=== PATIENT | female | born 1940 | race Caucasian/White ===

== ENCOUNTER 2020-03-25 08:39 | Outpatient (REF) | payer MEDICARE, SELFPAY ==
--- NOTE | 2020-03-25 09:18 | XR_ITS ---
EXAMINATION: XR HIP, RIGHT CLINICAL INFORMATION: Right hip osteoarthritis. COMPARISON: Radiograph dated 12/04/2010. TECHNIQUE: AP and frog-leg lateral views of the right hip. FINDINGS: Bony alignment and mineralization are normal. There is mild narrowing of the superomedial right acetabular joint space. The right acetabular roof shows mild subchondral sclerosis and peripheral osteophyte formation. The right femoral head remains smooth. Healing fractures are redemonstrated of the right superior and inferior pubic rami medially, with callus formation and persistent fracture lines. No dislocation is seen. There are calcified pelvic phleboliths. There are femoral atherosclerotic calcifications. No foreign body is seen IMPRESSION: 1. There is mild osteoarthritic change of the right hip. 2. There are healing fractures of the superior and inferior right pubic rami, with callus formation persistent fracture lines.
[2020-03-25 09:43] LABS: MANUAL DIFF FLAG NO
[2020-03-25 09:47] LABS: Eosinophils Absolute Auto 0.1 X10*3/uL (0.0-0.4); Eosinophils Percent Auto 1.2 % (0-4); Hematocrit 39.4 % (37-47); Hemoglobin 13.4 g/dl (12.0-16.0); Imm Gran Abs Auto 0.01 X10*3/uL (0.00-0.03); Imm Gran Pct Auto 0.1 % (0.0-0.4); Lymphocytes Percent Auto 27.7 % (20-40); Mean Corpuscular Hemoglobin 31.5 pg (27.0-33.0); Mean Corpuscular Volume 92.5 fL (80-98); Mean Platelet Volume 10.9 fL (9.4-12.3); Monocytes Absolute Auto 0.9 X10*3/uL (0.1-1.2); Monocytes Percent Auto 11.7 % (2-11); Neutrophils Absolute Auto 4.3 X10*3/uL (2.0-8.3); Neutrophils Percent Auto 59.3 % (45-73); Platelet Count 254 X10*3/uL (160-400); Red Blood Count 4.26 X10*6/uL (4.20-5.50); Red Cell Distribution Width 12.9 % (11.0-16.0); White Blood Count 7.3 X10*3/uL (4.8-10.8)
[2020-03-25 10:16] LABS: Alanine Aminotransferase 19 U/L (0-31); Albumin Level 4.2 g/dL (3.5-5.0); Alkaline Phosphatase 113 U/L (39-117); Anion Gap 11 (12-20); Aspartate Amino Transferase 22 U/L (5-31); Bilirubin Total 0.2 mg/dL (0.0-1.0); Blood Urea Nitrogen 10 mg/dL (9-16); Calcium 9.2 mg/dL (8.4-10.2); Carbon Dioxide 28 mmol/L (22-29); Chloride 100 mmol/L (96-108); Cholesterol 227 mg/dL; Estimated Glomerular Filt Rate > 60; Glucose Random 111 mg/dL (60-115); HDL Cholesterol 66 mg/dL; LDL Cholesterol Calculated 137 mg/dl; Potassium 4.1 mmol/l (3.3-5.1); Sodium 135 mmol/L (135-145); Total Protein 6.9 g/dL (6.5-8.0); Triglycerides 122 mg/dL
[2020-03-25 10:25] LABS: Vitamin D 25-OH Total 35.9 ng/mL (>30)
== END 2020-03-25 08:40 | disposition home or self-care (01) ==
LOC: HO.LAB 08:39
PROVIDERS: PCP Internal Medicine; Visit Provider Internal Medicine
DX: F32.5 Major depressive disorder, single episode, in full remission (principal); I10 Essential (primary) hypertension; M16.11 Unilateral primary osteoarthritis, right hip
CPT/HCPCS: 36415; 73502; 80053; 80061; 82306; 84443; 85025

== ENCOUNTER 2020-04-29 07:35 | Emergency (ER) | payer MEDICARE, SELFPAY ==
--- NOTE | 2020-04-29 07:47 | ED.URI ---
HPI - URI/Sore Throat General Chief Complaint: Nausea/Vomiting/Diarrhea Stated Complaint: DRY COUGH WEAKNESS Time Seen by Provider: 04/29/20 07:47 Source: patient Mode of arrival: ambulatory Limitations: no limitations History of Present Illness MD elicited complaint: cough and other (nausea, just doesn't feel well ) Onset (ago): day(s) (3 days ago) Consistency: constant Severity: mild Able to tolerate fluids by mouth: Yes Exacerbating factors: nothing Relieving factors: nothing Associated symptoms: myalgias, cough (dry) and nausea Related Data Previous Rx's Medication Instructions Recorded cefuroxime axetil 250 mg PO BID 7 Days #14 tab 04/29/20 ondansetron 4 mg PO Q8H PRN #20 tab 04/29/20 Allergies Allergy/AdvReac Type Severity Reaction Status Date / Time No Known Allergies Allergy Mild NOT Unverified 03/03/20 15:27 APPLICABLE Review of Systems Review of Systems: Constitutional : No Weight loss, No Fever, No Chills ENT/Mouth : No sore throat, No Rhinorrhea Eyes: No Swelling, No Redness Cardiovascular : No Chest Pain, No SOB, No Edema Respiratory : pos Cough, No Sputum, No Wheezing Gastrointestinal : Positive Nausea, no Vomiting, no Diarrhea, no abdominal Pain, No Hematochezia, No Melena Genitourinary : No Dysuria, No Urinary Frequency, No Hematuria, No Urgency Musculoskeletal : No joint pain, No Myalgias, No Joint Swelling Skin : No Skin Lesions, No rash Neuro : No Weakness, No Numbness, No Dizziness, No Headache Psych : No Anxiety/Panic, No Depression Heme/Lymph: No Bruising, No Lymphadenopathy Endocrine : No Polyuria, No Polydipsia All other systems reviewed and are negative. FOR[facility]LY [facility] Past Medical History Attestation statement: The following information was validated with the patient. Medical History (Updated 04/29/20 @ 09:58 by Sadia London DO) Hypertension Surgical History (Updated 04/29/20 @ 08:03 by Sadia London DO) Hx of breast reduction, elective Social History Social History (Updated 04/29/20 @ 08:03 by Sadia London DO) Smoking Status: Never smoker Use of substances other than those prescribed or required for medical reasons: No Advance Directives: No Advance Directives Information Provided: Yes Physical Exam Vital Signs: Vital Signs: Last Vital Signs Temp 98.2 F 04/29/20 07:54 Pulse 67 04/29/20 08:00 Resp 16 04/29/20 08:00 BP 142/75 H 04/29/20 08:00 Pulse Ox 97 04/29/20 08:18 Body Mass Index 25.0 Course Course Course Narrative: patient has UTI will prescribe antibiotics no fevers, no WBC count, can tolerate PO MDM - URI/Sore Throat MDM Narrative Medical decision making narrative: 79 yo female with hx of HTN here with nausea and cough/body aches just doesn't feel well, no CP, no abdominal pain or ttp at this time will obtain labs, EKG, CXR, COVID swab, IV zofran, dispo per results and improvement Medical Records Attestation: I reviewed the patient's medical records. Lab Data Result diagrams: 04/29/20 08:13 04/29/20 08:13 Labs: Lab Results 04/29/20 04/29/20 04/29/20 Range/Units 08:13 08:13 08:13 WBC 9.1 (4.8-10.8) X10*3/uL RBC 4.18 L (4.20-5.50) X10*6/uL Hgb 13.0 (12.0-16.0) g/dl Hct 39.4 (37-47) % MCV 94.3 (80-98) fL MCH 31.1 (27.0-33.0) pg MCHC 33.0 (31.0-35.0) g/dl RDW 13.1 (11.0-16.0) % Plt Count 271 (160-400) X10*3/uL MPV 9.4 (9.4-12.3) fL Immature Gran % (Auto) 0.2 (0.0-0.4) % Neut % (Auto) 65.9 (45-73) % Lymph % (Auto) 23.2 (20-40) % [place] % (Auto) 9.4 (2-11) % Eos % (Auto) 1.2 (0-4) % Baso % (Auto) 0.1 (0-2) % Lymph # (Auto) 2.1 (1.2-4.9) X10*3/uL [place] # (Auto) 0.9 (0.1-1.2) X10*3/uL Eos # (Auto) 0.1 (0.0-0.4) X10*3/uL Baso # (Auto) 0.0 (0.0-0.2) X10*3/uL Abs Immat Gran (auto) 0.02 (0.00-0.03) X10*3/uL Absolute Neuts (auto) 6.0 (2.0-8.3) X10*3/uL Absolute Nucleated RBC 0.000 (0.0-0.012) X10*3/uL Nucleated RBC % (auto) 0.0 (0.0-0.2) /100WBC Hold Blue Top SEE NOTE Sodium 137 (135-145) mmol/L Potassium 4.3 (3.3-5.1) mmol/l Chloride 102 (96-108) mmol/L Carbon Dioxide 26 (22-29) mmol/L Anion Gap 13 (12-20) BUN 11 (9-16) mg/dL Creatinine 0.70 (0.5-1.4) mg/dL Estim Creat Clear Calc 64.6 Estimated GFR > 60 Random Glucose 100 (60-115) mg/dL Calcium 8.9 (8.4-10.2) mg/dL Magnesium 2.0 (1.6-2.6) mg/dL Total Bilirubin 0.6 (0.0-1.0) mg/dL Direct Bilirubin 0.2 (0.0-0.5) mg/dL AST 19 (5-31) U/L ALT 14 (0-31) U/L Alkaline Phosphatase 98 (39-117) U/L Troponin I High Sens (<3.5-17.0) ng/L Total Protein 6.8 (6.5-8.0) g/dL Albumin 4.0 (3.5-5.0) g/dL Lipase 24 (8-78) U/L Urine Color Urine Appearance Urine pH (5.0-8.0) Ur Specific Pep (1.005-1.025) Urine Protein (NEG-TRACE) MG/DL Urine Glucose (UA) (NEG) MG/DL Urine Ketones (NEG) MG/DL Urine Blood (NEG) Urine Nitrite (NEG) Ur Leukocyte Esterase (NEG) Coronavirus (PCR) (Negative) Influenza Type A (PCR) (Negative) Influenza Type B (PCR) (Negative) RSV RNA Qual (PCR) (Negative) 04/29/20 04/29/20 04/29/20 Range/Units 08:13 08:13 09:36 WBC (4.8-10.8) X10*3/uL RBC (4.20-5.50) X10*6/uL Hgb (12.0-16.0) g/dl Hct (37-47) % MCV (80-98) fL MCH (27.0-33.0) pg MCHC (31.0-35.0) g/dl RDW (11.0-16.0) % Plt Count (160-400) X10*3/uL MPV (9.4-12.3) fL Immature Gran % (Auto) (0.0-0.4) % Neut % (Auto) (45-73) % Lymph % (Auto) (20-40) % Juncos % (Auto) (2-11) % Eos % (Auto) (0-4) % Baso % (Auto) (0-2) % Lymph # (Auto) (1.2-4.9) X10*3/uL [place] # (Auto) (0.1-1.2) X10*3/uL Eos # (Auto) (0.0-0.4) X10*3/uL Baso # (Auto) (0.0-0.2) X10*3/uL Abs Immat Gran (auto) (0.00-0.03) X10*3/uL Absolute Neuts (auto) (2.0-8.3) X10*3/uL Absolute Nucleated RBC (0.0-0.012) X10*3/uL Nucleated RBC % (auto) (0.0-0.2) /100WBC Hold Blue Top Sodium (135-145) mmol/L Potassium (3.3-5.1) mmol/l Chloride (96-108) mmol/L Carbon Dioxide (22-29) mmol/L Anion Gap (12-20) BUN (9-16) mg/dL Creatinine (0.5-1.4) mg/dL Estim Creat Clear Calc Estimated GFR Random Glucose (60-115) mg/dL Calcium (8.4-10.2) mg/dL Magnesium (1.6-2.6) mg/dL Total Bilirubin (0.0-1.0) mg/dL Direct Bilirubin (0.0-0.5) mg/dL AST (5-31) U/L ALT (0-31) U/L Alkaline Phosphatase (39-117) U/L Troponin I High Sens 3.8 (<3.5-17.0) ng/L Total Protein (6.5-8.0) g/dL Albumin (3.5-5.0) g/dL Lipase (8-78) U/L Urine Color STRAW Urine Appearance HAZY Urine pH 6.0 (5.0-8.0) Ur Specific Pep 1.010 (1.005-1.025) Urine Protein NEG (NEG-TRACE) MG/DL Urine Glucose (UA) NEG (NEG) MG/DL Urine Ketones NEG (NEG) MG/DL Urine Blood NEG (NEG) Urine Nitrite POS H (NEG) Ur Leukocyte Esterase TRACE H (NEG) Coronavirus (PCR) NEGATIVE (Negative) Influenza Type A (PCR) NEGATIVE (Negative) Influenza Type B (PCR) NEGATIVE (Negative) RSV RNA Qual (PCR) NEGATIVE (Negative) ECG Data Attestation: I personally reviewed and interpreted this ECG as follows: ECG interpretation date: 04/29/20 ECG interpretation time: 08:39 Interpretation: Rate: 63 Rhythm: NSR Only: normal Normal P waves. Normal ANY. Normal QRS complex. ST T wave : normal qTC: normal prior studies: no acute ischemia The study has been interpreted contemporaneously by me. . Discharge Plan Discharge Clinical Impression: Nausea, Acute UTI Patient Disposition: Home, Self-Care Instructions: Acute Nausea and Vomiting (ED), Urinary Tract Infection in Older Adults (ED) Additional Instructions: return to ED for any worsening symptoms or concerns Prescriptions: New ondansetron 4 mg tablet,disintegrating 4 mg PO Q8H PRN (Reason: nausea and vomiting) Qty: 20 RF: 0 cefuroxime axetil 250 mg tablet 250 mg PO BID 7 Days Qty: 14 RF: 0 Referrals: Veena Meyer MD [Primary Care Provider] - 2 days (if not better)
--- NOTE | 2020-04-29 07:53 | XR_ITS ---
EXAMINATION: XR CHEST CLINICAL INFORMATION: Dyspnea COMPARISON: None TECHNIQUE: Frontal view of the chest was obtained. FINDINGS: The cardiac and mediastinal contours are normal. The lungs are clear. There is no pleural effusion or pneumothorax. There are degenerative changes of the spine. There is increased sclerosis of the right proximal humerus probably representing a bone island. XR/XR chest 1V IMPRESSION: No evidence for acute disease in the chest.
--- NOTE | 2020-04-29 07:53 | ECG_ITS ---
Test Reason : SOB Blood Pressure : / mmHG Vent. Rate : 063 BPM Atrial Rate : 063 BPM P-R Int : 190 ms QRS Dur : 080 ms QT Int : 426 ms P-R-T Axes : 014 000 034 degrees QTc Int : 435 ms Normal sinus rhythm with sinus arrhythmia Normal ECG When compared with ECG of 31-DEC-2012 10:59, No significant change was found Referred By: Sadia London Electronically Signed By:AUGUSTA OCONNOR MD
[2020-04-29 07:54] VITALS: BP 142/75; PULSE 67; RESP 16; TEMP 36.8; O2SAT 96; BMI 25.0
[2020-04-29 08:00] VITALS: BP 142/75; PULSE 67; RESP 16
[2020-04-29 08:18] VITALS: O2SAT 97
[2020-04-29 08:27] LABS: Basophils Percent Auto 0.1 % (0-2); Eosinophils Absolute Auto 0.1 X10*3/uL (0.0-0.4); Eosinophils Percent Auto 1.2 % (0-4); Hematocrit 39.4 % (37-47); Imm Gran Abs Auto 0.02 X10*3/uL (0.00-0.03); Imm Gran Pct Auto 0.2 % (0.0-0.4); Lymphocytes Absolute Auto 2.1 X10*3/uL (1.2-4.9); Lymphocytes Percent Auto 23.2 % (20-40); MANUAL DIFF FLAG NO; Mean Corpuscular Hemoglobin 31.1 pg (27.0-33.0); Mean Corpuscular Volume 94.3 fL (80-98); Mean Platelet Volume 9.4 fL (9.4-12.3); Monocytes Absolute Auto 0.9 X10*3/uL (0.1-1.2); Monocytes Percent Auto 9.4 % (2-11); Neutrophils Percent Auto 65.9 % (45-73); Platelet Count 271 X10*3/uL (160-400); Red Blood Count 4.18 X10*6/uL (4.20-5.50); Red Cell Distribution Width 13.1 % (11.0-16.0); White Blood Count 9.1 X10*3/uL (4.8-10.8)
[2020-04-29] MEDS: 0.9 % Sodium Chloride 500 ML IV (08:38)
[2020-04-29] MEDS: ondansetron HCL 4 MG/2 ML VIAL IVPUSH (08:39)
[2020-04-29 08:56] LABS: Alanine Aminotransferase 14 U/L (0-31); Alkaline Phosphatase 98 U/L (39-117); Anion Gap 13 (12-20); Aspartate Amino Transferase 19 U/L (5-31); Bilirubin Direct 0.2 mg/dL (0.0-0.5); Bilirubin Total 0.6 mg/dL (0.0-1.0); Blood Urea Nitrogen 11 mg/dL (9-16); Calcium 8.9 mg/dL (8.4-10.2); Carbon Dioxide 26 mmol/L (22-29); Chloride 102 mmol/L (96-108); Creatinine Clr Calc Pharmacy 64.6; Estimated Glomerular Filt Rate > 60; Glucose Random 100 mg/dL (60-115); Lipase 24 U/L (8-78); Potassium 4.3 mmol/l (3.3-5.1); Sodium 137 mmol/L (135-145); Total Protein 6.8 g/dL (6.5-8.0)
[2020-04-29 09:01] LABS: Troponin-I High Sensitivity 3.8 ng/L (<3.5-17.0)
[2020-04-29 09:29] LABS: Influenza A PCR NEGATIVE (Negative); Influenza B PCR NEGATIVE (Negative); Resp Syncy Virus RNA Qual PCR NEGATIVE (Negative); SARS COV2 PCR INHOUSE NEGATIVE (Negative)
[2020-04-29 09:47] LABS: Glucose Urine UA NEG (NEG); Leukocyte Esterase Urine TRACE (NEG); Nitrite Urine POS (NEG); Urine Blood NEG (NEG); Urine Ketones NEG (NEG); Urine Protein NEG (NEG-TRACE)
[2020-04-29 09:49] LABS: Appearance Urine HAZY; Color Urine STRAW
[2020-04-29 09:57] LABS: Bacteria Urine 4+ /LPF; RBC Urine 0 /HPF (0)
[2020-04-29 10:31] VITALS: BP 137/71; PULSE 66; RESP 14; TEMP 36.7
== END 2020-04-29 10:56 | disposition home or self-care (01) ==
PROVIDERS: Emergency Provider Emergency Medicine; PCP Internal Medicine
DX: N39.0 Urinary tract infection, site not specified (principal); R05 Cough; Z79.899 Other long term (current) drug therapy; Z20.828 Contact with and (suspected) exposure to other viral communicable diseases
CPT/HCPCS: 0241U; 36415; 71045; 80048; 80076; 81001; 83690; 83735; 84484; 85025; 87086; 87088; 87186; 93005; 96361; 96374; 99284; 99285; J2405

== ENCOUNTER 2020-09-20 08:36 | Outpatient (REF) | payer MEDICARE, SELFPAY ==
--- NOTE | ~2020-09-20 | MM_ITS ---
EXAMINATION: BONE DENSITOMETRY CLINICAL INDICATION: Menopausal. COMPARISON: Baseline BD dated 01/17/2012. TECHNIQUE: Using a [employer] DXA System (software version: 13.1) manufactured by [id number], dual-energy x-ray absorptiometry was performed of the lumbar spine and left hip. The images are of good technical quality. Summary results are attached. FINDINGS: AP SPINE L1-L2 (excluding L3 and L4): The data of L1-L4 has been changed to exclude the L3 and L4 vertebral bodies, because degenerative changes at these levels may cause overestimation of lumbar spine density. Current: BMD 0.790 g/cm2, Z-score -1.4, T-score -3.1, osteoporosis, 13.1% decrease from baseline (<5% change is not significant). Baseline: BMD 0.909 g/cm2. LEFT FEMUR, NECK: Current: BMD 0.975 g/cm2, Z-score 1.7, T-score -0.5, normal. Baseline: BMD 0.992 g/cm2. LEFT FEMUR, TOTAL: Current: BMD 1.031 g/cm2, Z-score 2.2, T-score 0.2, normal, 0.2% decrease from baseline (<5% change is not significant). Baseline: BMD 1.033 g/cm2. IDENTIFIED RISK FACTORS: Menopause, history of fracture (adult), height loss, family history (parental hip fracture). HISTORY OF FRACTURE: Pubic ramus. MEDICATIONS: Vitamin D, multivitamin. MM/XR DEXA axial skeleton IMPRESSION: 1. DIAGNOSIS: Osteoporosis based on the lowest T-score value of -3.1 in the lumbar spine applying World Health Organization criteria. 2. 10-YEAR FRACTURE RISK PREDICTION, FRAX: Major osteoporotic fracture (clinical spine, forearm, hip or shoulder) 22.2%. Hip fracture 9.0%. 3. Treatment Recommendations: NOF guidelines recommend consideration for treatment in postmenopausal women and men age 50 and older presenting with the following: -A hip or vertebral (clinical or morphometric) fracture. -T-score less than or equal to -2.5 at the femoral neck or spine after appropriate evaluation to exclude secondary causes. -Low bone mass at the hip or spine and a 10-year fracture probability by FRAX of greater than or equal to 3% for hip fracture or greater than or equal to 20% for major osteoporotic fracture based on the [place] adapted WHO algorithm. 4. Other Recommendations: All treatment decisions require clinical judgment and consideration of individual patient factors, including patient preferences, comorbidities, previous drug use, risk factors not captured in the FRAX model (e.g. frailty, falls, vitamin D deficiency, increased bone turnover, interval significant decline in bone density) and possible under or overestimation of fracture risk by FRAX. Additional medical evaluation for secondary cause of low bone mineral density may be appropriate. FUTURE SCAN RECOMMENDATION: People with diagnosed cases of osteoporosis or at high risk for fracture should have regular bone mineral density tests. For patients eligible for Medicare, routine testing is allowed once every 2 years. The testing frequency can be increased to one year for patients who have rapidly progressing disease, those who are receiving or discontinuing medical therapy to restore bone mass, or have additional risk factors.
--- NOTE | ~2020-09-20 | MM_ITS ---
EXAMINATION: MM SCREENING DIGITAL BREAST TOMOSYNTHESIS, BILATERAL CLINICAL INFORMATION: Screening. Asymptomatic. The lifetime risk of breast cancer based on the Tyrer-Cuzick Model is 2%. COMPARISON: Mammography: 04/06/2015, 03/17/2014 TECHNIQUE: Digital breast tomosynthesis is performed in both the craniocaudal and mediolateral oblique views along with computer-aided detection (CAD). Synthesized 2D images are generated from the tomosynthesis. Additional left MLO view is provided. FINDINGS: The breasts are heterogeneously dense, which may obscure small masses (ACR BI-RADS breast composition Category c). Parenchymal pattern is similar to prior studies. There are scattered stable fibroglandular asymmetries and fibronodular pattern. There is no interval mass or architectural abnormality or abnormal calcifications. Again, biopsy clip marker is noted anterior 11:30 right breast. No significant changes. MM/MM tomosynthesis screening BI IMPRESSION: No mammographic evidence of malignancy. ASSESSMENT: BI-RADS 2: Benign RECOMMENDATION: Routine annual mammography screening. This patient's information was entered into a reminder system with a target due date for their next mammogram.
== END 2020-09-20 08:37 | disposition home or self-care (01) ==
LOC: HO.MAMMO 08:36
PROVIDERS: PCP Internal Medicine; Visit Provider Internal Medicine
DX: Z12.31 Encounter for screening mammogram for malignant neoplasm of breast (principal); Z78.0 Asymptomatic menopausal state; R29.890 Loss of height; R06.02 Shortness of breath; I50.30 Unspecified diastolic (congestive) heart failure
CPT/HCPCS: 77063; 77067; 77080

== ENCOUNTER → 2020-10-31 10:24 | Outpatient (REF) | payer MEDICARE, SELFPAY ==
--- NOTE | 2020-10-31 10:30 | CA_ITS ---
Transthoracic Echocardiogram Patient (Last, First, Middle): Christina Chavez, Gender: Female Date of : 1940 Age: 80 Procedure Date: 10/31/2020 Procedure Type: Transthoracic Echocardiogram Location: OP Height: 172.72 cm Weight: 72.58 kg BSA: 1.86 m2 Heart Rate: bpm BP: 150 / 80 mmHg Bus System Operator: GRECIA Ibarra MD: Duane Purvis MD Technical Support Specialist: Neftaly Noland MD Symptoms: SOB, ABN NORMAL STUDY 2012, R/O CHF Study Quality: Fair Conclusions: - 1. Normal LV systolic function with pseudonormal filling pattern 2. Moderately dilated left atrium 3. Mild aortic regurgitation 4. Normal RV systolic pressure 5. No pericardial effusion Findings Left Ventricle Normal left ventricular size, thickness, and systolic function. The visually estimated ejection fraction is between 55-60%. Spectral Doppler is indicative of a pseudonormal filling pattern. E/E prime ratio is between 8 and 15 consistent with indeterminate filling pressures. Right Ventricle Normal right ventricular cavity size and systolic function. Atria The left atrium is moderately dilated. There is a mobile atrial septum noted. Interatrial shunt cannot be excluded. The right atrium is mildly dilated. Aortic Valve The aortic valve structure and function is likely normal. There is no aortic valve stenosis. There is mild aortic valve regurgitation. Mitral Valve There is mild anterior and moderate posterior mitral leaflet thickening. There is trace mitral valve regurgitation. There is no mitral valve stenosis. Pulmonic Valve The pulmonic valve was not well visualized. Tricuspid Valve Likely normal tricuspid valve structure and function. There is mild tricuspid valve regurgitation. The right ventricular systolic pressure is normal. The right ventricular systolic pressure is 33 mmHg. Normal right atrial pressure. There is no evidence of pulmonary hypertension. Great Vessels All visible segments of the aorta are normal in size. The pulmonary artery was not well visualized. Venous The inferior vena cava is normal in size and collapses greater than 50% with inspiration. Pericardium/Pleural There is no evidence of pericardial effusion. Prior Study Comparison No previous study in the last 5 years for comparison Measurements 2D Linear Measurements IVSd: 1.11 0.6-0.9/0.6-1.0 cm LVIDd: 5.08 3.9-5.3/4.2-5.9 cm LVIDd Index: 2.73 2.4-3.2/2.2-3.1 cm/m2 LVIDs: 3.35 2.0-3.6 cm LVPWd: 1.04 0.7-1.1 cm Ao Root: 3.70 2.1-3.5 cm LA Diam: 4.20 2.7-3.8/3.0-4.0 cm LAIDs Index: 2.26 1.5-2.3 cm/m2 LV Mass: 256.71 67-162/88-224 g LV Mass Index: 138.02 43-95/49-115 g/m2 LVOT Diam: 2.20 3.0+(-)1.3 cm 2D Systolic Function EF 4C: 55.90 >55% EF 2C: 60.50 >55% EF BiP: 57.70 >55% Mitral Valve MV Pk E: 0.73 MV PK A: 0.59 MV Decel Time: 316.00 E/A: 1.20 E'Lateral: 7.18 E'Medial: 6.96 E/E' Med: 10.50 E/E' Lat: 10.10 PHT: 93.00 MVA PHT: 2.37 Decel [place]: 2.30 Aortic Valve AoV Pk Rivera: 1.26 AoV Mn Rivera: 0.85 AoV VTI: 0.31 AoV Pk Grad: 6.00 Aov Mn Grad: 3.00 JOHNNY Cont.VTI: 2.89 LVOT LVOT Pk Rivera: 1.05 LVOT Mn Rivera: 0.67 LVOT VTI: 0.23 LVOT Pk Grad: 4.00 LVOT Mn Grad: 2.00 LVOT Diam: 2.20 LVOT Area: 3.80 Diastolic Function MV Pk E: 0.73 MV Pk A: 0.59 E/A: 1.20 E'Medial: 6.96 E/E' Med: 10.50 E' Laterial: 7.18 E/E' Lat: 10.10 Tricuspid Valve TR Pk Rivera: 2.48 TR Pk Grad: 25.00 RA Press: 8.00 RVSP: 33.00 Great Vessels Aorta Ao Root-2D: 3.70 2.0-3.7 cm Ao Asc: 3.70 2.1-3.4 cm Ao Arch: 2.80 Updated in Other Vendor System with Status of Final Neftaly Noland MD electronically signed on 10/31/2020 12:29:11 PM with status of Final
== END ==
LOC: HO.CARD 10:24
PROVIDERS: PCP Internal Medicine; Visit Provider Internal Medicine
DX: R06.02 Shortness of breath (principal)
CPT/HCPCS: 93306

== ENCOUNTER 2020-12-05 08:10 | Outpatient (REF) | payer MEDICARE, SELFPAY ==
--- NOTE | ~2020-12-05 | XR_ITS ---
EXAMINATION: XR FEMUR, RIGHT CLINICAL INFORMATION: Pain mid femur. Question fracture. COMPARISON: Previous x-rays September and March 2020 TECHNIQUE: AP and lateral views of the right femur were obtained. FINDINGS: No acute fracture or dislocation is seen. There is evidence of old healed right pubic rami fractures. There is mild arthritis at the right hip joint. Joint space narrowing and osteophyte formation. There are small osteophytes at the medial femoral tibial joint of the knee. There is soft tissue arterial calcification. XR/XR femur RT 2V IMPRESSION: No acute fracture is seen. Old fractures of the right pubic symphysis. Mild arthritis at the right hip and knee joints.
== END 2020-12-05 08:11 | disposition home or self-care (01) ==
LOC: HO.XRAY 08:10
PROVIDERS: PCP Internal Medicine; Visit Provider Internal Medicine
DX: M79.661 Pain in right lower leg (principal); M25.551 Pain in right hip
CPT/HCPCS: 73552

== ENCOUNTER 2021-11-27 12:20 | Outpatient (REF) | payer MEDICARE, SELFPAY ==
[2021-11-27 13:00] LABS: COVID-19 Test Positive (Negative); IDNOW Serial# 08D9AD1C
== END 2021-11-27 12:21 | disposition home or self-care (01) ==
LOC: HO.LAB 12:20
PROVIDERS: Visit Provider Internal Medicine
DX: Z20.822 Contact with and (suspected) exposure to COVID-19 (principal)
CPT/HCPCS: 87635; C9803

== ENCOUNTER 2022-03-07 15:07 | Observation (INO) | payer MEDICARE, SELFPAY ==
--- NOTE | ~2022-03-07 | XR_ITS ---
EXAMINATION: XR CHEST CLINICAL INFORMATION: Chest pain COMPARISON: 04/29/2020 TECHNIQUE: Frontal view of the chest was obtained. FINDINGS: No significant abnormality is noted involving the heart, lungs, mediastinum, bony thorax or soft tissues. 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 XR/XR chest 1V IMPRESSION: No acute intrathoracic disease.
--- NOTE | ~2022-03-07 | CT_ITS ---
EXAMINATION: CT ABDOMEN AND PELVIS WITH CONTRAST CLINICAL INFORMATION: Weight loss. Lack stool. COMPARISON: CT abdomen pelvis 12/31/2012 TECHNIQUE: Multidetector volumetric images were obtained from the superior aspect of the liver through the pubic symphysis following administration 85 mL of Omnipaque 350 intravenous contrast. Sagittal and coronal reformatted images were obtained on the technologist's workstation. Oral contrast: No This CT examination was performed using dose optimization techniques as appropriate, variously including the following: *Automated exposure control *Adjustment of mA and/or kV according to patient size (this includes techniques or standardized protocols for targeted exams where dose is matched to indication/reason for exam; i.e. extremities or head) *Use of iterative reconstruction technique DLP: 469 mGy-cm FINDINGS: LUNG BASES: Stable 6 mm nodule in the right middle lobe image 02/07 series 7. Unchanged since 2012. No further follow-up imaging recommended.. There are calcification of coronary arteries. LIVER, GALLBLADDER, AND BILIARY TREE: The liver is normal in size, shape, and attenuation. No focal hepatic lesion or biliary ductal dilatation is present. The gallbladder is unremarkable with no evidence of radiopaque gallstones, gallbladder wall thickening, or obvious pericholecystic inflammatory changes. PANCREAS: Unremarkable. SPLEEN: Small splenule at the splenic hilum. No splenic mass. ADRENAL GLANDS: Calcification right adrenal gland. Left adrenal gland is normal KIDNEYS AND URETERS: The kidneys are normal in size, shape, and attenuation. No hydronephrosis, hydroureter, or calculi seen. No perinephric stranding. BLADDER: Unremarkable. GASTROINTESTINAL TRACT: There are numerous diverticula throughout the colon. There is no diverticulitis. There is no bowel wall thickening /edema. There is no bowel obstruction. There is a moderate volume of stool in the colon. The appendix is normal . The small bowel loops are unremarkable. The stomach is normal. There is no hiatal hernia. ABDOMINAL WALL: No significant hernia is appreciated. LYMPH NODES: Normal. VASCULAR: Vascular calcifications in the abdomen and pelvis. There is no aneurysm. PELVIC VISCERA: Unremarkable. OSSEOUS STRUCTURES: Multilevel degenerative spondylosis spine. Grade 1 anterolisthesis of L5 on S1 due to facet joint disease. No spondylolysis. Moderate degenerative joint disease of the right hip. Residual deformity from old healed fracture of the right superior and inferior pubic ramus CT/CT abdomen pelvis w IV con IMPRESSION: No acute abnormality CT scan abdomen pelvis. Marked diverticulosis of colon but no evidence of diverticulitis. Fleischner guidelines were followed.
--- NOTE | 2022-03-07 15:21 | ECG_ITS ---
Test Reason : chest pain Blood Pressure : / mmHG Vent. Rate : 067 BPM Atrial Rate : 067 BPM P-R Int : 180 ms QRS Dur : 076 ms QT Int : 406 ms P-R-T Axes : 053 -07 012 degrees QTc Int : 429 ms Normal sinus rhythm Minimal voltage criteria for LVH, may be normal variant ( R in aVL ) Borderline ECG When compared with ECG of 29-APR-2020 08:17, No significant change was found Referred By: Generic ED Physician Electronically Signed By:LUDY MAST
[2022-03-07 15:24] VITALS: BP 155/66; PULSE 66; RESP 18; TEMP 37.4; O2SAT 97; BMI 22.0
[2022-03-07 15:39] LABS: MANUAL DIFF FLAG NO
[2022-03-07 15:50] LABS: Basophils Percent Auto 0.1 % (0-2); Eosinophils Absolute Auto 0.1 X10*3/uL (0.0-0.4); Eosinophils Percent Auto 1.3 % (0-4); Hematocrit 36.9 % (37.0-47.0); Hemoglobin 12.4 g/dl (12.0-16.0); Imm Gran Abs Auto 0.02 X10*3/uL (0.00-0.03); Imm Gran Pct Auto 0.3 % (0.0-0.4); Lymphocytes Absolute Auto 2.3 X10*3/uL (1.2-4.9); Lymphocytes Percent Auto 30.7 % (20-40); Mean Corpuscular HGB Conc 33.6 g/dl (31.0-35.0); Mean Corpuscular Hemoglobin 30.6 pg (27.0-33.0); Mean Corpuscular Volume 91.1 fL (80.0-98.0); Mean Platelet Volume 9.5 fL (9.4-12.3); Monocytes Percent Auto 13.5 % (2-11); Neutrophils Absolute Auto 4.1 x10*3/uL (2.0-8.3); Neutrophils Percent Auto 54.1 % (45-73); Platelet Count 266 X10*3/uL (160-400); Red Blood Count 4.05 X10*6/uL (4.20-5.50); Red Cell Distribution Width 12.6 % (11.0-16.0); White Blood Count 7.6 X10*3/uL (4.8-10.8)
[2022-03-07 15:56] LABS: Anion Gap 13 (12-20); Blood Urea Nitrogen 15 mg/dL (9-16); Calcium 9.4 mg/dL (8.4-10.2); Carbon Dioxide 28 mmol/L (22-29); Chloride 101 mmol/L (96-108); Creatinine Clr Calc Pharmacy 57.5; Estimated Glomerular Filt Rate > 60; Glucose Random 108 mg/dL (60-115); Potassium 4.2 mmol/L (3.3-5.1); Sodium 138 mmol/L (135-145)
[2022-03-07 16:02] LABS: COVID-19 Test Negative (Negative); IDNOW Serial# 16C4AD1C
[2022-03-07 16:04] LABS: Troponin-I High Sensitivity < 3.5 ng/L (<3.5-17.0)
[2022-03-07 17:59] VITALS: BP 180/76; PULSE 68; RESP 15; TEMP 36.8; O2SAT 98
--- NOTE | 2022-03-07 18:06 | PC.NURSE ---
Dr. Krishnamurthy aware of patients blood pressure
--- NOTE | 2022-03-07 18:40 | ED.CHESTPAIN ---
HPI - Chest Pain General Chief Complaint: Chest Pain Stated Complaint: chest pain Time Seen by Provider: 03/07/22 18:00 Source: patient Mode of arrival: ambulatory Limitations: no limitations History of Present Illness HPI narrative: Patient comes to the emergency room complaining of bowel movements with dark stools, and epigastric pain/chest pain. Patient states that for the last couple of days she has had intermittent chest pain/epigastric pain/discomfort. Patient states that for the last 24 hours, she has been nearly asymptomatic, no chest pain/epigastric pain, no bowel movements. Patient states that she has had 1 episode of diarrhea. At this time, patient has no abdominal pain, no chest pain, no shortness of breath. Patient called her primary care physician earlier today and she was instructed to come to the emergency room to rule out cardiac chest pain. Patient also states that she has lost approximately 20 lb in 3-4 months. Patient states she is not as hungry as she used to be. Patient states that she has never had a colonoscopy in her life, patient has had upper endoscopies and has been diagnosed with peptic ulcers Related Data Previous Rx's Medication Instructions Recorded cefuroxime axetil 250 mg tablet 250 mg PO BID 7 days #14 tabs 04/29/20 ondansetron 4 mg disintegrating 4 mg PO Q8H PRN nausea and 04/29/20 tablet vomiting #20 tabs Allergies Allergy/AdvReac Type Severity Reaction Status Date / Time No Known Allergies Allergy Mild NOT Verified 03/07/22 15:24 APPLICABLE Review of Systems Review of Systems: Constitutional : No Weight loss, No Fever, No Chills, No Night Sweats, No Fatigue, No Malaise ENT/Mouth : No Hearing loss, No Ear Pain, No Nasal Congestion, No Sinus Pain, No Hoarseness, No sore throat, No Rhinorrhea, No Swallowing Difficulty Eyes: No Eye Pain, No Swelling, No Redness, No Foreign Body, No Discharge, No Vision Changes Cardiovascular : No Chest Pain, No SOB, No Dyspnea on Exertion, No Orthopnea, No Edema, No Palpitations Respiratory : No Cough, No Sputum, No Wheezing, No Smoke Exposure, No Dyspnea Gastrointestinal : No Nausea, No Vomiting, complaining of 1 episode of diarrhea, complained of epigastric/chest pain, complaining of recent black bowel movements Genitourinary : no irregular bleeding, No Dysuria, No Urinary Frequency, No Hematuria, No Urinary Incontinence, No Urgency, No Flank Pain, No Urinary Flow Changes, No Hesitancy Musculoskeletal : No joint pain, No Myalgias, No Joint Swelling Skin : No Skin Lesions, No rash Neuro : No Weakness, No Numbness, No Paresthesias, No Loss of Consciousness, No Dizziness, No Headache Psych : No Anxiety/Panic, No Depression, No SI/HI/AH/VH, No Social Issues, Heme/Lymph: No Bruising, No Bleeding,No Lymphadenopathy Endocrine : No Polyuria, No Polydipsia, No Temperature Intolerance [facility] Past Medical History Medical History Hypertension Surgical History Hx of breast reduction, elective Social History Social History (Updated 04/29/20 @ 08:03 by Lashell London DO) Advance Directives: No Advance Directives Information Provided: No Physical Exam Vital Signs: Vital Signs: Last Vital Signs Temp 98.3 F 03/07/22 17:59 Pulse 64 03/07/22 20:07 Resp 18 03/07/22 20:07 BP 163/68 H 03/07/22 20:07 Pulse Ox 96 03/07/22 20:07 O2 Del Method 03/07/22 20:07 BMI result Body Mass Index 22.0 Const: Other: Appearance: Alert. Oriented X3. No acute distress. Eyes: Pupils equal, round and reactive to light. ENT: Pharynx normal. Neck: Normal inspection. Neck supple. No lymph nodes noted. No crepitus CVS: Normal heart rate and rhythm. Pulses normal. Normal S1 and S2 Respiratory: No respiratory distress. Breath sounds normal. No Wheezing. No rales Abdomen: Soft and nontender. No rigidity. No distention. Digital rectal exam shows brownish stool, slightly blood-tinged Skin: Skin warm and dry. Normal skin color. Normal skin turgor. Extremities: No lower extremity edema. No Lacerations. No Rash Neuro: Oriented X 3. No motor deficit. No sensory deficit. Moving all extremities. No slurred speech. CN 2 through 12 grossly intact Psych: calm, cooperative, normal affect Course Course Course Narrative: Patient's hemoglobin and hematocrit are stable. Vitals are stable. However, patient does report a 20 lb weight loss, has an occult GI bleed. I discussed the patient with Dr. Watkins, pt is being admtted MDM - Chest Pain Lab Data Result diagrams: 03/07/22 15:36 03/07/22 15:36 Labs: Lab Results 03/07/22 03/07/22 03/07/22 Range/Units 15:36 15:36 15:36 WBC 7.6 (4.8-10.8) X10*3/uL RBC 4.05 L (4.20-5.50) X10*6/uL Hgb 12.4 (12.0-16.0) g/dl Hct 36.9 L (37.0-47.0) % MCV 91.1 (80.0-98.0) fL MCH 30.6 (27.0-33.0) pg MCHC 33.6 (31.0-35.0) g/dl RDW 12.6 (11.0-16.0) % Plt Count 266 (160-400) X10*3/uL MPV 9.5 (9.4-12.3) fL Immature Gran % (Auto) 0.3 (0.0-0.4) % Neut % (Auto) 54.1 (45-73) % Lymph % (Auto) 30.7 (20-40) % [place] % (Auto) 13.5 H (2-11) % Eos % (Auto) 1.3 (0-4) % Baso % (Auto) 0.1 (0-2) % Lymph # (Auto) 2.3 (1.2-4.9) X10*3/uL [place] # (Auto) 1.0 (0.1-1.2) X10*3/uL Eos # (Auto) 0.1 (0.0-0.4) X10*3/uL Baso # (Auto) 0.0 (0.0-0.2) X10*3/uL Abs Immat Gran (auto) 0.02 (0.00-0.03) X10*3/uL Absolute Neuts (auto) 4.1 (2.0-8.3) x10*3/uL Absolute Nucleated RBC 0.000 (0.0-0.012) X10*3/uL Nucleated RBC % (auto) 0.0 (0.0-0.2) /100WBC Sodium 138 (135-145) mmol/L Potassium 4.2 (3.3-5.1) mmol/L Chloride 101 (96-108) mmol/L Carbon Dioxide 28 (22-29) mmol/L Anion Gap 13 (12-20) BUN 15 (9-16) mg/dL Creatinine 0.76 (0.5-1.4) mg/dL Estim Creat Clear Calc 57.5 Estimated GFR > 60 Random Glucose 108 (60-115) mg/dL Calcium 9.4 (8.4-10.2) mg/dL Troponin I High Sens < 3.5 (<3.5-17.0) ng/L Stool Occult Blood (NEGATIVE) COVID-19 ([place]) (Negative) COVID-19 Clin Com 03/07/22 03/07/22 03/07/22 Range/Units 15:36 18:17 18:52 WBC (4.8-10.8) X10*3/uL RBC (4.20-5.50) X10*6/uL Hgb (12.0-16.0) g/dl Hct (37.0-47.0) % MCV (80.0-98.0) fL MCH (27.0-33.0) pg MCHC (31.0-35.0) g/dl RDW (11.0-16.0) % Plt Count (160-400) X10*3/uL MPV (9.4-12.3) fL Immature Gran % (Auto) (0.0-0.4) % Neut % (Auto) (45-73) % Lymph % (Auto) (20-40) % [place] % (Auto) (2-11) % Eos % (Auto) (0-4) % Baso % (Auto) (0-2) % Lymph # (Auto) (1.2-4.9) X10*3/uL [place] # (Auto) (0.1-1.2) X10*3/uL Eos # (Auto) (0.0-0.4) X10*3/uL Baso # (Auto) (0.0-0.2) X10*3/uL Abs Immat Gran (auto) (0.00-0.03) X10*3/uL Absolute Neuts (auto) (2.0-8.3) x10*3/uL Absolute Nucleated RBC (0.0-0.012) X10*3/uL Nucleated RBC % (auto) (0.0-0.2) /100WBC Sodium (135-145) mmol/L Potassium (3.3-5.1) mmol/L Chloride (96-108) mmol/L Carbon Dioxide (22-29) mmol/L Anion Gap (12-20) BUN (9-16) mg/dL Creatinine (0.5-1.4) mg/dL Estim Creat Clear Calc Estimated GFR Random Glucose (60-115) mg/dL Calcium (8.4-10.2) mg/dL Troponin I High Sens < 3.5 (<3.5-17.0) ng/L Stool Occult Blood POSITIVE (NEGATIVE) COVID-19 ([place]) Negative (Negative) COVID-19 Clin Com See Note Critical Care Time Critical Care Time Critical Care Time: Yes Total Critical Care Time: 30 Attestation: I have personally provided critical care time. Time includes review of lab data, radiology results, discussion with consultants, and monitoring for potential decompensation. Intervention performed as documented. Discharge Plan Discharge Clinical Impression: GI bleed Patient Disposition: Admitted As Inpatient Prescriptions: No Action ondansetron 4 mg tablet,disintegrating 4 mg PO Q8H PRN (Reason: nausea and vomiting) Qty: 20 0RF cefuroxime axetil 250 mg tablet 250 mg PO BID 7 Days Qty: 14 0RF
[2022-03-07 18:46] LABS: Troponin-I High Sensitivity < 3.5 ng/L (<3.5-17.0)
[2022-03-07 18:58] LABS: OBS Int Ctl Valid YES; OBS1 POSITIVE (NEGATIVE)
[2022-03-07] MEDS: iohexoL 350 MG/ML 100 ML INFUS..BTL IV (19:39)
[2022-03-07 20:07] VITALS: BP 163/68; PULSE 64; RESP 18; O2SAT 96
--- NOTE | 2022-03-07 20:58 | PM.IMHP ---
History of Present Illness Date of Service: 03/07/22 Chief Complaint: Epigastric pain and black stools This is a 81-year-old female with a pertinent history of essential hypertension, mood disorder and history of bleeding upper GI ulcer in 2017 who presents to the emergency department with complaints of epigastric pain and black stool. Patient states the symptoms started 3 days prior to presentation. She has been having intermittent epigastric pain, relieved with intake of milk, nonradiating. This has been associated with liquid back stools 2-3 times per day. No bright red blood in stool. No pain while defecation. She states it feels similar the episode she had in 2017 when a bleeding upper GI ulcer was detected via upper endoscopy. No episodes since. Patient has been taking ibuprofen 400 mg almost daily for the last 1 year. Does not remember if she has had a colonoscopy before. Also has had 15 lb weight loss in the last 1 year. Patient denies fever, chills, nausea, vomiting, chest discomfort, shortness of breath, changes in urinary habits. States she is compliant with medications for mood disorder essential hypertension In the ER, stool guaiac test was positive for occult blood. Review of Systems Review of Systems: All 13 review of systems are negative except as noted in [facility] Medical History (Updated 03/07/22 @ 21:20 by Zahra De La Rosa MD) Hypertension Mood disorder Surgical History (Updated 03/07/22 @ 21:19 by Zahra De La Rosa MD) H/O hernia repair Hx of breast reduction, elective Social History Advance Directives: No Advance Directives Information Provided: No Meds Allergies Allergy/AdvReac Type Severity Reaction Status Date / Time No Known Allergies Allergy Mild NOT Verified 03/07/22 15:24 APPLICABLE Active Medications: Current Medications Acetaminophen (Acetaminophen 325 Mg Tablet) 650 mg PO Q6H PRN PRN Reason: Pain, Mild (Pain Scale 1-3) Sodium Chloride (Ns) 250 mls @ 150 mls/hr IV .Q1H40M ONE Stop: 03/07/22 22:23 Sodium Chloride (Ns) 1,000 mls @ 100 mls/hr IVCONT .Q10H DIONNE Melatonin (Melatonin 3 Mg Tablet) 6 mg PO BEDTIME PRN PRN Reason: Insomnia Ondansetron HCl (Ondansetron Hcl 4 Mg/2 Ml Vial) 4 mg IVPUSH Q8H PRN PRN Reason: Nausea and Vomiting Pantoprazole Sodium (Pantoprazole Sodium 40 Mg/10 Ml Vial) 40 mg IVPUSH BID [facility] Pharmacy Consult (Consult Rx Perform Med Rec) 1 each MISCELLANE ONCE STA Stop: 03/07/22 20:44 Sodium Chloride (0.9 % Sodium Chloride Flush 3 Ml Syringe) 3 ml IVFLUSH QSHIFT [facility] Physical Exam Vital Signs and Narrative: Vital Signs: Last Vital Signs Temp 98.3 F 03/07/22 17:59 Pulse 64 03/07/22 20:07 Resp 18 03/07/22 20:07 BP 163/68 H 03/07/22 20:07 Pulse Ox 96 03/07/22 20:07 O2 Del Method 03/07/22 20:07 BMI result Body Mass Index 22.0 Elderly female lying in bed in no acute distress Neck supple, no JVD Regular rate and rhythm, S1-S2 heard Regular breath sounds bilaterally, no wheezing or crackles appreciated Abdomen soft, epigastric tenderness to mild palpation, no guarding, no rigidity Patient is awake, alert and oriented to self, place, time and person ; no focal motor deficit Psych: Normal mood No pedal edema Results Labs CBC and Chem 7: 03/07/22 15:36 03/07/22 15:36 Labs: Laboratory Results - last 24 hr 03/07/22 03/07/22 03/07/22 15:36 15:36 15:36 MCV 91.1 MCH 30.6 MCHC 33.6 RDW 12.6 Plt Count 266 MPV 9.5 Immature Gran % (Auto) 0.3 Neut % (Auto) 54.1 Lymph % (Auto) 30.7 [place] % (Auto) 13.5 H Eos % (Auto) 1.3 Baso % (Auto) 0.1 Lymph # (Auto) 2.3 [place] # (Auto) 1.0 Eos # (Auto) 0.1 Baso # (Auto) 0.0 Abs Immat Gran (auto) 0.02 Absolute Neuts (auto) 4.1 Absolute Nucleated RBC 0.000 Nucleated RBC % (auto) 0.0 Anion Gap 13 Estim Creat Clear Calc 57.5 Estimated GFR > 60 Random Glucose 108 Calcium 9.4 Stool Occult Blood COVID-19 ([place]) Negative COVID-19 Clin Com See Note 03/07/22 18:52 MCV MCH MCHC RDW Plt Count MPV Immature Gran % (Auto) Neut % (Auto) Lymph % (Auto) [place] % (Auto) Eos % (Auto) Baso % (Auto) Lymph # (Auto) [place] # (Auto) Eos # (Auto) Baso # (Auto) Abs Immat Gran (auto) Absolute Neuts (auto) Absolute Nucleated RBC Nucleated RBC % (auto) Anion Gap Estim Creat Clear Calc Estimated GFR Random Glucose Calcium Stool Occult Blood POSITIVE COVID-19 ([place]) COVID-19 Clin Com Imaging Radiologist's Impressions: Impressions Chest X-Ray 03/07/22 18:12 IMPRESSION: No acute intrathoracic disease. Abdomen/Pelvis CT 03/07/22 19:38 IMPRESSION: No acute abnormality CT scan abdomen pelvis. Marked diverticulosis of colon but no evidence of diverticulitis. Fleischner guidelines were followed. Assessment and Plan (1) GI bleed: Status: Acute (2) Hypertension: Status: Acute (3) Mood disorder: Status: Acute Plan This is a 81-year-old female with a pertinent history of essential hypertension, mood disorder and history of bleeding upper GI ulcer in 2017 who presents to the emergency department with complaints of epigastric pain and black stool. #. Acute gastrointestinal bleed, suspect upper due to ulcer -stool occult blood positive in the ER. patient is on NSAIDs and has a history of bleeding ulcer in 2017. Will admit for monitoring of hemodynamics and initiate IV fluid resuscitation. Initiating IV Protonix 40 mg b.i.d.. Consulted GI in a.m. for possible scope. Monitor H&H #. Essential hypertension -hold Coreg in a patient with suspected upper GI bleed #. Mood disorder -on Wellbutrin Code status: Do not resuscitate, discussed with patient at bedside Diet: Full liquid, NPO after midnight DVT prophylaxis: Mechanical Quality Stroke Does the patient have a stroke diagnosis?: No VTE Prior VTE?: No VTE Risk Level:: Medical - low VTE Device Contraindication: N/A - Device Ordered VTE Drug Contraindication: Treatment Not Indicated
[2022-03-07] MEDS: Pantoprazole Sodium 40 MG/10 ML VIAL IVPUSH (21:35)
[2022-03-07] MEDS: 0.9 % Sodium Chloride 250 ML 150 ML IV (21:35)
--- NOTE | 2022-03-07 21:38 | PHA.MEDREC ---
Pharmacy Consult ? Medication Reconciliation Pharmacy has completed the medication reconciliation.
--- NOTE | 2022-03-07 21:40 | PC.NURSE ---
resting comfortably on stretcher, aware of plan of care for admission. SR on monitor, no acute distress
[2022-03-07 21:42] VITALS: BP 146/61; PULSE 69; RESP 18; O2SAT 98
[2022-03-07] MEDS: Acetaminophen 325 MG TABLET 650 MG PO (21:47)
[2022-03-07] MEDS: 0.9 % Sodium Chloride 1,000 ML 100 ML IVCONT (23:06)
[2022-03-07 23:48] VITALS: BP 123/61; PULSE 69; RESP 19; O2SAT 93
[2022-03-08] VITALS (9 sets, daily range): BP systolic 125–167; BP diastolic 57–86; PULSE 64–74; RESP 16–19; TEMP 36.1–37; O2SAT 94–99
--- NOTE | 2022-03-08 05:12 | PC.NURSE ---
pt called for assistance to and from the bathroom. 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 Pt's gait was noted to be even and steady without physical assistance required.
[2022-03-08 07:06] LABS: MANUAL DIFF FLAG NO
[2022-03-08 07:08] LABS: Basophils Percent Auto 0.2 % (0-2); Eosinophils Absolute Auto 0.1 X10*3/uL (0.0-0.4); Eosinophils Percent Auto 1.2 % (0-4); Hematocrit 34.3 % (37.0-47.0); Hemoglobin 11.6 g/dl (12.0-16.0); Imm Gran Abs Auto 0.02 X10*3/uL (0.00-0.03); Imm Gran Pct Auto 0.3 % (0.0-0.4); Lymphocytes Percent Auto 30.9 % (20-40); Mean Corpuscular HGB Conc 33.8 g/dl (31.0-35.0); Mean Corpuscular Hemoglobin 30.9 pg (27.0-33.0); Mean Corpuscular Volume 91.2 fL (80.0-98.0); Mean Platelet Volume 11.2 fL (9.4-12.3); Monocytes Absolute Auto 0.9 X10*3/uL (0.1-1.2); Monocytes Percent Auto 13.2 % (2-11); Neutrophils Absolute Auto 3.5 x10*3/uL (2.0-8.3); Neutrophils Percent Auto 54.2 % (45-73); Platelet Count 204 X10*3/uL (160-400); Red Blood Count 3.76 X10*6/uL (4.20-5.50); Red Cell Distribution Width 12.6 % (11.0-16.0); White Blood Count 6.5 X10*3/uL (4.8-10.8)
[2022-03-08 07:38] LABS: Anion Gap 14 (12-20); Blood Urea Nitrogen 11 mg/dL (9-16); Calcium 8.9 mg/dL (8.4-10.2); Carbon Dioxide 25 mmol/L (22-29); Chloride 105 mmol/L (96-108); Creatinine Clr Calc Pharmacy 64.3; Estimated Glomerular Filt Rate > 60; Glucose Random 98 mg/dL (60-115); Potassium 3.8 mmol/L (3.3-5.1); Sodium 140 mmol/L (135-145)
[2022-03-08] MEDS: 0.9 % Sodium Chloride 1,000 ML 100 ML IVCONT (07:52)
[2022-03-08] MEDS: carvediloL 25 MG TABLET PO ×2 (08:25→20:49)
[2022-03-08] MEDS: Pantoprazole Sodium 40 MG/10 ML VIAL IVPUSH ×2 (08:25→20:49)
[2022-03-08] MEDS: buPROPion HCl XL 300 MG TAB.ER.24H PO (08:25)
--- NOTE | 2022-03-08 08:30 | MHC.SHP ---
Pre-Procedural Eval Section A Date of Service: 03/08/22 The patient is an INPATIENT: Yes The History & Physical has been completed within 30 days and I have reviewed it.: Yes Section B Chief Complaint: GI bleed Allergies: Allergies Allergy/AdvReac Type Severity Reaction Status Date / Time No Known Allergies Allergy Mild NOT Verified 03/07/22 15:24 APPLICABLE Plan I have reviewed the history and physical and performed a pertinent physical examination on my patient. No changes have occurred unless specified.
--- NOTE | 2022-03-08 08:30 | PM.EVENT ---
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 She comes in with 2 days of melena, although reports no BM since 03/05. Stool was Heme +. She takes a nightly OTC Ibuprofen. She does not take any PPI's nor H2-blockers. She denies any pain and presently appears very stable. Diff dx: PUD, Gastritis Rec: IV PPI, EGD today-full consent obtained, including risks of bleeding and perforation. Follow Hgb. Thanks
--- NOTE | 2022-03-08 09:23 | CONS_ITS ---
DATE OF SERVICE: 03/08/2022 REASON FOR CONSULTATION: Melena. HISTORY OF PRESENT ILLNESS: The patient is an 81-year-old female who was in her usual state of health up until March 04 when she noticed the onset of black stool. Her typical bowel pattern is a formed stool every 3rd day or so, normal in color. She does describe chronic constipation. In 2012, she was admitted with a GI bleed and underwent upper endoscopy and colonoscopy with Dr. Abbott. The colonoscopy revealed only melanosis coli. The upper endoscopy revealed erosive gastritis, which was felt to be related to her chronic aspirin use. Since that time, she denies any recurrent bleeding, nor endoscopies. She does describe currently taking nightly [id number] ibuprofen, but no aspirin during the day. She does not take any chronic PPI, nor H2 elijah. She has not been having any particular GI symptoms. She has been eating comfortably and denies any chronic heartburn or dysphagia. Since the onset of black stool, this did occur on March 04 and again on March 05, but she reports that she has not had any bowel movement since March 05. She denies any hematochezia. She denies any nausea, nor vomiting. She denies any abdominal pain, jaundice, nor weight loss. She has otherwise been feeling well. She does not smoke, nor use any significant amounts of alcohol. MEDICATIONS: At home included bupropion and carvedilol as well as the [id number] ibuprofen. PAST MEDICAL HISTORY: GI bleed as above. Hypertension. She denies history of RI, stroke, diabetes, lung disease, or kidney disease. PAST SURGICAL HISTORY: Her only surgery is that of a benign breast tumor and tubal ligation. SOCIAL HISTORY: She is , as above. FAMILY HISTORY: Noncontributory. REVIEW OF SYSTEMS: CONSTITUTIONAL: She has been feeling well with good energy, good appetite. SKIN: No rash. No pruritus. CARDIAC: No chest pain. PULMONARY: No cough. No hemoptysis. GI: As above. URINARY: No dysuria. No hematuria. PHYSICAL EXAMINATION: GENERAL: The patient is a pleasant, alert, well-appearing female. SKIN: Warm and dry. Nonjaundiced, anicteric sclerae. NECK: Supple without lymphadenopathy. CARDIAC: Normal S1, S2. ABDOMEN: Soft, nondistended, nontender without mass. EXTREMITIES: Without edema. LABORATORIES: Normal electrolytes, BUN on admission was 15 and today is 11. Creatinine 0.7. Initial hemoglobin was 12.4 and repeat this morning is 11.6 with a normal MCV. Platelets 204,000. Hemoglobin in April 2020 was 13.0. Stool was heme positive. She did have a CT scan of the abdomen and pelvis, which she describes as revealing diverticulosis, but no acute abnormalities, nor any sign of infection. IMPRESSION: Given the patient's clinical history, I suspect she is having a limited gastrointestinal bleed in relation to her chronic NSAID use. This may represent ulcer disease or recurrent gastritis. At this point, she appears very stable, but I would recommend upper endoscopy prior to discharge for definitive evaluation. Full consent obtained for that, including risks of bleeding and perforation. I did advise that this will be done with monitored anesthesia care and would be done either by myself or Dr. Cheung. In the meantime, I will continue her to be n.p.o., continued the IV PPI, and follow her hemoglobin. This has all been discussed in detail with the patient and she is comfortable with this plan. Thank you for the consultation. MD STEPH Yañez/CLARK / [phone]
--- NOTE | 2022-03-08 11:02 | HO.ANESPROP2 ---
PMF Active Problems Active Problems: All Active Problems (Updated 03/07/22 @ 21:20 by Zahra De La Rosa MD) Hypertension (Acute) H/O hernia repair (Acute) Mood disorder (Acute) GI bleed (Acute) Past Medical History Medical History Hypertension Mood disorder Surgical History Surgical History H/O hernia repair Hx of breast reduction, elective History of Problems with Anesthesia: No Social History Social History Household Members: Spouse Housing: House Patient Tobacco Use Status: Never used Tobacco service: No Current occupational status: retired [employer] Allergies Allergy/AdvReac Type Severity Reaction Status Date / Time No Known Allergies Allergy Mild NOT Verified 03/07/22 15:24 APPLICABLE Active Medications: Current Medications Acetaminophen (Acetaminophen 325 Mg Tablet) 650 mg PO Q6H PRN PRN Reason: Pain, Mild (Pain Scale 1-3) Last Admin: 03/07/22 21:47 Dose: 650 mg Bupropion HCl (Bupropion Hcl Xl 300 Mg Tab.Er.24h) 300 mg PO DAILY [facility] Last Admin: 03/08/22 08:25 Dose: 300 mg Carvedilol (Carvedilol 25 Mg Tablet) 25 mg PO BID [facility]; Protocol Last Admin: 03/08/22 08:25 Dose: 25 mg Sodium Chloride (Ns) 1,000 mls @ 100 mls/hr IVCONT .Q10H [facility] Last Admin: 03/08/22 07:52 Dose: 100 mls/hr Melatonin (Melatonin 3 Mg Tablet) 6 mg PO BEDTIME PRN PRN Reason: Insomnia Ondansetron HCl (Ondansetron Hcl 4 Mg/2 Ml Vial) 4 mg IVPUSH Q8H PRN PRN Reason: Nausea and Vomiting Pantoprazole Sodium (Pantoprazole Sodium 40 Mg/10 Ml Vial) 40 mg IVPUSH BID [facility] Last Admin: 03/08/22 08:25 Dose: 40 mg Sodium Chloride (0.9 % Sodium Chloride Flush 3 Ml Syringe) 3 ml IVFLUSH QSHIFT [facility] Last Admin: 03/08/22 08:13 Dose: Not Given Home Medications Medication Instructions Recorded Confirmed Last Taken Type bupropion HCl 300 mg 24 hr tablet, 1 tab PO DAILY 03/07/22 03/07/22 03/07/22 History extended release carvedilol 25 mg tablet 1 tab PO BID 03/07/22 03/07/22 03/07/22 History Exam Exam Date and Time: March 08, 2022 1102 Height,Weight and Vital Signs: Height 5 ft 8 in Weight 65.771 kg Last Vital Signs Temp 98.2 F 03/08/22 08:05 Pulse 74 03/08/22 08:05 Resp 18 03/08/22 08:05 BP 167/86 H 03/08/22 08:05 Pulse Ox 96 03/08/22 08:05 O2 Del Method 03/08/22 08:05 Pertinent Lab Results Pertinent Lab Results: Laboratory Tests 03/07/22 03/07/22 03/07/22 15:36 15:36 15:36 WBC 7.6 RBC 4.05 L Hgb 12.4 Hct 36.9 L MCV 91.1 MCH 30.6 MCHC 33.6 RDW 12.6 Plt Count 266 MPV 9.5 Immature Gran % (Auto) 0.3 Neut % (Auto) 54.1 Lymph % (Auto) 30.7 [place] % (Auto) 13.5 H Eos % (Auto) 1.3 Baso % (Auto) 0.1 Lymph # (Auto) 2.3 [place] # (Auto) 1.0 Eos # (Auto) 0.1 Baso # (Auto) 0.0 Abs Immat Gran (auto) 0.02 Absolute Neuts (auto) 4.1 Absolute Nucleated RBC 0.000 Nucleated RBC % (auto) 0.0 Sodium 138 Potassium 4.2 Chloride 101 Carbon Dioxide 28 Anion Gap 13 BUN 15 Creatinine 0.76 Estim Creat Clear Calc 57.5 Estimated GFR > 60 Random Glucose 108 Calcium 9.4 Troponin I High Sens < 3.5 Stool Occult Blood COVID-19 (WINTER) COVID-19 Clin Com 03/07/22 03/07/22 03/07/22 15:36 18:17 18:52 WBC RBC Hgb Hct MCV MCH MCHC RDW Plt Count MPV Immature Gran % (Auto) Neut % (Auto) Lymph % (Auto) [place] % (Auto) Eos % (Auto) Baso % (Auto) Lymph # (Auto) [place] # (Auto) Eos # (Auto) Baso # (Auto) Abs Immat Gran (auto) Absolute Neuts (auto) Absolute Nucleated RBC Nucleated RBC % (auto) Sodium Potassium Chloride Carbon Dioxide Anion Gap BUN Creatinine Estim Creat Clear Calc Estimated GFR Random Glucose Calcium Troponin I High Sens < 3.5 Stool Occult Blood POSITIVE COVID-19 (WINTER) Negative COVID-19 Clin Com See Note 03/08/22 03/08/22 06:08 06:08 WBC 6.5 RBC 3.76 L Hgb 11.6 L Hct 34.3 L MCV 91.2 MCH 30.9 MCHC 33.8 RDW 12.6 Plt Count 204 MPV 11.2 Immature Gran % (Auto) 0.3 Neut % (Auto) 54.2 Lymph % (Auto) 30.9 [place] % (Auto) 13.2 H Eos % (Auto) 1.2 Baso % (Auto) 0.2 Lymph # (Auto) 2.0 [place] # (Auto) 0.9 Eos # (Auto) 0.1 Baso # (Auto) 0.0 Abs Immat Gran (auto) 0.02 Absolute Neuts (auto) 3.5 Absolute Nucleated RBC 0.000 Nucleated RBC % (auto) 0.0 Sodium 140 Potassium 3.8 Chloride 105 Carbon Dioxide 25 Anion Gap 14 BUN 11 Creatinine 0.68 Estim Creat Clear Calc 64.3 Estimated GFR > 60 Random Glucose 98 Calcium 8.9 Troponin I High Sens Stool Occult Blood COVID-19 (WINTER) COVID-19 Clin Com Airway Mallampati Class: III TM Dist: >3cm Neck ROM: Full Loose/Missing/Broken Teeth: No Heart: RRR Lungs: CTA Assessment and Plan Assessment Anesthesia Assessment: Anesthesia Plan Discussed and Chart Reviewed Final Anesthetic Review History of Problems with Anesthesia: No NPO: Yes ASA Class: II Final Preanesthetic Review: Meds/Allgs Chart Reviewed, Consent Obtained/Reviewed and Anes Risks/Benef Reviewed Patient Risk: Low Procedure Risk: Intermediate Anesthetic Plan Anesthetic Plan: MAC: Disposition: Standard PACU
--- NOTE | 2022-03-08 11:29 | MHC.CM.PN ---
Addendum entered by Janki Curtis 03/08/22 11:45: DR. CARMONA'S OFFICE DOES NOT HAVE A COPY OF PT HCP. PT DECLINES TO DO A NEW ONE AT THIS TIME. Original Note: EMR REVIEWED HAUSER DELIVERED TO PT 03/08/22. PT LIVES WITH SPOUSE IN SINGLE FAMILY HOME. PT HAS NO DME OR SERVICES IN HOME. PCP DR. ZAFAR CARMONA. PT BELIEVES PCP OFFICE HAS A COPY OF HER HCP. CM WILL CALL TO SEE IF OFFICE HAS A COPY AND IF ONE CAN BE FAXED. PT HAS BEEN COVID VAX X3 WITH [employer] PT WILL TRANSPORT HOME WITH .
--- NOTE | 2022-03-08 12:01 | PM.EVENT ---
Event Note Date of Service: 03/08/22 Event Note: EGD note dictated 2 gastric ulcers on post wall in body and antrum. no active bleeding biopsies taken Rec advance diet f/u bx results no nsaids
--- NOTE | 2022-03-08 12:03 | PM.OP ---
Brief Operative Note Date of Service: 03/08/22 Pre-op diagnosis: gi bleed Post-op diagnosis: same Surgeon: Erik Cheung Anesthesia: MAC Was an Bsa/Aml Compliance Officer used for this Procedure?: No Estimated blood loss (mL): 2 Pathology: other Condition: stable Disposition: PACU
--- NOTE | 2022-03-08 14:05 | OP_ITS ---
SURGEON: Erik Cheung MD INDICATIONS: Upper GI bleeding. PREOPERATIVE DIAGNOSIS: POSTOPERATIVE DIAGNOSIS: PROCEDURE PERFORMED: Upper endoscopy with biopsy. ESTIMATED BLOOD LOSS: COMPLICATIONS: ANESTHESIA: Monitored anesthesia care. ASSISTANTS: SPECIMENS: DESCRIPTION OF PROCEDURE: History and physical performed. The procedure was performed on 03/08. The patient was identified in the preop area. The risks and benefits of the procedure were explained to the patient, and an informed consent was obtained. The patient was placed in the left lateral decubitus position. The Olympus video gastroscope was introduced into the esophagus, stomach, and duodenum. Examination was performed. The scope was removed. She tolerated the procedure well and was returned to recovery area in stable condition. FINDINGS: The procedure was performed on 03/08/2022. Esophagus: The esophagus was normal. Stomach: The stomach showed 2 gastric ulcers, the largest was in the antrum on the posterior wall, measuring 10 x 25 mm. This had a fairly clean base. No therapy was performed. Biopsies were obtained from the margin of this ulcer. A 2nd ulcer measuring approximately 10 mm was located also on the posterior wall, further back in the body at the junction of the body and antrum. This also had a clean base. There were several erosions. There was no active bleeding. Duodenum: The bulb and second portion were normal. IMPRESSION: Gastric ulcers. RECOMMENDATION: 1. Follow up the biopsy results. 2. Consider repeat endoscopy in 8 to 12 weeks for reassessment. 3. No NSAIDs. MD ADIEL Lares/CLARK / [phone]
--- NOTE | 2022-03-08 15:04 | P.PNIM_ITS ---
Subjective Subjective Date of Service: 03/08/22 Interval History: complaining of abdominal discomfort, no nausea, no vomiting, no acute issues since admission, no episodes of bright red blood per rectum, patient presented with 2 day of melena, denied hematemesis,. 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 Neck no JVD. CVS regular rate rhythm, Respiratory lungs clear to auscultation, no respiratory distress, no wheeze, no rhonchi. Gastrointestinal abdomen soft, mild mid abdominal tenderness to palpation, bowel sounds audible, no guarding , no rigidity. Extremities no edema. Neuro nonfocal Skin no rash psych appropriate affect Objective Data Active Medications Acetaminophen (Acetaminophen 325 Mg Tablet) 650 mg PO Q6H PRN PRN Reason: Pain, Mild (Pain Scale 1-3) Last Admin: 03/07/22 21:47 Dose: 650 mg Documented By: BERTA Bupropion HCl (Bupropion Hcl Xl 300 Mg Tab.Er.24h) 300 mg PO DAILY [facility] Last Admin: 03/08/22 08:25 Dose: 300 mg Documented By: JENNIFER Carvedilol (Carvedilol 25 Mg Tablet) 25 mg PO BID [facility]; Protocol Last Admin: 03/08/22 08:25 Dose: 25 mg Documented By: JENNIFER Sodium Chloride (Ns) 1,000 mls @ 100 mls/hr IVCONT .Q10H [facility] Last Admin: 03/08/22 07:52 Dose: 100 mls/hr Documented By: DARYL Melatonin (Melatonin 3 Mg Tablet) 6 mg PO BEDTIME PRN PRN Reason: Insomnia Ondansetron HCl (Ondansetron Hcl 4 Mg/2 Ml Vial) 4 mg IVPUSH Q8H PRN PRN Reason: Nausea and Vomiting Pantoprazole Sodium (Pantoprazole Sodium 40 Mg/10 Ml Vial) 40 mg IVPUSH BID [facility] Last Admin: 03/08/22 08:25 Dose: 40 mg Documented By: JENNIFER Sodium Chloride (0.9 % Sodium Chloride Flush 3 Ml Syringe) 3 ml IVFLUSH QSHIFT [facility] Last Admin: 03/08/22 08:13 Dose: Not Given Documented By: JENNIFER Non-Admin Reason: IV Running Labs CBC & Chem 7: 03/08/22 06:08 03/08/22 06:08 Labs: Laboratory Results - last 24 hr 03/07/22 03/07/22 03/07/22 15:36 15:36 15:36 MCV 91.1 MCH 30.6 MCHC 33.6 RDW 12.6 Plt Count 266 MPV 9.5 Immature Gran % (Auto) 0.3 Neut % (Auto) 54.1 Lymph % (Auto) 30.7 [place] % (Auto) 13.5 H Eos % (Auto) 1.3 Baso % (Auto) 0.1 Lymph # (Auto) 2.3 [place] # (Auto) 1.0 Eos # (Auto) 0.1 Baso # (Auto) 0.0 Abs Immat Gran (auto) 0.02 Absolute Neuts (auto) 4.1 Absolute Nucleated RBC 0.000 Nucleated RBC % (auto) 0.0 Anion Gap 13 Estim Creat Clear Calc 57.5 Estimated GFR > 60 Random Glucose 108 Calcium 9.4 Stool Occult Blood COVID-19 (WINTER) Negative COVID-19 Clin Com See Note 03/07/22 03/08/22 03/08/22 18:52 06:08 06:08 MCV 91.2 MCH 30.9 MCHC 33.8 RDW 12.6 Plt Count 204 MPV 11.2 Immature Gran % (Auto) 0.3 Neut % (Auto) 54.2 Lymph % (Auto) 30.9 [place] % (Auto) 13.2 H Eos % (Auto) 1.2 Baso % (Auto) 0.2 Lymph # (Auto) 2.0 [place] # (Auto) 0.9 Eos # (Auto) 0.1 Baso # (Auto) 0.0 Abs Immat Gran (auto) 0.02 Absolute Neuts (auto) 3.5 Absolute Nucleated RBC 0.000 Nucleated RBC % (auto) 0.0 Anion Gap 14 Estim Creat Clear Calc 64.3 Estimated GFR > 60 Random Glucose 98 Calcium 8.9 Stool Occult Blood POSITIVE COVID-19 (WINTER) COVID-19 Clin Com Assessment and Plan (1) Hypertension: Status: Acute (2) GI bleed: Status: Acute Plan 81-year-old female with a pertinent history of essential hypertension, mood disorder and history of bleeding upper GI ulcer in 2017 who presents to the emergency department with complaints of epigastric pain and black stool. #.? Acute upper gastrointestinal bleed stool occult blood positive in the ER.? patient is on NSAIDs and has a history of bleeding ulcer in 2017.? underwent upper endoscopy this morning noted to have 2 gastric ulcers on post wall in body and antrum,no active bleeding,biopsies taken GI Rec to advanced diet, no NSAIDs, follow up biopsies continue IV PPI today transition to by mouth PPI at a.m. will monitor CBC DC IV fluids #.? Essential hypertension - resume Coreg 25mg bid follow BP #.? Mood disorder -on Wellbutrin Code status:? Do not resuscitate, discussed with patient at bedside DVT prophylaxis:? Mechanical patient will need continued inpatient hospitalization due to GI bleed with melena currently NPO will advance diet and follow clinical course Quality Stroke Does the patient have a stroke diagnosis?: No VTE Prior VTE?: No VTE Risk Level:: Medical - low VTE Device Contraindication: N/A - Device Ordered VTE Drug Contraindication: Treatment Not Indicated
[2022-03-08] MEDS: 0.9 % Sodium Chloride Flush 3 ML SYRINGE IVFLUSH ×2 (15:38→20:49)
--- NOTE | 2022-03-08 18:24 | PC.NURSE ---
Pt came back from endoscopy, states cross necklace and earrings were taken and put in denture cup with name before procedure. Pt was only given back her earrings and cannot find necklace, RN called PACU to have them check if it was there but was not found in PACU or Pre-op. Psychologist Developmental aware of situation.
[2022-03-08] MEDS: Melatonin 3 MG TABLET 6 MG PO (20:53)
[2022-03-09 03:00] VITALS: BP 134/62; PULSE 68; RESP 16; TEMP 36.1; O2SAT 96
--- NOTE | 2022-03-09 07:27 | PC.NURSE ---
I talked with pt around 0715 and she states she found the necklace in her purse early this morning.
[2022-03-09 07:29] VITALS: BP 152/72; PULSE 65; RESP 18; TEMP 36.4; O2SAT 95
[2022-03-09] MEDS: carvediloL 25 MG TABLET PO (08:30)
[2022-03-09] MEDS: 0.9 % Sodium Chloride Flush 3 ML SYRINGE IVFLUSH (08:31)
[2022-03-09] MEDS: buPROPion HCl XL 300 MG TAB.ER.24H PO (08:31)
[2022-03-09] MEDS: Pantoprazole Sodium 40 MG/10 ML VIAL IVPUSH (08:31)
[2022-03-09 11:00] VITALS: BP 115/58; PULSE 66; RESP 18; TEMP 36.7; O2SAT 94
--- NOTE | 2022-03-09 11:42 | PM.DS ---
DS: Providers Provider Date of Service: 03/09/22 Date of admission: 03/07/22 20:49 Primary care physician: Duane Purvis MD Consults: 03/07/22 20:47 Consult to Gastroenterology Routine Consulting Provider: Mao Johnson Reason for consultation: GI bleed Has provider been notified: No DS: Diagnosis Discharge Diagnosis (1) Hypertension: Status: Acute (2) GI bleed: Status: Acute DS: Summary Hospital Course Hospital Course: history of presenting illness Date of Service: 03/07/22 Chief Complaint: Epigastric pain and black stools This is a 81-year-old female with a pertinent history of essential hypertension, mood disorder and history of bleeding upper GI ulcer in 2017 who presents to the emergency department with complaints of epigastric pain and black stool.? Patient states the symptoms started 3 days prior to presentation.? She has been having intermittent epigastric pain, relieved with intake of milk, nonradiating.? This has been associated with liquid back stools 2-3 times per day.? No bright red blood in stool.? No pain while defecation.? She states it feels similar the episode she had in 2017 when a bleeding upper GI ulcer was detected via upper endoscopy.? No episodes since.? Patient has been taking ibuprofen 400 mg almost daily for the last 1 year.? Does not remember if she has had a colonoscopy before.? Also has had 15 lb weight loss in the last 1 year.? Patient denies fever, chills, nausea, vomiting, chest discomfort, shortness of breath, changes in urinary habits. States she is compliant with medications for mood disorder essential hypertension In the ER, stool guaiac test was positive for occult blood. hospital course 81-year-old female with a pertinent history of essential hypertension, mood disorder and history of bleeding upper GI ulcer in the past presents to the emergency department with complaints of epigastric pain and black stool. #.? Acute? upper gastrointestinal bleed, stool occult blood positive in the ER, patient had no further episodes of GI bleed in-house subsequently underwent upper endoscopy 03/08 noted to have 2 gastric ulcers on post wall in body and antrum,no active bleeding noted,biopsies taken, patient is currently tolerating regular diet she has been recommended to take Prilosec, and to avoid NSAIDs her hematocrit remained stable patient is being discharged home with recommendation to follow-up with PCP and Gastroenterology. ? ? ? #.? Essential hypertension continue Coreg 25mg bid #.? Mood disorder on Wellbutrin Time Spent with Patient Time attestation: Total time spent providing and/or coordinating discharge services: Discharge coordination time: Greater than 30 minutes Quality: Safe Use of Opioids Does Pt have an Active Cancer Diagnosis on the Problem List?: No Quality: Stroke Does the patient have a stroke diagnosis?: No Physical Exam Vital Signs: Vital Signs: Last Vital Signs Temp 98.1 F 03/09/22 11:00 Pulse 66 03/09/22 11:00 Resp 18 03/09/22 11:00 BP 115/58 L 03/09/22 11:00 Pulse Ox 94 03/09/22 11:00 O2 Del Method 03/09/22 11:00 BMI result Body Mass Index 22.0 Const: Other: General? awake alert x3, in no acute distress.? Neck no JVD. CVS? regular rate rhythm, Respiratory lungs clear to auscultation, no respiratory distress, no wheeze, no rhonchi. Gastrointestinal abdomen soft, nontender, bowel sounds audible, no guarding , no rigidity. Extremities no? edema. Neuro nonfocal Skin no rash psych appropriate affect DS: Data Data Completed and Pending Pending studies at discharge: Pending at discharge 03/08/22 11:57 Surgical [PTH] Routine Discharge Plan Discharge Patient Disposition: Home, Self-Care Discharge Diagnosis: acute upper GI bleed Referrals: Duane Purvis MD [Primary Care Provider] - 1 Week Discharge Medications: New omeprazole 20 mg capsule,delayed release(DR/EC) 20 mg PO BID Qty: 60 0RF Continued carvedilol 25 mg tablet 1 tab PO BID bupropion HCl 300 mg tablet extended release 24 hr 1 tab PO DAILY Discharge Orders: Discharge Order (Routine); Ordered 03/09/22 Ordered By: Baljit Mullen Diet: Advance to usual diet Activity on Discharge: As tolerated Stand Alone Forms: Patient Portal Discharge page Care Plan Goals: diagnosed to have to gastric ulcers on posterior wall in body and antrum of the stomach no active bleed noted avoid aspirin and Advil and similar medications, take Prilosec Health Concerns: continue home medication Plan of Treatment: outpatient follow-up with primary care physician and Gastroenterology call to make an appointment Assessment: As above
--- NOTE | 2022-03-09 11:55 | MHC.CM.PN ---
PT DISCHARGING TODAY WITH NO SERVICES FAMILY TO TRANSPORT
--- NOTE | 2022-03-09 14:48 | HO.POSTANES ---
Post Anesthesia Evaluation Post Anesthesia Evaluation Vital Signs: Vital Signs Temp Pulse Resp BP Pulse Ox O2 Del Method 03/09/22 11:00 98.1 F 66 18 115/58 L 94 Room Air 03/09/22 07:29 97.6 F 65 18 152/72 H 95 Room Air 03/09/22 03:00 97.0 F 68 16 134/62 96 Room Air Anesthesia: Monitored Mental Status: Awake Pain Control: Satisfactory Nausea/Vomiting: None Hydration: Adequate Anesthesia-Related Issues: No Anes. Related Issues
== END 2022-03-09 14:03 | disposition home or self-care (01) ==
LOC: HO.ED 21:03 → HO.EDOVER 21:22 → HO.S3 03-08 07:21
PROVIDERS: Internal Medicine Gastroenterology; Admitting Provider Student in an Organized Health Care Education/Training Program; Emergency Provider Emergency Medicine; PCP Internal Medicine; Visit Provider Hospitalist
PROC: (CPT 43239; principal; 2022-03-08 11:50)
DX: K25.9 Gastric ulcer, unspecified as acute or chronic, without hemorrhage or perforation (principal); R10.13 Epigastric pain; I10 Essential (primary) hypertension; K59.09 Other constipation; F39 Unspecified mood [affective] disorder; Z20.822 Contact with and (suspected) exposure to COVID-19; Z79.899 Other long term (current) drug therapy; Z79.1 Long term (current) use of non-steroidal anti-inflammatories (NSAID)
CPT/HCPCS: 43239; 36415; 71045; 74177; 80048; 82272; 84484; 85025; 87635; 88305; 88342; 93005; 96360; 96361; 96374; 96375; 96376; 99218; 99285; Q9967

== ENCOUNTER 2022-05-25 07:24 | Day surgery (SDC) | payer MEDICARE, SELFPAY ==
--- NOTE | 2022-05-23 14:29 | HO.ANESPROP2 ---
Documented by User: Kay Cat NP 05/23/22 14:32 HPI - Anesthesia Eval Consult details Narrative: 81yo F for Upper Endoscopy s/p EGD 02/2022 with TIVA during C admit [facility] Active Problems Active Problems: All Active Problems (Updated 03/17/22 @ 00:02 by Background Светлана) H/O hernia repair (Acute) GI bleed (Acute) Past Medical History Medical History Hypertension Mood disorder Surgical History Surgical History (Updated 05/25/22 @ 07:49 by Negra Mckeon RN) H/O hernia repair Hx of breast reduction, elective Hx of esophagogastroduodenoscopy History of Problems with Anesthesia: No Social History Social History Household Members: Spouse Housing: House Do you presently have visiting nurse or other home services: No Patient Tobacco Use Status: Never used Tobacco Use of substances other than those prescribed or required for medical reasons: No Are you DNR?: No Advance Directives: No Advance Directives Information Provided: Yes service: No Current occupational status: retired [employer] Allergies Allergy/AdvReac Type Severity Reaction Status Date / Time No Known Allergies Allergy Mild NOT Verified 03/07/22 15:24 APPLICABLE Home Medications Medication Instructions Recorded Confirmed Last Taken Type bupropion HCl 300 mg 24 hr tablet, 1 tab PO DAILY 03/07/22 03/07/22 03/07/22 History extended release carvedilol 25 mg tablet 1 tab PO BID 03/07/22 03/07/22 03/07/22 History Exam Exam Date and Time: May 23, 2022 1429 Pertinent Lab Results Pertinent Lab Results: Laboratory Tests 03/08/22 03/08/22 06:08 06:08 WBC 6.5 Hgb 11.6 L Hct 34.3 L Plt Count 204 Sodium 140 Potassium 3.8 Chloride 105 Carbon Dioxide 25 BUN 11 Creatinine 0.68 Narrative Narrative: EKG 02/2022 Vent. Rate : 067 BPM ? ? Atrial Rate : 067 BPM ?? P-R Int : 180 ms? QRS Dur : 076 ms ? ? QT Int : 406 ms ? ? ? P-R-T Axes : 053 -07 012 degrees ?? QTc Int : 429 ms ? Normal sinus rhythm Minimal voltage criteria for LVH, may be normal variant ( R in aVL ) Borderline ECG When compared with ECG of 29-APR-2020 08:17, No significant change was found Assessment and Plan Assessment Anesthesia Assessment: Chart Reviewed Final Anesthetic Review History of Problems with Anesthesia: No Documented by User: Lb Lux MD 05/25/22 10:53 [facility] Past Medical History Medical History Hypertension Mood disorder Functional capacity: independent ambulation Family History Family history of problems with anesthesia: No Surgical History Surgical History (Updated 05/25/22 @ 07:49 by Negra Mckeon RN) H/O hernia repair Hx of breast reduction, elective Hx of esophagogastroduodenoscopy Social History Social History Household Members: Spouse Housing: House Do you presently have visiting nurse or other home services: No Patient Tobacco Use Status: Never used Tobacco Use of substances other than those prescribed or required for medical reasons: No Are you DNR?: No Advance Directives: No Advance Directives Information Provided: Yes service: No Current occupational status: retired Meds Allergies Allergy/AdvReac Type Severity Reaction Status Date / Time No Known Allergies Allergy Mild NOT Verified 03/07/22 15:24 APPLICABLE Home Medications Medication Instructions Recorded Confirmed Last Taken Type bupropion HCl 300 mg 24 hr tablet, 1 tab PO DAILY 03/07/22 03/07/22 03/07/22 History extended release carvedilol 25 mg tablet 1 tab PO BID 03/07/22 03/07/22 03/07/22 History Exam Airway Mallampati Class: III TM Dist: >3cm Neck ROM: Full Partial: Lower Loose/Missing/Broken Teeth: Yes Heart: S1,S2 Lungs: b/l breath sounds Assessment and Plan Assessment Anesthesia Assessment: Anesthesia Plan Discussed Final Anesthetic Review Family History of Problems with Anesthesia: No NPO: Yes ASA Class: II Final Preanesthetic Review: Meds/Allgs Chart Reviewed, Consent Obtained/Reviewed and Anes Risks/Benef Reviewed Patient Risk: Intermediate Procedure Risk: Intermediate Anesthetic Plan Anesthetic Plan: MAC: Disposition: Standard PACU
[2022-05-25 07:50] VITALS: BMI 21.9
[2022-05-25 08:01] VITALS: BP 160/68; PULSE 67; RESP 16; TEMP 36.4; O2SAT 97
[2022-05-25] MEDS: Lactated Ringers 1,000 ML 100 ML IVCONT (08:09)
--- NOTE | 2022-05-25 08:44 | MHC.SHP ---
Pre-Procedural Eval Section A Date of Service: 05/25/22 Section B Chief Complaint: Gastric ulcer Details of Present Illness: see consult, f/u egd for healing Relevant Family History (Specify if Yes): No Relevant Social History: None Present Medications: see Short Stay Collaborative assessment Medical History: No relevant PMH History of Previous Operations: Relevant previous surgery/procedure and date(s) Allergies: Allergies Allergy/AdvReac Type Severity Reaction Status Date / Time No Known Allergies Allergy Mild NOT Verified 03/07/22 15:24 APPLICABLE Review of Systems Sugical H&P ROS: Negative: Constitution, Cardiovascular, Respiratory, Neurological, Psychiatric, Hem-Onc, Allergic/Immunologic, Gastrointestinal, Genitourinary, Musculoskeletal, Integumentary, Endocrine and Eyes/Ears/Nose/Throat Exam Surgical H&P Exam: Normal: HEENT, Normal: Heart, Normal: Lungs, Normal: Extremities, Normal: Abdomen, Normal: Skin and Normal: Neurological Plan Diagnosis/Plan: Unchanged I have reviewed the history and physical and performed a pertinent physical examination on my patient. No changes have occurred unless specified.
[2022-05-25 09:12] VITALS: BP 131/69; PULSE 86; RESP 16; TEMP 36.6; O2SAT 98
--- NOTE | 2022-05-25 09:12 | PM.OP ---
Brief Operative Note Date of Service: 05/25/22 Pre-op diagnosis: gastric ulcers Post-op diagnosis: same Procedure: egd Surgeon: Erik Cheung Anesthesia: MAC Was an Wire Weaving Loom Setter used for this Procedure?: No Estimated blood loss (mL): 2 Pathology: other Condition: stable Disposition: PACU
[2022-05-25 09:27] VITALS: BP 136/79; PULSE 76; RESP 16; TEMP 36.9; O2SAT 95
--- NOTE | 2022-05-25 09:44 | OP_ITS ---
SURGEON: Erik Cheung MD INDICATIONS: Prior history of gastric ulcers with upper GI bleeding. PREOPERATIVE DIAGNOSIS: POSTOPERATIVE DIAGNOSIS: PROCEDURE PERFORMED: Upper endoscopy with biopsy. ESTIMATED BLOOD LOSS: COMPLICATIONS: ANESTHESIA: Monitored anesthesia care. ASSISTANTS: SPECIMENS: DESCRIPTION OF PROCEDURE: History and physical performed. The risks and benefits of the procedure were explained to the patient, and informed consent was obtained. The patient was placed in the left lateral decubitus position. The Olympus video gastroscope was introduced into the esophagus, stomach, and duodenum. Examination was performed. The scope was removed. She tolerated the procedure well and was taken to recovery area in stable condition. The procedure is performed on 05/25/2022. FINDINGS: Esophagus: The esophagus was normal. There was no esophagitis. Stomach: The stomach showed no active ulceration. There was some scarring and evidence of healing in the antrum at the previous sites of her ulcers and erosions. Biopsies were obtained from the antrum. There was still some residual mild gastritis which was focal mostly in the antrum. 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 Duodenum: The bulb and second portion were normal. IMPRESSION: Healed gastric ulcers. RECOMMENDATION: 1. Follow up the biopsy results. 2. Continue proton pump inhibitor. MD ADIEL Lares/STEVENL / [id number] MTDD
== END 2022-05-25 10:20 | disposition home or self-care (01) ==
PROVIDERS: PCP Internal Medicine; Visit Provider Internal Medicine Gastroenterology
PROC: 0DJ08ZZ Inspection of Upper Intestinal Tract, Via Natural or Artificial Opening Endoscopic (ICD-10-PCS; CPT 43235; principal; 2022-05-25 08:40)
DX: K25.9 Gastric ulcer, unspecified as acute or chronic, without hemorrhage or perforation (principal); K44.9 Diaphragmatic hernia without obstruction or gangrene; I10 Essential (primary) hypertension; Z79.899 Other long term (current) drug therapy
CPT/HCPCS: 43239; 88305; 88342

== ENCOUNTER 2022-06-07 18:50 | Emergency (ER) | payer MEDICARE, SELFPAY ==
--- NOTE | ~2022-06-07 | CT_ITS ---
EXAMINATION: CT ABDOMEN AND PELVIS AND LEFT HIP WITHOUT CONTRAST. CLINICAL INFORMATION: Fall. Assess for fracture COMPARISON: None Technique: Multidetector CT scan of the abdomen and pelvis left hip with multiplanar reconstructions. This CT examination was performed using dose optimization techniques as appropriate, variously including the following: *Automated exposure control *Adjustment of mA and/or kV according to patient size (this includes techniques or standardized protocols for targeted exams where dose is matched to indication/reason for exam; i.e. extremities or head) *Use of iterative reconstruction technique DLP: 197 and 475 mGy-cm FINDINGS: LUNG BASES: No focal parenchymal or pleural disease. Minor pericardial thickening versus fluid. LIVER, GALLBLADDER, BILIARY TREE: No focal liver lesion on this nonenhanced study. No biliary ductal dilatation. Tiny granulomata noted. Gallstones within the gallbladder lumen without acute inflammatory changes.. PANCREAS: No mass or inflammatory changes. SPLEEN: No focal lesion or enlargement. ADRENAL GLANDS AND KIDNEYS: Coarse calcifications right adrenal gland. Left adrenal gland normal. No renal abnormality grossly. Extrarenal pelvis on the right noted. No perinephric abnormality.. PELVIS: There is no pelvic mass. Pelvic organs within normal limits. URETERS AND BLADDER: Within normal limits. BOWEL LOOPS: Relatively pronounced diverticulosis throughout the colon. No acute inflammatory changes. No small bowel pathology.. LYMPHOVASCULAR STRUCTURES: No pathologic enlargement. BONES: No lytic or sclerotic lesions. No fracture. Stable grade 1 anterolisthesis L5-S1. Left imaging demonstrates no evidence of any deformity. No hematoma grossly within the soft tissues. Joint spaces preserved. No focal bony lesion. Monckeberg calcifications consistent with diabetes. CT/CT hip LT wo IV con IMPRESSION: No evidence for any fracture. Incidental findings as above.
[2022-06-07 19:08] VITALS: BP 116/62; PULSE 65; RESP 16; TEMP 36.7; O2SAT 97
[2022-06-07 19:12] VITALS: BP 148/71; BP 169/71; PULSE 66; PULSE 76; RESP 16; TEMP 36.8; O2SAT 100; O2SAT 97; BMI 21.9
--- NOTE | 2022-06-07 20:21 | ED.FALL ---
HPI - Fall General Chief Complaint: Fall Stated Complaint: FALL, +HEAD STRIKE Time Seen by Provider: 06/07/22 20:03 Source: patient and EMS Mode of arrival: EMS Limitations: no limitations History of Present Illness HPI Narrative: Patient comes emergency room complaining of left-sided hip pain. Patient states that earlier today, she was walking in her house in the kitchen, patient was using her slippers and states that the floor in the kitchen was very slippery. Patient was walking towards the kitchen to give a treat to the dog, the dog accidentally pushed her, patient fell backwards, hit the back of her head in the sink, did not lose consciousness, no laceration. Patient landed on the floor, patient's and son tried getting her up. However, patient complain of left-sided hip pain and therefore the ambulance was called. Patient states that she can move the left hip somewhat but it still hurts. His being on blood thinners. Patient denies any headache or neck pain Related Data Home Medications Medication Instructions Recorded Confirmed bupropion HCl 300 mg 24 hr tablet, 1 tab PO DAILY 03/07/22 03/07/22 extended release carvedilol 25 mg tablet 1 tab PO BID 03/07/22 03/07/22 Previous Rx's Medication Instructions Recorded tramadol 50 mg tablet 50 mg PO BID PRN pain #6 tabs 06/08/22 Allergies Allergy/AdvReac Type Severity Reaction Status Date / Time No Known Allergies Allergy Mild NOT Verified 03/07/22 15:24 APPLICABLE Review of Systems Review of Systems: Constitutional : No Weight loss, No Fever, No Chills, No Night Sweats, No Fatigue, No Malaise ENT/Mouth : No Hearing loss, No Ear Pain, No Nasal Congestion, No Sinus Pain, No Hoarseness, No sore throat, No Rhinorrhea, No Swallowing Difficulty Eyes: No Eye Pain, No Swelling, No Redness, No Foreign Body, No Discharge, No Vision Changes Cardiovascular : No Chest Pain, No SOB, No Dyspnea on Exertion, No Orthopnea, No Edema, No Palpitations Respiratory : No Cough, No Sputum, No Wheezing, No Smoke Exposure, No Dyspnea Gastrointestinal : No Nausea, No Vomiting, No Diarrhea, No Constipation, No abdominal Pain, No Hematochezia, No Melena Genitourinary : no irregular bleeding, No Dysuria, No Urinary Frequency, No Hematuria, No Urinary Incontinence, No Urgency, No Flank Pain, No Urinary Flow Changes, No Hesitancy Musculoskeletal complaining of left-sided hip pain Skin : No Skin Lesions, No rash Neuro : No Weakness, No Numbness, No Paresthesias, No Loss of Consciousness, No Dizziness, No Headache Psych : No Anxiety/Panic, No Depression, No SI/HI/AH/VH, No Social Issues, Heme/Lymph: No Bruising, No Bleeding,No Lymphadenopathy Endocrine : No Polyuria, No Polydipsia, No Temperature Intolerance [facility] Past Medical History Medical History Hypertension Mood disorder Surgical History H/O hernia repair Hx of breast reduction, elective Hx of esophagogastroduodenoscopy Social History Social History Household Members: Spouse Housing: House Do you presently have visiting nurse or other home services: No Patient Tobacco Use Status: Never used Tobacco Advance Directives: No Advance Directives Information Provided: No service: No Current occupational status: retired Physical Exam Vital Signs: Vital Signs: Last Vital Signs Temp 97.7 F 06/07/22 23:19 Pulse 60 06/07/22 23:19 Resp 18 06/07/22 23:19 BP 124/60 06/07/22 23:19 Pulse Ox 93 06/07/22 23:19 O2 Del Method 06/07/22 23:19 BMI result Body Mass Index 21.9 Const: Other: Appearance: Alert. Oriented X3. No acute distress. Eyes: Pupils equal, round and reactive to light. ENT: Pharynx normal. Neck: Normal inspection. Neck supple. No lymph nodes noted. No crepitus, no palpable step-offs, normal range of motion with flexion and extension CVS: Normal heart rate and rhythm. Pulses normal. Normal S1 and S2 Respiratory: No respiratory distress. Breath sounds normal. No Wheezing. No rales Abdomen: Soft and nontender. No rigidity. No distention. Skin: Skin warm and dry. Normal skin color. Normal skin turgor. Extremities: Left leg is internally rotated. Patient is able to mildly flex and extend the hip but hurts doing so. Neuro: Oriented X 3. No motor deficit. No sensory deficit. Moving all extremities. No slurred speech. CN 2 through 12 grossly intact Psych: calm, cooperative, normal affect Course Course Course Narrative: Patient's head , cervical spine, hip CT pending Patient given 1 dose of p.o. acetaminophen. Patient feeling much better after 1 dose of acetaminophen, patient's CT scans are negative for any acute fractures including the hip. Patient was offered physical therapy and case management. Patient respectfully declined, Patient states that she would like to be discharged home, if anything changes she will come back. Medications Administered Discontinued Medications Generic Name Dose Route Start Last Admin Trade Name Freq PRN Reason Stop Dose Admin Acetaminophen 975 mg 06/07/22 20:24 06/07/22 20:52 Acetaminophen 325 Mg Tablet PO 06/07/22 20:25 975 mg ONCE ONE Administration Medical Decision Making Radiology Impression Discussion of test interpretation with radiology: I have reviewed the radiologist's reading. Radiologist Impression: FINDINGS: LUNG BASES: No focal parenchymal or pleural disease. Minor pericardial thickening versus fluid. LIVER, GALLBLADDER, BILIARY TREE: No focal liver lesion on this nonenhanced study. No biliary ductal dilatation. Tiny granulomata noted. Gallstones within the gallbladder lumen without acute inflammatory changes.. PANCREAS: No mass or inflammatory changes. SPLEEN: No focal lesion or enlargement. ADRENAL GLANDS AND KIDNEYS: Coarse calcifications right adrenal gland. Left adrenal gland normal. No renal abnormality grossly. Extrarenal pelvis on the right noted. No perinephric abnormality.. PELVIS: There is no pelvic mass. Pelvic organs within normal limits. URETERS AND BLADDER: Within normal limits. BOWEL LOOPS: Relatively pronounced diverticulosis throughout the colon. No acute inflammatory changes. No small bowel pathology.. LYMPHOVASCULAR STRUCTURES: No pathologic enlargement. BONES: No lytic or sclerotic lesions. No fracture. Stable grade 1 anterolisthesis L5-S1. Left imaging demonstrates no evidence of any deformity. No hematoma grossly within the soft tissues. Joint spaces preserved. No focal bony lesion. Monckeberg calcifications consistent with diabetes. CT/CT hip LT wo IV con IMPRESSION: No evidence for any fracture. Incidental findings as above. FINDINGS: WEB MANAGER: Well-expanded lungs. LUNGS: The lungs are hyperinflated without lung contusion, consolidation or mass. There is a 3 mm nodule left lower lobe laterally axial image 319/9 and 7 mm nodule in right middle lobe axial image 45/8.. Focal atelectatic changes are seen in both lung bases and lingula.? MEDIASTINUM: The thyroid lobes are symmetric and normal. The central trachea and the bronchi widely patent. Heart size and the great vessels are normal caliber. No pericardial effusion seen. Central trachea and the bronchi widely patent. No abnormal size mediastinal or hilar lymph nodes seen.? CORONARY ARTERY CALCIFICATION: Moderate coronary artery calcifications are present. PLEURA: There is no pleural effusion. No pleural mass or thickening.? AXILLA: No abnormal axillary lymph nodes seen. The chest wall is unremarkable. UPPER ABDOMEN: Visualized liver, spleen, pancreas and bilateral adrenal glands are unremarkable. OSSEOUS STRUCTURES: No visible rib fracture.? CT/CT chest wo IV con IMPRESSION: There is no visible thoracic cage fracture especially no rib fracture visualized. ? Focal atelectatic changes in both lung bases and right middle lobe. ? Small pulmonary nodules as described above. ? As per Fleischner guidelines follow-up CT chest can be performed in 6-12 months followed by 18-24 months. FINDINGS: Head: There is no evidence of acute intracranial hemorrhage or territorial infarction. No abnormal mass effect or midline shift is seen. Moreno to white matter differentiation is well preserved. No extra-axial fluid collections are identified. No hydrocephalus. Proportional prominence of the ventricles and sulcal spaces is consistent with mild volume loss. Patchy periventricular and deep white matter hypoattenuation is consistent with mild small vessel ischemic changes. No acute osseous or soft tissue abnormality. The mastoid air cells and visualized portions of the paranasal sinuses are well aerated. Cervical spine: There is anatomic alignment of the vertebral bodies and posterior elements. The atlantoaxial and atlantooccipital articulations are intact. Vertebral body heights are maintained. There is multilevel intervertebral disc space narrowing with endplate osteophyte formation and facet arthropathy. No evidence of acute fracture. No prevertebral soft tissue swelling. Visualized portions of the lung apices are unremarkable. The thyroid gland is unremarkable. CT/CT head/brain wo IV con IMPRESSION: 1.? No acute intracranial finding. 2.? No fracture or malalignment of the cervical spine. Mild degenerative changes. ? Discharge Plan Discharge Clinical Impression: Fall, Multiple contusions Patient Disposition: Home, Self-Care Instructions: Hip Contusion (ED) Additional Instructions: Please follow-up with your primary care physician tomorrow. If you have any worsening or new symptoms, please return to the emergency room or call 911 Prescriptions: New tramadol 50 mg tablet 50 mg PO BID PRN (Reason: pain) Qty: 6 0RF No Action carvedilol 25 mg tablet 1 tab PO BID bupropion HCl 300 mg tablet extended release 24 hr 1 tab PO DAILY
[2022-06-07 20:35] VITALS: BP 158/85; PULSE 74; RESP 16; TEMP 36.6; O2SAT 93
--- NOTE | 2022-06-07 20:38 | MHC.EDTECH ---
Pt changed over into hospital gown. Pt 1x assisted to bedside commode. Pt given wipes and did self pericare. Pt 1x assisted back into bed. Pt given call [place] and warm blanket
[2022-06-07] MEDS: Acetaminophen 325 MG TABLET 975 MG PO (20:52)
[2022-06-07 23:19] VITALS: BP 124/60; PULSE 60; RESP 18; TEMP 36.5; O2SAT 93
--- NOTE | 2022-06-08 01:32 | PC.NURSE ---
VISUAL LEAD CALLED PT'S TO COORDINATE RIDE. UNABLE TO PICK PT UP UNTIL MORNING. AT THIS TIME PT REMAINS IN ROOM. OK'D BY CHARGE NURSE. PT RESTING COMFORTABLY
[2022-06-08 03:10] VITALS: BP 143/67; PULSE 61; RESP 16; TEMP 36.6; O2SAT 95
--- NOTE | 2022-06-08 05:18 | PC.NURSE ---
pt reported discomfort where iv had been placed. this rn removed iv at this time. pt cleared for discharge. waiting for ride from family
[2022-06-08 05:36] VITALS: BP 155/84; PULSE 76; RESP 16; TEMP 37; O2SAT 93
--- NOTE | 2022-06-08 05:48 | PC.NURSE ---
pt getting ready for ride to pick her up. reports pain at this time. discussed this with dr aparicio. order placed for tylenol
[2022-06-08] MEDS: Acetaminophen 325 MG TABLET 650 MG PO (06:00)
== END 2022-06-08 06:49 | disposition home or self-care (01) ==
PROVIDERS: Emergency Provider Emergency Medicine; PCP Internal Medicine
DX: S70.02XA Contusion of left hip, initial encounter (principal); W01.0XXA Fall on same level from slipping, tripping and stumbling without subsequent striking against object, initial encounter; I10 Essential (primary) hypertension; Y93.89 Activity, other specified; Y92.010 Kitchen of single-family (private) house as the place of occurrence of the external cause; Y99.9 Unspecified external cause status
CPT/HCPCS: 70450; 71250; 72125; 73700; 74176; 99284

== ENCOUNTER 2023-02-22 14:26 | Outpatient (REF) | payer MEDICARE, SELFPAY ==
--- NOTE | ~2023-02-22 | XR_ITS ---
EXAMINATION: XR RIBS, RIGHT CLINICAL INFORMATION: Right-sided pain. COMPARISON: None available. TECHNIQUE: Frontal view of chest 3 views of the right ribs were obtained. FINDINGS: Lungs are clear. No consolidation, pneumothorax, or pleural effusion. The cardiomediastinal silhouette and pulmonary vasculature are normal. No acute abnormality the osseous structures. Ribs are intact. No fractures are identified. Degenerative spondylosis spine. Ossification in the right humeral head remain unchanged since chest x-ray April 29, 2020, consistent with a benign lesion. 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 XR/XR ribs RT min 3V w CXR1V IMPRESSION: 1. No acute abnormality of chest. 2. No acute abnormality of the ribs.
== END 2023-02-22 14:27 | disposition home or self-care (01) ==
LOC: HO.HMGCX 14:26
PROVIDERS: PCP Internal Medicine; Visit Provider Internal Medicine
DX: M25.511 Pain in right shoulder (principal)
CPT/HCPCS: 71101

== ENCOUNTER 2023-05-24 12:15 | Emergency (ER) | payer MEDICARE, SELFPAY ==
--- NOTE | ~2023-05-24 | XR_ITS ---
STUDY: AP pelvis, right hip, right knee INDICATION: Pain after fall COMPARISON: 12/05/2020 TECHNIQUE: AP pelvis, two-view right hip, 5 view right knee FINDINGS: AP pelvis and right hip: Old right inferior pubic ramus fracture. Symphysis pubis sclerosis. Degenerative changes lower lumbar spine mild SI sclerosis, right greater than left. Bilateral hip joint narrowings, right greater than left no acute fracture or dislocation. Vascular calcifications. Right knee: Tricompartment spurring. No fracture, dislocation or joint effusion. Vascular calcifications. XR/XR knee RT 3V IMPRESSION: No acute bony pathology pelvis, right hip and right knee. Degenerative changes right hip and right knee.
--- NOTE | ~2023-05-24 | XR_ITS ---
STUDY: AP pelvis, right hip, right knee INDICATION: Pain after fall COMPARISON: 12/05/2020 TECHNIQUE: AP pelvis, two-view right hip, 5 view right knee FINDINGS: AP pelvis and right hip: Old right inferior pubic ramus fracture. Symphysis pubis sclerosis. Degenerative changes lower lumbar spine mild SI sclerosis, right greater than left. Bilateral hip joint narrowings, right greater than left no acute fracture or dislocation. Vascular calcifications. Right knee: Tricompartment spurring. No fracture, dislocation or joint effusion. Vascular calcifications. XR/XR hip RT w PEL1V IMPRESSION: No acute bony pathology pelvis, right hip and right knee. Degenerative changes right hip and right knee.
--- NOTE | ~2023-05-24 | CT_ITS ---
Examination: CT brain and CT cervical spine without contrast. Clinical indications: Fall, pain. COMPARISON: CT brain 06/07/2022. TECHNIQUE: 5 mm thin axial and 2 mm thin sagittal and coronal images of brain were obtained. Subsequently axial 3 mm thin and reformatted 2 minutes thin sagittal coronal images of cervical spine were obtained. DLP 849. This CT examination was performed using dose optimization technique as appropriate, variously including the following: Automated exposure control Adjustment of MA and/or KV according to patient size(this includes techniques or standardized protocols for targeted exams where dose is matched to indication/reason for exam; extremities or head. Use of iterative reconstruction techniques. FINDINGS: BRAIN: There is no acute intra-axial, extra-axial bleed, masses or midline shift. There is no acute infarction in evolution. There is no edema. The lateral ventricles are symmetrical in size and configuration with mild enlargement. Bone windows reveal no calvarial abnormality. There is no scalp soft tissue abnormality. There is mucoperiosteal thickening bilateral ethmoid and frontal sinuses. CERVICAL SPINE: There is mild straightening of cervical lordosis. There is grade 1 anterolisthesis C3 over C4 and C4 over C5. There is loss of C4-C5, C5-C6, C6-C7 and C7-T1 disc heights. The craniovertebral junction and the C1-C2 alignment is normal. There is no visible acute fracture, dislocation or subluxation seen. The prevertebral and paravertebral soft tissues are normal. There is moderate C3-C4 and C4-C5 facet joint arthropathy. There is no aggressive lytic or sclerotic process seen. The paravertebral and prevertebral soft tissues are normal. The pharyngeal and tracheal airway is widely patent. The lung apices are clear. CT/CT cervical spine wo IV con IMPRESSION: No acute intracranial process seen. There is grade 1 anterolisthesis C3 over C4 and C4 over C5 with degenerative disc changes as described above. No visible acute fracture or dislocation seen. There is right facet joint arthropathy C3-C4 and C4-C5 disc levels.
--- NOTE | ~2023-05-24 | XR_ITS ---
EXAMINATION: XR CHEST CLINICAL INFORMATION: Weakness, COVID 19. COMPARISON: None available. TECHNIQUE: 2 views of the chest were obtained. FINDINGS: The lungs are well-inflated and clear of acute pneumonic process. There is no pleural effusion or pneumothorax. The heart size is normal. Pulmonary vascularity is normal. There is no gross bony abnormality. XR/XR chest 2V IMPRESSION: Unremarkable chest exam.
--- NOTE | 2023-05-24 12:24 | ED_ITS ---
HPI - General Adult General Chief complaint: Fall Stated complaint: FALL YESTERDAY Time Seen by Provider: 05/24/23 12:24 Source: patient, family (patient's son) and EMS Mode of arrival: EMS Limitations: no limitations History of Present Illness HPI narrative: Patient is a 82 year old assigned female at with a history of a recent COVID-19 infection presenting to the emergency department today with weakness and a fall. Patient states that today she was too weak to get off of her toilet without help from her son. Patient states that she has COVID-19 and her is here with COVID-19. Patient states that she fell a few days ago after tripping over her cat but nothing is hurting her at this time. Patient denies any dizziness, lightheadedness, abdominal pain, nausea, vomiting, fever, chills, blurry vision, double vision, loss of vision, chest pain, difficulty breathing, shortness of breath, back pain, night sweats, pain with urination, increased urinary frequency, increased urinary urgency, blood in his urine or stool, syncope or a near syncopal episode, bowel incontinence, bladder incontinence, bowel retention, bladder retention, or any other complaints at this time. Relieving factors: none Exacerbating factors: none Associated symptoms: denies other symptoms Treatments prior to arrival: none Related Data Home Medications Medication Instructions Recorded Confirmed bupropion HCl 300 mg 24 hr tablet, 1 tab PO DAILY 03/07/22 05/24/23 extended release carvedilol 25 mg tablet 1 tab PO BID 03/07/22 05/24/23 citalopram 20 mg tablet 20 mg PO BEDTIME 05/24/23 05/24/23 Previous Rx's Medication Instructions Recorded cefuroxime axetil 250 mg tablet 250 mg PO BID 7 days #14 tabs 05/24/23 Allergies Allergy/AdvReac Type Severity Reaction Status Date / Time No Known Allergies Allergy Mild NOT Verified 03/07/22 15:24 APPLICABLE Review of Systems 2 Constitutional: Constitutional: Reports no additional constitutional complaints, Denies chills, Denies fever(s), Denies night sweats and Reports weakness Eyes: Eyes: Reports no additional eye complaints, Denies blurry vision, Denies change in vision, Denies diplopia, Denies eye discharge, Denies loss of vision and Denies eye pain ENT: Denies dizziness Cardiovascular: Cardiovascular: Reports no additional cardiovascular complaints, Denies chest pain, Denies lightheadedness, Denies Loss of Consciousness and Denies dyspnea Respiratory: Respiratory: Reports no additional respiratory complaints and Denies dyspnea Gastrointestinal: Gastrointestinal: Reports no additional gastrointestinal complaints, Denies abdominal pain, Denies melena, Denies hematochezia, Denies change in bowel habits and Denies change in stool character Genitourinary: Genitourinary: Denies hematuria, Denies urinary frequency, Denies dysuria, Denies urinary incontinence, Denies urinary hesitancy and Denies urinary urgency Musculoskeletal: Musculoskeletal: Reports no additional musculoskeletal complaints, Denies numbness and Denies tingling Neurologic: Denies dizziness, Denies loss of vision, Denies numbness, Denies tingling and Reports weakness Psychiatric: Psychiatric: Reports no additional psychiatric complaints Endocrine: Endocrine: Reports no additional endocrine complaints Hematologic/Lymphatic: Hematologic/Lymphatic: Reports no additional hematologic/lymphatic complaints Allergic/Immunologic: Allergic/Immunologic: Reports no additional allergic/immunologic complaints PMF Past Medical History Attestation statement: The following information was validated with the patient. (patient's information validated with the patient's son) Source: old records reviewed, obtained from family (patient's son provided additional history and confirmed the history provided by the patient.) and nursing notes reviewed Medical History Hypertension Mood disorder Surgical History Hx of esophagogastroduodenoscopy H/O hernia repair Hx of breast reduction, elective Social History Social History Household Members: Spouse Housing: House Do you presently have visiting nurse or other home services: No Patient Tobacco Use Status: Never used Tobacco Smoked in Last 30 Days: No Use of substances other than those prescribed or required for medical reasons: No Advance Directives: Yes Advance Directives Information Provided: Yes Advance Directives on File: No service: No Current occupational status: retired Physical Exam ED Vital Signs: Vital Signs - 24 hr 05/24/23 21:03 05/25/23 05:43 05/25/23 11:16 Temperature 98.0 F 98.2 F Pulse Rate 87 84 84 Respiratory Rate 16 16 Blood Pressure 154/73 H 126/59 L 126/59 L Pulse Oximetry 98 96 96 Oxygen Delivery Method Room Air Room Air 05/25/23 14:00 Temperature 98.6 F Pulse Rate 76 Respiratory Rate 18 Blood Pressure 125/63 Pulse Oximetry 95 Oxygen Delivery Method Room Air BMI result Body Mass Index 21.6 Const General: cooperative, no acute distress, alert and awake Nutritional Appearance: well nourished Orientation/consciousness: patient oriented x3 Limitations: no limitations HENMT Head: Yes normal to inspection and Yes atraumatic Ears: hearing grossly normal bilaterally and external ears normal General nose exam: Normal external nose present, no nasal discharge noted and no epistaxis Face and sinus: Yes normal facial exam, No abrasion and No laceration Mouth: Normal oral and palatal mucosa present, no drooling and no muffled voice Eyes General: appearance normal, both eyes and all related structures Periorbital: periorbital findings normal Eyelids: Yes eyelids normal Conjunctivae: conjunctivae normal Pupils: Equal, round and reactive pupils present EOM: EOMs intact bilaterally Neck Neck: Yes normal visual inspection, Yes full ROM and Yes no lymphadenopathy Chest Chest palpation & inspection: normal inspection of the chest Resp Effort & Inspection: normal respiratory effort and able to speak in complete sentences GI Inspection: Yes normal to inspection Neuro General: patient oriented x3 and moves all extremities Cranial nerves: Yes Equal, round and reactive pupils present Cognition (Neuro): normal cognition Motor exam (neuro): 5/5 motor strength present throughout Sensory Exam: Normal double simultaneous stimulation for sensation Coordination: [id number] test normal Extrem General: Yes normal to inspection, Yes full ROM and Yes capillary refill normal Psych Appearance: grossly normal Mental Status: mental status grossly normal Affect: normal affect Attitude: cooperative Thought process: Normal thought process present Thought content: Normal thought content present Insight: Good insight present (Psych) Course Reevaluation(s) Reevaluation #1: 05/24/20231999 - worsen for me patient having some generalized body pain, Tylenol ordered. Physician observation continued, will continue to monitor. Vital signs stable. Reevaluation #2: Physician observation continues. Patient is pending evaluation by Case Management and Physical therapy. Per nursing, no issues overnight reported. Patient in no apparent distress. Respirations even, regular, and non-labored. No focal neuro deficits. Vital signs stable. Will continue to monitor. Time: 10:33 Reevaluation #3: Patient was evaluated by physical therapy case management involved, recommendation for discharge home, patient is on is going to pick her up. Physician observation ended. Sent prescription for cefuroxime to pharmacy for UTI. Reviewed worrisome signs and symptoms or evaluation emergency department. Outpatient follow-up with primary care provider. Stable for discharge. Time: 16:07 Medications Administered Generic Name Dose Route Start Last Admin Trade Name Freq PRN Reason Stop Dose Admin Bupropion HCl 300 mg 05/25/23 10:30 05/25/23 11:21 Bupropion Hcl Xl 300 Mg Tab.Er.24h PO 300 mg DAILY DIONNE Administration Carvedilol 25 mg 05/25/23 10:30 05/25/23 11:21 Carvedilol 25 Mg Tablet PO 25 mg BID DIONNE Administration Protocol Cefuroxime Axetil 250 mg 05/24/23 21:00 05/25/23 08:36 Cefuroxime Axetil 250 Mg Tablet PO 05/31/23 08:00 250 mg BID DIONNE Administration Discontinued Medications Generic Name Dose Route Start Last Admin Trade Name Freq PRN Reason Stop Dose Admin Acetaminophen 650 mg 05/24/23 21:54 05/24/23 22:01 Acetaminophen 325 Mg Tablet PO 05/24/23 21:55 650 mg ONCE ONE Administration Medical Decision Making Medical Decision Making [facility] Narrative: Patient is an 82 year old assigned female at with a history of recent COVID-19 infection presenting to the emergency department today with weakness and a fall. Patient's physical exam was unremarkable. Patient's blood work showed a slightly elevated BNP however this is likely secondary to the patient being a mildly obese woman. Patient's chest x-ray showed no acute process. Patient's UA did show a UTI for which I started the patient on PO ABX. Patient's EKG was unremarkable. Patient's right knee and hip x-rays showed no acute process. Patient's head and c-spine CTs showed no acute process. I explained my physical exam findings as well as all test results to the patient and the patient's son. I answered all questions asked by the patient and the patient's son. Attempted to get the patient up and walk her and she was very unsteady on her feet. Patient's son does not feel the patient is safe to be discharged home. Patient will be PT/CM. Differential Diagnosis Differential Diagnoses: The differential diagnosis associated with the presentation includes Weakness COVID-19 Fall Admission/Observation Consideration of admission/observation: Escalation of care including admission/observation considered Patient would have been admitted to the hospital had her work up had any findings where hospital admission was appropriate and her clinical presentation warranted hospital admission. Lab Data [facility] Lab Attestation statement: I reviewed the patient's lab results. My interpretation of these results are in the [facility] Rationale portion of this note. 05/24/23 13:20 05/24/23 13:20 Labs: Lab Results 05/24/23 05/24/23 Range/Units 13:20 17:09 WBC 9.4 (4.8-10.8) X10*3/uL RBC 4.09 L (4.20-5.50) X10*6/uL Hgb 12.8 (12.0-16.0) g/dl Hct 37.7 (37.0-47.0) % MCV 92.2 (80.0-98.0) fL MCH 31.3 (27.0-33.0) pg MCHC 34.0 (31.0-35.0) g/dl RDW 12.6 (11.0-16.0) % Plt Count 284 D (160-400) X10*3/uL MPV 8.7 L (9.4-12.3) fL Immature Gran % (Auto) 0.4 (0.0-0.4) % Neut % (Auto) 70.8 (45-73) % Lymph % (Auto) 16.6 L (20-40) % Richardson % (Auto) 11.9 H (2-11) % Eos % (Auto) 0.2 (0-4) % Baso % (Auto) 0.1 (0-2) % Lymph # (Auto) 1.6 (1.2-4.9) X10*3/uL Richardson # (Auto) 1.1 (0.1-1.2) X10*3/uL Eos # (Auto) 0.0 (0.0-0.4) X10*3/uL Baso # (Auto) 0.0 (0.0-0.2) X10*3/uL Abs Immat Gran (auto) 0.04 H (0.00-0.03) X10*3/uL Absolute Neuts (auto) 6.7 (2.0-8.3) x10*3/uL Absolute Nucleated RBC 0.000 (0.0-0.012) X10*3/uL Nucleated RBC % (auto) 0.0 (0.0-0.2) /100WBC Sodium 138 (135-145) mmol/L Potassium 3.8 (3.3-5.1) mmol/L Chloride 100 (96-108) mmol/L Carbon Dioxide 30 H (22-29) mmol/L Anion Gap 12 (12-20) BUN 15 (9-16) mg/dL Creatinine 0.65 (0.5-1.4) mg/dL Estim Creat Clear Calc 63.8 Estimated GFR > 60 Random Glucose 105 (60-115) mg/dL Calcium 9.3 (8.4-10.2) mg/dL Total Bilirubin 0.5 (0.0-1.0) mg/dL AST 25 (5-31) U/L ALT 16 (0-31) U/L Alkaline Phosphatase 78 (39-117) U/L Troponin I High Sens 6.9 15.2 D (<3.5-17.0) ng/L B-Natriuretic Peptide 266 H (<100) pg/mL Total Protein 7.3 (6.5-8.0) g/dL Albumin 4.0 (3.5-5.0) g/dL Urine Color Yellow Urine Appearance Clear Urine pH 6.5 (5.0-9.0) Ur Specific [place] 1.015 (1.005-1.025) Urine Protein Negative (Neg-Trace) mg/dL Urine Glucose (UA) Negative (Negative) mg/dL Urine Ketones 15 (Negative) mg/dL Urine Blood Negative (Negative) Urine Nitrite Positive H (Negative) Ur Leukocyte Esterase Moderate (2+) H (Negative) Urine RBC 0-2 (0-2) /HPF Urine WBC 21-50 H (0-5) /HPF Ur Squamous Epith Cells 3-5 (0-2) /HPF Urine Bacteria 4+ (None Seen) Hyaline Casts 0-2 (0-2) /LPF Influenza Type A (PCR) NEGATIVE (Negative) Influenza Type B (PCR) NEGATIVE (Negative) RSV RNA Qual (PCR) NEGATIVE (Negative) SARS-CoV-2 RNA (RT-PCR) POSITIVE A (Negative) Independent Interpretation I performed an independent interpretation of an: Plain X-Ray and CT Scan Interpretation: My interpretation is in agreement with the radiologist's impression of these imaging studies. - Examination: CT brain and CT cervical spine without contrast. Clinical indications: Fall, pain. COMPARISON: CT brain 06/07/2022. TECHNIQUE: 5 mm thin axial and 2 mm thin sagittal and coronal images of brain were obtained. Subsequently axial 3 mm thin and reformatted 2 minutes thin sagittal coronal images of cervical spine were obtained. DLP [id number]. This CT examination was performed using dose optimization technique as appropriate, variously including the following: Automated exposure control Adjustment of MA and/or KV according to patient size(this includes techniques or standardized protocols for targeted exams where dose is matched to indication/reason for exam; extremities or head. Use of iterative reconstruction techniques. FINDINGS: BRAIN: There is no acute intra-axial, extra-axial bleed, masses or midline shift. There is no acute infarction in evolution. There is no edema. The lateral ventricles are symmetrical in size and configuration with mild enlargement. Bone windows reveal no calvarial abnormality. There is no scalp soft tissue abnormality. There is mucoperiosteal thickening bilateral ethmoid and frontal sinuses. CERVICAL SPINE: There is mild straightening of cervical lordosis. There is grade 1 anterolisthesis C3 over C4 and C4 over C5. There is loss of C4-C5, C5-C6, C6-C7 and C7-T1 disc heights. The craniovertebral junction and the C1-C2 alignment is normal. There is no visible acute fracture, dislocation or subluxation seen. The prevertebral and paravertebral soft tissues are normal. There is moderate C3-C4 and C4-C5 facet joint arthropathy. There is no aggressive lytic or sclerotic process seen. The paravertebral and prevertebral soft tissues are normal. The pharyngeal and tracheal airway is widely patent. The lung apices are clear. CT/CT head/brain wo IV con IMPRESSION: No acute intracranial process seen. There is grade 1 anterolisthesis C3 over C4 and C4 over C5 with degenerative disc changes as described above. No visible acute fracture or dislocation seen. There is right facet joint arthropathy C3-C4 and C4-C5 disc levels. Dictated By: Sam Westfall MD Signed By: Electronically signed by Sam Westfall MD 05/24/23 1521 - STUDY: AP pelvis, right hip, right knee INDICATION: Pain after fall COMPARISON: 12/05/2020 TECHNIQUE: AP pelvis, two-view right hip, 5 view right knee FINDINGS: AP pelvis and right hip: Old right inferior pubic ramus fracture. Symphysis pubis sclerosis. Degenerative changes lower lumbar spine mild SI sclerosis, right greater than left. Bilateral hip joint narrowings, right greater than left no acute fracture or dislocation. Vascular calcifications. Right knee: Tricompartment spurring. No fracture, dislocation or joint effusion. Vascular calcifications. XR/XR knee RT 3V IMPRESSION: No acute bony pathology pelvis, right hip and right knee. Degenerative changes right hip and right knee. Dictated By: Karyna Mcginnis MD Signed By: Electronically signed by Karyna Mcginnis MD 05/24/23 1516 - EXAMINATION: XR CHEST CLINICAL INFORMATION: Weakness, COVID 19. COMPARISON: None available. TECHNIQUE: 2 views of the chest were obtained. FINDINGS: The lungs are well-inflated and clear of acute pneumonic process. There is no pleural effusion or pneumothorax. The heart size is normal. Pulmonary vascularity is normal. There is no gross bony abnormality. XR/XR chest 2V IMPRESSION: Unremarkable chest exam. Dictated By: Sam Westfall MD Signed By: Electronically signed by Sam Westfall MD 05/24/23 1831 - Vent. Rate: 072 BPM Atrial Rate: 072 BPM P-R Int: 196 ms QRS Dur: 086 ms QT Int: 448 ms P-R-T Axes: 039 -12 015 degrees QTc Int: 490 ms Normal sinus rhythm Minimal voltage criteria for LVH, may be normal variant ( R in aVL ) Prolonged QT Abnormal ECG When compared with ECG of 07-MAR-2022 15:27, QT has lengthened Electronically Signed By:DAGOBERTO GUTIERREZ Dictated By: Dagoberto Gutierrez MD Signed By: Electronically signed by Dagoberto Gutierrez MD 05/24/23 1610 Radiology Impression Discussion of test interpretation with radiology: I have reviewed the radiologist's reading. Independent Historian Clinical information obtained from an independent historian. History obtained from or confirmed by: EMS (EMS provided additional history and confirmed the history provided by the patient.) and Other (Patient's son provided additional history and confirmed the history provided by the patient.) Prescription Management I considered prescription management with: Antibiotic (patient prescribed an antibiotic for her UTI.) Discharge Plan Discharge Clinical Impression: Weakness, COVID-19, Urinary tract infection Patient Disposition: Still a Patient Prescriptions: New cefuroxime axetil 250 mg tablet 250 mg PO BID 7 Days Qty: 14 0RF No Action carvedilol 25 mg tablet 1 tab PO BID bupropion HCl 300 mg tablet extended release 24 hr 1 tab PO DAILY citalopram 20 mg tablet 20 mg PO BEDTIME
[2023-05-24 12:28] VITALS: BP 156/78; BP 158/77; PULSE 74; PULSE 77; RESP 16; TEMP 36.7; O2SAT 94; O2SAT 96; BMI 21.6
[2023-05-24 12:31] VITALS: RESP 16
--- NOTE | 2023-05-24 12:33 | PC.NURSE ---
Pt is alert, appears oriented. 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 Able to move leg, no shortening or external rotation noted. +COVID since last Saturday, denies any SOB. Occasional cough heard.
--- NOTE | 2023-05-24 12:48 | ECG_ITS ---
Test Reason : WEAKNESS Blood Pressure : / mmHG Vent. Rate : 072 BPM Atrial Rate : 072 BPM P-R Int : 196 ms QRS Dur : 086 ms QT Int : 448 ms P-R-T Axes : 039 -12 015 degrees QTc Int : 490 ms Normal sinus rhythm Minimal voltage criteria for LVH, may be normal variant ( R in aVL ) Prolonged QT Abnormal ECG When compared with ECG of 07-MAR-2022 15:27, QT has lengthened Referred By: Catherine Jackson Electronically Signed By:ANNIE GUTIERREZ
[2023-05-24 13:27] LABS: MANUAL DIFF FLAG NO
[2023-05-24 13:31] LABS: Basophils Percent Auto 0.1 % (0-2); Eosinophils Percent Auto 0.2 % (0-4); Hematocrit 37.7 % (37.0-47.0); Hemoglobin 12.8 g/dl (12.0-16.0); Imm Gran Abs Auto 0.04 X10*3/uL (0.00-0.03); Imm Gran Pct Auto 0.4 % (0.0-0.4); Lymphocytes Absolute Auto 1.6 X10*3/uL (1.2-4.9); Lymphocytes Percent Auto 16.6 % (20-40); Mean Corpuscular Hemoglobin 31.3 pg (27.0-33.0); Mean Corpuscular Volume 92.2 fL (80.0-98.0); Mean Platelet Volume 8.7 fL (9.4-12.3); Monocytes Absolute Auto 1.1 X10*3/uL (0.1-1.2); Monocytes Percent Auto 11.9 % (2-11); Neutrophils Absolute Auto 6.7 x10*3/uL (2.0-8.3); Neutrophils Percent Auto 70.8 % (45-73); Platelet Count 284 X10*3/uL (160-400); Red Blood Count 4.09 X10*6/uL (4.20-5.50); Red Cell Distribution Width 12.6 % (11.0-16.0); White Blood Count 9.4 X10*3/uL (4.8-10.8)
[2023-05-24 13:46] LABS: Alanine Aminotransferase 16 U/L (0-31); Alkaline Phosphatase 78 U/L (39-117); Anion Gap 12 (12-20); Aspartate Amino Transferase 25 U/L (5-31); Bilirubin Total 0.5 mg/dL (0.0-1.0); Blood Urea Nitrogen 15 mg/dL (9-16); Calcium 9.3 mg/dL (8.4-10.2); Carbon Dioxide 30 mmol/L (22-29); Chloride 100 mmol/L (96-108); Creatinine Clr Calc Pharmacy 63.8; Estimated Glomerular Filt Rate > 60; Glucose Random 105 mg/dL (60-115); Potassium 3.8 mmol/L (3.3-5.1); Sodium 138 mmol/L (135-145); Total Protein 7.3 g/dL (6.5-8.0)
[2023-05-24 13:54] LABS: B Type Natriuretic Peptide 266 pg/mL (<100); Troponin-I High Sensitivity 6.9 ng/L (<3.5-17.0)
[2023-05-24 14:05] LABS: Influenza A PCR NEGATIVE (Negative); Influenza B PCR NEGATIVE (Negative); Resp Syncy Virus RNA Qual PCR NEGATIVE (Negative); SARS COV2 PCR INHOUSE POSITIVE (Negative)
--- NOTE | 2023-05-24 14:35 | MHC.EDTECH ---
T/w assisted Pt with bedpan x 2.
--- NOTE | 2023-05-24 15:36 | PC.NURSE ---
Son Will Dayton to be transport home, contact [phone]
[2023-05-24 16:07] VITALS: BP 178/76; PULSE 78; RESP 16; TEMP 36.7; O2SAT 95
--- NOTE | 2023-05-24 16:08 | PC.NURSE ---
Ambulatory trial, pt unsteady even with walker. Sates d/t not eating, will give food and re attempt. Catherine mohan
--- NOTE | 2023-05-24 16:43 | PC.NURSE ---
Ambulated pt again with walker after eating and improvement noted however remains unsteady at times.
[2023-05-24 17:18] LABS: Appearance Urine Clear; Color Urine Yellow; Glucose Urine UA Negative (Negative); Leukocyte Esterase Urine Moderate (2+) (Negative); Nitrite Urine Positive (Negative); PH 6.5 (5.0-9.0); Specific Gravity - Urine 1.015 (1.005-1.025); UMIC TRIGGER UACC YES; Urine Blood Negative (Negative); Urine Ketones 15 mg/dL (Negative); Urine Protein Negative (Neg-Trace)
[2023-05-24 17:23] LABS: Bacteria Urine 4+ (None Seen); Hyaline Casts Urine 0-2 /LPF (0-2); RBC Urine 0-2 /HPF (0-2); UACC Culture Trigger YES; WBC Urine 21-50 /HPF (0-5)
[2023-05-24 17:38] LABS: Troponin-I High Sensitivity 15.2 ng/L (<3.5-17.0)
--- NOTE | 2023-05-24 20:08 | PHA.MEDREC ---
Pharmacy Consult ? Medication Reconciliation Pharmacy has completed the medication reconciliation. Patient reported medications. Cindi Fitzgerald, TrixieD
[2023-05-24 21:03] VITALS: BP 154/73; PULSE 87; RESP 16; TEMP 36.7; O2SAT 98
--- NOTE | 2023-05-24 21:04 | MHC.EDTECH ---
Patient just came over to overflow from the main emergency room ,pt was moved into hospital bed ,vitals taken and Pt belongings list done ,Pt was change into hospital attire ,call [place] within reach ,bed alarm on and telle sitter in room.
[2023-05-24] MEDS: cefuroxime axetiL 250 MG TABLET PO (21:41)
[2023-05-24] MEDS: Acetaminophen 325 MG TABLET 650 MG PO (22:01)
--- NOTE | 2023-05-24 22:24 | PC.NURSE ---
Patient alert and oriented,medicated with Tylenol for generalized pains,bed alarm on and telesiter on for safety.
--- NOTE | 2023-05-24 22:40 | MHC.EDTECH ---
Patient was assisted unto bedside commode ,void large amount of urine ,back in bed .
[2023-05-25 05:43] VITALS: BP 126/59; PULSE 84; RESP 16; TEMP 36.8; O2SAT 96
--- NOTE | 2023-05-25 05:45 | PC.NURSE ---
pt slept during the night,pt oob w/o any assistance, bedalarm on
[2023-05-25] MEDS: cefuroxime axetiL 250 MG TABLET PO (08:36)
[2023-05-25 11:16] VITALS: BP 126/59; PULSE 84; O2SAT 96
[2023-05-25] MEDS: buPROPion HCl XL 300 MG TAB.ER.24H PO (11:21)
[2023-05-25] MEDS: carvediloL 25 MG TABLET PO (11:21)
[2023-05-25 14:00] VITALS: BP 125/63; PULSE 76; RESP 18; TEMP 37; O2SAT 95
--- NOTE | 2023-05-25 15:31 | MHC.CM.ED ---
Received case management consult overnight. Patient came to the ER due to a fall. Work up essentially negative except she's positive for Covid since 05/17. Phyiscal therapy eval completed. No physical therapy needed. Spoke with patient's son, Sherman, via telephone at [phone]. Patient's is currently admitted for Covid. Sherman feels patient will need VNA for snf at d/c. Patient has [facility]. Will be difficult to find VNA. Referral broadcasted in [facility]. Sherman will be her at 4pm to transport patient home. Patient and [employer] aware. Continue to monitor for d/c needs.
[2023-05-25] MEDS: Acetaminophen 325 MG TABLET 975 MG PO (16:13)
--- NOTE | 2023-05-26 09:35 | MHC.CM.ED ---
Patient was d/c'd on 05/25. [facility] is able to accept patient.
== END 2023-05-25 16:55 | disposition still patient (30) ==
PROVIDERS: Physician Assistant Medical; Emergency Provider Emergency Medicine; PCP Internal Medicine
DX: U07.1 COVID-19 (principal); N39.0 Urinary tract infection, site not specified; M25.561 Pain in right knee; M25.551 Pain in right hip; R94.31 Abnormal electrocardiogram [ECG] [EKG]; R53.1 Weakness; R51.9 Headache, unspecified; R06.02 Shortness of breath; R26.2 Difficulty in walking, not elsewhere classified; Z79.899 Other long term (current) drug therapy
CPT/HCPCS: 0241U; 36415; 70450; 71046; 72125; 73502; 73562; 80053; 81001; 83880; 84484; 85025; 87086; 87088; 87186; 93005; 97161; 99285

== ENCOUNTER → 2023-05-24 12:48 | Outpatient (BNV) | payer MEDICARE, SELFPAY | PROVIDERS: Emergency Provider Emergency Medicine; PCP Internal Medicine; Visit Provider Internal Medicine | DX: I45.81 Long QT syndrome (principal) | CPT/HCPCS: 93010 ==

== ENCOUNTER 2023-08-02 13:04 | Outpatient (AMB) | payer MEDICARE, SELFPAY ==
--- NOTE | 2023-08-02 13:05 | AM.OFFWIN_ITS ---
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 She states she was cleaning her garage and slipped on the cement floor landing on the left side of her body. She denies any left shoulder/elbow/wrist pain. She denies any left hip pain. She denies any numbness/weakness/paresthesias of her extremities. She denies any head trauma or loss of consciousness. [facility] Medical History Hypertension Mood disorder Surgical History Hx of esophagogastroduodenoscopy H/O hernia repair Hx of breast reduction, elective Social History Household Members: Spouse Housing: House Do you presently have visiting nurse or other home services: No Patient Tobacco Use Status: Never used Tobacco service: No Current occupational status: retired Review of Systems Const All systems reviewed & are unremarkable except as noted in HPI and below Reports no additional complaints Eyes Reports no additional complaints ENT Reports no additional complaints Card Reports no additional complaints Resp Reports no additional complaints GI Reports no additional complaints Reports no additional complaints Musc Reports no additional complaints Skin/Breast Reports system reviewed and no additional complaints, except as documented Neuro Reports no additional complaints Psych Reports no additional complaints Endo Reports no additional complaints Chi/Lymph Reports no additional complaints Aller/Immun Reports no additional complaints Physical Exam Vital Signs: Last Vital Signs Temp 98.2 F 08/02/23 13:08 Pulse 74 08/02/23 13:08 BP 132/80 08/02/23 13:08 Pulse Ox 93 02/16/24 13:08 Oxygen Delivery Method Room Air 08/02/23 13:08 BMI result Body Mass Index 22.6 Const Other: Vital signs reviewed. Constitutional: Non-toxic appearing. No acute distress. Well-developed and well-nourished. HEENT: Normocephalic and atraumatic. Skin: Warm and dry. No rashes or lesions noted. Neck: Full and painless range of motion. No cervical lymphadenopathy. Cardio: Regular rate and rhythm. No murmurs, gallops, or rubs. No lower extremity edema. No JVD. Pulmonary: No respiratory distress. No accessory muscle usage. Clear to auscultation bilaterally without wheezing, crackles, or rhonchi. Gastrointestinal: Soft, nontender, and nondistended in all 4 quadrants. Musculoskeletal: Normal range of motion in joints throughout the body. No deformity or other signs of injury. There is tenderness to palpation of her l eft upper back and left lateral/anterior ribs. Neuro: Alert and oriented x4. Cranial nerves 2-12 grossly intact. No focal deficits appreciated. Psych: Normal mood and affect. Assessment & Plan Assessment & Plan (1) Rib pain on left side: Code(s): R07.81 - Pleurodynia Plan: This is an 82-year-old female who presented to the office complaining of left upper back and left lateral/anterior rib pain following a fall that occurred 1 week ago. On physical examination, she is tenderness to palpation of the left posterior, lateral, and anterior ribs. Differential diagnosis includes rib fr acture versus contusion. X-ray of the left ribs was obtained, which is negative for acute displaced rib fracture upon my evaluation. Recommended symptomatic management including acetaminophen/ibuprofen for pain management as long as patient has no medical contraindications, heat/ice to the area, daily lidocaine patches to the area, deep breathing exercises, bracing/splinting her ribs when she coughs/sneezes etc. to avoid atelectasis/pneumonia. Orders: Orders XR ribs LT min 3V w CXR1V Today Coding Level of Care Code New Pt Level 3 (54177) Diagnoses Rib pain on left side R07.81
[2023-08-02 13:08] VITALS: BP 132/80; PULSE 74; TEMP 36.8; O2SAT 93; BMI 22.6
== END 2023-08-02 14:22 | disposition home or self-care (01) ==
PROVIDERS: PCP Internal Medicine; Visit Provider Physician Assistant Medical
DX: R07.81 Pleurodynia (principal)
CPT/HCPCS: 99203

== ENCOUNTER 2023-08-02 13:13 | Outpatient (REF) | payer MEDICARE, SELFPAY ==
--- NOTE | ~2023-08-02 | XR_ITS ---
EXAMINATION: XR RIBS, LEFT CLINICAL INFORMATION: Left-sided rib pain COMPARISON: Chest x-ray of May 24, [address] of the chest of June 07, 2022 TECHNIQUE: PA chest and 3 views of the left ribs. FINDINGS: There is no evidence of acute parenchymal disease, pneumothorax, or pleural effusion. Heart normal size. No evidence of pulmonary edema. Retrocardiac density may be related to small hiatal hernia. There is some prominence of the right paratracheal region likely related to vascular structures. No acute displaced rib fractures identified. No significant mass effect upon the trachea from this is seen. There is a stippled region of increased density seen about the right humeral head which may be related to medullary infarct. Views of the left ribs do not demonstrate any abnormal destructive bony lesions. There is some artifact giving the appearance of a nondisplaced fracture of the left eighth rib anterolaterally. XR/XR ribs LT min 3V w CXR1V IMPRESSION: No significant acute parenchymal disease within the chest. No acute displaced left rib fracture or destructive bony lesion appreciated.
== END 2023-08-02 13:14 | disposition home or self-care (01) ==
LOC: HO.HMGCX 13:13
PROVIDERS: PCP Internal Medicine; Visit Provider Physician Assistant Medical
DX: R07.81 Pleurodynia (principal)
CPT/HCPCS: 71101

== ENCOUNTER 2023-08-02 15:30 | Outpatient (REF) | payer MEDICARE, SELFPAY ==
--- NOTE | ~2023-08-02 | CT_ITS ---
EXAMINATION: CT head/brain wo IV con CLINICAL INFORMATION: Reason for Exam mild incognitive impairment COMPARISON: CT head 05/24/2023 TECHNIQUE: Contiguous axial imaging was performed from the skull base to vertex without intravenous contrast. Sagittal and coronal reformatted images were obtained. This CT examination was performed using dose optimization techniques as appropriate, variously including the following: * Automated exposure control * Adjustment of mA and/or kV according to patient size (this includes techniques or standardized protocols for targeted exams where dose is matched to indication/reason for exam; i.e. extremities or head) Use of iterative reconstruction technique DLP: 709.31 mGy-cm mGy-cm FINDINGS: There is no evidence of acute intracranial hemorrhage. No mass-effect or ventricular shift is noted. No acute, territorial loss of bosch-white differentiation. Mild generalized cerebral volume loss with associated ventricular and sulcal prominence.Periventricular and subcortical white matter hypodensity is nonspecific but likely represents chronic microvascular ischemic change. Intracranial atherosclerotic calcification is noted. The breast calvarial fracture. Degenerative changes of the right greater left temporomandibular joints. Bilateral intraocular lens replacements.The visualized paranasal sinuses are well-aerated. The mastoid air cells are clear. CT/CT head/brain wo IV con IMPRESSION: No acute intracranial hemorrhage or territorial loss of bosch-white differentiation. Mild generalized cerebral volume loss and chronic microvascular ischemic change.
== END 2023-08-02 15:31 | disposition home or self-care (01) ==
LOC: HO.CT 15:30
PROVIDERS: PCP Internal Medicine; Visit Provider Psychiatry & Neurology Neurology
DX: G31.84 Mild cognitive impairment of uncertain or unknown etiology (principal)
CPT/HCPCS: 70450

== ENCOUNTER 2024-02-05 14:51 | Outpatient (REF) | payer MEDICARE, SELFPAY ==
--- NOTE | ~2024-02-05 | XR_ITS ---
EXAMINATION: XR CHEST CLINICAL INFORMATION: Cough, congested. COMPARISON: 08/02/2023 TECHNIQUE: 2 views of the chest were obtained. FINDINGS: Lungs are clear. Minimal elevation left hemidiaphragm. No consolidation, pneumothorax, or pleural effusion. Cardiac and mediastinal contours are normal. Pulmonary vasculature is unremarkable. Moderate multilevel disc disease in the thoracic spine hyperkyphosis. Osteopenia. No fractures. 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 XR/XR chest 2V IMPRESSION: No acute pulmonary findings. Electronically signed by: Tobi Rich MD 03/01/2024 12:57 AM EDT
== END 2024-02-05 14:52 | disposition home or self-care (01) ==
LOC: HO.HMGCX 14:51
PROVIDERS: PCP Internal Medicine; Visit Provider Internal Medicine
DX: R05.9 Cough, unspecified (principal); R09.89 Other specified symptoms and signs involving the circulatory and respiratory systems
CPT/HCPCS: 71046

== ENCOUNTER 2024-03-24 12:49 | Inpatient (IN) | payer MEDICARE, SELFPAY ==
--- NOTE | ~2024-03-24 | CT_ITS ---
EXAMINATION: CT HEAD WITHOUT CONTRAST CLINICAL INFORMATION: Trauma. COMPARISON: Prior CT head dated 06/07/2022 TECHNIQUE: Contiguous axial imaging was performed from the skull base to vertex without intravenous administration of contrast. This CT examination was performed using dose optimization techniques as appropriate, variously including the following: *Automated exposure control *Adjustment of mA and/or kV according to patient size (this includes techniques or standardized protocols for targeted exams where dose is matched to indication/reason for exam; i.e. extremities or head) *Use of iterative reconstruction technique DLP: 665 mGy-cm FINDINGS: No intra or extra-axial fluid collection or hemorrhage, mass or mass effect. There is prominence to the sulci and ventricles with moderate deep white matter gliosis. Calvarium is intact. CT/CT head/brain wo IV con IMPRESSION: No acute intracranial pathology. Electronically signed by: Chester Caceres MD 03/24/2024 03:27 PM EDT
--- NOTE | ~2024-03-24 | XR_ITS ---
EXAMINATION: XR ANKLE, RIGHT CLINICAL INFORMATION: Fall COMPARISON: None available. TECHNIQUE: AP, lateral, and mortise views of the right ankle. FINDINGS: Mild soft tissue swelling about the lateral aspect of the ankle. Question subtle avulsion fracture off the distal tip of the fibula versus artifactual related to projection Remaining bone and joints unremarkable. Arterial calcification noted. XR/XR ankle RT min 3V IMPRESSION: 1. Soft tissue swelling about the lateral aspect of the ankle. 2. Question subtle avulsion fracture off the distal tip of the fibula versus artifactual related to projection. Electronically signed by: Duane Orlando MD 03/24/2024 03:35 PM EDT
--- NOTE | ~2024-03-24 | CT_ITS ---
EXAMINATION: CT CERVICAL SPINE WITHOUT CONTRAST CLINICAL INFORMATION: Neck trauma COMPARISON: None available. TECHNIQUE: Thin section axial images with sagittal and coronal reformats. This CT examination was performed using dose optimization techniques as appropriate, variously including the following: *Automated exposure control *Adjustment of mA and/or kV according to patient size (this includes techniques or standardized protocols for targeted exams where dose is matched to indication/reason for exam; i.e. extremities or head) *Use of iterative reconstruction technique DLP: 264 mGy-cm FINDINGS: There is advanced degenerative change noted at C5-6. The posterior margin of C6-7 with very minimal fluid subluxation C7 upon T1. No encroachment on the spinal canal. No fracture or destructive process. Prevertebral soft tissues normal. Lung apices are grossly clear other than minor scarring. CT/CT cervical spine wo IV con IMPRESSION: Degenerative changes observed. No fracture or encroachment on the spinal canal. Fleischner guidelines were followed. Electronically signed by: Chester Caceres MD 03/24/2024 04:16 PM EDT
--- NOTE | ~2024-03-24 | XR_ITS ---
EXAMINATION: XR CHEST CLINICAL INFORMATION: Fall COMPARISON: Prior chest February 05, 2024 multiple additional radiographs dating back to April 2020. TECHNIQUE: Frontal view of the chest was obtained. FINDINGS: Lungs clear. Minimal calcification of the dorsal aorta. Cardiac mediastinal silhouette are otherwise normal. Bone and soft tissues: Focal area of mixed sclerotic/calcific density in the metaphysis of the proximal right humerus unchanged compared to greater than stating back to 2019. This focus extends over measuring approximately 2.5 cm. XR/XR chest 1V IMPRESSION: 1. No acute disease. 2. Sclerotic/calcific density and lucency in the proximal right humerus unchanged compared to prior. This most likely reflects a cartilage lesion i.e enchondroma or bone infarct. Electronically signed by: Duane Orlando MD 03/24/2024 03:33 PM EDT RP
--- NOTE | ~2024-03-24 | XR_ITS ---
EXAMINATION: XR FOOT, RIGHT CLINICAL INFORMATION: Fall. Pain. COMPARISON: Radiograph right foot 04/23/2017. TECHNIQUE: AP, lateral, and oblique views of the right foot. FINDINGS: Chronic hammertoe deformity of the second toe. No acute fracture or dislocation. 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 Scattered vascular calcifications. No significant soft tissue abnormality. XR/XR foot RT min 3V IMPRESSION: 1. No acute fracture or dislocation. 2. Chronic hammertoe deformity of the second toe. 3. 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 Electronically signed by: Sheila Hernandez MD 03/24/2024 06:16 PM EDT
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
[2024-03-24 13:09] VITALS: BP 162/73; PULSE 90; O2SAT 99
--- NOTE | 2024-03-24 13:26 | ECG_ITS ---
Test Reason : FALL Blood Pressure : / mmHG Vent. Rate : 071 BPM Atrial Rate : 071 BPM P-R Int : 166 ms QRS Dur : 088 ms QT Int : 436 ms P-R-T Axes : -26 004 -05 degrees QTc Int : 473 ms Normal sinus rhythm T wave abnormality, consider anterior ischemia Abnormal ECG When compared with ECG of 24-MAY-2023 13:08, T wave inversion now evident in Anterior leads Referred By: Lashell London Electronically Signed By:NIKKO RAE MD
[2024-03-24 13:29] VITALS: BP 153/92; PULSE 71; RESP 16; O2SAT 97
[2024-03-24 13:38] VITALS: BMI 25.2
[2024-03-24 14:48] LABS: Basophils Percent Auto 0.2 % (0-2); Eosinophils Percent Auto 0.3 % (0-4); Hematocrit 39.5 % (37.0-47.0); Hemoglobin 13.2 g/dl (12.0-16.0); Imm Gran Abs Auto 0.04 X10*3/uL (0.00-0.03); Imm Gran Pct Auto 0.4 % (0.0-0.4); Lymphocytes Percent Auto 17.9 % (20-40); MANUAL DIFF FLAG SCAN; Mean Corpuscular HGB Conc 33.4 g/dl (31.0-35.0); Mean Corpuscular Hemoglobin 32.5 pg (27.0-33.0); Mean Corpuscular Volume 97.3 fL (80.0-98.0); Monocytes Absolute Auto 1.4 X10*3/uL (0.1-1.2); Monocytes Percent Auto 12.2 % (2-11); Neutrophils Absolute Auto 7.6 x10*3/uL (2.0-8.3); PLT CLUMP 1; Red Blood Count 4.06 X10*6/uL (4.20-5.50); Red Cell Distribution Width 13.3 % (11.0-16.0); SCAN SMEAR FLAG 1
[2024-03-24 15:12] LABS: Alanine Aminotransferase 19 U/L (0-31); Albumin Level 4.1 g/dL (3.5-5.0); Alkaline Phosphatase 74 U/L (39-117); Anion Gap 15 (12-20); Aspartate Amino Transferase 36 U/L (5-31); Bilirubin Direct 0.4 mg/dL (0.0-0.5); Bilirubin Total 1.3 mg/dL (0.0-1.0); Blood Urea Nitrogen 25 mg/dL (9-16); Calcium 9.7 mg/dL (8.4-10.2); Carbon Dioxide 22 mmol/L (22-29); Chloride 108 mmol/L (96-108); Creatinine Clr Calc Pharmacy 61.7; Estimated Glomerular Filt Rate > 60; Ethanol < 10 mg/dL; Glucose Random 103 mg/dL (60-115); Lipase 14 U/L (8-78); Magnesium 2.2 mg/dL (1.6-2.6); Potassium 3.8 mmol/L (3.3-5.1); Sodium 141 mmol/L (135-145); Total Protein 7.4 g/dL (6.5-8.0)
[2024-03-24 15:19] LABS: White Blood Count 11.1 X10*3/uL (4.8-10.8)
[2024-03-24 15:22] LABS: Influenza A PCR NEGATIVE (Negative); Influenza B PCR NEGATIVE (Negative); Resp Syncy Virus RNA Qual PCR NEGATIVE (Negative); SARS COV2 PCR INHOUSE NEGATIVE (Negative); TSH reflex Free T4 1.15 uIU/mL (0.32-4.0)
--- NOTE | 2024-03-24 15:47 | MHC.EDTECH ---
Visitor took patient's [facility] home
[2024-03-24 15:55] LABS: SLIDE REVIEW VERIFIED
[2024-03-24 17:09] LABS: Appearance Urine Cloudy; Color Urine Dark Yellow; Glucose Urine UA Negative (Negative); Nitrite Urine Positive (Negative); PH 5.5 (5.0-9.0); Specific Gravity - Urine >= 1.030 (1.005-1.025); Urine Blood Trace (Negative); Urine Ketones 80 mg/dL (Negative); Urine Protein Trace mg/dL (Neg-Trace)
[2024-03-24] MEDS: Acetaminophen 325 MG TABLET 650 MG PO (17:09)
[2024-03-24 17:10] LABS: Leukocyte Esterase Urine Large (3+) (Negative); UMIC TRIGGER UACC YES
--- NOTE | 2024-03-24 17:10 | PC.NURSE ---
patient took pills one at a time, whole with water
[2024-03-24 17:22] LABS: Bacteria Urine 4+ (None Seen); Hyaline Casts Urine 0-2 /LPF (0-2); RBC Urine 0-2 /HPF (0-2); UACC Culture Trigger YES; WBC Urine 21-50 /HPF (0-5)
[2024-03-24 17:27] LABS: Troponin-I High Sensitivity 8.7 ng/L (<3.5-17.0)
--- NOTE | 2024-03-24 18:44 | PC.NURSE ---
patient ambulated one assist to the bathroom very unsteady
[2024-03-24 20:00] VITALS: BP 145/67; PULSE 80; RESP 16; TEMP 36.9; O2SAT 94
--- NOTE | 2024-03-24 20:05 | PC.NURSE ---
pt is restless getting oob to get to who is also a patient. reports she must attend to pt as he will try to get out of bed and he cant. pt is unsteady on feet. pt placed in hospital bed. bed alarm on and vmt camera on. Zulema RAHMAN made aware.
--- NOTE | 2024-03-24 20:10 | MHC.EDTECH ---
This tech took over care of patient at 1900.upon entry to room patient was trying to get oob,patient placed in hospital bed for safety,bed alarm on,vitals completed,call [place] in reach
[2024-03-24] MEDS: OLANZapine 10 MG TABLET PO (20:16)
--- NOTE | 2024-03-24 21:02 | MHC.CARE ---
CARE Team attempted to reach the pt's sister who is her HCP and there was no answer and no way to leave a VM. Gina Dozier [phone]
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
--- NOTE | 2024-03-24 21:50 | MHC.CARE ---
Juanito Whitaker Jr. [phone]
[2024-03-24 23:27] LABS: Amphetamine Screen Urine Not Detected (Not Detect); Barbiturates, Urine Not Detected (Not Detect); Benzodiazepines Screen Urine Not Detected (Not Detect); Buprenorphine Scr Not Detected (Not Detect); Cannabinoid Screen Urine Not Detected (Not Detect); Cocaine Screen Urine Not Detected (Not Detect); Fentanyl, urine Not Detected (Not Detect); Methadone Screen, Urine Not Detected (Not Detect); Opiate Screen Urine Not Detected (Not Detect); Oxycodone Screen Urine Not Detected (Not Detect); Phencyclidine Screen Urine Not Detected (Not Detect)
[2024-03-24 23:33] VITALS: BP 133/67; PULSE 87
[2024-03-24] MEDS: carvediloL 25 MG TABLET PO (23:33)
[2024-03-24] MEDS: cefuroxime axetiL 250 MG TABLET PO (23:33)
--- NOTE | 2024-03-25 | ECG_ITS ---
Test Reason : QTC CHECK Blood Pressure : / mmHG Vent. Rate : 080 BPM Atrial Rate : 080 BPM P-R Int : 194 ms QRS Dur : 080 ms QT Int : 384 ms P-R-T Axes : 012 -10 025 degrees QTc Int : 442 ms Normal sinus rhythm Minimal voltage criteria for LVH, may be normal variant ( R in aVL ) Nonspecific ST abnormality When compared with ECG of 24-MAR-2024 13:31, T wave inversion less evident in Anterior leads Referred By: Ada Ramos Electronically Signed By:NIKKO RAE MD
--- NOTE | 2024-03-25 07:48 | PC.NURSE ---
This RN resumed care of patient at 0730 when moved over to the ED Overflow unit, Pt oriented to unit/staff, pt is oriented to self, breakfast set up for patient at this time. Pt offers no complaints at this time, bed alarm on.
[2024-03-25 08:00] VITALS: BP 155/75; PULSE 90; RESP 16; TEMP 36.8; O2SAT 92
[2024-03-25 08:22] VITALS: BP 155/75; PULSE 90; RESP 16; TEMP 36.8; O2SAT 92
[2024-03-25 08:23] VITALS: BP 155/75; PULSE 90
[2024-03-25] MEDS: buPROPion HCl XL 300 MG TAB.ER.24H PO (08:23)
[2024-03-25] MEDS: cefuroxime axetiL 250 MG TABLET PO ×2 (08:23→20:40)
[2024-03-25] MEDS: carvediloL 25 MG TABLET PO ×2 (08:23→16:19)
--- NOTE | 2024-03-25 08:33 | PHA.MEDREC ---
Pharmacy Consult ? Medication Reconciliation Pharmacy has completed the medication reconciliation. Utilized recent claim history to confirm medications. Her is a patient beside her, and called step-son to try and confirm meds also.
--- NOTE | 2024-03-25 09:11 | MHC.CM.ED ---
Patient remains in ER overflow. Physical therapy eval completed. Short term rehab is recommended. Psych consult is still pending. Will wait to refer for STR until psych consult is complete. Continue to monitor for d/c needs.
--- NOTE | 2024-03-25 11:40 | MHC.CARE ---
Per psych consult done 03/25/24 by Ana María Ramos NP pt requires inpatient level of care.
--- NOTE | 2024-03-25 13:01 | PM.EVENT ---
Event Note Date of Service: 03/25/24 Event Note: Right ankle possible avulsion distal fibula. X-rays reviewed Recommend tall boot and WBAT May f/u out patient Time Spent With Patient Time: Total time managing care of this patient today ____ minutes.
[2024-03-25 13:28] VITALS: BMI 22.5
[2024-03-25 14:06] VITALS: BP 128/74; PULSE 70; O2SAT 94
--- NOTE | 2024-03-25 14:41 | HO.PSYADMNOT ---
HPI Date of Service: 03/25/24 Chief Complaint: paranoia Sources of Information: patient interviewed, chart reviewed and crisis/core team assessment reviewed HPI Subjective Notes: Lewis Warning and Conditional Voluntary Healthcare Proxy: Yes Narrative: The patient is an 83-year-old female, , mother of 1 adult son who is not very involved in her care, living with her , retired caregiver, referred from the emergency room for exacerbation of anxiety, failure to thrive and disorganized behavior. The patient was assessed by the crisis team and referred into this facility for psychiatric stabilization. Apparently, her stepson referred her and the patient to the emergency room since they were unable to take care of themselves. Her stepson was willing to take her back but not her. On admission, the patient reported that she has been feeling fairly well until a few weeks ago that her who is more impaired was feeling worse. He she reported that she used to be very active and recently she had several falls. While she was in the emergency room also, was diagnosed a UTI. She feels that she is overwhelmed, with anxiety and depression. She was self aware of worsening of short-term memory in the last days. I explained her that due to the UTI she could have some delirium symptoms. She was in agreement to start antibiotics and continue with medical care. The patient was able to contract for safety and she is willing to follow treatment. She denies prior psychiatric history. 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 Past Psychiatric History: She denies prior psychiatric history, never admitted into the hospital nor follow-up as an outpatient. Medical Evaluation Reviewed: Yes [facility] Medical History Hypertension Mood disorder Surgical History Hx of esophagogastroduodenoscopy H/O hernia repair Hx of breast reduction, elective Diagnostics Vital Signs (24Hr): Vital Signs - 24 hr 03/24/24 20:00 03/24/24 23:33 03/25/24 08:00 Temperature 98.5 F 98.3 F Pulse Rate 80 87 90 Respiratory Rate 16 16 Blood Pressure 145/67 H 133/67 155/75 H Pulse Oximetry 94 92 Oxygen Delivery Method Room Air Room Air 03/25/24 08:22 03/25/24 08:23 03/25/24 14:06 Temperature 98.3 F Pulse Rate 90 90 70 Respiratory Rate 16 Blood Pressure 155/75 H 155/75 H 128/74 Pulse Oximetry 92 94 Oxygen Delivery Method Room Air Room Air BMI result Body Mass Index 22.5 Labs 03/26/24 07:45 03/26/24 07:45 Labs: Laboratory Results - last 48 hr 03/24/24 03/24/24 14:38 17:01 WBC 11.1 H RBC 4.06 L Hgb 13.2 Hct 39.5 MCV 97.3 MCH 32.5 MCHC 33.4 RDW 13.3 Plt Count TNP MPV Not Reportable Immature Gran % (Auto) 0.4 Neut % (Auto) 69.0 Lymph % (Auto) 17.9 L [place] % (Auto) 12.2 H Eos % (Auto) 0.3 Baso % (Auto) 0.2 Lymph # (Auto) 2.0 [place] # (Auto) 1.4 H Eos # (Auto) 0.0 Baso # (Auto) 0.0 Abs Immat Gran (auto) 0.04 H Absolute Neuts (auto) 7.6 Absolute Nucleated RBC 0.000 Nucleated RBC % (auto) 0.0 Smear Tech's Comments VERIFIED Sodium 141 Potassium 3.8 Chloride 108 Carbon Dioxide 22 Anion Gap 15 BUN 25 H Creatinine 0.66 Estim Creat Clear Calc 61.7 Estimated GFR > 60 Random Glucose 103 Calcium 9.7 Magnesium 2.2 Total Bilirubin 1.3 H Direct Bilirubin 0.4 AST 36 H ALT 19 Alkaline Phosphatase 74 Total Creatine Kinase 555 H Troponin I High Sens 7.0 D 8.7 Total Protein 7.4 Albumin 4.1 Lipase 14 TSH 1.15 Urine Color Dark Yellow Urine Appearance Cloudy Urine pH 5.5 Ur Specific [place] >= 1.030 H Urine Protein Trace Urine Glucose (UA) Negative Urine Ketones 80 Urine Blood Trace H Urine Nitrite Positive H Ur Leukocyte Esterase Large (3+) H Urine RBC 0-2 Urine WBC 21-50 H Ur Squamous Epith Cells 11-20 Urine Bacteria 4+ Hyaline Casts 0-2 Urine Opiates Screen Not Detected Ur Buprenorphine Scrn Not Detected Ur Oxycodone Screen Not Detected Urine Methadone Screen Not Detected Urine Fentanyl Screen Not Detected Ur Barbiturates Screen Not Detected Ur Phencyclidine Scrn Not Detected Ur Amphetamines Screen Not Detected U Benzodiazepines Scrn Not Detected Urine Cocaine Screen Not Detected U Marijuana (THC) Screen Not Detected Ethyl Alcohol < 10 Influenza Type A (PCR) NEGATIVE Influenza Type B (PCR) NEGATIVE RSV RNA Qual (PCR) NEGATIVE SARS-CoV-2 RNA (RT-PCR) NEGATIVE Imaging Radiology Impressions: ITS Impressions Ankle X-Ray 03/24/24 13:24 IMPRESSION: 1. Soft tissue swelling about the lateral aspect of the ankle. 2. Question subtle avulsion fracture off the distal tip of the fibula versus artifactual related to projection. Electronically signed by: Duane Orlando MD 03/24/2024 03:35 PM EDT RP Chest X-Ray 03/24/24 13:26 IMPRESSION: 1. No acute disease. 2. Sclerotic/calcific density and lucency in the proximal right humerus unchanged compared to prior. This most likely reflects a cartilage lesion i.e enchondroma or bone infarct. Electronically signed by: Duane Orlando MD 03/24/2024 03:33 PM EDT RP Head CT 03/24/24 13:26 IMPRESSION: No acute intracranial pathology. Electronically signed by: Chester Caceres MD 03/24/2024 03:27 PM EDT RP Cervical Spine CT 03/24/24 14:10 IMPRESSION: Degenerative changes observed. No fracture or encroachment on the spinal canal. Fleischner guidelines were followed. Electronically signed by: Chester Caceres MD 03/24/2024 04:16 PM EDT RP Foot X-Ray 03/24/24 15:50 IMPRESSION: 1. No acute fracture or dislocation. 2. Chronic hammertoe deformity of the second toe. 3. 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 Electronically signed by: Sheila Hernandez MD 03/24/2024 06:16 PM EDT RP Meds/Allergies Meds Home Medications ?Medication ?Instructions ?Recorded ?Confirmed ?Type bupropion HCl 300 mg 24 hr tablet, 1 tab PO DAILY 03/07/22 03/25/24 History extended release carvedilol 25 mg tablet 1 tab PO BID 03/07/22 03/25/24 History citalopram 20 mg tablet 20 mg PO BEDTIME 05/24/23 03/25/24 History Allergies Allergies Allergy/AdvReac Type Severity Reaction Status Date / Time No Known Allergies Allergy Mild NOT Verified 03/24/24 13:40 APPLICABLE Mental Status Exam Mental Status Exam Patient Appearance: Appropriate (On hospital gowns) Patient Orientation: Person and Situation Level of Consciousness: Awake Patient Behavior: Guarded and Passive Mood Description: Withdrawn Affect Description: Constricted Patient Cognition Impaired: Yes Ability to Follow Directions: Good Speech Pattern: Clear Hallucinations: None Delusions: Ideas of Reference Thought Process: Distracted and Slowed Thinking Thought Content: positive for [place] and positive for Poverty of Content Judgement: Fair Assessment & Plan Assessment & Plan (1) Delirium: Status: Acute Code(s): R41.0 - Disorientation, unspecified (2) Psychosis: Status: Acute Code(s): F29 - Unspecified psychosis not due to a substance or known physiological condition (3) Dementia: Status: Acute Code(s): F03.90 - Unspecified dementia, unspecified severity, without behavioral disturbance, psychotic disturbance, mood disturbance, and anxiety Plan The patient is an elderly female with a past history of high blood pressure, previous falls and a past history of a GI bleed with no prior psychiatric history who was brought into the facility with her by her stepson due to inability to take care of themselves. The patient admitted that she had been feeling more confused but it was in the context of a UTI recently diagnosed. Plan 1. Gather collateral information. 2. Continue with antibiotics for UTI. 3. Regular blood work and follow-up with medical team. 4. Reassessment results. 5. Continue 15 minute checks Patient educated on: diagnosis Reason for continued inpatient stay Substantial Risk for: harm to self, inability to function, rapid decompensation and med/psych decompensation Statement Statement: I have reviewed the history and physical and performed a pertinent examination on my patient. No changes have occurred unless specified. If the History and Physical was not performed prior to admission, the Hospitalist's service will be consulted for completing the admission physical. Time Spent With Patient Time: Total time managing care of this patient today __45__ minutes.
--- NOTE | 2024-03-25 14:43 | PC.ADMIT ---
Patient admitted to from [facility] ED Overflow via WC at 1250 pm. Patient presented to ED after unwitnessed fall at home and exhibiting paranoid behavior stating there were 2 nurses looking after her and 4 men in the home. Patient resides in her own home with who was also admitted to ED. Upon arrival to patient was presented and signed CV. Noted have UTI on admission and is being treated with antibiotics. Vital signs stable, skin check shows some bilateral redness/slight bruising of bilateral lower extremities. Patient is noted to be wearing R ankle brace due to fall at home. Foot xray was unremarkable. Medical record indicates patient uses walker at home although patient states to TW that she is independent. Using WC on the unit at this time. Alert and oriented to self and time of year. Vague to place with little insight into situation. Admission process completed with cooperation from patient and medical record. Oriented to unit. Assisted to bed where she is resting comfortably.
--- NOTE | 2024-03-25 15:40 | PC.NURSE ---
Patient reports upon admission to ED she was wearing a gold tone chain with gold tone cross. There was not a belongings inventory with patient in ED overflow. ED was contacted and report no knowledge of patient having chain with cross.
[2024-03-25 16:19] VITALS: BP 132/78
[2024-03-25 20:00] VITALS: BP 158/71; PULSE 87; RESP 16; TEMP 36.6; O2SAT 97
[2024-03-25] MEDS: traZODone HCL 50 MG TABLET PO ×2 (20:40→21:39)
[2024-03-25] MEDS: OLANZapine 5 MG TABLET PO (20:40)
[2024-03-25] MEDS: Acetaminophen 325 MG TABLET 650 MG PO (21:36)
[2024-03-26 07:00] VITALS: BMI 22.6
[2024-03-26 08:16] LABS: MANUAL DIFF FLAG NO
[2024-03-26 08:17] LABS: Basophils Percent Auto 0.2 % (0-2); Eosinophils Absolute Auto 0.1 X10*3/uL (0.0-0.4); Eosinophils Percent Auto 1.9 % (0-4); Hematocrit 38.4 % (37.0-47.0); Imm Gran Abs Auto 0.01 X10*3/uL (0.00-0.03); Imm Gran Pct Auto 0.2 % (0.0-0.4); Lymphocytes Absolute Auto 2.3 X10*3/uL (1.2-4.9); Lymphocytes Percent Auto 40.4 % (20-40); Mean Corpuscular HGB Conc 33.9 g/dl (31.0-35.0); Mean Corpuscular Hemoglobin 32.3 pg (27.0-33.0); Mean Corpuscular Volume 95.3 fL (80.0-98.0); Mean Platelet Volume 9.2 fL (9.4-12.3); Monocytes Absolute Auto 0.9 X10*3/uL (0.1-1.2); Neutrophils Absolute Auto 2.5 x10*3/uL (2.0-8.3); Neutrophils Percent Auto 42.3 % (45-73); Platelet Count 234 X10*3/uL (160-400); Red Blood Count 4.03 X10*6/uL (4.20-5.50); Red Cell Distribution Width 13.3 % (11.0-16.0); White Blood Count 5.8 X10*3/uL (4.8-10.8)
[2024-03-26 08:19] VITALS: BP 159/74; PULSE 74; RESP 20; TEMP 36.3; O2SAT 97
[2024-03-26] MEDS: buPROPion HCl XL 300 MG TAB.ER.24H PO (08:22)
[2024-03-26] MEDS: carvediloL 25 MG TABLET PO ×2 (08:22→17:25)
[2024-03-26] MEDS: cefuroxime axetiL 250 MG TABLET PO ×2 (08:23→20:12)
[2024-03-26 08:46] LABS: Alanine Aminotransferase 19 U/L (0-31); Albumin Level 3.7 g/dL (3.5-5.0); Alkaline Phosphatase 59 U/L (39-117); Anion Gap 10 (12-20); Aspartate Amino Transferase 26 U/L (5-31); Bilirubin Total 0.6 mg/dL (0.0-1.0); Blood Urea Nitrogen 14 mg/dL (9-16); Calcium 9.3 mg/dL (8.4-10.2); Carbon Dioxide 29 mmol/L (22-29); Chloride 107 mmol/L (96-108); Cholesterol 178 mg/dL (<200); Creatinine Clr Calc Pharmacy 54.6; Estimated Glomerular Filt Rate > 60; Glucose Fasting 101 mg/dL (60-99); HDL Cholesterol 67 mg/dL (>40); LDL Cholesterol Calculated 98 mg/dL (<100); Magnesium 2.3 mg/dL (1.6-2.6); Potassium 3.3 mmol/L (3.3-5.1); Sodium 143 mmol/L (135-145); Total Protein 6.6 g/dL (6.5-8.0); Triglycerides 69 mg/dL (<150)
[2024-03-26] MEDS: Acetaminophen 325 MG TABLET 650 MG PO (08:54)
[2024-03-26 08:58] LABS: Thyroid Stimulating Hormone 0.91 uIU/mL (0.32-4.0)
[2024-03-26 09:05] LABS: Estimated Average Glucose 108 mg/dL; Hemoglobin A1C 117.8304 umol/L; Hemoglobin A1c % 5.4 % (<6.0); Total Hemoglobin (HGBA1C) 3318.4582 umol/L
[2024-03-26 09:27] LABS: Folate 13.6 ng/mL (> or = 4.0); Vitamin B12 > 2000 pg/mL (200-900)
--- NOTE | 2024-03-26 10:23 | P.CNPS_ITS ---
History of Present Illness Date of Service: 03/25/2024 Chief Complaint: paranoia Discussed with referring provider: Yes Sources of Information: patient interviewed, chart reviewed and crisis/core team assessment reviewed HPI Narrative: Ms. Chavez is a 83 year-old woman who was brought via EMS after she called 911. Pt reported she had felt on Saturday and days later realized she had severe pain on left ankle. Pt presented as disorganized, reporting she was running after 2 women who were trying to enter her house. Her had been already in the ED. She presented as confused in terms of year or month and not so clear as to where she was. Collateral information was gathered from her step son who reports pt's has diagnosis of dementia and needs more care, but he also worries that Christina is showing signs of cognitive decline, increase confusion and becoming increasingly more paranoid thinking that people are breaking into their home and even paranoid towards him. In the ED, pt was found to have UTI and was started on antibiotics. Pt seen in the ED. She presents as calm. She tells this keno writer that she thinks she is in [place]. She reports people were breaking into her house and she had to run after them and then she felt. She is able to tell me the month, but at times is not sure if she came here after fall or if she had been here even before that. She is able to tell me that her is diagnosed with dementia and she cares for him. She does report problems with her short term memory, which she explains she has brought up concerns to her PCP but was told is normal aging. She denies SI/HI. She does report feeling depressed and anxious at times although denies any plan or intent to harm herself. She reports difficulty sleeping mostly because she is very scared of people breaking into her home. Last night here in the ED, pt presented as increasingly more confused and agited requiring oral olanzapine 10mg. She often forgets that she has an boot, and can't ambulate freely. [facility] Medical History Hypertension Mood disorder Surgical History Hx of esophagogastroduodenoscopy H/O hernia repair Hx of breast reduction, elective Diagnostics Vital Signs (24Hr): Vital Signs - 24 hr 03/25/24 14:06 03/25/24 16:19 03/25/24 20:00 Temperature 97.8 F Pulse Rate 70 87 Respiratory Rate 16 Blood Pressure 128/74 132/78 158/71 H Pulse Oximetry 94 97 Oxygen Delivery Method Room Air Room Air 03/26/24 08:19 Temperature 97.3 F Pulse Rate 74 Respiratory Rate 20 Blood Pressure 159/74 H Pulse Oximetry 97 Oxygen Delivery Method Room Air BMI result Body Mass Index 22.5 Labs 03/26/24 07:45 03/26/24 07:45 Labs: Laboratory Results - last 48 hr 03/24/24 03/24/24 03/26/24 14:38 17:01 07:45 WBC 11.1 H 5.8 RBC 4.06 L 4.03 L Hgb 13.2 13.0 Hct 39.5 38.4 MCV 97.3 95.3 MCH 32.5 32.3 MCHC 33.4 33.9 RDW 13.3 13.3 Plt Count TNP 234 MPV Not Reportable 9.2 L Immature Gran % (Auto) 0.4 0.2 Neut % (Auto) 69.0 42.3 L Lymph % (Auto) 17.9 L 40.4 H [place] % (Auto) 12.2 H 15.0 H Eos % (Auto) 0.3 1.9 Baso % (Auto) 0.2 0.2 Lymph # (Auto) 2.0 2.3 [place] # (Auto) 1.4 H 0.9 Eos # (Auto) 0.0 0.1 Baso # (Auto) 0.0 0.0 Abs Immat Gran (auto) 0.04 H 0.01 Absolute Neuts (auto) 7.6 2.5 Absolute Nucleated RBC 0.000 0.000 Nucleated RBC % (auto) 0.0 0.0 Smear Tech's Comments VERIFIED Sodium 141 143 Potassium 3.8 3.3 Chloride 108 107 Carbon Dioxide 22 29 Anion Gap 15 10 L BUN 25 H 14 Creatinine 0.66 0.69 Estim Creat Clear Calc 61.7 54.6 Estimated GFR > 60 > 60 Random Glucose 103 Fasting Glucose 101 H Estimat Average Glucose 108 Hemoglobin A1c % 5.4 Calcium 9.7 9.3 Magnesium 2.2 2.3 Total Bilirubin 1.3 H 0.6 Direct Bilirubin 0.4 AST 36 H 26 ALT 19 19 Alkaline Phosphatase 74 59 Total Creatine Kinase 555 H Troponin I High Sens 7.0 D 8.7 Total Protein 7.4 6.6 Albumin 4.1 3.7 Triglycerides 69 Cholesterol 178 LDL Cholesterol, Calc 98 HDL Cholesterol 67 Lipase 14 Vitamin B12 > 2000 H Folate 13.6 TSH 1.15 0.91 Urine Color Dark Yellow Urine Appearance Cloudy Urine pH 5.5 Ur Specific [place] >= 1.030 H Urine Protein Trace Urine Glucose (UA) Negative Urine Ketones 80 Urine Blood Trace H Urine Nitrite Positive H Ur Leukocyte Esterase Large (3+) H Urine RBC 0-2 Urine WBC 21-50 H Ur Squamous Epith Cells 11-20 Urine Bacteria 4+ Hyaline Casts 0-2 Urine Opiates Screen Not Detected Ur Buprenorphine Scrn Not Detected Ur Oxycodone Screen Not Detected Urine Methadone Screen Not Detected Urine Fentanyl Screen Not Detected Ur Barbiturates Screen Not Detected Ur Phencyclidine Scrn Not Detected Ur Amphetamines Screen Not Detected U Benzodiazepines Scrn Not Detected Urine Cocaine Screen Not Detected U Marijuana (THC) Screen Not Detected Ethyl Alcohol < 10 Influenza Type A (PCR) NEGATIVE Influenza Type B (PCR) NEGATIVE RSV RNA Qual (PCR) NEGATIVE SARS-CoV-2 RNA (RT-PCR) NEGATIVE Imaging Radiology Impressions: ITS Impressions Ankle X-Ray 03/24/24 13:24 IMPRESSION: 1. Soft tissue swelling about the lateral aspect of the ankle. 2. Question subtle avulsion fracture off the distal tip of the fibula versus artifactual related to projection. Electronically signed by: Duane Orlando MD 03/24/2024 03:35 PM EDT Chest X-Ray 03/24/24 13:26 IMPRESSION: 1. No acute disease. 2. Sclerotic/calcific density and lucency in the proximal right humerus unchanged compared to prior. This most likely reflects a cartilage lesion i.e enchondroma or bone infarct. Electronically signed by: Duane Orlando MD 03/24/2024 03:33 PM EDT RP Head CT 03/24/24 13:26 IMPRESSION: No acute intracranial pathology. Electronically signed by: Chester Caceres MD 03/24/2024 03:27 PM EDT Cervical Spine CT 03/24/24 14:10 IMPRESSION: Degenerative changes observed. No fracture or encroachment on the spinal canal. Fleischner guidelines were followed. Electronically signed by: Chester Caceres MD 03/24/2024 04:16 PM EDT RP Foot X-Ray 03/24/24 15:50 IMPRESSION: 1. No acute fracture or dislocation. 2. Chronic hammertoe deformity of the second toe. 3. 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 Electronically signed by: Sheila Hernandez MD 03/24/2024 06:16 PM EDT RP Mental Status Exam Mental Status Exam Narrative: Appearance: wearing hospital gown, fair hygiene, in NAD Behavior: cooperative Psychomotor: no agitation or retardation noted Speech: mostly clear, regular rate/rhythm/volume, spontaneous TP: at times is disorganized, but more coherent TC: needing help for depression, and concern about her memory Mood: depressed Affect: constricted, but brightens up at times SI: passive but denies any plan or intent HI: none VH/AH: none Delusions: inermittent paranoid ideas Insight/judgment: impaired x2. Memory/cog: alert, not oriented to place (thinks we are in [place]), she was able to tell me the month and year but gets confused as to what brought her here Medications Medications Current Medications Acetaminophen (Acetaminophen 325 Mg Tablet) 650 mg PO Q6H PRN PRN Reason: Pain, Moderate(Pain Scale 4-6) Last Admin: 03/26/24 08:54 Dose: 650 mg Al Hydroxide/Mg Hydroxide (Magnesium Hydrox/Alum Hydrox 30 Ml Oral.Susp) 30 ml PO Q6H PRN PRN Reason: Heartburn/Nausea Bupropion HCl (Bupropion Hcl Xl 300 Mg Tab.Er.24h) 300 mg PO DAILY DIONNE Last Admin: 03/26/24 08:22 Dose: 300 mg Carvedilol (Carvedilol 25 Mg Tablet) 25 mg PO BIDWM [facility]; Protocol Last Admin: 03/26/24 08:22 Dose: 25 mg Cefuroxime Axetil (Cefuroxime Axetil 250 Mg Tablet) 250 mg PO BID [facility] Stop: 03/29/24 21:00 Last Admin: 03/26/24 08:23 Dose: 250 mg Magnesium Hydroxide (Milk Of Magnesia 30 Ml Oral.Susp) 30 ml PO DAILY PRN PRN Reason: Constipation Olanzapine (Olanzapine 5 Mg Tablet) 5 mg PO Q4H PRN PRN Reason: Agitation Last Admin: 03/25/24 20:40 Dose: 5 mg Trazodone HCl (Trazodone Hcl 50 Mg Tablet) 50 mg PO BEDTIME MRX1 PRN PRN Reason: Insomnia Last Admin: 03/25/24 21:39 Dose: 50 mg Allergies Allergies Allergy/AdvReac Type Severity Reaction Status Date / Time No Known Allergies Allergy Mild NOT Verified 03/24/24 13:40 APPLICABLE Assessment & Plan Assessment & Plan (1) Major neurocognitive disorder: Status: Acute Code(s): F03.90 - Unspecified dementia, unspecified severity, without behavioral disturbance, psychotic disturbance, mood disturbance, and anxiety Plan Mrs. Chavez is a 83 year-old woman who was brought via EMS after she called reporting recent fall and days after realizing her ankle was hurting. She was not oriented to place or situation. She reported women breaking into her home and her having to run after them. Collateral from step son who reports pt has been presenting as increasingly more confused, paranoid. Pt also reports depressed mood, passive SI, but denies any plan or intent. Also, concern in terms of underlying neurocognitive disorder. Pt was found to have UTI in the ED, started on antibiotics. She does not present as delirious and suspect paranoia related to underlying major neurocognitive disorder. Head CT does show atrophy, moderate gliosis. PLAN- recommend psychiatric inpt level of care for stabilization, safety and containment. Total time managing care of this patient today ____ minutes.
--- NOTE | 2024-03-26 12:00 | P.PNPSI_ITS ---
Subjective Subjective Date of Service: 03/26/24 Reason For Visit: paranoia Subjective Notes: Conditional Voluntary Interim History: The nursing staff reported the last night the patient was a little agitated and she required Zyprexa. She was slightly sedated. On interview the patient denies new symptoms she states that she is feeling very depressed since she has never been so impaired. She is willing to continue treatment at this moment with antibiotics. Mental Status Exam Mental Status Exam Patient Appearance: Appropriate Patient Orientation: Person and Situation Level of Consciousness: Awake and Appropriate Patient Behavior: Guarded and Passive Mood Description: Withdrawn Affect Description: Constricted Patient Cognition Impaired: Yes Ability to Follow Directions: Good Speech Pattern: Clear Hallucinations: None Delusions: Not Present Thought Process: Distracted Thought Content: positive for Circumstantial Judgement: Fair Diagnostics Vital Signs (24Hr): Vital Signs - 24 hr 03/25/24 14:06 03/25/24 16:19 03/25/24 20:00 Temperature 97.8 F Pulse Rate 70 87 Respiratory Rate 16 Blood Pressure 128/74 132/78 158/71 H Pulse Oximetry 94 97 Oxygen Delivery Method Room Air Room Air 03/26/24 08:19 Temperature 97.3 F Pulse Rate 74 Respiratory Rate 20 Blood Pressure 159/74 H Pulse Oximetry 97 Oxygen Delivery Method Room Air BMI result Body Mass Index 22.5 Labs 03/26/24 07:45 03/26/24 07:45 Labs: Laboratory Results - last 48 hr 03/24/24 03/24/24 03/26/24 14:38 17:01 07:45 WBC 11.1 H 5.8 RBC 4.06 L 4.03 L Hgb 13.2 13.0 Hct 39.5 38.4 MCV 97.3 95.3 MCH 32.5 32.3 MCHC 33.4 33.9 RDW 13.3 13.3 Plt Count TNP 234 MPV Not Reportable 9.2 L Immature Gran % (Auto) 0.4 0.2 Neut % (Auto) 69.0 42.3 L Lymph % (Auto) 17.9 L 40.4 H [place] % (Auto) 12.2 H 15.0 H Eos % (Auto) 0.3 1.9 Baso % (Auto) 0.2 0.2 Lymph # (Auto) 2.0 2.3 [place] # (Auto) 1.4 H 0.9 Eos # (Auto) 0.0 0.1 Baso # (Auto) 0.0 0.0 Abs Immat Gran (auto) 0.04 H 0.01 Absolute Neuts (auto) 7.6 2.5 Absolute Nucleated RBC 0.000 0.000 Nucleated RBC % (auto) 0.0 0.0 Smear Tech's Comments VERIFIED Sodium 141 143 Potassium 3.8 3.3 Chloride 108 107 Carbon Dioxide 22 29 Anion Gap 15 10 L BUN 25 H 14 Creatinine 0.66 0.69 Estim Creat Clear Calc 61.7 54.6 Estimated GFR > 60 > 60 Random Glucose 103 Fasting Glucose 101 H Estimat Average Glucose 108 Hemoglobin A1c % 5.4 Calcium 9.7 9.3 Magnesium 2.2 2.3 Total Bilirubin 1.3 H 0.6 Direct Bilirubin 0.4 AST 36 H 26 ALT 19 19 Alkaline Phosphatase 74 59 Total Creatine Kinase 555 H Troponin I High Sens 7.0 D 8.7 Total Protein 7.4 6.6 Albumin 4.1 3.7 Triglycerides 69 Cholesterol 178 LDL Cholesterol, Calc 98 HDL Cholesterol 67 Lipase 14 Vitamin B12 > 2000 H Folate 13.6 TSH 1.15 0.91 Urine Color Dark Yellow Urine Appearance Cloudy Urine pH 5.5 Ur Specific [place] >= 1.030 H Urine Protein Trace Urine Glucose (UA) Negative Urine Ketones 80 Urine Blood Trace H Urine Nitrite Positive H Ur Leukocyte Esterase Large (3+) H Urine RBC 0-2 Urine WBC 21-50 H Ur Squamous Epith Cells 11-20 Urine Bacteria 4+ Hyaline Casts 0-2 Urine Opiates Screen Not Detected Ur Buprenorphine Scrn Not Detected Ur Oxycodone Screen Not Detected Urine Methadone Screen Not Detected Urine Fentanyl Screen Not Detected Ur Barbiturates Screen Not Detected Ur Phencyclidine Scrn Not Detected Ur Amphetamines Screen Not Detected U Benzodiazepines Scrn Not Detected Urine Cocaine Screen Not Detected U Marijuana (THC) Screen Not Detected Ethyl Alcohol < 10 Influenza Type A (PCR) NEGATIVE Influenza Type B (PCR) NEGATIVE RSV RNA Qual (PCR) NEGATIVE SARS-CoV-2 RNA (RT-PCR) NEGATIVE Imaging Radiology Impressions: ITS Impressions Ankle X-Ray 03/24/24 13:24 IMPRESSION: 1. Soft tissue swelling about the lateral aspect of the ankle. 2. Question subtle avulsion fracture off the distal tip of the fibula versus artifactual related to projection. Electronically signed by: Duane Orlando MD 03/24/2024 03:35 PM EDT RP Chest X-Ray 03/24/24 13:26 IMPRESSION: 1. No acute disease. 2. Sclerotic/calcific density and lucency in the proximal right humerus unchanged compared to prior. This most likely reflects a cartilage lesion i.e enchondroma or bone infarct. Electronically signed by: Duane Orlando MD 03/24/2024 03:33 PM EDT RP Head CT 03/24/24 13:26 IMPRESSION: No acute intracranial pathology. Electronically signed by: Chester Caceres MD 03/24/2024 03:27 PM EDT RP Cervical Spine CT 03/24/24 14:10 IMPRESSION: Degenerative changes observed. No fracture or encroachment on the spinal canal. Fleischner guidelines were followed. Electronically signed by: Chester Caceres MD 03/24/2024 04:16 PM EDT RP Foot X-Ray 03/24/24 15:50 IMPRESSION: 1. No acute fracture or dislocation. 2. Chronic hammertoe deformity of the second toe. 3. 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 Electronically signed by: Sheila Hernandez MD 03/24/2024 06:16 PM EDT RP Medications Medications Current Medications Acetaminophen (Acetaminophen 325 Mg Tablet) 650 mg PO Q6H PRN PRN Reason: Pain, Moderate(Pain Scale 4-6) Last Admin: 03/26/24 08:54 Dose: 650 mg Al Hydroxide/Mg Hydroxide (Magnesium Hydrox/Alum Hydrox 30 Ml Oral.Susp) 30 ml PO Q6H PRN PRN Reason: Heartburn/Nausea Bupropion HCl (Bupropion Hcl Xl 300 Mg Tab.Er.24h) 300 mg PO DAILY REPLACED BY [facility] Last Admin: 03/26/24 08:22 Dose: 300 mg Carvedilol (Carvedilol 25 Mg Tablet) 25 mg PO BIDWM REPLACED BY [facility]; Protocol Last Admin: 03/26/24 08:22 Dose: 25 mg Cefuroxime Axetil (Cefuroxime Axetil 250 Mg Tablet) 250 mg PO BID REPLACED BY [facility] Stop: 03/29/24 21:00 Last Admin: 03/26/24 08:23 Dose: 250 mg Magnesium Hydroxide (Milk Of Magnesia 30 Ml Oral.Susp) 30 ml PO DAILY PRN PRN Reason: Constipation Olanzapine (Olanzapine 5 Mg Tablet) 5 mg PO Q4H PRN PRN Reason: Agitation Last Admin: 03/25/24 20:40 Dose: 5 mg Trazodone HCl (Trazodone Hcl 50 Mg Tablet) 50 mg PO BEDTIME MRX1 PRN PRN Reason: Insomnia Last Admin: 03/25/24 21:39 Dose: 50 mg Allergies Allergies Allergy/AdvReac Type Severity Reaction Status Date / Time No Known Allergies Allergy Mild NOT Verified 03/24/24 13:40 APPLICABLE Assessment & Plan Assessment & Plan (1) Delirium: Status: Acute Code(s): R41.0 - Disorientation, unspecified (2) Psychosis: Status: Acute Code(s): F29 - Unspecified psychosis not due to a substance or known physiological condition (3) Dementia: Status: Acute Code(s): F03.90 - Unspecified dementia, unspecified severity, without behavioral disturbance, psychotic disturbance, mood disturbance, and anxiety Plan The patient is an elderly female with a past history of high blood pressure, previous falls and a past history of a GI bleed with no prior psychiatric history who was brought into the facility with her by her stepson due to inability to take care of themselves. The patient admitted that she had been feeling more confused but it was in the context of a UTI recently diagnosed. Plan 1. Gather collateral information. 2. Continue with antibiotics for UTI. 3. Regular blood work and follow-up with medical team. 4. Reassessment results. 5. Continue 15 minute checks Reason for continued inpatient stay Substantial Risk for: inability to function, rapid decompensation and med/psych decompensation Time Spent With Patient Time: Total time managing care of this patient today __20__ minutes.
[2024-03-26 17:24] VITALS: BP 152/82; PULSE 93
[2024-03-26 20:00] VITALS: BP 135/74; PULSE 92; RESP 16; TEMP 36.6; O2SAT 93
[2024-03-27 08:00] VITALS: BP 125/67; PULSE 101; RESP 15; TEMP 37.1; O2SAT 95
[2024-03-27] MEDS: cefuroxime axetiL 250 MG TABLET PO ×2 (08:41→21:16)
[2024-03-27] MEDS: carvediloL 25 MG TABLET PO ×2 (08:42→17:36)
[2024-03-27] MEDS: buPROPion HCl XL 300 MG TAB.ER.24H PO (08:43)
--- NOTE | 2024-03-27 08:50 | PC.NURSE ---
Pt asked for antabuse as she is reporting she takes that at home for alcohol use disorder. Ada Ramos NP made aware via [employer].
[2024-03-27] MEDS: Milk of Magnesia 30 ML ORAL.SUSP PO (09:58)
--- NOTE | 2024-03-27 12:06 | HO.PSYCHPN ---
Subjective Subjective Date of Service: 03/27/24 Reason For Visit: paranoia Subjective Notes: Conditional Voluntary Interim History: The nursing staff reported the patient had been pleasant, confused, able to verbalize her needs. On interview the patient reports that she is feeling okay but confused, easily redirectable. SHE WAS UPSET THAT APPARENTLY HER PANTS WERE STOLEN. WE REDIRECT HER TO NURSING REGARDING THAT. Mental Status Exam Mental Status Exam Patient Appearance: Well Grooomed and Appropriate Patient Orientation: Person and Situation Level of Consciousness: Awake and Appropriate Patient Behavior: Guarded and Passive Mood Description: Withdrawn Affect Description: Constricted Patient Cognition Impaired: Yes Ability to Follow Directions: Good Speech Pattern: Clear Hallucinations: None Delusions: Not Present Thought Process: Distracted and Slowed Thinking Thought Content: positive for [place] and positive for Poverty of Content Judgement: Poor Diagnostics Vital Signs (24Hr): Vital Signs - 24 hr 03/26/24 17:24 03/26/24 20:00 03/27/24 08:00 Temperature 97.8 F 98.8 F Pulse Rate 93 92 101 H Respiratory Rate 16 15 Blood Pressure 152/82 H 135/74 125/67 Pulse Oximetry 93 95 Oxygen Delivery Method Room Air Room Air BMI result Body Mass Index 22.6 Labs 03/26/24 07:45 03/26/24 07:45 Labs: Laboratory Results - last 48 hr 03/26/24 07:45 WBC 5.8 RBC 4.03 L Hgb 13.0 Hct 38.4 MCV 95.3 MCH 32.3 MCHC 33.9 RDW 13.3 Plt Count 234 MPV 9.2 L Immature Gran % (Auto) 0.2 Neut % (Auto) 42.3 L Lymph % (Auto) 40.4 H [place] % (Auto) 15.0 H Eos % (Auto) 1.9 Baso % (Auto) 0.2 Lymph # (Auto) 2.3 [place] # (Auto) 0.9 Eos # (Auto) 0.1 Baso # (Auto) 0.0 Abs Immat Gran (auto) 0.01 Absolute Neuts (auto) 2.5 Absolute Nucleated RBC 0.000 Nucleated RBC % (auto) 0.0 Sodium 143 Potassium 3.3 Chloride 107 Carbon Dioxide 29 Anion Gap 10 L BUN 14 Creatinine 0.69 Estim Creat Clear Calc 54.6 Estimated GFR > 60 Fasting Glucose 101 H Estimat Average Glucose 108 Hemoglobin A1c % 5.4 Calcium 9.3 Magnesium 2.3 Total Bilirubin 0.6 AST 26 ALT 19 Alkaline Phosphatase 59 Total Protein 6.6 Albumin 3.7 Triglycerides 69 Cholesterol 178 LDL Cholesterol, Calc 98 HDL Cholesterol 67 Vitamin B12 > 2000 H Folate 13.6 TSH 0.91 Imaging Radiology Impressions: ITS Impressions Ankle X-Ray 03/24/24 13:24 IMPRESSION: 1. Soft tissue swelling about the lateral aspect of the ankle. 2. Question subtle avulsion fracture off the distal tip of the fibula versus artifactual related to projection. Electronically signed by: Duane Orlando MD 03/24/2024 03:35 PM EDT RP Chest X-Ray 03/24/24 13:26 IMPRESSION: 1. No acute disease. 2. Sclerotic/calcific density and lucency in the proximal right humerus unchanged compared to prior. This most likely reflects a cartilage lesion i.e enchondroma or bone infarct. Electronically signed by: Duane Orlando MD 03/24/2024 03:33 PM EDT RP Head CT 03/24/24 13:26 IMPRESSION: No acute intracranial pathology. Electronically signed by: Chester Caceres MD 03/24/2024 03:27 PM EDT RP Cervical Spine CT 03/24/24 14:10 IMPRESSION: Degenerative changes observed. No fracture or encroachment on the spinal canal. Fleischner guidelines were followed. Electronically signed by: Chester Caceres MD 03/24/2024 04:16 PM EDT RP Foot X-Ray 03/24/24 15:50 IMPRESSION: 1. No acute fracture or dislocation. 2. Chronic hammertoe deformity of the second toe. 3. 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 Electronically signed by: Sheila Hernandez MD 03/24/2024 06:16 PM EDT RP Medications Medications Current Medications Acetaminophen (Acetaminophen 325 Mg Tablet) 650 mg PO Q6H PRN PRN Reason: Pain, Moderate(Pain Scale 4-6) Last Admin: 03/26/24 08:54 Dose: 650 mg Al Hydroxide/Mg Hydroxide (Magnesium Hydrox/Alum Hydrox 30 Ml Oral.Susp) 30 ml PO Q6H PRN PRN Reason: Heartburn/Nausea Bupropion HCl (Bupropion Hcl Xl 300 Mg Tab.Er.24h) 300 mg PO DAILY [facility] Last Admin: 03/27/24 08:43 Dose: 300 mg Carvedilol (Carvedilol 25 Mg Tablet) 25 mg PO BIDWM [facility]; Protocol Last Admin: 03/27/24 08:42 Dose: 25 mg Cefuroxime Axetil (Cefuroxime Axetil 250 Mg Tablet) 250 mg PO BID [facility] Stop: 03/29/24 21:00 Last Admin: 03/27/24 08:41 Dose: 250 mg Magnesium Hydroxide (Milk Of Magnesia 30 Ml Oral.Susp) 30 ml PO DAILY PRN PRN Reason: Constipation Last Admin: 03/27/24 09:58 Dose: 30 ml Olanzapine (Olanzapine 5 Mg Tablet) 5 mg PO Q4H PRN PRN Reason: Agitation Last Admin: 03/25/24 20:40 Dose: 5 mg Trazodone HCl (Trazodone Hcl 50 Mg Tablet) 50 mg PO BEDTIME MRX1 PRN PRN Reason: Insomnia Last Admin: 03/25/24 21:39 Dose: 50 mg Allergies Allergies Allergy/AdvReac Type Severity Reaction Status Date / Time No Known Allergies Allergy Mild NOT Verified 03/24/24 13:40 APPLICABLE Assessment & Plan Assessment & Plan (1) Delirium: Status: Acute Code(s): R41.0 - Disorientation, unspecified (2) Psychosis: Status: Acute Code(s): F29 - Unspecified psychosis not due to a substance or known physiological condition (3) Dementia: Status: Acute Code(s): F03.90 - Unspecified dementia, unspecified severity, without behavioral disturbance, psychotic disturbance, mood disturbance, and anxiety Plan The patient is an elderly female with a past history of high blood pressure, previous falls and a past history of a GI bleed with no prior psychiatric history who was brought into the facility with her by her stepson due to inability to take care of themselves. The patient admitted that she had been feeling more confused but it was in the context of a UTI recently diagnosed. Plan 1. Gather collateral information. 2. Continue with antibiotics for UTI. 3. Regular blood work and follow-up with medical team. 4. Reassessment results. 5. Continue 15 minute checks Reason for continued inpatient stay Substantial Risk for: inability to function, rapid decompensation and med/psych decompensation Time Spent With Patient Time: Total time managing care of this patient today __20__ minutes.
--- NOTE | 2024-03-27 12:36 | PC.NURSE ---
Pt reporting constipation the last 3-4 days. MOM given this morning with no effect per pt. Pt just had her lunch and said I hope my digestive system starts working now . Ada Ramos NP made aware. Will continue to monitor pt.
[2024-03-27 17:36] VITALS: BP 131/74; PULSE 89
[2024-03-27 20:00] VITALS: BP 143/68; PULSE 92; RESP 16; TEMP 36.4; O2SAT 94
[2024-03-27] MEDS: traZODone HCL 50 MG TABLET PO ×2 (21:16→23:38)
[2024-03-28] MEDS: Acetaminophen 325 MG TABLET 650 MG PO ×2 (00:18→22:28)
[2024-03-28 09:08] VITALS: BP 122/63; PULSE 87; RESP 20; TEMP 36.6; O2SAT 94
[2024-03-28] MEDS: carvediloL 25 MG TABLET PO ×2 (09:10→16:40)
[2024-03-28] MEDS: buPROPion HCl XL 300 MG TAB.ER.24H PO (09:10)
[2024-03-28] MEDS: cefuroxime axetiL 250 MG TABLET PO ×2 (09:10→19:53)
[2024-03-28 16:39] VITALS: BP 136/65; PULSE 82
[2024-03-28] MEDS: traZODone HCL 50 MG TABLET PO ×2 (19:52→22:27)
[2024-03-28 20:00] VITALS: BP 113/56; PULSE 79; RESP 16; TEMP 36.1; O2SAT 92
--- NOTE | 2024-03-28 20:48 | P.PNPSI_ITS ---
Subjective Subjective Date of Service: 03/28/24 Reason For Visit: paranoia Interim History: no complaints. very chatty and pleasant. per staff, UTI, delusional, dementia. Mental Status Exam Mental Status Exam Patient Appearance: Well Grooomed and Appropriate Patient Orientation: Person and Situation Level of Consciousness: Awake and Appropriate Patient Behavior: Guarded and Passive Mood Description: Withdrawn Affect Description: Constricted Patient Cognition Impaired: Yes Ability to Follow Directions: Good Speech Pattern: Clear Hallucinations: None Delusions: Not Present Thought Process: Distracted and Slowed Thinking Thought Content: positive for [place] and positive for Poverty of Content Judgement: Poor Diagnostics Vital Signs (24Hr): Vital Signs - 24 hr 03/28/24 09:08 03/28/24 16:39 Temperature 97.8 F Pulse Rate 87 82 Respiratory Rate 20 Blood Pressure 122/63 136/65 Pulse Oximetry 94 Oxygen Delivery Method Room Air BMI result Body Mass Index 22.6 Labs 03/26/24 07:45 03/26/24 07:45 Imaging Radiology Impressions: ITS Impressions Ankle X-Ray 03/24/24 13:24 IMPRESSION: 1. Soft tissue swelling about the lateral aspect of the ankle. 2. Question subtle avulsion fracture off the distal tip of the fibula versus artifactual related to projection. Electronically signed by: Duane Orlando MD 03/24/2024 03:35 PM EDT RP Chest X-Ray 03/24/24 13:26 IMPRESSION: 1. No acute disease. 2. Sclerotic/calcific density and lucency in the proximal right humerus unchanged compared to prior. This most likely reflects a cartilage lesion i.e enchondroma or bone infarct. Electronically signed by: Duane Orlando MD 03/24/2024 03:33 PM EDT RP Head CT 03/24/24 13:26 IMPRESSION: No acute intracranial pathology. Electronically signed by: Chester Caceres MD 03/24/2024 03:27 PM EDT RP Cervical Spine CT 03/24/24 14:10 IMPRESSION: Degenerative changes observed. No fracture or encroachment on the spinal canal. Fleischner guidelines were followed. Electronically signed by: Chester Caceres MD 03/24/2024 04:16 PM EDT RP Foot X-Ray 03/24/24 15:50 IMPRESSION: 1. No acute fracture or dislocation. 2. Chronic hammertoe deformity of the second toe. 3. 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 Electronically signed by: Sheila Hernandez MD 03/24/2024 06:16 PM EDT RP Medications Medications Current Medications Acetaminophen (Acetaminophen 325 Mg Tablet) 650 mg PO Q6H PRN PRN Reason: Pain, Moderate(Pain Scale 4-6) Last Admin: 03/28/24 00:18 Dose: 650 mg Al Hydroxide/Mg Hydroxide (Magnesium Hydrox/Alum Hydrox 30 Ml Oral.Susp) 30 ml PO Q6H PRN PRN Reason: Heartburn/Nausea Bupropion HCl (Bupropion Hcl Xl 300 Mg Tab.Er.24h) 300 mg PO DAILY [facility] Last Admin: 03/28/24 09:10 Dose: 300 mg Carvedilol (Carvedilol 25 Mg Tablet) 25 mg PO BIDWM [facility]; Protocol Last Admin: 03/28/24 16:40 Dose: 25 mg Cefuroxime Axetil (Cefuroxime Axetil 250 Mg Tablet) 250 mg PO BID [facility] Stop: 03/29/24 21:00 Last Admin: 03/28/24 19:53 Dose: 250 mg Magnesium Hydroxide (Milk Of Magnesia 30 Ml Oral.Susp) 30 ml PO DAILY PRN PRN Reason: Constipation Last Admin: 03/27/24 09:58 Dose: 30 ml Olanzapine (Olanzapine 5 Mg Tablet) 5 mg PO Q4H PRN PRN Reason: Agitation Last Admin: 03/25/24 20:40 Dose: 5 mg Trazodone HCl (Trazodone Hcl 50 Mg Tablet) 50 mg PO BEDTIME MRX1 PRN PRN Reason: Insomnia Last Admin: 03/28/24 19:52 Dose: 50 mg Allergies Allergies Allergy/AdvReac Type Severity Reaction Status Date / Time No Known Allergies Allergy Mild NOT Verified 03/24/24 13:40 APPLICABLE Assessment & Plan Assessment & Plan (1) Delirium: Status: Acute Code(s): R41.0 - Disorientation, unspecified (2) Psychosis: Status: Acute Code(s): F29 - Unspecified psychosis not due to a substance or known physiological condition (3) Dementia: Status: Acute Code(s): F03.90 - Unspecified dementia, unspecified severity, without behavioral disturbance, psychotic disturbance, mood disturbance, and anxiety Plan The patient is an elderly female with a past history of high blood pressure, previous falls and a past history of a GI bleed with no prior psychiatric history who was brought into the facility with her by her stepson due to inability to take care of themselves. The patient admitted that she had been feeling more confused but it was in the context of a UTI recently diagnosed. Plan 1. Gather collateral information. 2. Continue with antibiotics for UTI. 3. Regular blood work and follow-up with medical team. 4. Reassessment results. 5. Continue 15 minute checks Reason for continued inpatient stay Substantial Risk for: inability to function Time Spent With Patient Time: Total time managing care of this patient today ____ minutes.
[2024-03-29 09:00] VITALS: BP 130/60; PULSE 81; RESP 20; TEMP 36.4; O2SAT 96
[2024-03-29] MEDS: buPROPion HCl XL 300 MG TAB.ER.24H PO (09:05)
[2024-03-29] MEDS: cefuroxime axetiL 250 MG TABLET PO ×2 (09:05→21:13)
[2024-03-29] MEDS: carvediloL 25 MG TABLET PO ×2 (09:05→19:15)
--- NOTE | 2024-03-29 15:26 | HO.PSYCHPN ---
Subjective Subjective Date of Service: 03/29/24 Reason For Visit: paranoia Interim History: pleasant, cooperative. same conversation as yesterday. per staff, upset last NOC re noise on the unit. slept. no issues. Mental Status Exam Mental Status Exam Patient Appearance: Well Grooomed and Appropriate Patient Orientation: Person and Situation Level of Consciousness: Awake and Appropriate Patient Behavior: Guarded and Passive Mood Description: Withdrawn Affect Description: Constricted Patient Cognition Impaired: Yes Ability to Follow Directions: Good Speech Pattern: Clear Hallucinations: None Delusions: Not Present Thought Process: Distracted and Slowed Thinking Thought Content: positive for [place] and positive for Poverty of Content Judgement: Poor Diagnostics Vital Signs (24Hr): Vital Signs - 24 hr 03/28/24 16:39 03/28/24 20:00 03/29/24 09:00 Temperature 97 F 97.6 F Pulse Rate 82 79 81 Respiratory Rate 16 20 Blood Pressure 136/65 113/56 L 130/60 Pulse Oximetry 92 96 Oxygen Delivery Method Room Air Room Air BMI result Body Mass Index 22.6 Labs 03/26/24 07:45 03/26/24 07:45 Imaging Radiology Impressions: ITS Impressions Ankle X-Ray 03/24/24 13:24 IMPRESSION: 1. Soft tissue swelling about the lateral aspect of the ankle. 2. Question subtle avulsion fracture off the distal tip of the fibula versus artifactual related to projection. Electronically signed by: Duane Orlando MD 03/24/2024 03:35 PM EDT RP Chest X-Ray 03/24/24 13:26 IMPRESSION: 1. No acute disease. 2. Sclerotic/calcific density and lucency in the proximal right humerus unchanged compared to prior. This most likely reflects a cartilage lesion i.e enchondroma or bone infarct. Electronically signed by: Duane Orlando MD 03/24/2024 03:33 PM EDT RP Head CT 03/24/24 13:26 IMPRESSION: No acute intracranial pathology. Electronically signed by: Chester Caceres MD 03/24/2024 03:27 PM EDT RP Cervical Spine CT 03/24/24 14:10 IMPRESSION: Degenerative changes observed. No fracture or encroachment on the spinal canal. Fleischner guidelines were followed. Electronically signed by: Chester Caceres MD 03/24/2024 04:16 PM EDT RP Foot X-Ray 03/24/24 15:50 IMPRESSION: 1. No acute fracture or dislocation. 2. Chronic hammertoe deformity of the second toe. 3. 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 Electronically signed by: Sheila Hernandez MD 03/24/2024 06:16 PM EDT RP Medications Medications Current Medications Acetaminophen (Acetaminophen 325 Mg Tablet) 650 mg PO Q6H PRN PRN Reason: Pain, Moderate(Pain Scale 4-6) Last Admin: 03/28/24 22:28 Dose: 650 mg Al Hydroxide/Mg Hydroxide (Magnesium Hydrox/Alum Hydrox 30 Ml Oral.Susp) 30 ml PO Q6H PRN PRN Reason: Heartburn/Nausea Bupropion HCl (Bupropion Hcl Xl 300 Mg Tab.Er.24h) 300 mg PO DAILY [facility] Last Admin: 03/29/24 09:05 Dose: 300 mg Carvedilol (Carvedilol 25 Mg Tablet) 25 mg PO BIDWM [facility]; Protocol Last Admin: 03/29/24 09:05 Dose: 25 mg Cefuroxime Axetil (Cefuroxime Axetil 250 Mg Tablet) 250 mg PO BID [facility] Stop: 03/29/24 21:00 Last Admin: 03/29/24 09:05 Dose: 250 mg Magnesium Hydroxide (Milk Of Magnesia 30 Ml Oral.Susp) 30 ml PO DAILY PRN PRN Reason: Constipation Last Admin: 03/27/24 09:58 Dose: 30 ml Olanzapine (Olanzapine 5 Mg Tablet) 5 mg PO Q4H PRN PRN Reason: Agitation Last Admin: 03/25/24 20:40 Dose: 5 mg Trazodone HCl (Trazodone Hcl 50 Mg Tablet) 50 mg PO BEDTIME MRX1 PRN PRN Reason: Insomnia Last Admin: 03/28/24 22:27 Dose: 50 mg Allergies Allergies Allergy/AdvReac Type Severity Reaction Status Date / Time No Known Allergies Allergy Mild NOT Verified 03/24/24 13:40 APPLICABLE Assessment & Plan Assessment & Plan (1) Delirium: Status: Acute Code(s): R41.0 - Disorientation, unspecified (2) Psychosis: Status: Acute Code(s): F29 - Unspecified psychosis not due to a substance or known physiological condition (3) Dementia: Status: Acute Code(s): F03.90 - Unspecified dementia, unspecified severity, without behavioral disturbance, psychotic disturbance, mood disturbance, and anxiety Plan The patient is an elderly female with a past history of high blood pressure, previous falls and a past history of a GI bleed with no prior psychiatric history who was brought into the facility with her by her stepson due to inability to take care of themselves. The patient admitted that she had been feeling more confused but it was in the context of a UTI recently diagnosed. Plan 1. Gather collateral information. 2. Continue with antibiotics for UTI. 3. Regular blood work and follow-up with medical team. 4. Reassessment results. 5. Continue 15 minute checks Reason for continued inpatient stay Substantial Risk for: inability to function Time Spent With Patient Time: Total time managing care of this patient today ____ minutes.
[2024-03-29 19:13] VITALS: BP 156/82; PULSE 82; RESP 20; TEMP 36.4; O2SAT 96
[2024-03-29 20:00] VITALS: BP 151/65; PULSE 79; RESP 16; TEMP 36.6; O2SAT 94
[2024-03-29] MEDS: Acetaminophen 325 MG TABLET 650 MG PO (21:12)
[2024-03-29] MEDS: traZODone HCL 50 MG TABLET PO (21:13)
[2024-03-30 08:00] VITALS: BP 124/62; PULSE 85; RESP 16; TEMP 36.3; O2SAT 95
[2024-03-30] MEDS: buPROPion HCl XL 300 MG TAB.ER.24H PO (09:34)
[2024-03-30] MEDS: carvediloL 25 MG TABLET PO ×2 (09:35→16:58)
[2024-03-30] MEDS: Acetaminophen 325 MG TABLET 650 MG PO (14:04)
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
[2024-03-30 16:58] VITALS: BP 131/60; PULSE 78
[2024-03-30 20:00] VITALS: BP 136/66; PULSE 67; RESP 20; TEMP 36.6; O2SAT 97
[2024-03-30] MEDS: traZODone HCL 50 MG TABLET PO ×2 (21:31→22:19)
[2024-03-31 08:00] VITALS: BP 154/80; PULSE 81; RESP 18; TEMP 36.2; O2SAT 95
[2024-03-31 08:46] VITALS: BP 154/80; PULSE 81
[2024-03-31] MEDS: carvediloL 25 MG TABLET PO ×2 (08:46→18:02)
[2024-03-31] MEDS: buPROPion HCl XL 300 MG TAB.ER.24H PO (08:47)
[2024-03-31] MEDS: Acetaminophen 325 MG TABLET 650 MG PO ×2 (10:29→21:51)
--- NOTE | 2024-03-31 11:04 | PC.NURSE ---
Addendum entered by Manuela Hartman RN 03/31/24 11:25: Dr Mayers was notified. Original Note: Pt observed telling RN, when redirected to utilize her walker when ambulating, I would rather fall and have them take me to a proper hospital to get care . Pt refusing to wear brace on her ankle, and refusing to ambulate with walker.
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
[2024-03-31 18:02] VITALS: BP 129/70; PULSE 64
[2024-03-31 20:00] VITALS: BP 129/62; PULSE 65; RESP 16; TEMP 36.3; O2SAT 95
[2024-04-01 08:05] VITALS: BP 154/72; PULSE 79; RESP 18; TEMP 36.8; O2SAT 96
[2024-04-01] MEDS: buPROPion HCl XL 300 MG TAB.ER.24H PO (08:30)
[2024-04-01] MEDS: carvediloL 25 MG TABLET PO ×2 (08:30→17:03)
--- NOTE | 2024-04-01 09:08 | PM.EVENT ---
Event Note Date of Service: 04/01/24 Event Note: Continue boot and WBAT No additional acute orthopedic intervention needed at this time for an avulsion fx - Treat as ankle sprain F/u out patient in 4 weeks Time Spent With Patient Time: Total time managing care of this patient today ____ minutes.
--- NOTE | 2024-04-01 15:12 | HO.PSYCHPN ---
Subjective Subjective Date of Service: 04/01/24 Reason For Visit: paranoia Subjective Notes: Conditional Voluntary Interim History: The nursing staff reported the patient had been refusing to wear braces. Her stepson contact the home health care social worker and apparently he is willing to take care of his father but not a patient. We consulted ortho since the patient is refusing to wear her braces and denies pain. Today we have a doc to doc with insurance company. On interview the patient looks pleasantly confused. She was very agitated later so we are starting a low dose of Zyprexa as a mood stabilizer Mental Status Exam Mental Status Exam Patient Appearance: Appropriate Patient Orientation: Person and Situation Level of Consciousness: Awake and Appropriate Patient Behavior: Guarded and Passive Mood Description: Withdrawn Affect Description: Constricted Patient Cognition Impaired: Yes Ability to Follow Directions: Good Speech Pattern: Clear Hallucinations: None Delusions: Ideas of Reference Thought Process: Distracted Thought Content: positive for [place] and positive for Poverty of Content Judgement: Poor Diagnostics Vital Signs (24Hr): Vital Signs - 24 hr 03/31/24 18:02 03/31/24 20:00 04/01/24 08:05 Temperature 97.3 F 98.2 F Pulse Rate 64 65 79 Respiratory Rate 16 18 Blood Pressure 129/70 129/62 154/72 H Pulse Oximetry 95 96 Oxygen Delivery Method Room Air Room Air BMI result Body Mass Index 22.6 Labs 03/26/24 07:45 03/26/24 07:45 Imaging Radiology Impressions: ITS Impressions Ankle X-Ray 03/24/24 13:24 IMPRESSION: 1. Soft tissue swelling about the lateral aspect of the ankle. 2. Question subtle avulsion fracture off the distal tip of the fibula versus artifactual related to projection. Electronically signed by: Duane Orlando MD 03/24/2024 03:35 PM EDT RP Chest X-Ray 03/24/24 13:26 IMPRESSION: 1. No acute disease. 2. Sclerotic/calcific density and lucency in the proximal right humerus unchanged compared to prior. This most likely reflects a cartilage lesion i.e enchondroma or bone infarct. Electronically signed by: Duane Orlando MD 03/24/2024 03:33 PM EDT RP Head CT 03/24/24 13:26 IMPRESSION: No acute intracranial pathology. Electronically signed by: Chester Caceres MD 03/24/2024 03:27 PM EDT RP Cervical Spine CT 03/24/24 14:10 IMPRESSION: Degenerative changes observed. No fracture or encroachment on the spinal canal. Fleischner guidelines were followed. Electronically signed by: Chester Caceres MD 03/24/2024 04:16 PM EDT RP Foot X-Ray 03/24/24 15:50 IMPRESSION: 1. No acute fracture or dislocation. 2. Chronic hammertoe deformity of the second toe. 3. 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 Electronically signed by: Sheila Hernandez MD 03/24/2024 06:16 PM EDT RP Medications Medications Current Medications Acetaminophen (Acetaminophen 325 Mg Tablet) 650 mg PO Q6H PRN PRN Reason: Pain, Moderate(Pain Scale 4-6) Last Admin: 03/31/24 21:51 Dose: 650 mg Al Hydroxide/Mg Hydroxide (Magnesium Hydrox/Alum Hydrox 30 Ml Oral.Susp) 30 ml PO Q6H PRN PRN Reason: Heartburn/Nausea Bupropion HCl (Bupropion Hcl Xl 300 Mg Tab.Er.24h) 300 mg PO DAILY DIONNE Last Admin: 04/01/24 08:30 Dose: 300 mg Carvedilol (Carvedilol 25 Mg Tablet) 25 mg PO BIDWM DIONNE; Protocol Last Admin: 04/01/24 08:30 Dose: 25 mg Magnesium Hydroxide (Milk Of Magnesia 30 Ml Oral.Susp) 30 ml PO DAILY PRN PRN Reason: Constipation Last Admin: 03/27/24 09:58 Dose: 30 ml Olanzapine (Olanzapine 5 Mg Tablet) 5 mg PO Q4H PRN PRN Reason: Agitation Last Admin: 03/25/24 20:40 Dose: 5 mg Olanzapine (Olanzapine 2.5 Mg Tablet) 2.5 mg PO BEDTIME DIONNE Trazodone HCl (Trazodone Hcl 50 Mg Tablet) 50 mg PO BEDTIME MRX1 PRN PRN Reason: Insomnia Last Admin: 03/30/24 22:19 Dose: 50 mg Allergies Allergies Allergy/AdvReac Type Severity Reaction Status Date / Time No Known Allergies Allergy Mild NOT Verified 03/24/24 13:40 APPLICABLE Assessment & Plan Assessment & Plan (1) Delirium: Status: Acute Code(s): R41.0 - Disorientation, unspecified (2) Psychosis: Status: Acute Code(s): F29 - Unspecified psychosis not due to a substance or known physiological condition (3) Dementia: Status: Acute Code(s): F03.90 - Unspecified dementia, unspecified severity, without behavioral disturbance, psychotic disturbance, mood disturbance, and anxiety Plan The patient is an elderly female with a past history of high blood pressure, previous falls and a past history of a GI bleed with no prior psychiatric history who was brought into the facility with her by her stepson due to inability to take care of themselves. The patient admitted that she had been feeling more confused but it was in the context of a UTI recently diagnosed. Plan 1. Gather collateral information. 2. Continue with antibiotics for UTI. 3. Regular blood work and follow-up with medical team. 4. Reassessment results. 5. Continue 15 minute checks. 6. Start Zyprexa 2.5 p.o. q.h.s. Reason for continued inpatient stay Substantial Risk for: inability to function, rapid decompensation and med/psych decompensation Time Spent With Patient Time: Total time managing care of this patient today __20__ minutes.
[2024-04-01 17:03] VITALS: BP 147/70; PULSE 90
[2024-04-01 20:00] VITALS: BP 138/63; PULSE 78; RESP 16; TEMP 36.1; O2SAT 96
[2024-04-01] MEDS: traZODone HCL 50 MG TABLET PO (21:02)
[2024-04-01] MEDS: OLANZapine 2.5 MG TABLET PO (21:02)
[2024-04-01] MEDS: Acetaminophen 325 MG TABLET 650 MG PO (21:03)
[2024-04-02 08:18] VITALS: BP 140/80; PULSE 89; RESP 18; TEMP 36.1; O2SAT 97
[2024-04-02] MEDS: buPROPion HCl XL 300 MG TAB.ER.24H PO (08:59)
[2024-04-02] MEDS: carvediloL 25 MG TABLET PO ×2 (08:59→17:20)
[2024-04-02 09:06] VITALS: BMI 22.8
--- NOTE | 2024-04-02 15:27 | P.PNPSI_ITS ---
Subjective Subjective Date of Service: 04/02/24 Reason For Visit: paranoia Subjective Notes: Conditional Voluntary Interim History: The nursing staff reported the patient had been more confused at times irritable and angry. Today we had a family meeting at 13:00 and her sister who lives out of the state reported that she can not take care of her but she will help past on information of healthcare proxy. Today she was very angry with her family. He is unable to understand that she needs help and she has cognitive impairment. Mental Status Exam Mental Status Exam Patient Appearance: Appropriate Patient Orientation: Person and Situation Level of Consciousness: Restless Patient Behavior: Guarded and Belligerent Mood Description: Calm Affect Description: Constricted Patient Cognition Impaired: Yes Ability to Follow Directions: Fair Speech Pattern: Loud Hallucinations: None Delusions: Ideas of Reference Thought Process: Distracted and Slowed Thinking Thought Content: positive for [place] and positive for Poverty of Content Judgement: Poor Diagnostics Vital Signs (24Hr): Vital Signs - 24 hr 04/01/24 17:03 04/01/24 20:00 04/02/24 08:18 Temperature 97.0 F 96.9 F Pulse Rate 90 78 89 Respiratory Rate 16 18 Blood Pressure 147/70 H 138/63 140/80 H Pulse Oximetry 96 97 Oxygen Delivery Method Room Air Room Air BMI result Body Mass Index 22.8 Labs 03/26/24 07:45 03/26/24 07:45 Imaging Radiology Impressions: ITS Impressions Ankle X-Ray 03/24/24 13:24 IMPRESSION: 1. Soft tissue swelling about the lateral aspect of the ankle. 2. Question subtle avulsion fracture off the distal tip of the fibula versus artifactual related to projection. Electronically signed by: Duane Orlando MD 03/24/2024 03:35 PM EDT Chest X-Ray 03/24/24 13:26 IMPRESSION: 1. No acute disease. 2. Sclerotic/calcific density and lucency in the proximal right humerus unchanged compared to prior. This most likely reflects a cartilage lesion i.e enchondroma or bone infarct. Electronically signed by: Duane Orlando MD 03/24/2024 03:33 PM EDT RP Head CT 03/24/24 13:26 IMPRESSION: No acute intracranial pathology. Electronically signed by: Chester Caceres MD 03/24/2024 03:27 PM EDT RP Cervical Spine CT 03/24/24 14:10 IMPRESSION: Degenerative changes observed. No fracture or encroachment on the spinal canal. Fleischner guidelines were followed. Electronically signed by: Chester Caceres MD 03/24/2024 04:16 PM EDT RP Foot X-Ray 03/24/24 15:50 IMPRESSION: 1. No acute fracture or dislocation. 2. Chronic hammertoe deformity of the second toe. 3. 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 Electronically signed by: Sheila Hernandez MD 03/24/2024 06:16 PM EDT RP Medications Medications Current Medications Acetaminophen (Acetaminophen 325 Mg Tablet) 650 mg PO Q6H PRN PRN Reason: Pain, Moderate(Pain Scale 4-6) Last Admin: 04/01/24 21:03 Dose: 650 mg Al Hydroxide/Mg Hydroxide (Magnesium Hydrox/Alum Hydrox 30 Ml Oral.Susp) 30 ml PO Q6H PRN PRN Reason: Heartburn/Nausea Bupropion HCl (Bupropion Hcl Xl 300 Mg Tab.Er.24h) 300 mg PO DAILY DIONNE Last Admin: 04/02/24 08:59 Dose: 300 mg Carvedilol (Carvedilol 25 Mg Tablet) 25 mg PO BIDWM DIONNE; Protocol Last Admin: 04/02/24 08:59 Dose: 25 mg Magnesium Hydroxide (Milk Of Magnesia 30 Ml Oral.Susp) 30 ml PO DAILY PRN PRN Reason: Constipation Last Admin: 03/27/24 09:58 Dose: 30 ml Olanzapine (Olanzapine 5 Mg Tablet) 5 mg PO Q4H PRN PRN Reason: Agitation Last Admin: 03/25/24 20:40 Dose: 5 mg Olanzapine (Olanzapine 2.5 Mg Tablet) 2.5 mg PO BEDTIME DIONNE Last Admin: 04/01/24 21:02 Dose: 2.5 mg Trazodone HCl (Trazodone Hcl 50 Mg Tablet) 50 mg PO BEDTIME MRX1 PRN PRN Reason: Insomnia Last Admin: 04/01/24 21:02 Dose: 50 mg Allergies Allergies Allergy/AdvReac Type Severity Reaction Status Date / Time No Known Allergies Allergy Mild NOT Verified 03/24/24 13:40 APPLICABLE Assessment & Plan Assessment & Plan (1) Delirium: Status: Acute Code(s): R41.0 - Disorientation, unspecified (2) Psychosis: Status: Acute Code(s): F29 - Unspecified psychosis not due to a substance or known physiological condition (3) Dementia: Status: Acute Code(s): F03.90 - Unspecified dementia, unspecified severity, without behavioral disturbance, psychotic disturbance, mood disturbance, and anxiety Plan The patient is an elderly female with a past history of high blood pressure, previous falls and a past history of a GI bleed with no prior psychiatric history who was brought into the facility with her by her stepson due to inability to take care of themselves. The patient admitted that she had been feeling more confused but it was in the context of a UTI recently diagnosed. Plan 1. Gather collateral information. 2. Continue with antibiotics for UTI. 3. Regular blood work and follow-up with medical team. 4. Reassessment results. 5. Continue 15 minute checks. 6. Start Zyprexa 2.5 p.o. q.h.s. 7. Affiirmation of healthcare proxy will be started Reason for continued inpatient stay Substantial Risk for: inability to function, rapid decompensation and med/psych decompensation Time Spent With Patient Time: Total time managing care of this patient today __20__ minutes.
[2024-04-02 17:11] VITALS: BP 123/61; PULSE 80
[2024-04-02 20:00] VITALS: BP 155/71; PULSE 85; RESP 16; TEMP 36.6; O2SAT 96
[2024-04-02] MEDS: OLANZapine 2.5 MG TABLET PO (20:32)
[2024-04-03 08:43] VITALS: BP 140/66; PULSE 75; RESP 16; TEMP 36.4; O2SAT 96
[2024-04-03] MEDS: carvediloL 25 MG TABLET PO ×2 (08:45→17:02)
[2024-04-03] MEDS: buPROPion HCl XL 300 MG TAB.ER.24H PO (08:45)
[2024-04-03] MEDS: Acetaminophen 325 MG TABLET 650 MG PO ×2 (13:06→21:11)
[2024-04-03] MEDS: OLANZapine 5 MG TABLET PO (13:08)
--- NOTE | 2024-04-03 13:34 | HO.PSYCHPN ---
Subjective Subjective Date of Service: 04/03/24 Reason For Visit: paranoia Subjective Notes: Conditional Voluntary Interim History: The nursing staff reported the patient had been accusatory to staff stating that they took her book. She slept 8 hours. The patient does not have any insight into her behavior problems or poor cognition. The social service liaison had a family meeting and she wants to go back with her but her step son wants to take care of her . On interview the patient denies new symptoms accusatory towards staff. Mental Status Exam Mental Status Exam Patient Appearance: Appropriate Patient Orientation: Person and Situation Level of Consciousness: Awake and Appropriate Patient Behavior: Guarded and Passive Mood Description: Withdrawn Affect Description: Constricted Patient Cognition Impaired: Yes Ability to Follow Directions: Good Speech Pattern: Clear Hallucinations: None Delusions: Paranoid Ideation and Ideas of Reference Thought Process: Distracted and Slowed Thinking Thought Content: positive for [place] and positive for Poverty of Content Judgement: Fair Diagnostics Vital Signs (24Hr): Vital Signs - 24 hr 04/02/24 17:11 04/02/24 20:00 04/03/24 08:43 Temperature 97.8 F 97.5 F Pulse Rate 80 85 75 Respiratory Rate 16 16 Blood Pressure 123/61 155/71 H 140/66 H Pulse Oximetry 96 96 Oxygen Delivery Method Room Air Room Air BMI result Body Mass Index 22.8 Labs 03/26/24 07:45 03/26/24 07:45 Imaging Radiology Impressions: ITS Impressions Ankle X-Ray 03/24/24 13:24 IMPRESSION: 1. Soft tissue swelling about the lateral aspect of the ankle. 2. Question subtle avulsion fracture off the distal tip of the fibula versus artifactual related to projection. Electronically signed by: Duane Orlando MD 03/24/2024 03:35 PM EDT RP Chest X-Ray 03/24/24 13:26 IMPRESSION: 1. No acute disease. 2. Sclerotic/calcific density and lucency in the proximal right humerus unchanged compared to prior. This most likely reflects a cartilage lesion i.e enchondroma or bone infarct. Electronically signed by: Duane Orlando MD 03/24/2024 03:33 PM EDT RP Head CT 03/24/24 13:26 IMPRESSION: No acute intracranial pathology. Electronically signed by: Chester Caceres MD 03/24/2024 03:27 PM EDT RP Cervical Spine CT 03/24/24 14:10 IMPRESSION: Degenerative changes observed. No fracture or encroachment on the spinal canal. Fleischner guidelines were followed. Electronically signed by: Chester Caceres MD 03/24/2024 04:16 PM EDT RP Foot X-Ray 03/24/24 15:50 IMPRESSION: 1. No acute fracture or dislocation. 2. Chronic hammertoe deformity of the second toe. 3. 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 Electronically signed by: Sheila Hernandez MD 03/24/2024 06:16 PM EDT RP Medications Medications Current Medications Acetaminophen (Acetaminophen 325 Mg Tablet) 650 mg PO Q6H PRN PRN Reason: Pain, Moderate(Pain Scale 4-6) Last Admin: 04/03/24 13:06 Dose: 650 mg Al Hydroxide/Mg Hydroxide (Magnesium Hydrox/Alum Hydrox 30 Ml Oral.Susp) 30 ml PO Q6H PRN PRN Reason: Heartburn/Nausea Bupropion HCl (Bupropion Hcl Xl 300 Mg Tab.Er.24h) 300 mg PO DAILY DIONNE Last Admin: 04/03/24 08:45 Dose: 300 mg Carvedilol (Carvedilol 25 Mg Tablet) 25 mg PO BIDWM DIONNE; Protocol Last Admin: 04/03/24 08:45 Dose: 25 mg Magnesium Hydroxide (Milk Of Magnesia 30 Ml Oral.Susp) 30 ml PO DAILY PRN PRN Reason: Constipation Last Admin: 03/27/24 09:58 Dose: 30 ml Olanzapine (Olanzapine 5 Mg Tablet) 5 mg PO Q4H PRN PRN Reason: Agitation Last Admin: 04/03/24 13:08 Dose: 5 mg Olanzapine (Olanzapine 2.5 Mg Tablet) 2.5 mg PO BEDTIME DIONNE Last Admin: 04/02/24 20:32 Dose: 2.5 mg Trazodone HCl (Trazodone Hcl 50 Mg Tablet) 50 mg PO BEDTIME MRX1 PRN PRN Reason: Insomnia Last Admin: 04/01/24 21:02 Dose: 50 mg Allergies Allergies Allergy/AdvReac Type Severity Reaction Status Date / Time No Known Allergies Allergy Mild NOT Verified 03/24/24 13:40 APPLICABLE Assessment & Plan Assessment & Plan (1) Delirium: Status: Acute Code(s): R41.0 - Disorientation, unspecified (2) Psychosis: Status: Acute Code(s): F29 - Unspecified psychosis not due to a substance or known physiological condition (3) Dementia: Status: Acute Code(s): F03.90 - Unspecified dementia, unspecified severity, without behavioral disturbance, psychotic disturbance, mood disturbance, and anxiety Plan The patient is an elderly female with a past history of high blood pressure, previous falls and a past history of a GI bleed with no prior psychiatric history who was brought into the facility with her by her stepson due to inability to take care of themselves. The patient admitted that she had been feeling more confused but it was in the context of a UTI recently diagnosed. Plan 1. Gather collateral information. 2. Continue with antibiotics for UTI. 3. Regular blood work and follow-up with medical team. 4. Reassessment results. 5. Continue 15 minute checks. 6. Start Zyprexa 2.5 p.o. q.h.s. 7. Affiirmation of healthcare proxy will be started Reason for continued inpatient stay Substantial Risk for: inability to function, rapid decompensation and med/psych decompensation Time Spent With Patient Time: Total time managing care of this patient today __20__ minutes.
[2024-04-03 17:00] VITALS: BP 108/57; PULSE 78; O2SAT 93
[2024-04-03 20:00] VITALS: BP 110/61; PULSE 75; RESP 20; TEMP 36; O2SAT 95
[2024-04-03] MEDS: OLANZapine 2.5 MG TABLET PO (21:09)
[2024-04-03] MEDS: traZODone HCL 50 MG TABLET PO (21:09)
--- NOTE | 2024-04-04 06:43 | HO.PSYCHPN ---
Subjective Subjective Date of Service: 04/04/24 Reason For Visit: paranoia Subjective Notes: Conditional Voluntary Interim History: The nursing staff reported the patient slept well last night. On interview the patient does not have insight into her cognitive deficits. She had been compliant with treatment. Mental Status Exam Mental Status Exam Patient Appearance: Appropriate Patient Orientation: Person and Situation Level of Consciousness: Awake and Appropriate Patient Behavior: Guarded and Passive Mood Description: Withdrawn Affect Description: Constricted Patient Cognition Impaired: Yes Ability to Follow Directions: Good Speech Pattern: Clear Hallucinations: None Delusions: Ideas of Reference Thought Process: Distracted and Slowed Thinking Thought Content: positive for [place] and positive for [place] Judgement: Poor Diagnostics Vital Signs (24Hr): Vital Signs - 24 hr 04/03/24 08:43 04/03/24 17:00 04/03/24 20:00 Temperature 97.5 F 96.8 F Pulse Rate 75 78 75 Respiratory Rate 16 20 Blood Pressure 140/66 H 108/57 L 110/61 Pulse Oximetry 96 93 95 Oxygen Delivery Method Room Air Room Air BMI result Body Mass Index 22.8 Labs 03/26/24 07:45 03/26/24 07:45 Imaging Radiology Impressions: ITS Impressions Ankle X-Ray 03/24/24 13:24 IMPRESSION: 1. Soft tissue swelling about the lateral aspect of the ankle. 2. Question subtle avulsion fracture off the distal tip of the fibula versus artifactual related to projection. Electronically signed by: Duane Orlando MD 03/24/2024 03:35 PM EDT Chest X-Ray 03/24/24 13:26 IMPRESSION: 1. No acute disease. 2. Sclerotic/calcific density and lucency in the proximal right humerus unchanged compared to prior. This most likely reflects a cartilage lesion i.e enchondroma or bone infarct. Electronically signed by: Duane Orlando MD 03/24/2024 03:33 PM EDT RP Head CT 03/24/24 13:26 IMPRESSION: No acute intracranial pathology. Electronically signed by: Chester Caceres MD 03/24/2024 03:27 PM EDT RP Cervical Spine CT 03/24/24 14:10 IMPRESSION: Degenerative changes observed. No fracture or encroachment on the spinal canal. Fleischner guidelines were followed. Electronically signed by: Chester Caceres MD 03/24/2024 04:16 PM EDT RP Foot X-Ray 03/24/24 15:50 IMPRESSION: 1. No acute fracture or dislocation. 2. Chronic hammertoe deformity of the second toe. 3. 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 Electronically signed by: Sheila Hernandez MD 03/24/2024 06:16 PM EDT RP Medications Medications Current Medications Acetaminophen (Acetaminophen 325 Mg Tablet) 650 mg PO Q6H PRN PRN Reason: Pain, Moderate(Pain Scale 4-6) Last Admin: 04/03/24 21:11 Dose: 650 mg Al Hydroxide/Mg Hydroxide (Magnesium Hydrox/Alum Hydrox 30 Ml Oral.Susp) 30 ml PO Q6H PRN PRN Reason: Heartburn/Nausea Bupropion HCl (Bupropion Hcl Xl 300 Mg Tab.Er.24h) 300 mg PO DAILY DIONNE Last Admin: 04/03/24 08:45 Dose: 300 mg Carvedilol (Carvedilol 25 Mg Tablet) 25 mg PO BIDWM DIONNE; Protocol Last Admin: 04/03/24 17:02 Dose: 25 mg Magnesium Hydroxide (Milk Of Magnesia 30 Ml Oral.Susp) 30 ml PO DAILY PRN PRN Reason: Constipation Last Admin: 03/27/24 09:58 Dose: 30 ml Olanzapine (Olanzapine 5 Mg Tablet) 5 mg PO Q4H PRN PRN Reason: Agitation Last Admin: 04/03/24 13:08 Dose: 5 mg Olanzapine (Olanzapine 2.5 Mg Tablet) 2.5 mg PO BEDTIME DIONNE Last Admin: 04/03/24 21:09 Dose: 2.5 mg Trazodone HCl (Trazodone Hcl 50 Mg Tablet) 50 mg PO BEDTIME MRX1 PRN PRN Reason: Insomnia Last Admin: 04/03/24 21:09 Dose: 50 mg Allergies Allergies Allergy/AdvReac Type Severity Reaction Status Date / Time No Known Allergies Allergy Mild NOT Verified 03/24/24 13:40 APPLICABLE Assessment & Plan Assessment & Plan (1) Delirium: Status: Acute Code(s): R41.0 - Disorientation, unspecified (2) Psychosis: Status: Acute Code(s): F29 - Unspecified psychosis not due to a substance or known physiological condition (3) Dementia: Status: Acute Code(s): F03.90 - Unspecified dementia, unspecified severity, without behavioral disturbance, psychotic disturbance, mood disturbance, and anxiety Plan The patient is an elderly female with a past history of high blood pressure, previous falls and a past history of a GI bleed with no prior psychiatric history who was brought into the facility with her by her stepson due to inability to take care of themselves. The patient admitted that she had been feeling more confused but it was in the context of a UTI recently diagnosed. Plan 1. Gather collateral information. 2. Continue with antibiotics for UTI. 3. Regular blood work and follow-up with medical team. 4. Reassessment results. 5. Continue 15 minute checks. 6. Start Zyprexa 2.5 p.o. q.h.s. 7. Affiirmation of healthcare proxy will be started Reason for continued inpatient stay Substantial Risk for: inability to function, rapid decompensation and med/psych decompensation Time Spent With Patient Time: Total time managing care of this patient today __20__ minutes.
[2024-04-04 08:00] VITALS: BP 112/64; PULSE 82; RESP 18; TEMP 36.1; O2SAT 94
[2024-04-04 09:00] VITALS: BP 112/64; PULSE 82
[2024-04-04] MEDS: carvediloL 25 MG TABLET PO ×2 (09:00→17:03)
[2024-04-04] MEDS: buPROPion HCl XL 300 MG TAB.ER.24H PO (09:02)
[2024-04-04 17:03] VITALS: BP 150/71; PULSE 81
[2024-04-04 20:00] VITALS: BP 145/62; PULSE 74; RESP 18; TEMP 35.9; O2SAT 95
[2024-04-04] MEDS: traZODone HCL 50 MG TABLET PO (20:12)
[2024-04-04] MEDS: Acetaminophen 325 MG TABLET 650 MG PO (20:12)
[2024-04-04] MEDS: OLANZapine 2.5 MG TABLET PO (20:12)
--- NOTE | 2024-04-05 06:29 | P.PNPSI_ITS ---
Subjective Subjective Date of Service: 04/05/24 Reason For Visit: paranoia Subjective Notes: Conditional Voluntary Interim History: The nursing staff reported the patient had been compliant with treatment, she was seen in the common areas. On interview the patient does not have any insight into her cognitive deficits. Mental Status Exam Mental Status Exam Patient Appearance: Appropriate Patient Orientation: Person and Situation Level of Consciousness: Awake and Appropriate Patient Behavior: Guarded and Passive Mood Description: Calm Affect Description: Constricted Patient Cognition Impaired: Yes Ability to Follow Directions: Good Speech Pattern: Clear Hallucinations: None Delusions: Not Present Thought Process: Distracted and Slowed Thinking Thought Content: positive for [place] and positive for Poverty of Content Judgement: Poor Diagnostics Vital Signs (24Hr): Vital Signs - 24 hr 04/04/24 08:00 04/04/24 09:00 04/04/24 17:03 Temperature 97.0 F Pulse Rate 82 82 81 Respiratory Rate 18 Blood Pressure 112/64 112/64 150/71 H Pulse Oximetry 94 Oxygen Delivery Method Room Air 04/04/24 20:00 Temperature 96.6 F L Pulse Rate 74 Respiratory Rate 18 Blood Pressure 145/62 H Pulse Oximetry 95 Oxygen Delivery Method Room Air BMI result Body Mass Index 22.8 Labs 03/26/24 07:45 03/26/24 07:45 Imaging Radiology Impressions: ITS Impressions Ankle X-Ray 03/24/24 13:24 IMPRESSION: 1. Soft tissue swelling about the lateral aspect of the ankle. 2. Question subtle avulsion fracture off the distal tip of the fibula versus artifactual related to projection. Electronically signed by: Duane Orlando MD 03/24/2024 03:35 PM EDT Chest X-Ray 03/24/24 13:26 IMPRESSION: 1. No acute disease. 2. Sclerotic/calcific density and lucency in the proximal right humerus unchanged compared to prior. This most likely reflects a cartilage lesion i.e enchondroma or bone infarct. Electronically signed by: Duane Orlando MD 03/24/2024 03:[address] 03/24/24 13:26 IMPRESSION: No acute intracranial pathology. Electronically signed by: Chester Caceres MD 03/24/2024 03:27 PM EDT Cervical Spine CT 03/24/24 14:10 IMPRESSION: Degenerative changes observed. No fracture or encroachment on the spinal canal. Fleischner guidelines were followed. Electronically signed by: Chester Caceres MD 03/24/2024 04:16 PM EDT RP Foot X-Ray 03/24/24 15:50 IMPRESSION: 1. No acute fracture or dislocation. 2. Chronic hammertoe deformity of the second toe. 3. 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 Electronically signed by: Sheila Hernandez MD 03/24/2024 06:16 PM EDT RP Medications Medications Current Medications Acetaminophen (Acetaminophen 325 Mg Tablet) 650 mg PO Q6H PRN PRN Reason: Pain, Moderate(Pain Scale 4-6) Last Admin: 04/04/24 20:12 Dose: 650 mg Al Hydroxide/Mg Hydroxide (Magnesium Hydrox/Alum Hydrox 30 Ml Oral.Susp) 30 ml PO Q6H PRN PRN Reason: Heartburn/Nausea Bupropion HCl (Bupropion Hcl Xl 300 Mg Tab.Er.24h) 300 mg PO DAILY DIONNE Last Admin: 04/04/24 09:02 Dose: 300 mg Carvedilol (Carvedilol 25 Mg Tablet) 25 mg PO BIDWM DIONNE; Protocol Last Admin: 04/04/24 17:03 Dose: 25 mg Magnesium Hydroxide (Milk Of Magnesia 30 Ml Oral.Susp) 30 ml PO DAILY PRN PRN Reason: Constipation Last Admin: 03/27/24 09:58 Dose: 30 ml Olanzapine (Olanzapine 5 Mg Tablet) 5 mg PO Q4H PRN PRN Reason: Agitation Last Admin: 04/03/24 13:08 Dose: 5 mg Olanzapine (Olanzapine 2.5 Mg Tablet) 2.5 mg PO BEDTIME DIONNE Last Admin: 04/04/24 20:12 Dose: 2.5 mg Trazodone HCl (Trazodone Hcl 50 Mg Tablet) 50 mg PO BEDTIME MRX1 PRN PRN Reason: Insomnia Last Admin: 04/04/24 20:12 Dose: 50 mg Allergies Allergies Allergy/AdvReac Type Severity Reaction Status Date / Time No Known Allergies Allergy Mild NOT Verified 03/24/24 13:40 APPLICABLE Assessment & Plan Assessment & Plan (1) Delirium: Status: Acute Code(s): R41.0 - Disorientation, unspecified (2) Psychosis: Status: Acute Code(s): F29 - Unspecified psychosis not due to a substance or known physiological condition (3) Dementia: Status: Acute Code(s): F03.90 - Unspecified dementia, unspecified severity, without behavioral disturbance, psychotic disturbance, mood disturbance, and anxiety Plan The patient is an elderly female with a past history of high blood pressure, previous falls and a past history of a GI bleed with no prior psychiatric history who was brought into the facility with her by her stepson due to inability to take care of themselves. The patient admitted that she had been feeling more confused but it was in the context of a UTI recently diagnosed. Plan 1. Gather collateral information. 2. Continue with antibiotics for UTI. 3. Regular blood work and follow-up with medical team. 4. Reassessment results. 5. Continue 15 minute checks. 6. Start Zyprexa 2.5 p.o. q.h.s. 7. Affiirmation of healthcare proxy will be started Reason for continued inpatient stay Substantial Risk for: inability to function, rapid decompensation and med/psych decompensation Time Spent With Patient Time: Total time managing care of this patient today __20__ minutes.
[2024-04-05 08:34] VITALS: BP 133/59; PULSE 64; RESP 16; TEMP 36.6; O2SAT 96
[2024-04-05] MEDS: carvediloL 25 MG TABLET PO (08:35)
[2024-04-05] MEDS: buPROPion HCl XL 300 MG TAB.ER.24H PO (08:35)
[2024-04-05 16:32] VITALS: BP 108/57; PULSE 82
[2024-04-05 20:00] VITALS: BP 119/71; PULSE 84; RESP 17; TEMP 36.1; O2SAT 97
[2024-04-05] MEDS: OLANZapine 2.5 MG TABLET PO (20:49)
[2024-04-05] MEDS: traZODone HCL 50 MG TABLET PO (20:50)
[2024-04-05] MEDS: Acetaminophen 325 MG TABLET 650 MG PO (20:51)
[2024-04-06 08:00] VITALS: BP 140/76; PULSE 84; RESP 16; TEMP 36.4; O2SAT 100
[2024-04-06] MEDS: buPROPion HCl XL 300 MG TAB.ER.24H PO (08:55)
[2024-04-06] MEDS: carvediloL 25 MG TABLET PO ×2 (08:55→17:34)
--- NOTE | 2024-04-06 12:08 | HO.PSYCHPN ---
Subjective Subjective Date of Service: 04/06/24 Reason For Visit: paranoia Subjective Notes: Conditional Voluntary Interim History: The nursing staff reported the patient slept 8 hours, her family did not bring back the paperwork for the healthcare proxy. On interview the patient denies new symptoms tolerating fairly well the medication. No insight into her condition. Mental Status Exam Mental Status Exam Patient Appearance: Appropriate Patient Orientation: Person and Situation Level of Consciousness: Awake and Appropriate Patient Behavior: Guarded and Passive Mood Description: Withdrawn Affect Description: Constricted Patient Cognition Impaired: Yes Ability to Follow Directions: Good Speech Pattern: Clear Hallucinations: None Delusions: Not Present Thought Process: Distracted and Slowed Thinking Thought Content: positive for [place] and positive for Poverty of Content Judgement: Fair Diagnostics Vital Signs (24Hr): Vital Signs - 24 hr 04/05/24 16:32 04/05/24 20:00 04/06/24 08:00 Temperature 96.9 F 97.5 F Pulse Rate 82 84 84 Respiratory Rate 17 16 Blood Pressure 108/57 L 119/71 140/76 H Pulse Oximetry 97 100 Oxygen Delivery Method Room Air Room Air BMI result Body Mass Index 22.8 Labs 03/26/24 07:45 03/26/24 07:45 Imaging Radiology Impressions: ITS Impressions Ankle X-Ray 03/24/24 13:24 IMPRESSION: 1. Soft tissue swelling about the lateral aspect of the ankle. 2. Question subtle avulsion fracture off the distal tip of the fibula versus artifactual related to projection. Electronically signed by: Duane Orlando MD 03/24/2024 03:35 PM EDT RP Chest X-Ray 03/24/24 13:26 IMPRESSION: 1. No acute disease. 2. Sclerotic/calcific density and lucency in the proximal right humerus unchanged compared to prior. This most likely reflects a cartilage lesion i.e enchondroma or bone infarct. Electronically signed by: Duane Orlando MD 03/24/2024 03:33 PM EDT RP Head CT 03/24/24 13:26 IMPRESSION: No acute intracranial pathology. Electronically signed by: Chester Caceres MD 03/24/2024 03:27 PM EDT RP Cervical Spine CT 03/24/24 14:10 IMPRESSION: Degenerative changes observed. No fracture or encroachment on the spinal canal. Fleischner guidelines were followed. Electronically signed by: Chester Caceres MD 03/24/2024 04:16 PM EDT RP Foot X-Ray 03/24/24 15:50 IMPRESSION: 1. No acute fracture or dislocation. 2. Chronic hammertoe deformity of the second toe. 3. 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 Electronically signed by: Sheila Hernandez MD 03/24/2024 06:16 PM EDT RP Medications Medications Current Medications Acetaminophen (Acetaminophen 325 Mg Tablet) 650 mg PO Q6H PRN PRN Reason: Pain, Moderate(Pain Scale 4-6) Last Admin: 04/05/24 20:51 Dose: 650 mg Al Hydroxide/Mg Hydroxide (Magnesium Hydrox/Alum Hydrox 30 Ml Oral.Susp) 30 ml PO Q6H PRN PRN Reason: Heartburn/Nausea Bupropion HCl (Bupropion Hcl Xl 300 Mg Tab.Er.24h) 300 mg PO DAILY DIONNE Last Admin: 04/06/24 08:55 Dose: 300 mg Carvedilol (Carvedilol 25 Mg Tablet) 25 mg PO BIDWM DIONNE; Protocol Last Admin: 04/06/24 08:55 Dose: 25 mg Magnesium Hydroxide (Milk Of Magnesia 30 Ml Oral.Susp) 30 ml PO DAILY PRN PRN Reason: Constipation Last Admin: 03/27/24 09:58 Dose: 30 ml Olanzapine (Olanzapine 5 Mg Tablet) 5 mg PO Q4H PRN PRN Reason: Agitation Last Admin: 04/03/24 13:08 Dose: 5 mg Olanzapine (Olanzapine 2.5 Mg Tablet) 2.5 mg PO BEDTIME DIONNE Last Admin: 04/05/24 20:49 Dose: 2.5 mg Trazodone HCl (Trazodone Hcl 50 Mg Tablet) 50 mg PO BEDTIME MRX1 PRN PRN Reason: Insomnia Last Admin: 04/05/24 20:50 Dose: 50 mg Allergies Allergies Allergy/AdvReac Type Severity Reaction Status Date / Time No Known Allergies Allergy Mild NOT Verified 03/24/24 13:40 APPLICABLE Assessment & Plan Assessment & Plan (1) Delirium: Status: Acute Code(s): R41.0 - Disorientation, unspecified (2) Psychosis: Status: Acute Code(s): F29 - Unspecified psychosis not due to a substance or known physiological condition (3) Dementia: Status: Acute Code(s): F03.90 - Unspecified dementia, unspecified severity, without behavioral disturbance, psychotic disturbance, mood disturbance, and anxiety Plan The patient is an elderly female with a past history of high blood pressure, previous falls and a past history of a GI bleed with no prior psychiatric history who was brought into the facility with her by her stepson due to inability to take care of themselves. The patient admitted that she had been feeling more confused but it was in the context of a UTI recently diagnosed. Plan 1. Gather collateral information. 2. Continue with antibiotics for UTI. 3. Regular blood work and follow-up with medical team. 4. Reassessment results. 5. Continue 15 minute checks. 6. Start Zyprexa 2.5 p.o. q.h.s. 7. Affiirmation of healthcare proxy will be started Reason for continued inpatient stay Substantial Risk for: inability to function, rapid decompensation and med/psych decompensation Time Spent With Patient Time: Total time managing care of this patient today __20__ minutes.
[2024-04-06 17:34] VITALS: BP 131/68; PULSE 93
[2024-04-06] MEDS: OLANZapine 2.5 MG TABLET PO (19:59)
[2024-04-06] MEDS: Acetaminophen 325 MG TABLET 650 MG PO (19:59)
[2024-04-06] MEDS: traZODone HCL 50 MG TABLET PO (19:59)
[2024-04-06 20:00] VITALS: BP 127/74; PULSE 81; RESP 18; TEMP 36.3; O2SAT 96
[2024-04-07 08:00] VITALS: BP 123/65; PULSE 86; RESP 16; TEMP 36; O2SAT 94
[2024-04-07] MEDS: carvediloL 25 MG TABLET PO ×2 (08:15→16:29)
[2024-04-07] MEDS: buPROPion HCl XL 300 MG TAB.ER.24H PO (08:15)
--- NOTE | 2024-04-07 08:46 | HO.PSYCHPN ---
Subjective Subjective Date of Service: 04/07/24 Reason For Visit: paranoia Subjective Notes: Conditional Voluntary Interim History: Pt slept most of the night. She reports she is doing well. She wants to return home. She believes she is not as impaired cognitively as assessments show. She also thinks she can get more assistance at home. Attempted to contact HCP to discuss aftercare plan. Seems like secondary HCP wanting pt to return home with services. Medication Compliance: Yes Mental Status Exam Mental Status Exam Narrative: Appearance: wearing hospital gown, fair hygiene, in NAD Behavior: cooperative Psychomotor: no agitation or retardation noted Speech: mostly clear, regular rate/rhythm/volume, spontaneous TP: at times is disorganized, but more coherent TC: needing help for depression, and concern about her memory Mood: depressed Affect: constricted, but brightens up at times SI: passive but denies any plan or intent HI: none VH/AH: none Delusions: inermittent paranoid ideas Insight/judgment: impaired x2. Memory/cog: alert, not oriented to place (thinks we are in [place]), she was able to tell me the month and year but gets confused as to what brought her here Diagnostics Vital Signs (24Hr): Vital Signs - 24 hr 04/06/24 17:34 04/06/24 20:00 04/07/24 08:00 Temperature 97.4 F 96.8 F Pulse Rate 93 81 86 Respiratory Rate 18 16 Blood Pressure 131/68 127/74 123/65 Pulse Oximetry 96 94 Oxygen Delivery Method Room Air Room Air BMI result Body Mass Index 22.8 Labs 03/26/24 07:45 03/26/24 07:45 Imaging Radiology Impressions: ITS Impressions Ankle X-Ray 03/24/24 13:24 IMPRESSION: 1. Soft tissue swelling about the lateral aspect of the ankle. 2. Question subtle avulsion fracture off the distal tip of the fibula versus artifactual related to projection. Electronically signed by: Duane Orlando MD 03/24/2024 03:35 PM EDT Chest X-Ray 03/24/24 13:26 IMPRESSION: 1. No acute disease. 2. Sclerotic/calcific density and lucency in the proximal right humerus unchanged compared to prior. This most likely reflects a cartilage lesion i.e enchondroma or bone infarct. Electronically signed by: Duane Orlando MD 03/24/2024 03:33 PM EDT RP Head CT 03/24/24 13:26 IMPRESSION: No acute intracranial pathology. Electronically signed by: Chester Caceres MD 03/24/2024 03:27 PM EDT RP Cervical Spine CT 03/24/24 14:10 IMPRESSION: Degenerative changes observed. No fracture or encroachment on the spinal canal. Fleischner guidelines were followed. Electronically signed by: Chester Caceres MD 03/24/2024 04:16 PM EDT RP Foot X-Ray 03/24/24 15:50 IMPRESSION: 1. No acute fracture or dislocation. 2. Chronic hammertoe deformity of the second toe. 3. 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 Electronically signed by: Sheila Hernandez MD 03/24/2024 06:16 PM EDT RP Medications Medications Current Medications Acetaminophen (Acetaminophen 325 Mg Tablet) 650 mg PO Q6H PRN PRN Reason: Pain, Moderate(Pain Scale 4-6) Last Admin: 04/06/24 19:59 Dose: 650 mg Al Hydroxide/Mg Hydroxide (Magnesium Hydrox/Alum Hydrox 30 Ml Oral.Susp) 30 ml PO Q6H PRN PRN Reason: Heartburn/Nausea Bupropion HCl (Bupropion Hcl Xl 300 Mg Tab.Er.24h) 300 mg PO DAILY DIONNE Last Admin: 04/07/24 08:15 Dose: 300 mg Carvedilol (Carvedilol 25 Mg Tablet) 25 mg PO BIDWM DIONNE; Protocol Last Admin: 04/07/24 08:15 Dose: 25 mg Magnesium Hydroxide (Milk Of Magnesia 30 Ml Oral.Susp) 30 ml PO DAILY PRN PRN Reason: Constipation Last Admin: 03/27/24 09:58 Dose: 30 ml Olanzapine (Olanzapine 5 Mg Tablet) 5 mg PO Q4H PRN PRN Reason: Agitation Last Admin: 04/03/24 13:08 Dose: 5 mg Olanzapine (Olanzapine 2.5 Mg Tablet) 2.5 mg PO BEDTIME DIONNE Last Admin: 04/06/24 19:59 Dose: 2.5 mg Trazodone HCl (Trazodone Hcl 50 Mg Tablet) 50 mg PO BEDTIME MRX1 PRN PRN Reason: Insomnia Last Admin: 04/06/24 19:59 Dose: 50 mg Allergies Allergies Allergy/AdvReac Type Severity Reaction Status Date / Time No Known Allergies Allergy Mild NOT Verified 03/24/24 13:40 APPLICABLE Assessment & Plan Assessment & Plan (1) Major neurocognitive disorder: Status: Acute Code(s): F03.90 - Unspecified dementia, unspecified severity, without behavioral disturbance, psychotic disturbance, mood disturbance, and anxiety Plan The patient is an elderly female with a past history of high blood pressure, previous falls and a past history of a GI bleed with no prior psychiatric history who was brought into the facility with her by her stepson due to inability to take care of themselves. The patient admitted that she had been feeling more confused but it was in the context of a UTI recently diagnosed. Plan 04/07 if HCP wants pt to return home despite recommendation of 07/01, there is no point in affirming HCP, as pt would be in agreement to return home with additional services. Called HCP to discuss aftercare plan and dispo. Reason for continued inpatient stay Substantial Risk for: inability to function Time Spent With Patient Time: Total time managing care of this patient today ____ minutes.
[2024-04-07 16:29] VITALS: BP 117/68; PULSE 85
[2024-04-07 20:00] VITALS: BP 119/59; PULSE 90; RESP 16; TEMP 36.3; O2SAT 94
[2024-04-07] MEDS: OLANZapine 2.5 MG TABLET PO (20:51)
[2024-04-07] MEDS: traZODone HCL 50 MG TABLET PO (20:51)
[2024-04-07] MEDS: Acetaminophen 325 MG TABLET 650 MG PO (20:59)
[2024-04-08] MEDS: Acetaminophen 325 MG TABLET 650 MG PO (06:45)
[2024-04-08 07:44] VITALS: BP 134/70; PULSE 80
[2024-04-08] MEDS: carvediloL 25 MG TABLET PO ×2 (07:44→17:06)
[2024-04-08 08:00] VITALS: BP 134/70; PULSE 80; RESP 16; TEMP 36; O2SAT 99
[2024-04-08] MEDS: buPROPion HCl XL 300 MG TAB.ER.24H PO (08:02)
--- NOTE | 2024-04-08 11:41 | P.PNPSI_ITS ---
Subjective Subjective Date of Service: 04/08/24 Reason For Visit: paranoia Subjective Notes: Conditional Voluntary Interim History: Pt slept most of the night. She reports she wants to return home. She denies suicidal or homicidal ideation. She still does not accept degree of cognitive impairments and need for more help although accepts help in the home. SW and this lyric writer spoke with HCP, pt's sister Nanette, decided to plan for returning home with services and elder protective services and do trial at home. BOth HCP and pt in agreement with plan. Review of Systems Review of Systems Constitutional : No Fever, No Chills ENT/Mouth : No Ear Pain, No Hoarseness, No sore throat Eyes: No Eye Pain, No Swelling, No Redness, No Foreign Body Cardiovascular : No Chest Pain, No SOB Respiratory : No Cough, No Dyspnea Gastrointestinal : No Nausea, No Vomiting, No Diarrhea, No abdominal Pain Genitourinary : No Dysuria, No Hematuria Musculoskeletal : positive joint pain, No Myalgias, pos Joint Swelling Skin : No Skin lacerations, No rash Neuro : No Weakness, No Numbness, No Loss of Consciousness, No Dizziness, No Headache Psych : No Anxiety/Panic, No Depression All other systems reviewed and are negative Yes all other systems are reviewed and are negative Mental Status Exam Mental Status Exam Narrative: Appearance: wearing hospital gown, fair hygiene, in NAD Behavior: cooperative Psychomotor: no agitation or retardation noted Speech: mostly clear, regular rate/rhythm/volume, spontaneous TP: at times is disorganized, but more coherent TC: needing help for depression, and concern about her memory Mood: depressed Affect: constricted, but brightens up at times SI: passive but denies any plan or intent HI: none VH/AH: none Delusions: inermittent paranoid ideas Insight/judgment: impaired x2. Memory/cog: alert, not oriented to place (thinks we are in [place]), she was able to tell me the month and year but gets confused as to what brought her here Diagnostics Vital Signs (24Hr): Vital Signs - 24 hr 04/07/24 16:29 04/07/24 20:00 04/08/24 07:44 Temperature 97.4 F Pulse Rate 85 90 80 Respiratory Rate 16 Blood Pressure 117/68 119/59 L 134/70 Pulse Oximetry 94 Oxygen Delivery Method Room Air 04/08/24 08:00 Temperature 96.8 F Pulse Rate 80 Respiratory Rate 16 Blood Pressure 134/70 Pulse Oximetry 99 Oxygen Delivery Method Room Air BMI result Body Mass Index 22.8 Labs 03/26/24 07:45 03/26/24 07:45 Imaging Radiology Impressions: ITS Impressions Ankle X-Ray 03/24/24 13:24 IMPRESSION: 1. Soft tissue swelling about the lateral aspect of the ankle. 2. Question subtle avulsion fracture off the distal tip of the fibula versus artifactual related to projection. Electronically signed by: Duane Orlando MD 03/24/2024 03:35 PM EDT RP Chest X-Ray 03/24/24 13:26 IMPRESSION: 1. No acute disease. 2. Sclerotic/calcific density and lucency in the proximal right humerus unchanged compared to prior. This most likely reflects a cartilage lesion i.e enchondroma or bone infarct. Electronically signed by: Duane Orlando MD 03/24/2024 03:33 PM EDT RP Head CT 03/24/24 13:26 IMPRESSION: No acute intracranial pathology. Electronically signed by: Chester Caceres MD 03/24/2024 03:27 PM EDT RP Cervical Spine CT 03/24/24 14:10 IMPRESSION: Degenerative changes observed. No fracture or encroachment on the spinal canal. Fleischner guidelines were followed. Electronically signed by: Chester Caceres MD 03/24/2024 04:16 PM EDT RP Foot X-Ray 03/24/24 15:50 IMPRESSION: 1. No acute fracture or dislocation. 2. Chronic hammertoe deformity of the second toe. 3. 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 Electronically signed by: Sheila Hernandez MD 03/24/2024 06:16 PM EDT RP Medications Medications Current Medications Acetaminophen (Acetaminophen 325 Mg Tablet) 650 mg PO Q6H PRN PRN Reason: Pain, Moderate(Pain Scale 4-6) Last Admin: 04/08/24 06:45 Dose: 650 mg Al Hydroxide/Mg Hydroxide (Magnesium Hydrox/Alum Hydrox 30 Ml Oral.Susp) 30 ml PO Q6H PRN PRN Reason: Heartburn/Nausea Bupropion HCl (Bupropion Hcl Xl 300 Mg Tab.Er.24h) 300 mg PO DAILY DIONNE Last Admin: 04/08/24 08:02 Dose: 300 mg Carvedilol (Carvedilol 25 Mg Tablet) 25 mg PO BIDWM DIONNE; Protocol Last Admin: 04/08/24 07:44 Dose: 25 mg Magnesium Hydroxide (Milk Of Magnesia 30 Ml Oral.Susp) 30 ml PO DAILY PRN PRN Reason: Constipation Last Admin: 03/27/24 09:58 Dose: 30 ml Olanzapine (Olanzapine 5 Mg Tablet) 5 mg PO Q4H PRN PRN Reason: Agitation Last Admin: 04/03/24 13:08 Dose: 5 mg Olanzapine (Olanzapine 2.5 Mg Tablet) 2.5 mg PO BEDTIME DIONNE Last Admin: 04/07/24 20:51 Dose: 2.5 mg Trazodone HCl (Trazodone Hcl 50 Mg Tablet) 50 mg PO BEDTIME MRX1 PRN PRN Reason: Insomnia Last Admin: 04/07/24 20:51 Dose: 50 mg Allergies Allergies Allergy/AdvReac Type Severity Reaction Status Date / Time No Known Allergies Allergy Mild NOT Verified 03/24/24 13:40 APPLICABLE Assessment & Plan Assessment & Plan (1) Major neurocognitive disorder: Status: Acute Code(s): F03.90 - Unspecified dementia, unspecified severity, without behavioral disturbance, psychotic disturbance, mood disturbance, and anxiety Plan The patient is an elderly female with a past history of high blood pressure, previous falls and a past history of a GI bleed with no prior psychiatric history who was brought into the facility with her by her stepson due to inability to take care of themselves. The patient admitted that she had been feeling more confused but it was in the context of a UTI recently diagnosed. Plan 04/07 if HCP wants pt to return home despite recommendation of 07/01, there is no point in affirming HCP, as pt would be in agreement to return home with additional services. Called HCP to discuss aftercare plan and dispo. 04/08 start aricept 5mg po qhs. increased olanzapine 5mg po qhs. stop wellbutrin due to delusions. Reason for continued inpatient stay Substantial Risk for: inability to function Time Spent With Patient Time: Total time managing care of this patient today ____ minutes.
[2024-04-08 17:06] VITALS: BP 119/63; PULSE 79
[2024-04-08 20:00] VITALS: BP 100/56; PULSE 84; RESP 16; TEMP 36.5; O2SAT 93
[2024-04-08] MEDS: traZODone HCL 50 MG TABLET PO (20:58)
[2024-04-08] MEDS: OLANZapine 2.5 MG TABLET PO (20:58)
[2024-04-09 07:52] VITALS: BP 108/69; PULSE 88; RESP 16; TEMP 36.7; O2SAT 95
[2024-04-09] MEDS: carvediloL 25 MG TABLET PO ×2 (07:54→17:24)
[2024-04-09] MEDS: buPROPion HCl XL 300 MG TAB.ER.24H PO (07:55)
[2024-04-09 11:31] VITALS: BMI 22.7
[2024-04-09 17:22] VITALS: BP 135/66; PULSE 80
--- NOTE | 2024-04-09 18:03 | HO.PSYCHPN ---
Subjective Subjective Date of Service: 04/09/24 Reason For Visit: paranoia Subjective Notes: Conditional Voluntary Healthcare Proxy: Yes Interim History: Pt slept about 8hrs. Pt continues to report that step son wants her house, despite leaving it to her. She also suspicious of her sister for agreeing that she has dementia and may benefit from going to facility. She has been visible, pleasant on approach. No behavioral concerns. Medication Compliance: Yes Diagnostics Vital Signs (24Hr): Vital Signs - 24 hr 04/08/24 20:00 04/09/24 07:52 04/09/24 17:22 Temperature 97.7 F 98.1 F Pulse Rate 84 88 80 Respiratory Rate 16 16 Blood Pressure 100/56 L 108/69 135/66 Pulse Oximetry 93 95 Oxygen Delivery Method Room Air Room Air BMI result Body Mass Index 22.7 Labs 03/26/24 07:45 03/26/24 07:45 Imaging Radiology Impressions: ITS Impressions Ankle X-Ray 03/24/24 13:24 IMPRESSION: 1. Soft tissue swelling about the lateral aspect of the ankle. 2. Question subtle avulsion fracture off the distal tip of the fibula versus artifactual related to projection. Electronically signed by: Duane Orlando MD 03/24/2024 03:35 PM EDT RP Chest X-Ray 03/24/24 13:26 IMPRESSION: 1. No acute disease. 2. Sclerotic/calcific density and lucency in the proximal right humerus unchanged compared to prior. This most likely reflects a cartilage lesion i.e enchondroma or bone infarct. Electronically signed by: Duane Orlando MD 03/24/2024 03:33 PM EDT RP Head CT 03/24/24 13:26 IMPRESSION: No acute intracranial pathology. Electronically signed by: Chester Caceres MD 03/24/2024 03:27 PM EDT RP Cervical Spine CT 03/24/24 14:10 IMPRESSION: Degenerative changes observed. No fracture or encroachment on the spinal canal. Fleischner guidelines were followed. Electronically signed by: Chester Caceres MD 03/24/2024 04:16 PM EDT RP Foot X-Ray 03/24/24 15:50 IMPRESSION: 1. No acute fracture or dislocation. 2. Chronic hammertoe deformity of the second toe. 3. 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 Electronically signed by: Sheila Hernandez MD 03/24/2024 06:16 PM EDT RP Medications Medications Current Medications Acetaminophen (Acetaminophen 325 Mg Tablet) 650 mg PO Q6H PRN PRN Reason: Pain, Moderate(Pain Scale 4-6) Last Admin: 04/08/24 06:45 Dose: 650 mg Al Hydroxide/Mg Hydroxide (Magnesium Hydrox/Alum Hydrox 30 Ml Oral.Susp) 30 ml PO Q6H PRN PRN Reason: Heartburn/Nausea Carvedilol (Carvedilol 25 Mg Tablet) 25 mg PO BIDWM DIONNE; Protocol Last Admin: 04/09/24 07:54 Dose: 25 mg Donepezil HCl (Donepezil Hcl 5 Mg Tablet) 5 mg PO BEDTIME DIONNE Magnesium Hydroxide (Milk Of Magnesia 30 Ml Oral.Susp) 30 ml PO DAILY PRN PRN Reason: Constipation Last Admin: 03/27/24 09:58 Dose: 30 ml Olanzapine (Olanzapine 5 Mg Tablet) 5 mg PO Q4H PRN PRN Reason: Agitation Last Admin: 04/03/24 13:08 Dose: 5 mg Olanzapine (Olanzapine 5 Mg Tablet) 5 mg PO BEDTIME DIONNE Trazodone HCl (Trazodone Hcl 50 Mg Tablet) 50 mg PO BEDTIME MRX1 PRN PRN Reason: Insomnia Last Admin: 04/08/24 20:58 Dose: 50 mg Allergies Allergies Allergy/AdvReac Type Severity Reaction Status Date / Time No Known Allergies Allergy Mild NOT Verified 03/24/24 13:40 APPLICABLE Assessment & Plan Assessment & Plan (1) Major neurocognitive disorder: Status: Acute Code(s): F03.90 - Unspecified dementia, unspecified severity, without behavioral disturbance, psychotic disturbance, mood disturbance, and anxiety Plan The patient is an elderly female with a past history of high blood pressure, previous falls and a past history of a GI bleed with no prior psychiatric history who was brought into the facility with her by her stepson due to inability to take care of themselves. The patient admitted that she had been feeling more confused but it was in the context of a UTI recently diagnosed. Plan 04/07 if HCP wants pt to return home despite recommendation of 07/01, there is no point in affirming HCP, as pt would be in agreement to return home with additional services. Called HCP to discuss aftercare plan and dispo. 04/08 start aricept 5mg po qhs. increased olanzapine 5mg po qhs. stop wellbutrin due to delusions. 04/09 continue tx. Reason for continued inpatient stay Substantial Risk for: inability to function Time Spent With Patient Time: Total time managing care of this patient today ____ minutes.
[2024-04-09 20:00] VITALS: BP 124/60; PULSE 79; RESP 18; TEMP 36.6; O2SAT 100
[2024-04-09] MEDS: Acetaminophen 325 MG TABLET 650 MG PO (20:15)
[2024-04-09] MEDS: traZODone HCL 50 MG TABLET PO (20:15)
[2024-04-09] MEDS: OLANZapine 5 MG TABLET PO (20:15)
[2024-04-09] MEDS: Donepezil HCl 5 MG TABLET PO (20:15)
[2024-04-10 08:00] VITALS: BP 138/75; PULSE 96; RESP 18; TEMP 36.4; O2SAT 96
[2024-04-10] MEDS: carvediloL 25 MG TABLET PO ×2 (08:42→16:59)
[2024-04-10 16:57] VITALS: BP 134/63; PULSE 84; RESP 18; O2SAT 96
--- NOTE | 2024-04-10 18:31 | HO.PSYCHPN ---
Subjective Subjective Date of Service: 04/10/24 Reason For Visit: paranoia Subjective Notes: Conditional Voluntary Interim History: Pt slept about 8hrs. Pt continues to report that step son wants her house, despite leaving it to her. Pt somewhat paranoid towards staff and peers here. No behavioral concerns. Review of Systems Review of Systems Constitutional : No Fever, No Chills ENT/Mouth : No Ear Pain, No Hoarseness, No sore throat Eyes: No Eye Pain, No Swelling, No Redness, No Foreign Body Cardiovascular : No Chest Pain, No SOB Respiratory : No Cough, No Dyspnea Gastrointestinal : No Nausea, No Vomiting, No Diarrhea, No abdominal Pain Genitourinary : No Dysuria, No Hematuria Musculoskeletal : positive joint pain, No Myalgias, pos Joint Swelling Skin : No Skin lacerations, No rash Neuro : No Weakness, No Numbness, No Loss of Consciousness, No Dizziness, No Headache Psych : No Anxiety/Panic, No Depression All other systems reviewed and are negative Yes all other systems are reviewed and are negative Mental Status Exam Mental Status Exam Narrative: Appearance: wearing hospital gown, fair hygiene, in NAD Behavior: cooperative Psychomotor: no agitation or retardation noted Speech: mostly clear, regular rate/rhythm/volume, spontaneous TP: at times is disorganized, but more coherent TC: needing help for depression, and concern about her memory Mood: depressed Affect: constricted, but brightens up at times SI: passive but denies any plan or intent HI: none VH/AH: none Delusions: inermittent paranoid ideas Insight/judgment: impaired x2. Memory/cog: alert, not oriented to place (thinks we are in [place]), she was able to tell me the month and year but gets confused as to what brought her here Diagnostics Vital Signs (24Hr): Vital Signs - 24 hr 04/09/24 20:00 04/10/24 08:00 04/10/24 16:57 Temperature 97.9 F 97.5 F Pulse Rate 79 96 84 Respiratory Rate 18 18 18 Blood Pressure 124/60 138/75 134/63 Pulse Oximetry 100 96 96 Oxygen Delivery Method Room Air Room Air Room Air BMI result Body Mass Index 22.7 Labs 03/26/24 07:45 03/26/24 07:45 Imaging Radiology Impressions: ITS Impressions Ankle X-Ray 03/24/24 13:24 IMPRESSION: 1. Soft tissue swelling about the lateral aspect of the ankle. 2. Question subtle avulsion fracture off the distal tip of the fibula versus artifactual related to projection. Electronically signed by: Duane Orlando MD 03/24/2024 03:35 PM EDT RP Chest X-Ray 03/24/24 13:26 IMPRESSION: 1. No acute disease. 2. Sclerotic/calcific density and lucency in the proximal right humerus unchanged compared to prior. This most likely reflects a cartilage lesion i.e enchondroma or bone infarct. Electronically signed by: Duane Orlando MD 03/24/2024 03:33 PM EDT RP Head CT 03/24/24 13:26 IMPRESSION: No acute intracranial pathology. Electronically signed by: Chester Caceres MD 03/24/2024 03:27 PM EDT RP Cervical Spine CT 03/24/24 14:10 IMPRESSION: Degenerative changes observed. No fracture or encroachment on the spinal canal. Fleischner guidelines were followed. Electronically signed by: Chester Caceres MD 03/24/2024 04:16 PM EDT RP Foot X-Ray 03/24/24 15:50 IMPRESSION: 1. No acute fracture or dislocation. 2. Chronic hammertoe deformity of the second toe. 3. 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 Electronically signed by: Sheila Hernandez MD 03/24/2024 06:16 PM EDT RP Medications Medications Current Medications Acetaminophen (Acetaminophen 325 Mg Tablet) 650 mg PO Q6H PRN PRN Reason: Pain, Moderate(Pain Scale 4-6) Last Admin: 04/09/24 20:15 Dose: 650 mg Al Hydroxide/Mg Hydroxide (Magnesium Hydrox/Alum Hydrox 30 Ml Oral.Susp) 30 ml PO Q6H PRN PRN Reason: Heartburn/Nausea Carvedilol (Carvedilol 25 Mg Tablet) 25 mg PO BIDWM DIONNE; Protocol Last Admin: 04/10/24 16:59 Dose: 25 mg Donepezil HCl (Donepezil Hcl 5 Mg Tablet) 5 mg PO BEDTIME DIONNE Last Admin: 04/09/24 20:15 Dose: 5 mg Magnesium Hydroxide (Milk Of Magnesia 30 Ml Oral.Susp) 30 ml PO DAILY PRN PRN Reason: Constipation Last Admin: 03/27/24 09:58 Dose: 30 ml Olanzapine (Olanzapine 5 Mg Tablet) 5 mg PO Q4H PRN PRN Reason: Agitation Last Admin: 04/03/24 13:08 Dose: 5 mg Olanzapine (Olanzapine 5 Mg Tablet) 5 mg PO BEDTIME DIONNE Last Admin: 04/09/24 20:15 Dose: 5 mg Trazodone HCl (Trazodone Hcl 50 Mg Tablet) 50 mg PO BEDTIME MRX1 PRN PRN Reason: Insomnia Last Admin: 04/09/24 20:15 Dose: 50 mg Allergies Allergies Allergy/AdvReac Type Severity Reaction Status Date / Time No Known Allergies Allergy Mild NOT Verified 03/24/24 13:40 APPLICABLE Assessment & Plan Assessment & Plan (1) Major neurocognitive disorder: Status: Acute Code(s): F03.90 - Unspecified dementia, unspecified severity, without behavioral disturbance, psychotic disturbance, mood disturbance, and anxiety Plan The patient is an elderly female with a past history of high blood pressure, previous falls and a past history of a GI bleed with no prior psychiatric history who was brought into the facility with her by her stepson due to inability to take care of themselves. The patient admitted that she had been feeling more confused but it was in the context of a UTI recently diagnosed. Plan 04/07 if HCP wants pt to return home despite recommendation of 07/01, there is no point in affirming HCP, as pt would be in agreement to return home with additional services. Called HCP to discuss aftercare plan and dispo. 04/08 start aricept 5mg po qhs. increased olanzapine 5mg po qhs. stop wellbutrin due to delusions. 04/09 continue tx. 04/10 continue tx. Reason for continued inpatient stay Substantial Risk for: inability to function Time Spent With Patient Time: Total time managing care of this patient today ____ minutes.
[2024-04-10 20:00] VITALS: BP 114/64; PULSE 90; RESP 16; TEMP 36.8; O2SAT 95
[2024-04-10] MEDS: OLANZapine 5 MG TABLET PO (21:10)
[2024-04-10] MEDS: Donepezil HCl 5 MG TABLET PO (21:10)
[2024-04-11 16:55] VITALS: BP 143/77; PULSE 85
[2024-04-11] MEDS: carvediloL 25 MG TABLET PO (16:55)
[2024-04-11 20:00] VITALS: BP 120/63; PULSE 62; RESP 18; TEMP 36.9; O2SAT 94
--- NOTE | 2024-04-11 20:09 | HO.PSYCHPN ---
Subjective Subjective Date of Service: 04/11/24 Reason For Visit: paranoia Subjective Notes: Conditional Voluntary Interim History: Pt slept about 8hrs. Pt visible on the unit. Suspicious about staff and wanting to go home. No SI/HI. No behavioral concerns. taking medications as prescribed. Medication Compliance: Yes Review of Systems Review of Systems Constitutional : No Fever, No Chills ENT/Mouth : No Ear Pain, No Hoarseness, No sore throat Eyes: No Eye Pain, No Swelling, No Redness, No Foreign Body Cardiovascular : No Chest Pain, No SOB Respiratory : No Cough, No Dyspnea Gastrointestinal : No Nausea, No Vomiting, No Diarrhea, No abdominal Pain Genitourinary : No Dysuria, No Hematuria Musculoskeletal : positive joint pain, No Myalgias, pos Joint Swelling Skin : No Skin lacerations, No rash Neuro : No Weakness, No Numbness, No Loss of Consciousness, No Dizziness, No Headache Psych : No Anxiety/Panic, No Depression All other systems reviewed and are negative Yes all other systems are reviewed and are negative Mental Status Exam Mental Status Exam Narrative: Appearance: wearing hospital gown, fair hygiene, in NAD Behavior: cooperative Psychomotor: no agitation or retardation noted Speech: mostly clear, regular rate/rhythm/volume, spontaneous TP: at times is disorganized, but more coherent TC: needing help for depression, and concern about her memory Mood: depressed Affect: constricted, but brightens up at times SI: passive but denies any plan or intent HI: none VH/AH: none Delusions: inermittent paranoid ideas Insight/judgment: impaired x2. Memory/cog: alert, not oriented to place (thinks we are in [place]), she was able to tell me the month and year but gets confused as to what brought her here Diagnostics Vital Signs (24Hr): Vital Signs - 24 hr 04/11/24 16:55 Pulse Rate 85 Blood Pressure 143/77 H BMI result Body Mass Index 22.7 Labs 03/26/24 07:45 03/26/24 07:45 Imaging Radiology Impressions: ITS Impressions Ankle X-Ray 03/24/24 13:24 IMPRESSION: 1. Soft tissue swelling about the lateral aspect of the ankle. 2. Question subtle avulsion fracture off the distal tip of the fibula versus artifactual related to projection. Electronically signed by: Duane Orlando MD 03/24/2024 03:35 PM EDT RP Chest X-Ray 03/24/24 13:26 IMPRESSION: 1. No acute disease. 2. Sclerotic/calcific density and lucency in the proximal right humerus unchanged compared to prior. This most likely reflects a cartilage lesion i.e enchondroma or bone infarct. Electronically signed by: Duane Orlando MD 03/24/2024 03:33 PM EDT RP Head CT 03/24/24 13:26 IMPRESSION: No acute intracranial pathology. Electronically signed by: Chester Caceres MD 03/24/2024 03:27 PM EDT RP Cervical Spine CT 03/24/24 14:10 IMPRESSION: Degenerative changes observed. No fracture or encroachment on the spinal canal. Fleischner guidelines were followed. Electronically signed by: Chester Caceres MD 03/24/2024 04:16 PM EDT RP Foot X-Ray 03/24/24 15:50 IMPRESSION: 1. No acute fracture or dislocation. 2. Chronic hammertoe deformity of the second toe. 3. 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 Electronically signed by: Sheila Hernandez MD 03/24/2024 06:16 PM EDT RP Medications Medications Current Medications Acetaminophen (Acetaminophen 325 Mg Tablet) 650 mg PO Q6H PRN PRN Reason: Pain, Moderate(Pain Scale 4-6) Last Admin: 04/09/24 20:15 Dose: 650 mg Al Hydroxide/Mg Hydroxide (Magnesium Hydrox/Alum Hydrox 30 Ml Oral.Susp) 30 ml PO Q6H PRN PRN Reason: Heartburn/Nausea Carvedilol (Carvedilol 25 Mg Tablet) 25 mg PO BIDWM [facility]; Protocol Last Admin: 04/11/24 16:55 Dose: 25 mg Donepezil HCl (Donepezil Hcl 5 Mg Tablet) 5 mg PO BEDTIME DIONNE Last Admin: 04/10/24 21:10 Dose: 5 mg Magnesium Hydroxide (Milk Of Magnesia 30 Ml Oral.Susp) 30 ml PO DAILY PRN PRN Reason: Constipation Last Admin: 03/27/24 09:58 Dose: 30 ml Olanzapine (Olanzapine 5 Mg Tablet) 5 mg PO Q4H PRN PRN Reason: Agitation Last Admin: 04/03/24 13:08 Dose: 5 mg Olanzapine (Olanzapine 5 Mg Tablet) 5 mg PO BEDTIME DIONNE Last Admin: 04/10/24 21:10 Dose: 5 mg Trazodone HCl (Trazodone Hcl 50 Mg Tablet) 50 mg PO BEDTIME MRX1 PRN PRN Reason: Insomnia Last Admin: 04/09/24 20:15 Dose: 50 mg Allergies Allergies Allergy/AdvReac Type Severity Reaction Status Date / Time No Known Allergies Allergy Mild NOT Verified 03/24/24 13:40 APPLICABLE Assessment & Plan Assessment & Plan (1) Major neurocognitive disorder: Status: Acute Code(s): F03.90 - Unspecified dementia, unspecified severity, without behavioral disturbance, psychotic disturbance, mood disturbance, and anxiety Plan The patient is an elderly female with a past history of high blood pressure, previous falls and a past history of a GI bleed with no prior psychiatric history who was brought into the facility with her by her stepson due to inability to take care of themselves. The patient admitted that she had been feeling more confused but it was in the context of a UTI recently diagnosed. Plan 04/07 if HCP wants pt to return home despite recommendation of 07/01, there is no point in affirming HCP, as pt would be in agreement to return home with additional services. Called HCP to discuss aftercare plan and dispo. 04/08 start aricept 5mg po qhs. increased olanzapine 5mg po qhs. stop wellbutrin due to delusions. 04/09 continue tx. 04/10 continue tx. 04/11 continue tx. 04/12 continue tx. Reason for continued inpatient stay Substantial Risk for: inability to function Time Spent With Patient Time: Total time managing care of this patient today ____ minutes.
[2024-04-11] MEDS: traZODone HCL 50 MG TABLET PO (20:16)
[2024-04-11] MEDS: OLANZapine 5 MG TABLET PO (20:16)
[2024-04-11] MEDS: Donepezil HCl 5 MG TABLET PO (20:16)
[2024-04-12 08:28] VITALS: BP 135/74; PULSE 92; RESP 18; TEMP 36.6; O2SAT 96
[2024-04-12] MEDS: carvediloL 25 MG TABLET PO ×2 (08:32→17:36)
--- NOTE | 2024-04-12 16:00 | HO.PSYCHPN ---
Subjective Subjective Date of Service: 04/12/24 Reason For Visit: paranoia Interim History: Pt slept about 8hrs. Pt visible on the unit. Suspicious about staff and wanting to go home. No SI/HI. No behavioral concerns. taking medications as prescribed. Review of Systems Review of Systems Constitutional : No Fever, No Chills ENT/Mouth : No Ear Pain, No Hoarseness, No sore throat Eyes: No Eye Pain, No Swelling, No Redness, No Foreign Body Cardiovascular : No Chest Pain, No SOB Respiratory : No Cough, No Dyspnea Gastrointestinal : No Nausea, No Vomiting, No Diarrhea, No abdominal Pain Genitourinary : No Dysuria, No Hematuria Musculoskeletal : positive joint pain, No Myalgias, pos Joint Swelling Skin : No Skin lacerations, No rash Neuro : No Weakness, No Numbness, No Loss of Consciousness, No Dizziness, No Headache Psych : No Anxiety/Panic, No Depression All other systems reviewed and are negative Yes all other systems are reviewed and are negative Mental Status Exam Mental Status Exam Narrative: Appearance: wearing hospital gown, fair hygiene, in NAD Behavior: cooperative Psychomotor: no agitation or retardation noted Speech: mostly clear, regular rate/rhythm/volume, spontaneous TP: at times is disorganized, but more coherent TC: needing help for depression, and concern about her memory Mood: depressed Affect: constricted, but brightens up at times SI: passive but denies any plan or intent HI: none VH/AH: none Delusions: inermittent paranoid ideas Insight/judgment: impaired x2. Memory/cog: alert, not oriented to place (thinks we are in [place]), she was able to tell me the month and year but gets confused as to what brought her here Diagnostics Vital Signs (24Hr): Vital Signs - 24 hr 04/11/24 16:55 04/11/24 20:00 04/12/24 08:28 Temperature 98.4 F 97.9 F Pulse Rate 85 62 92 Respiratory Rate 18 18 Blood Pressure 143/77 H 120/63 135/74 Pulse Oximetry 94 96 Oxygen Delivery Method Room Air Room Air BMI result Body Mass Index 22.7 Labs 03/26/24 07:45 03/26/24 07:45 Imaging Radiology Impressions: ITS Impressions Ankle X-Ray 03/24/24 13:24 IMPRESSION: 1. Soft tissue swelling about the lateral aspect of the ankle. 2. Question subtle avulsion fracture off the distal tip of the fibula versus artifactual related to projection. Electronically signed by: Duane Orlando MD 03/24/2024 03:35 PM EDT RP Chest X-Ray 03/24/24 13:26 IMPRESSION: 1. No acute disease. 2. Sclerotic/calcific density and lucency in the proximal right humerus unchanged compared to prior. This most likely reflects a cartilage lesion i.e enchondroma or bone infarct. Electronically signed by: Duane Orlando MD 03/24/2024 03:33 PM EDT RP Head CT 03/24/24 13:26 IMPRESSION: No acute intracranial pathology. Electronically signed by: Chester Caceres MD 03/24/2024 03:27 PM EDT RP Cervical Spine CT 03/24/24 14:10 IMPRESSION: Degenerative changes observed. No fracture or encroachment on the spinal canal. Fleischner guidelines were followed. Electronically signed by: Chester Caceres MD 03/24/2024 04:16 PM EDT RP Foot X-Ray 03/24/24 15:50 IMPRESSION: 1. No acute fracture or dislocation. 2. Chronic hammertoe deformity of the second toe. 3. 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 Electronically signed by: Sheila Hernandez MD 03/24/2024 06:16 PM EDT RP Medications Medications Current Medications Acetaminophen (Acetaminophen 325 Mg Tablet) 650 mg PO Q6H PRN PRN Reason: Pain, Moderate(Pain Scale 4-6) Last Admin: 04/09/24 20:15 Dose: 650 mg Al Hydroxide/Mg Hydroxide (Magnesium Hydrox/Alum Hydrox 30 Ml Oral.Susp) 30 ml PO Q6H PRN PRN Reason: Heartburn/Nausea Carvedilol (Carvedilol 25 Mg Tablet) 25 mg PO BIDWM [facility]; Protocol Last Admin: 04/12/24 08:32 Dose: 25 mg Donepezil HCl (Donepezil Hcl 5 Mg Tablet) 5 mg PO BEDTIME DIONNE Last Admin: 04/11/24 20:16 Dose: 5 mg Magnesium Hydroxide (Milk Of Magnesia 30 Ml Oral.Susp) 30 ml PO DAILY PRN PRN Reason: Constipation Last Admin: 03/27/24 09:58 Dose: 30 ml Olanzapine (Olanzapine 5 Mg Tablet) 5 mg PO Q4H PRN PRN Reason: Agitation Last Admin: 04/03/24 13:08 Dose: 5 mg Olanzapine (Olanzapine 5 Mg Tablet) 5 mg PO BEDTIME DIONNE Last Admin: 04/11/24 20:16 Dose: 5 mg Trazodone HCl (Trazodone Hcl 50 Mg Tablet) 50 mg PO BEDTIME MRX1 PRN PRN Reason: Insomnia Last Admin: 04/11/24 20:16 Dose: 50 mg Allergies Allergies Allergy/AdvReac Type Severity Reaction Status Date / Time No Known Allergies Allergy Mild NOT Verified 03/24/24 13:40 APPLICABLE Assessment & Plan Assessment & Plan (1) Major neurocognitive disorder: Status: Acute Code(s): F03.90 - Unspecified dementia, unspecified severity, without behavioral disturbance, psychotic disturbance, mood disturbance, and anxiety Plan The patient is an elderly female with a past history of high blood pressure, previous falls and a past history of a GI bleed with no prior psychiatric history who was brought into the facility with her by her stepson due to inability to take care of themselves. The patient admitted that she had been feeling more confused but it was in the context of a UTI recently diagnosed. Plan 04/07 if HCP wants pt to return home despite recommendation of 07/01, there is no point in affirming HCP, as pt would be in agreement to return home with additional services. Called HCP to discuss aftercare plan and dispo. 04/08 start aricept 5mg po qhs. increased olanzapine 5mg po qhs. stop wellbutrin due to delusions. 04/09 continue tx. 04/10 continue tx 04/11 continue tx 04/12 continue tx. Reason for continued inpatient stay Substantial Risk for: inability to function Time Spent With Patient Time: Total time managing care of this patient today ____ minutes.
[2024-04-12 17:36] VITALS: BP 139/74; PULSE 85
[2024-04-12 20:00] VITALS: BP 108/56; PULSE 79; RESP 16; TEMP 36.8; O2SAT 96
[2024-04-12] MEDS: traZODone HCL 50 MG TABLET PO (20:35)
[2024-04-12] MEDS: Donepezil HCl 5 MG TABLET PO (20:35)
[2024-04-12] MEDS: OLANZapine 5 MG TABLET PO (20:35)
[2024-04-13 08:51] VITALS: BP 139/72; PULSE 88; RESP 18; TEMP 36.5; O2SAT 95
[2024-04-13] MEDS: carvediloL 25 MG TABLET PO ×2 (08:52→17:13)
[2024-04-13 17:09] VITALS: BP 135/62; PULSE 76
[2024-04-13 20:00] VITALS: BP 96/57; PULSE 73; RESP 16; TEMP 36.8; O2SAT 94
--- NOTE | 2024-04-13 20:23 | HO.PSYCHPN ---
Subjective Subjective Date of Service: 04/13/24 Reason For Visit: paranoia Interim History: Pt slept about 8hrs. Pt visible on the unit. Suspicious about staff and wanting to go home. No SI/HI. No behavioral concerns. taking medications as prescribed. Review of Systems Review of Systems Constitutional : No Fever, No Chills ENT/Mouth : No Ear Pain, No Hoarseness, No sore throat Eyes: No Eye Pain, No Swelling, No Redness, No Foreign Body Cardiovascular : No Chest Pain, No SOB Respiratory : No Cough, No Dyspnea Gastrointestinal : No Nausea, No Vomiting, No Diarrhea, No abdominal Pain Genitourinary : No Dysuria, No Hematuria Musculoskeletal : positive joint pain, No Myalgias, pos Joint Swelling Skin : No Skin lacerations, No rash Neuro : No Weakness, No Numbness, No Loss of Consciousness, No Dizziness, No Headache Psych : No Anxiety/Panic, No Depression All other systems reviewed and are negative Yes all other systems are reviewed and are negative Mental Status Exam Mental Status Exam Narrative: Appearance: wearing hospital gown, fair hygiene, in NAD Behavior: cooperative Psychomotor: no agitation or retardation noted Speech: mostly clear, regular rate/rhythm/volume, spontaneous TP: at times is disorganized, but more coherent TC: needing help for depression, and concern about her memory Mood: depressed Affect: constricted, but brightens up at times SI: passive but denies any plan or intent HI: none VH/AH: none Delusions: inermittent paranoid ideas Insight/judgment: impaired x2. Memory/cog: alert, not oriented to place (thinks we are in [place]), she was able to tell me the month and year but gets confused as to what brought her here Patient Appearance: Appropriate Patient Orientation: Person and Situation Level of Consciousness: Awake and Appropriate Patient Behavior: Guarded and Passive Mood Description: Withdrawn Affect Description: Constricted Patient Cognition Impaired: Yes Ability to Follow Directions: Good Speech Pattern: Clear Diagnostics Vital Signs (24Hr): Vital Signs - 24 hr 04/13/24 08:51 04/13/24 17:09 Temperature 97.7 F Pulse Rate 88 76 Respiratory Rate 18 Blood Pressure 139/72 135/62 Pulse Oximetry 95 Oxygen Delivery Method Room Air BMI result Body Mass Index 22.7 Labs 03/26/24 07:45 03/26/24 07:45 Imaging Radiology Impressions: ITS Impressions Ankle X-Ray 03/24/24 13:24 IMPRESSION: 1. Soft tissue swelling about the lateral aspect of the ankle. 2. Question subtle avulsion fracture off the distal tip of the fibula versus artifactual related to projection. Electronically signed by: Duane Orlando MD 03/24/2024 03:35 PM EDT RP Chest X-Ray 03/24/24 13:26 IMPRESSION: 1. No acute disease. 2. Sclerotic/calcific density and lucency in the proximal right humerus unchanged compared to prior. This most likely reflects a cartilage lesion i.e enchondroma or bone infarct. Electronically signed by: Duane Orlando MD 03/24/2024 03:33 PM EDT RP Head CT 03/24/24 13:26 IMPRESSION: No acute intracranial pathology. Electronically signed by: Chester Caceres MD 03/24/2024 03:27 PM EDT RP Cervical Spine CT 03/24/24 14:10 IMPRESSION: Degenerative changes observed. No fracture or encroachment on the spinal canal. Fleischner guidelines were followed. Electronically signed by: Chester Caceres MD 03/24/2024 04:16 PM EDT RP Foot X-Ray 03/24/24 15:50 IMPRESSION: 1. No acute fracture or dislocation. 2. Chronic hammertoe deformity of the second toe. 3. 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 Electronically signed by: Sheila Hernandez MD 03/24/2024 06:16 PM EDT RP Medications Medications Current Medications Acetaminophen (Acetaminophen 325 Mg Tablet) 650 mg PO Q6H PRN PRN Reason: Pain, Moderate(Pain Scale 4-6) Last Admin: 04/09/24 20:15 Dose: 650 mg Al Hydroxide/Mg Hydroxide (Magnesium Hydrox/Alum Hydrox 30 Ml Oral.Susp) 30 ml PO Q6H PRN PRN Reason: Heartburn/Nausea Carvedilol (Carvedilol 25 Mg Tablet) 25 mg PO BIDWM [facility]; Protocol Last Admin: 04/13/24 17:13 Dose: 25 mg Donepezil HCl (Donepezil Hcl 5 Mg Tablet) 5 mg PO BEDTIME DIONNE Last Admin: 04/12/24 20:35 Dose: 5 mg Magnesium Hydroxide (Milk Of Magnesia 30 Ml Oral.Susp) 30 ml PO DAILY PRN PRN Reason: Constipation Last Admin: 03/27/24 09:58 Dose: 30 ml Olanzapine (Olanzapine 5 Mg Tablet) 5 mg PO Q4H PRN PRN Reason: Agitation Last Admin: 04/03/24 13:08 Dose: 5 mg Olanzapine (Olanzapine 5 Mg Tablet) 5 mg PO BEDTIME DIONNE Last Admin: 04/12/24 20:35 Dose: 5 mg Trazodone HCl (Trazodone Hcl 50 Mg Tablet) 50 mg PO BEDTIME MRX1 PRN PRN Reason: Insomnia Last Admin: 04/12/24 20:35 Dose: 50 mg Allergies Allergies Allergy/AdvReac Type Severity Reaction Status Date / Time No Known Allergies Allergy Mild NOT Verified 03/24/24 13:40 APPLICABLE Assessment & Plan Assessment & Plan (1) Major neurocognitive disorder: Status: Acute Code(s): F03.90 - Unspecified dementia, unspecified severity, without behavioral disturbance, psychotic disturbance, mood disturbance, and anxiety Plan The patient is an elderly female with a past history of high blood pressure, previous falls and a past history of a GI bleed with no prior psychiatric history who was brought into the facility with her by her stepson due to inability to take care of themselves. The patient admitted that she had been feeling more confused but it was in the context of a UTI recently diagnosed. Plan 04/07 if HCP wants pt to return home despite recommendation of 07/01, there is no point in affirming HCP, as pt would be in agreement to return home with additional services. Called HCP to discuss aftercare plan and dispo. 04/08 start aricept 5mg po qhs. increased olanzapine 5mg po qhs. stop wellbutrin due to delusions. 04/09 continue tx. 04/10 continue tx. 04/11 continue tx. 04/12 continue . 04/13 tolerating medications well. VS stable, may increase olanzapine 7.5mg po qhs Reason for continued inpatient stay Substantial Risk for: inability to function Time Spent With Patient Time: Total time managing care of this patient today ____ minutes.
[2024-04-13] MEDS: traZODone HCL 50 MG TABLET PO (21:04)
[2024-04-13] MEDS: Donepezil HCl 5 MG TABLET PO (21:04)
[2024-04-13] MEDS: OLANZapine 5 MG TABLET PO (21:04)
[2024-04-14 08:56] VITALS: BP 159/70; PULSE 71; RESP 16; TEMP 36.2; O2SAT 95
[2024-04-14] MEDS: carvediloL 25 MG TABLET PO ×2 (08:59→18:37)
--- NOTE | 2024-04-14 16:24 | P.PNPSI_ITS ---
Subjective Subjective Date of Service: 04/14/24 Reason For Visit: paranoia Interim History: Pt slept about 8hrs. Pt visible on the unit. Suspicious about staff and wanting to go home. No SI/HI. No behavioral concerns. taking medications as prescribed. Review of Systems Review of Systems Constitutional : No Fever, No Chills ENT/Mouth : No Ear Pain, No Hoarseness, No sore throat Eyes: No Eye Pain, No Swelling, No Redness, No Foreign Body Cardiovascular : No Chest Pain, No SOB Respiratory : No Cough, No Dyspnea Gastrointestinal : No Nausea, No Vomiting, No Diarrhea, No abdominal Pain Genitourinary : No Dysuria, No Hematuria Musculoskeletal : positive joint pain, No Myalgias, pos Joint Swelling Skin : No Skin lacerations, No rash Neuro : No Weakness, No Numbness, No Loss of Consciousness, No Dizziness, No Headache Psych : No Anxiety/Panic, No Depression All other systems reviewed and are negative Yes all other systems are reviewed and are negative Mental Status Exam Mental Status Exam Narrative: Appearance: wearing hospital gown, fair hygiene, in NAD Behavior: cooperative Psychomotor: no agitation or retardation noted Speech: mostly clear, regular rate/rhythm/volume, spontaneous TP: at times is disorganized, but more coherent TC: needing help for depression, and concern about her memory Mood: good Affect: constricted, but brightens up at times SI: passive but denies any plan or intent HI: none VH/AH: none Delusions: inermittent paranoid ideas Insight/judgment: impaired x2. Memory/cog: alert, not oriented to place (thinks we are in [place]), she was able to tell me the month and year but gets confused as to what brought her here Diagnostics Vital Signs (24Hr): Vital Signs - 24 hr 04/13/24 17:09 04/13/24 20:00 04/14/24 08:56 Temperature 98.2 F 97.2 F Pulse Rate 76 73 71 Respiratory Rate 16 16 Blood Pressure 135/62 96/57 L 159/70 H Pulse Oximetry 94 95 Oxygen Delivery Method Room Air BMI result Body Mass Index 22.7 Labs 03/26/24 07:45 03/26/24 07:45 Imaging Radiology Impressions: ITS Impressions Ankle X-Ray 03/24/24 13:24 IMPRESSION: 1. Soft tissue swelling about the lateral aspect of the ankle. 2. Question subtle avulsion fracture off the distal tip of the fibula versus artifactual related to projection. Electronically signed by: Duane Orlando MD 03/24/2024 03:35 PM EDT RP Chest X-Ray 03/24/24 13:26 IMPRESSION: 1. No acute disease. 2. Sclerotic/calcific density and lucency in the proximal right humerus unchanged compared to prior. This most likely reflects a cartilage lesion i.e enchondroma or bone infarct. Electronically signed by: Duane Orlando MD 03/24/2024 03:33 PM EDT RP Head CT 03/24/24 13:26 IMPRESSION: No acute intracranial pathology. Electronically signed by: Chester Caceres MD 03/24/2024 03:27 PM EDT RP Cervical Spine CT 03/24/24 14:10 IMPRESSION: Degenerative changes observed. No fracture or encroachment on the spinal canal. Fleischner guidelines were followed. Electronically signed by: Chester Caceres MD 03/24/2024 04:16 PM EDT RP Foot X-Ray 03/24/24 15:50 IMPRESSION: 1. No acute fracture or dislocation. 2. Chronic hammertoe deformity of the second toe. 3. 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 Electronically signed by: Sheila Hernandez MD 03/24/2024 06:16 PM EDT RP Medications Medications Current Medications Acetaminophen (Acetaminophen 325 Mg Tablet) 650 mg PO Q6H PRN PRN Reason: Pain, Moderate(Pain Scale 4-6) Last Admin: 04/09/24 20:15 Dose: 650 mg Al Hydroxide/Mg Hydroxide (Magnesium Hydrox/Alum Hydrox 30 Ml Oral.Susp) 30 ml PO Q6H PRN PRN Reason: Heartburn/Nausea Carvedilol (Carvedilol 25 Mg Tablet) 25 mg PO BIDWM [facility]; Protocol Last Admin: 04/14/24 08:59 Dose: 25 mg Donepezil HCl (Donepezil Hcl 5 Mg Tablet) 5 mg PO BEDTIME DIONNE Last Admin: 04/13/24 21:04 Dose: 5 mg Magnesium Hydroxide (Milk Of Magnesia 30 Ml Oral.Susp) 30 ml PO DAILY PRN PRN Reason: Constipation Last Admin: 03/27/24 09:58 Dose: 30 ml Olanzapine (Olanzapine 5 Mg Tablet) 5 mg PO Q4H PRN PRN Reason: Agitation Last Admin: 04/03/24 13:08 Dose: 5 mg Olanzapine (Olanzapine 5 Mg Tablet) 5 mg PO BEDTIME DIONNE Last Admin: 04/13/24 21:04 Dose: 5 mg Trazodone HCl (Trazodone Hcl 50 Mg Tablet) 50 mg PO BEDTIME MRX1 PRN PRN Reason: Insomnia Last Admin: 04/13/24 21:04 Dose: 50 mg Allergies Allergies Allergy/AdvReac Type Severity Reaction Status Date / Time No Known Allergies Allergy Mild NOT Verified 03/24/24 13:40 APPLICABLE Assessment & Plan Assessment & Plan (1) Major neurocognitive disorder: Status: Acute Code(s): F03.90 - Unspecified dementia, unspecified severity, without behavioral disturbance, psychotic disturbance, mood disturbance, and anxiety Plan The patient is an elderly female with a past history of high blood pressure, previous falls and a past history of a GI bleed with no prior psychiatric history who was brought into the facility with her by her stepson due to inability to take care of themselves. The patient admitted that she had been feeling more confused but it was in the context of a UTI recently diagnosed. Plan 04/07 if HCP wants pt to return home despite recommendation of 07/01, there is no point in affirming HCP, as pt would be in agreement to return home with additional services. Called HCP to discuss aftercare plan and dispo. 04/08 start aricept 5mg po qhs. increased olanzapine 5mg po qhs. stop wellbutrin due to delusions. 04/09 continue tx. 04/10 continue tx. 04/11 continue tx. 04/12 continue tx. 04/13 tolerating medications well. VS stable, may increase olanzapine 5mg po qhs. 04/14 continue tx. dc tomorrow. Reason for continued inpatient stay Substantial Risk for: stable for discharge Time Spent With Patient Time: Total time managing care of this patient today ____ minutes.
[2024-04-14 18:37] VITALS: BP 110/65; PULSE 74
[2024-04-14 20:00] VITALS: BP 124/59; PULSE 63; RESP 17; TEMP 36.6; O2SAT 95
[2024-04-14] MEDS: traZODone HCL 50 MG TABLET PO (20:48)
[2024-04-14] MEDS: OLANZapine 5 MG TABLET PO (20:48)
[2024-04-14] MEDS: Donepezil HCl 5 MG TABLET PO (20:48)
[2024-04-15 08:09] VITALS: BP 123/65; PULSE 67; RESP 20; TEMP 36.9; O2SAT 99
[2024-04-15] MEDS: carvediloL 25 MG TABLET PO (08:12)
--- NOTE | 2024-04-15 10:59 | P.DS_ITS ---
DS: Providers Provider Date of Service: 04/15/24 Date of admission: 03/25/24 11:47 Date of discharge: 04/15/24 Primary care physician: Duane Purvis MD Consults: 03/25/24 11:24 Consult to Orthopedics Routine Consulting Provider: [facility] Reason for consultation: Question subtle avulsion fracture off the distal tip of the fibula versus Has provider been notified: Yes 04/01/24 08:54 Consult to Orthopedics Routine Consulting Provider: [facility] Reason for consultation: F/U ankle fracture Has provider been notified: No Discharging clinician: Ada Ramos DS: Diagnosis Discharge Diagnosis (1) Major neurocognitive disorder: Status: Acute DS: Medications Discharge Medications Home Medications: Previous Rx's ?Medication ?Instructions ?Recorded carvedilol 25 mg tablet 25 mg PO BIDWM #60 tabs 04/15/24 donepezil 5 mg tablet 5 mg PO BEDTIME #30 tabs 04/15/24 olanzapine 5 mg tablet 5 mg PO BEDTIME #30 tabs 04/15/24 trazodone 50 mg tablet 50 mg PO BEDTIME PRN Insomnia #30 04/15/24 tabs Mental Status Exam Mental Status Exam Narrative: Appearance: wearing hospital gown, fair hygiene, in NAD Behavior: cooperative Psychomotor: no agitation or retardation noted Speech: mostly clear, regular rate/rhythm/volume, spontaneous TP: at times is disorganized, but more coherent TC: needing help for depression, and concern about her memory Mood: good Affect: constricted, but brightens up at times SI: none HI: none VH/AH: none Delusions: intermittent paranoid ideas Insight/judgment: impaired x2. Memory/cog: alert, not oriented to place (thinks we are in [place]), she was able to tell me the month and year but gets confused as to what brought her here Data Data Completed and Pending Completed studies during hospitalization [Text1]: 03/24/24 Unknown Urine clean catch - Clean Catch Midstream Urine Culture - Final Klebsiella pneumoniae Imaging Diagnostic Imaging Impressions Ankle X-Ray 03/24/24 13:24 IMPRESSION: 1. Soft tissue swelling about the lateral aspect of the ankle. 2. Question subtle avulsion fracture off the distal tip of the fibula versus artifactual related to projection. Electronically signed by: Duane Orlando MD 03/24/2024 03:35 PM EDT RP Chest X-Ray 03/24/24 13:26 IMPRESSION: 1. No acute disease. 2. Sclerotic/calcific density and lucency in the proximal right humerus unchanged compared to prior. This most likely reflects a cartilage lesion i.e enchondroma or bone infarct. Electronically signed by: Duane Orlando MD 03/24/2024 03:33 PM EDT RP Head CT 03/24/24 13:26 IMPRESSION: No acute intracranial pathology. Electronically signed by: Chester Caceres MD 03/24/2024 03:27 PM EDT RP Cervical Spine CT 03/24/24 14:10 IMPRESSION: Degenerative changes observed. No fracture or encroachment on the spinal canal. Fleischner guidelines were followed. Electronically signed by: Chester Caceres MD 03/24/2024 04:16 PM EDT RP Foot X-Ray 03/24/24 15:50 IMPRESSION: 1. No acute fracture or dislocation. 2. Chronic hammertoe deformity of the second toe. 3. 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 Electronically signed by: Sheila Hernandez MD 03/24/2024 06:16 PM EDT RP DS: Summary Hospital Course Hospital Course: The patient is an 83-year-old female, , mother of 1 adult son who is not very involved in her care, living with her , retired caregiver, referred from the emergency room for exacerbation of anxiety, failure to thrive and disorganized behavior. The patient was assessed by the crisis team and referred into this facility for psychiatric stabilization. Apparently, her stepson referred her and the patient to the emergency room since they were unable to take care of themselves. Her stepson was willing to take her back but not her. On admission, the patient reported that she has been feeling fairly well until a few weeks ago that her who is more impaired was feeling worse. He she reported that she used to be very active and recently she had several falls. While she was in the emergency room also, was diagnosed a UTI. She feels that she is overwhelmed, with anxiety and depression. She was self aware of worsening of short-term memory in the last days. I explained her that due to the UTI she could have some delirium symptoms. She was in agreement to start antibiotics and continue with medical care. The patient was able to contract for safety and she is willing to follow treatment. She denies prior psychiatric history. 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 Past Psychiatric History: She denies prior psychiatric history, never admitted into the hospital nor follow-up as an outpatient. Medical Evaluation Reviewed: Yes HOSPITAL COURSE On the unit, pt was admitted on a CV. Pt presented with paranoia, initially mostly towards step-son but later also towards staff on the unit. She was sleeping and eating well. She was taking medications as prescribed. Pt was started on aricept for dementia. She was also started on olanzapine for paranoia. Wellbutrin was stopped as it can worsen paranoia. Family meeting was held in few occasions. Pt was initially assigned to Dr. Mayers, please refer to his notes for further detail. Her HCP is her sister. Information was given to sister as to diagnosis including advanced dementia, medication changes and recommendation for additional help in the home. Plan was for pt to return home with additional services, including VNA. It was also discussed with pt's sister that eventually pt will need 07/01 supervision and planning for assisted care is needed now. Status at Discharge Cognitive/behavioral status at discharge: Pt with brighter affect. No SI/HI. residual paranoid ideas. No aggression towards self or others. Functional status at discharge: independent ambulation Overall status at discharge: patient is back to baseline Time Spent with Patient Time attestation: Total time managing care of this patient today __45__ minutes. Time spent: Greater than 30 minutes Discharge Plan Discharge Anticipated Discharge Date/Time: 04/15/24 10:50 Patient Disposition: Home, Self-Care Discharge Diagnosis: Major Neurocognitive Disorder Referrals: [facility] [Other] - 04/21/24 ([facility] will be providing home care hours in the morning and evening as well a RN to assist with medications. ) [facility] [Other] - 05/13/24 10:00 am (YOur first appointment for psychiatry is scheduled for 05/13/24 at 10am with Rosana Al NP at [facility]. Please arrive 15 minutes early to appointment to complete paperwork. ) Duane Purvis MD [Primary Care Provider] - 1 Week (Your providers office has been contacted on your behalf and the office will call you to schedule a follow up appointment.) Discharge Medications: New trazodone 50 mg Tablet 50 mg PO BEDTIME PRN (Reason: Insomnia) Qty: 30 0RF olanzapine 5 mg Tablet 5 mg PO BEDTIME Qty: 30 0RF Discontinued carvedilol 25 mg tablet 1 tab PO BID bupropion HCl 300 mg tablet extended release 24 hr 1 tab PO DAILY citalopram 20 mg tablet 20 mg PO BEDTIME No Action donepezil 5 mg tablet 5 mg PO DAILY Qty: 30 0RF carvedilol 25 mg tablet 25 mg PO BID citalopram 20 mg tablet 20 mg PO DAILY omeprazole 20 mg capsule,delayed release(DR/EC) 40 mg PO BID@0630,1630 bupropion HCl 300 mg tablet extended release 24 hr 300 mg PO DAILY Discharge Orders: Discharge Order (Routine); Ordered 04/15/24 Ordered By: Ada Ramos Diet: Regular diet Activity on Discharge: As tolerated Stand Alone Forms: Patient Portal Discharge page, Community Support Print Language: Hebrew Care Plan Goals: 1. maintain mood 2. No SI/HI. 3. No aggression towards self or others. 4. less paranoid delusions, but still present Health Concerns: follow up with PCP for routine care Plan of Treatment: 1. Take medications as prescribed 2. Go to nearest ED or call 911 in event of emergency. Assessment: Pt with brighter, somewhat guarded affect. No SI/HI. Sleeping and eating well. No behavioral concerns. Discharge Date/Time: 04/15/24 13:55
== END 2024-04-15 13:55 | disposition home or self-care (01) | DRG 884 ==
LOC: HO.ED 03-25 07:02 → HO.PGERI 03-25 12:26
PROVIDERS: Emergency Medicine; Admitting Provider Social Worker; Emergency Provider Internal Medicine; PCP Internal Medicine; Visit Provider Social Worker
DX: F03.90 Unspecified dementia, unspecified severity, without behavioral disturbance, psychotic disturbance, mood disturbance, and anxiety (principal); N39.0 Urinary tract infection, site not specified; S82.831A Other fracture of upper and lower end of right fibula, initial encounter for closed fracture; W19.XXXA Unspecified fall, initial encounter; I10 Essential (primary) hypertension; Z20.822 Contact with and (suspected) exposure to COVID-19; Z79.899 Other long term (current) drug therapy
CPT/HCPCS: 0241U; 36415; 70450; 71045; 72125; 73610; 73630; 80048; 80053; 80061; 80076; 80307; 81001; 82550; 82607; 82746; 83036; 83690; 83735; 84443; 84484; 85025; 87086; 87088; 87186; 93005; 97116; 97162; 99285; S9485

== ENCOUNTER → 2024-03-24 13:26 | Outpatient (BNV) | payer MEDICARE, SELFPAY | PROVIDERS: Emergency Provider Internal Medicine; PCP Internal Medicine; Visit Provider Internal Medicine Cardiovascular Disease | DX: R94.31 Abnormal electrocardiogram [ECG] [EKG] (principal) | CPT/HCPCS: 93010 ==

== ENCOUNTER 2024-03-25 11:47 | Outpatient (BNV) | payer MEDICARE, SELFPAY | END 2024-03-25 13:53 | PROVIDERS: Admitting Provider Social Worker; Emergency Provider Internal Medicine; PCP Internal Medicine; Visit Provider Internal Medicine Cardiovascular Disease | DX: I45.81 Long QT syndrome (principal) | CPT/HCPCS: 93010 ==

== ENCOUNTER → 2024-03-25 11:47 | Outpatient (BNV) | payer MEDICARE, SELFPAY | PROVIDERS: Admitting Provider Social Worker; Emergency Provider Internal Medicine; PCP Internal Medicine; Visit Provider Physician Assistant | DX: S93.401A Sprain of unspecified ligament of right ankle, initial encounter (principal) | CPT/HCPCS: 99499 ==

== ENCOUNTER → 2024-03-25 11:47 | Outpatient (BNV) | payer MEDICARE, SELFPAY | PROVIDERS: Admitting Provider Social Worker; Emergency Provider Internal Medicine; PCP Internal Medicine; Visit Provider Social Worker | DX: F03.90 Unspecified dementia, unspecified severity, without behavioral disturbance, psychotic disturbance, mood disturbance, and anxiety (principal) | CPT/HCPCS: 90792; 99231; 99232; 99239; 99499 ==

== ENCOUNTER 2024-04-17 13:36 | Emergency (ER) | payer MEDICARE, SELFPAY ==
[2024-04-17 14:00] VITALS: BP 116/75; BP 125/65; PULSE 58; PULSE 60; RESP 18; TEMP 36.6; O2SAT 100; O2SAT 96; BMI 21.0
--- NOTE | 2024-04-17 14:03 | ECG_ITS ---
Test Reason : MEDICAL CLEARANCE Blood Pressure : / mmHG Vent. Rate : 060 BPM Atrial Rate : 060 BPM P-R Int : 184 ms QRS Dur : 080 ms QT Int : 434 ms P-R-T Axes : 051 029 052 degrees QTc Int : 434 ms Sinus rhythm with Premature supraventricular complexes Otherwise normal ECG When compared with ECG of 25-MAR-2024 13:53, Premature supraventricular complexes are now Present Referred By: Catherine Jackson Electronically Signed By:ANNIE GUTIERREZ
--- NOTE | 2024-04-17 14:03 | ED.GENADULT ---
HPI - General Adult General Chief complaint: Psychiatric Symptoms Stated complaint: CRISIS Time Seen by Provider: 04/17/24 14:00 Source: patient and EMS Mode of arrival: EMS Limitations: no limitations History of Present Illness ED Provider: Catherine Jackson PA-C HPI narrative: Patient is an 83 year old assigned female at with a history of neurocognitive disorder and dementia presenting to the emergency department today with suicidal ideation and paranoia. Patient states that her son in law is stealing from her and she is going to take her pills to . Patient denies any dizziness, lightheadedness, abdominal pain, nausea, vomiting, fever, chills, blurry vision, double vision, loss of vision, chest pain, difficulty breathing, shortness of breath, back pain, night sweats, pain with urination, increased urinary frequency, increased urinary urgency, blood in her urine or stool, syncope or a near syncopal episode, recent trauma or falls, bowel incontinence, bladder incontinence, or any other complaints at this time. Relieving factors: none Exacerbating factors: none Associated symptoms: denies other symptoms Treatments prior to arrival: none Related Data Home Medications ?Medication ?Instructions ?Recorded ?Confirmed carvedilol 25 mg tablet 25 mg PO BID 04/17/24 04/17/24 citalopram 20 mg tablet 20 mg PO DAILY 04/17/24 04/17/24 donepezil 5 mg tablet 5 mg PO DAILY 04/17/24 04/17/24 Previous Rx's ?Medication ?Instructions ?Recorded olanzapine 5 mg tablet 5 mg PO BEDTIME #30 tabs 04/15/24 trazodone 50 mg tablet 50 mg PO BEDTIME PRN Insomnia #30 04/15/24 tabs Allergies Allergy/AdvReac Type Severity Reaction Status Date / Time No Known Allergies Allergy Mild NOT Verified 04/17/24 14:03 APPLICABLE Review of Systems Constitutional: Constitutional: Reports no additional constitutional complaints, Denies chills, Denies fever(s) and Denies night sweats Eyes: Eyes: Reports no additional eye complaints, Denies blurry vision, Denies change in vision, Denies diplopia, Denies eye discharge, Denies loss of vision and Denies eye pain ENT: Denies dizziness Cardiovascular: Cardiovascular: Reports no additional cardiovascular complaints, Denies chest pain, Denies lightheadedness, Denies Loss of Consciousness and Denies dyspnea Respiratory: Respiratory: Reports no additional respiratory complaints and Denies dyspnea Gastrointestinal: Gastrointestinal: Reports no additional gastrointestinal complaints, Denies abdominal pain, Denies melena, Denies hematochezia, Denies change in bowel habits and Denies change in stool character Genitourinary: Genitourinary: Denies hematuria, Denies urinary frequency, Denies dysuria, Denies urinary incontinence, Denies urinary hesitancy and Denies urinary urgency Musculoskeletal: Musculoskeletal: Reports no additional musculoskeletal complaints, Denies numbness and Denies tingling Neurologic: Denies dizziness, Denies loss of vision, Denies numbness and Denies tingling Psychiatric: Psychiatric: Reports depression and Reports suicidal ideation Endocrine: Endocrine: Reports no additional endocrine complaints Hematologic/Lymphatic: Hematologic/Lymphatic: Reports no additional hematologic/lymphatic complaints Allergic/Immunologic: Allergic/Immunologic: Reports no additional allergic/immunologic complaints PMFSH Past Medical History Attestation statement: The following information was validated with the patient. Source: old records reviewed and nursing notes reviewed Medical History Hypertension Mood disorder Surgical History Hx of esophagogastroduodenoscopy H/O hernia repair Hx of breast reduction, elective Social History Social History Household Members: Spouse Housing: House Do you presently have visiting nurse or other home services: No Unable to assess alcohol history related to: Refusing to respond Patient Tobacco Use Status: Never used Tobacco Smoked in Last 30 Days: No Use of substances other than those prescribed or required for medical reasons: Refusing to respond Advance Directives: Yes Advance Directives on File: Yes Advance Directives Date on File: 04/16/24 service: No Current occupational status: retired Sexual orientation: Straight/Heterosexual Physical Exam ED Vital Signs: Vital Signs - 24 hr 04/17/24 18:53 04/17/24 20:47 04/17/24 21:15 Temperature 97.8 F 98.2 F Pulse Rate 58 63 63 Respiratory Rate 18 18 Blood Pressure 116/75 128/75 128/75 Pulse Oximetry 96 97 Oxygen Delivery Method Room Air Room Air 04/18/24 06:31 04/18/24 16:02 Temperature 97.2 F Pulse Rate 68 Respiratory Rate 16 14 Blood Pressure 112/60 Pulse Oximetry 95 Oxygen Delivery Method Room Air BMI result Body Mass Index 21.0 Medications Administered Generic Name Dose Route Start Last Admin Trade Name Darrius PRN Reason Stop Dose Admin Carvedilol 25 mg 04/17/24 21:00 04/18/24 08:30 Carvedilol 25 Mg Tablet PO 25 mg BID DIONNE Administration Protocol Donepezil HCl 5 mg 04/18/24 09:00 04/18/24 08:30 Donepezil Hcl 5 Mg Tablet PO 5 mg DAILY DIONNE Administration Olanzapine 5 mg 04/17/24 21:00 04/17/24 21:15 Olanzapine 5 Mg Tablet PO 5 mg BEDTIME DIONNE Administration Trazodone HCl 50 mg 04/17/24 20:19 04/17/24 21:16 Trazodone Hcl 50 Mg Tablet PO 50 mg BEDTIME PRN Administration Insomnia Medical Decision Making Medical Decision Making [facility] Narrative: Patient is an 83 year old assigned female at with a history of neurocognitive disorder and dementia presenting to the emergency department today with suicidal ideation and paranoia. Patient's physical exam was unremarkable. Patient's blood work was unremarkable. Patient's urine is pending. Patient's EKG was unremarkable. I explained my physical exam findings as well as all test results to the patient. I answered all questions asked by the patient. Patient's disposition is pending CARE team evaluation and urine results. Differential Diagnosis Differential Diagnoses: The differential diagnosis associated with the presentation includes SI Paranoia Admission/Observation Consideration of admission/observation: Escalation of care including admission/observation considered Patient's disposition pending CARE team evaluation. Lab Data [facility] Lab Attestation statement: I reviewed the patient's lab results. My interpretation of these results are in the [facility] Rationale portion of this note. 04/17/24 15:07 04/17/24 15:07 Labs: Lab Results 04/17/24 04/17/24 Range/Units 15:07 15:08 WBC 7.5 (4.8-10.8) X10*3/uL RBC 3.98 L (4.20-5.50) X10*6/uL Hgb 12.6 (12.0-16.0) g/dl Hct 36.9 L (37.0-47.0) % MCV 92.7 (80.0-98.0) fL MCH 31.7 (27.0-33.0) pg MCHC 34.1 (31.0-35.0) g/dl RDW 12.7 (11.0-16.0) % Plt Count 253 (160-400) X10*3/uL MPV 9.1 L (9.4-12.3) fL Immature Gran % (Auto) 0.4 (0.0-0.4) % Neut % (Auto) 59.6 (45-73) % Lymph % (Auto) 28.5 (20-40) % [place] % (Auto) 10.7 (2-11) % Eos % (Auto) 0.7 (0-4) % Baso % (Auto) 0.1 (0-2) % Lymph # (Auto) 2.1 (1.2-4.9) X10*3/uL [place] # (Auto) 0.8 (0.1-1.2) X10*3/uL Eos # (Auto) 0.1 (0.0-0.4) X10*3/uL Baso # (Auto) 0.0 (0.0-0.2) X10*3/uL Abs Immat Gran (auto) 0.03 (0.00-0.03) X10*3/uL Absolute Neuts (auto) 4.4 (2.0-8.3) x10*3/uL Absolute Nucleated RBC 0.000 (0.0-0.012) X10*3/uL Nucleated RBC % (auto) 0.0 (0.0-0.2) /100WBC Sodium 141 (135-145) mmol/L Potassium 4.1 D (3.3-5.1) mmol/L Chloride 106 (96-108) mmol/L Carbon Dioxide 26 (22-29) mmol/L Anion Gap 13 (12-20) BUN 18 H (9-16) mg/dL Creatinine 0.69 (0.5-1.4) mg/dL Estim Creat Clear Calc 56.4 Estimated GFR > 60 Random Glucose 136 H (60-115) mg/dL Calcium 9.4 (8.4-10.2) mg/dL Total Bilirubin 0.4 (0.0-1.0) mg/dL AST 25 (5-31) U/L ALT 17 (0-31) U/L Alkaline Phosphatase 78 (39-117) U/L Total Protein 6.9 (6.5-8.0) g/dL Albumin 3.9 (3.5-5.0) g/dL Salicylates < 5.0 L (15-30) mg/dL Acetaminophen 4 (<30) mcg/mL Ethyl Alcohol < 10 mg/dL COVID-19 (WINTER) Negative (Negative) COVID-19 Clin Com See Note Independent Interpretation I performed an independent interpretation of an: EKG Interpretation: Vent. Rate: 060 BPM Atrial Rate: 060 BPM P-R Int: 184 ms QRS Dur: 080 ms QT Int: 434 ms P-R-T Axes: 051 029 052 degrees QTc Int: 434 ms Sinus rhythm with Premature supraventricular complexes Otherwise normal ECG When compared with ECG of 25-MAR-2024 13:53, Premature supraventricular complexes are now Present DD/ [id number] Radiology Impression Discussion of test interpretation with radiology: I have reviewed the radiologist's reading. Independent Historian Clinical information obtained from an independent historian. History obtained from or confirmed by: EMS (EMS provided additional history and confirmed the history provided by the patient.) Discharge Plan Discharge Clinical Impression: Suicidal ideation, Paranoia Patient Disposition: Still a Patient Prescriptions: No Action trazodone 50 mg Tablet 50 mg PO BEDTIME PRN (Reason: Insomnia) Qty: 30 0RF olanzapine 5 mg Tablet 5 mg PO BEDTIME Qty: 30 0RF carvedilol 25 mg tablet 25 mg PO BID donepezil 5 mg tablet 5 mg PO DAILY citalopram 20 mg tablet 20 mg PO DAILY Interventions: [place]-Suicide Risk Severity Scale Last Done: 04/17/24 18:53 Print Language: Greek
--- NOTE | 2024-04-17 14:22 | PC.NURSE ---
This RN assisting with liner roll changer. pt was able to walk with steady gait from ED8-10. NO complaints of fatigue.
--- NOTE | 2024-04-17 14:39 | MHC.EDTECH ---
Pt states unable to provide urine sample at this time.
--- NOTE | 2024-04-17 15:04 | PC.NURSE ---
No contact with this patient.
[2024-04-17 15:13] LABS: MANUAL DIFF FLAG NO
[2024-04-17 15:19] LABS: Basophils Percent Auto 0.1 % (0-2); Eosinophils Absolute Auto 0.1 X10*3/uL (0.0-0.4); Eosinophils Percent Auto 0.7 % (0-4); Hematocrit 36.9 % (37.0-47.0); Hemoglobin 12.6 g/dl (12.0-16.0); Imm Gran Abs Auto 0.03 X10*3/uL (0.00-0.03); Imm Gran Pct Auto 0.4 % (0.0-0.4); Lymphocytes Absolute Auto 2.1 X10*3/uL (1.2-4.9); Lymphocytes Percent Auto 28.5 % (20-40); Mean Corpuscular HGB Conc 34.1 g/dl (31.0-35.0); Mean Corpuscular Hemoglobin 31.7 pg (27.0-33.0); Mean Corpuscular Volume 92.7 fL (80.0-98.0); Mean Platelet Volume 9.1 fL (9.4-12.3); Monocytes Absolute Auto 0.8 X10*3/uL (0.1-1.2); Monocytes Percent Auto 10.7 % (2-11); Neutrophils Absolute Auto 4.4 x10*3/uL (2.0-8.3); Neutrophils Percent Auto 59.6 % (45-73); Platelet Count 253 X10*3/uL (160-400); Red Blood Count 3.98 X10*6/uL (4.20-5.50); Red Cell Distribution Width 12.7 % (11.0-16.0); White Blood Count 7.5 X10*3/uL (4.8-10.8)
[2024-04-17 15:26] LABS: COVID-19 Test Negative (Negative); IDNOW Serial# 08D9AD1C
[2024-04-17 15:29] LABS: Alanine Aminotransferase 17 U/L (0-31); Albumin Level 3.9 g/dL (3.5-5.0); Alkaline Phosphatase 78 U/L (39-117); Anion Gap 13 (12-20); Aspartate Amino Transferase 25 U/L (5-31); Bilirubin Total 0.4 mg/dL (0.0-1.0); Blood Urea Nitrogen 18 mg/dL (9-16); Calcium 9.4 mg/dL (8.4-10.2); Carbon Dioxide 26 mmol/L (22-29); Chloride 106 mmol/L (96-108); Creatinine Clr Calc Pharmacy 56.4; Estimated Glomerular Filt Rate > 60; Ethanol < 10 mg/dL; Glucose Random 136 mg/dL (60-115); Potassium 4.1 mmol/L (3.3-5.1); Sodium 141 mmol/L (135-145); Total Protein 6.9 g/dL (6.5-8.0)
[2024-04-17 15:42] LABS: Acetaminophen LAB 4 mcg/mL (<30); Salicylate < 5.0 mg/dL (15-30)
[2024-04-17 18:53] VITALS: BP 116/75; PULSE 58; RESP 18; TEMP 36.6; O2SAT 96
[2024-04-17 20:47] VITALS: BP 128/75; PULSE 63; RESP 18; TEMP 36.8; O2SAT 97
--- NOTE | 2024-04-17 20:53 | MHC.CARE ---
Pt assessed and will be reassessment tomorrow to determine dispo. Pod nurse and ED provider made aware and in a agreement
[2024-04-17 21:15] VITALS: BP 128/75; PULSE 63
[2024-04-17] MEDS: carvediloL 25 MG TABLET PO (21:15)
[2024-04-17] MEDS: OLANZapine 5 MG TABLET PO (21:15)
[2024-04-17] MEDS: traZODone HCL 50 MG TABLET PO (21:16)
[2024-04-18 06:31] VITALS: BP 112/60; PULSE 68; RESP 16; TEMP 36.2; O2SAT 95
--- NOTE | 2024-04-18 07:05 | PC.NURSE ---
Assumed care of patient at 0645, patient appears to be sleeping, respirations even and unlabored, no apparent distress noted. Continue plan of care for re-eval by CARE team
[2024-04-18] MEDS: carvediloL 25 MG TABLET PO (08:30)
[2024-04-18] MEDS: Donepezil HCl 5 MG TABLET PO (08:30)
[2024-04-18 16:02] VITALS: RESP 14
[2024-04-18 17:56] VITALS: BP 138/73; PULSE 65; RESP 18; TEMP 36.9; O2SAT 97
[2024-04-18] MEDS: OLANZapine 5 MG TABLET PO (21:22)
[2024-04-18 21:27] VITALS: BP 119/57; PULSE 59
--- NOTE | 2024-04-19 05:45 | PC.NURSE ---
pt ambulated to bathroom independently, gait slow and steady. Urine sample given to missile and missile checkout technicianChely and sent down to lab.
[2024-04-19 06:16] LABS: Amphetamine Screen Urine Not Detected (Not Detect); Barbiturates, Urine Not Detected (Not Detect); Benzodiazepines Screen Urine Not Detected (Not Detect); Buprenorphine Scr Not Detected (Not Detect); Cannabinoid Screen Urine Not Detected (Not Detect); Cocaine Screen Urine Not Detected (Not Detect); Fentanyl, urine Not Detected (Not Detect); Methadone Screen, Urine Not Detected (Not Detect); Opiate Screen Urine Not Detected (Not Detect); Oxycodone Screen Urine Not Detected (Not Detect); Phencyclidine Screen Urine Not Detected (Not Detect)
[2024-04-19 06:21] LABS: Appearance Urine Cloudy; Color Urine Yellow; Glucose Urine UA Negative (Negative); Leukocyte Esterase Urine Large (3+) (Negative); Nitrite Urine Positive (Negative); PH 6.5 (5.0-9.0); Specific Gravity - Urine 1.015 (1.005-1.025); UMIC TRIGGER UACC YES; Urine Blood Trace (Negative); Urine Ketones Negative (Negative); Urine Protein Negative (Neg-Trace)
[2024-04-19 06:26] LABS: Bacteria Urine 4+ (None Seen); Hyaline Casts Urine 0-2 /LPF (0-2); RBC Urine 0-2 /HPF (0-2); Squamous Epithelial Cell Urine 0-2 /HPF (0-2); UACC Culture Trigger YES; WBC Urine >50 /HPF (0-5)
[2024-04-19 06:28] VITALS: BP 119/59; PULSE 61; RESP 15; TEMP 36.8; O2SAT 92
--- NOTE | 2024-04-19 07:23 | PC.NURSE ---
Assumed care of patient at 0645, patient appears to be in no apparent distress this am, sat up in chair, eating breakfast, now laying in bed, respirations even and unlabored. Continue plan of care for re-eval by CARE team
[2024-04-19] MEDS: Donepezil HCl 5 MG TABLET PO (08:20)
[2024-04-19] MEDS: carvediloL 25 MG TABLET PO ×2 (08:20→20:43)
--- NOTE | 2024-04-19 11:40 | P.CNPS_ITS ---
History of Present Illness Date of Service: 04/19/24 Chief Complaint: CRISIS HPI Narrative: ED NOte 04/17/24: has been in the emergency department for 41 hours. Patient presented with paranoid ideation suicidal ideation with a plan and is on a Section 12. Patient has been care team in his pending disposition. There were no reported incidents on this patient by the overnight nursing staff. Patient will remain in the emergency department Behavioral Health Unit until disposition can be determined or until patient's symptoms improve over time. Psych H and P 03/25/24: 83-year-old female, , mother of 1 adult son who is not very involved in her care, living with her , retired caregiver, referred from the emergency room for exacerbation of anxiety, failure to thrive and disorganized behavior. The patient was assessed by the crisis team and referred into this facility for psychiatric stabilization. Apparently, her stepson referred her and the patient to the emergency room since they were unable to take care of themselves. Her stepson was willing to take her back but not her. On admission, the patient reported that she has been feeling fairly well until a few weeks ago that her who is more impaired was feeling worse. He she reported that she used to be very active and recently she had several falls. While she was in the emergency room also, was diagnosed a UTI. She feels that she is overwhelmed, with anxiety and depression. She was self aware of worsening of short-term memory in the last days. I explained her that due to the UTI she could have some delirium symptoms. She was in agreement to start antibiotics and continue with medical care. The patient was able to contract for safety and she is willing to follow treatment. She denies prior psychiatric history. 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 Past Psychiatric History: She denies prior psychiatric history, never admitted into the hospital nor follow-up as an outpatient. Discharge 04/15/24, last progress note 04/14/24: female with a past history of high blood pressure, previous falls and a past history of a GI bleed with no prior psychiatric history who was brought into the facility with her by her stepson due to inability to take care of themselves. The patient admitted that she had been feeling more confused but it was in the context of a UTI recently diagnosed. Plan 04/07 if HCP wants pt to return home despite recommendation of 07/01, there is no point in affirming HCP, as pt would be in agreement to return home with additional services. Called HCP to discuss aftercare plan and dispo. 04/08 start aricept 5mg po qhs. increased olanzapine 5mg po qhs. stop wellbutrin due to delusions..... 04/13 tolerating medications well. VS stable, may increase olanzapine 5mg po qhs. 04/14 continue tx. dc tomorrow. Today: Discussed with CARES team. Noted unclear level of support at home ref VNS, Med Management, Home Health and also medically admitted. Pt suspicious ref step son- unclear if reality based or not. Pt: Embaraased about being in [facility] ED and how she acted. 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 A and O x 3. Does not know names of medications, doses or frequencies. Is agreeable to VNS for med management support and increased home help support. NO hallucinations. Past Psychiatric History: Discharged S1 on 04/15/24 Medical Evaluation Reviewed: Yes Review of Systems Review of Systems unremarkable [facility] Medical History Hypertension Mood disorder Surgical History Hx of esophagogastroduodenoscopy H/O hernia repair Hx of breast reduction, elective Social History: Lives with . Unclear home help support. No VNS Substance History: Denied Diagnostics Vital Signs (24Hr): Vital Signs - 24 hr 04/18/24 16:02 04/18/24 17:56 04/18/24 21:27 Temperature 98.5 F Pulse Rate 65 59 Respiratory Rate 14 18 Blood Pressure 138/73 119/57 L Pulse Oximetry 97 Oxygen Delivery Method Room Air 04/19/24 06:28 Temperature 98.3 F Pulse Rate 61 Respiratory Rate 15 Blood Pressure 119/59 L Pulse Oximetry 92 Oxygen Delivery Method Room Air BMI result Body Mass Index 21.0 Labs 04/17/24 15:07 04/17/24 15:07 Labs: Laboratory Results - last 48 hr 04/17/24 04/17/24 04/19/24 15:07 15:08 05:51 WBC 7.5 RBC 3.98 L Hgb 12.6 Hct 36.9 L MCV 92.7 MCH 31.7 MCHC 34.1 RDW 12.7 Plt Count 253 MPV 9.1 L Immature Gran % (Auto) 0.4 Neut % (Auto) 59.6 Lymph % (Auto) 28.5 [place] % (Auto) 10.7 Eos % (Auto) 0.7 Baso % (Auto) 0.1 Lymph # (Auto) 2.1 [place] # (Auto) 0.8 Eos # (Auto) 0.1 Baso # (Auto) 0.0 Abs Immat Gran (auto) 0.03 Absolute Neuts (auto) 4.4 Absolute Nucleated RBC 0.000 Nucleated RBC % (auto) 0.0 Sodium 141 Potassium 4.1 D Chloride 106 Carbon Dioxide 26 Anion Gap 13 BUN 18 H Creatinine 0.69 Estim Creat Clear Calc 56.4 Estimated GFR > 60 Random Glucose 136 H Calcium 9.4 Total Bilirubin 0.4 AST 25 ALT 17 Alkaline Phosphatase 78 Total Protein 6.9 Albumin 3.9 Urine Color Yellow Urine Appearance Cloudy Urine pH 6.5 Ur Specific [place] 1.015 Urine Protein Negative Urine Glucose (UA) Negative Urine Ketones Negative Urine Blood Trace H Urine Nitrite Positive H Ur Leukocyte Esterase Large (3+) H Urine RBC 0-2 Urine WBC >50 H Ur Squamous Epith Cells 0-2 Urine Bacteria 4+ Hyaline Casts 0-2 Salicylates < 5.0 L Urine Opiates Screen Not Detected Ur Buprenorphine Scrn Not Detected Ur Oxycodone Screen Not Detected Urine Methadone Screen Not Detected Urine Fentanyl Screen Not Detected Acetaminophen 4 Ur Barbiturates Screen Not Detected Ur Phencyclidine Scrn Not Detected Ur Amphetamines Screen Not Detected U Benzodiazepines Scrn Not Detected Urine Cocaine Screen Not Detected U Marijuana (THC) Screen Not Detected Ethyl Alcohol < 10 COVID-19 (WINTER) Negative COVID-19 Clin Com See Note Mental Status Exam Mental Status Exam Patient Appearance: Appropriate Patient Orientation: Person, Place, Time and Situation Level of Consciousness: Awake and Appropriate Patient Behavior: Appropriate Mood Description: Calm Affect Description: Calm Ability to Follow Directions: Good Speech Pattern: Clear Memory Description: Remote Impaired Hallucinations: None Delusions: Paranoid Ideation Thought Process: Intact Thought Content: positive for Intact Judgement: Fair Medications Medications Current Medications Carvedilol (Carvedilol 25 Mg Tablet) 25 mg PO BID [facility]; Protocol Last Admin: 04/19/24 08:20 Dose: 25 mg Donepezil HCl (Donepezil Hcl 5 Mg Tablet) 5 mg PO DAILY [facility] Last Admin: 04/19/24 08:20 Dose: 5 mg Olanzapine (Olanzapine 5 Mg Tablet) 5 mg PO BEDTIME [facility] Last Admin: 04/18/24 21:22 Dose: 5 mg Trazodone HCl (Trazodone Hcl 50 Mg Tablet) 50 mg PO BEDTIME PRN PRN Reason: Insomnia Last Admin: 04/17/24 21:16 Dose: 50 mg Allergies Allergies Allergy/AdvReac Type Severity Reaction Status Date / Time No Known Allergies Allergy Mild NOT Verified 04/17/24 14:03 APPLICABLE Assessment & Plan Assessment & Plan (1) Major neurocognitive disorder: Status: Acute Code(s): F03.90 - Unspecified dementia, unspecified severity, without behavioral disturbance, psychotic disturbance, mood disturbance, and anxiety Plan Presents with established cognitive impairment (although pretty coherent today). No indication for inpatient psychiatry level of care and no grounds for section 12. Unclear level of support or needs at home and medically admitted so not at home. Pt does agree to VNS help for med management and increased home help. Pt has capacity to agree with disposition planning support. Discussed with CARES- have connected with alternate HCP (step son) and will establish case management support ref same. Total time managing care of this patient today ____ minutes.
--- NOTE | 2024-04-19 12:21 | PC.NURSE ---
Patient ambulates independently out of room to use bathroom when necessary. Patient remains calm and cooperative, offers no complaints to this RN
--- NOTE | 2024-04-19 13:22 | MHC.CARE ---
Addendum entered by Sherron Patiño MA 04/19/24 13:26: ED provider Dr. Helms notified and in agreement with disposition. Original Note: Pt seen by CARE team and does NOT met inpatient level of care,psych consult was also done by Dr. Jaden Goss and patient referred to case management for discharge planning.
[2024-04-19 16:01] VITALS: BP 157/72; PULSE 61; RESP 17; TEMP 37.1; O2SAT 96
--- NOTE | 2024-04-19 16:04 | PC.NURSE ---
Assumed care of this patient from POD RN Milena at this time. Patient SB assist walk to bed, no issues noted at this time. Provider to order UTI abx, awaiting orders.
[2024-04-19] MEDS: cefuroxime axetiL 250 MG TABLET PO ×2 (17:01→20:43)
[2024-04-19 20:42] VITALS: BP 131/89; PULSE 67; RESP 16; TEMP 36.4; O2SAT 94
[2024-04-19] MEDS: OLANZapine 5 MG TABLET PO (20:42)
[2024-04-19] MEDS: traZODone HCL 50 MG TABLET PO (20:43)
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
--- NOTE | 2024-04-19 23:22 | PC.NURSE ---
report received from Negra Aviles RN, assume care of pt at this time
--- NOTE | 2024-04-20 00:15 | PC.NURSE ---
resting quietly, with eyes closed, resp with ease, no s/s of acute distress, will cont plan of care
[2024-04-20 06:00] VITALS: BP 119/69; PULSE 70; RESP 16; TEMP 36.1; O2SAT 95
--- NOTE | 2024-04-20 07:08 | PC.NURSE ---
report to Kay STOUT
--- NOTE | 2024-04-20 08:44 | PHA.MEDREC ---
Addendum entered by Henri Santos [facility] 04/20/24 10:53: Kay RN, states pt st is alert and oriented, pt was able to confirm the month and where she was. Pt confirmed she is on both omeprazole and Wellbutrin. Original Note: Pharmacy Consult ? Medication Reconciliation Pharmacy has reviewed the medication reconciliation completed by nursing. Pt in crisis with dementia. Tried calling pt's sister and and sister on file to confirm medications in question. Sister was not knowledgeable of any pt medications. When tried calling , the phone just kept ringing not allowing me to leave a voicemail to call back. Medications in question are if the pt is stil on Buproprion 300mg ER, and omeprazole. Will continue to try and reach to confirm these medications.
[2024-04-20 10:29] VITALS: BP 132/66; PULSE 64
[2024-04-20] MEDS: cefuroxime axetiL 250 MG TABLET PO (10:29)
[2024-04-20] MEDS: carvediloL 25 MG TABLET PO (10:29)
[2024-04-20] MEDS: Donepezil HCl 5 MG TABLET PO (10:30)
--- NOTE | 2024-04-20 10:32 | MHC.CM.ED ---
Patient remains in ER overflow. Physical therapy eval completed. Home with services is recommended. Attempted to meet with patient in regards to discharge planning. Patient has a history of dementia. No family at bedside. Attempted to reach patient's , Sherman, via telephone at [phone]. Unable to leave a message. Attempted to reach via telephone at [phone]. Left a message requesting return telephone call. Attempted to speak to Sherman SEBASTIAN via telephone at [phone]. Left a voicemail requesting a return telephone call. Continue to monitor for d/c needs.
--- NOTE | 2024-04-20 11:03 | PC.NURSE ---
pt alert and oriented to self, [facility] and April 2024. she is calm and cooperative. Pt is ambulating to the bathroom independently. She was able to confirm she takes Wellbutrin and Omeprazole at home and pharmacy aware. She denies complaint at this time. Plan of care ongoing.....
--- NOTE | 2024-04-20 12:26 | MHC.CM.ED ---
Received case management consult overnight. Patient came to the d/t crisis. Patient was cleared by Care Team. Physical therapy eval completed. Home with services is recommended. Attempted to meet with patient. Patient aware safe d/c plan is trying to be found. Spoke with patient's step-son, Sherman SEBASTIAN, via telephone at [phone]. Patient's is currently at Sherman SEBASTIAN's house because patient is not able to care for him. Patient was d/c'd from [facility] on 04/15. Outpatient servies were arranged by . Private pay care will be provided by [facility]. Patient has [employer] for insurance. Referral broadcasted in [facility] for [facility] for custodial and physical therapy. [facility] is the only agency able to accept patient. Sherman SEBASTIAN aware and agreeable. [facility] will transport patient home at 6pm. Patient, Yolanda STOUT and Josey HERNANDEZ aware. Continue to monitor for d/c needs.
[2024-04-20 14:00] VITALS: BP 104/55; PULSE 64; RESP 15; TEMP 37.2; O2SAT 90
--- NOTE | 2024-04-20 14:58 | PC.NURSE ---
pt ambulates to the restroom independently w/ a strong steady gait. no use of assistive devices needed. pt otherwise continues to rest in no apparent distress. has no complaints. no sob/wob noted. respirations even/unlabored. plan of care ongoing. call [facility] placed within reach.
[2024-04-20 16:32] VITALS: BP 152/70; PULSE 61; RESP 16; TEMP 36.7; O2SAT 97
[2024-04-20 18:20] VITALS: BP 152/70; PULSE 61; RESP 16; TEMP 36.7; O2SAT 97
--- NOTE | 2024-04-20 18:47 | PC.NURSE ---
belongings retrieved from [facility] closet. pt leaving [facility] overflow at this time.
== END 2024-04-20 18:48 | disposition home or self-care (01) ==
PROVIDERS: Physician Assistant Medical; Emergency Provider Emergency Medicine Emergency Medical Services; PCP Internal Medicine
DX: F03.90 Unspecified dementia, unspecified severity, without behavioral disturbance, psychotic disturbance, mood disturbance, and anxiety (principal); F22 Delusional disorders; N39.0 Urinary tract infection, site not specified; F23 Brief psychotic disorder; R45.851 Suicidal ideations; R26.2 Difficulty in walking, not elsewhere classified; Z79.899 Other long term (current) drug therapy; Z51.81 Encounter for therapeutic drug level monitoring; Z11.52 Encounter for screening for COVID-19
CPT/HCPCS: 80053; 80143; 80179; 80307; 81001; 85025; 87086; 87088; 87186; 87635; 93005; 97162; 99285; S9485

== ENCOUNTER → 2024-04-17 14:03 | Outpatient (BNV) | payer MEDICARE, SELFPAY | PROVIDERS: Emergency Provider Emergency Medicine Emergency Medical Services; PCP Internal Medicine; Visit Provider Internal Medicine | DX: I49.3 Ventricular premature depolarization (principal) | CPT/HCPCS: 93010 ==

== ENCOUNTER → 2024-04-17 14:39 | Outpatient (BNV) | payer MEDICARE, SELFPAY | PROVIDERS: Emergency Provider Emergency Medicine Emergency Medical Services; PCP Internal Medicine; Visit Provider Psychiatry & Neurology Psychiatry | DX: F03.90 Unspecified dementia, unspecified severity, without behavioral disturbance, psychotic disturbance, mood disturbance, and anxiety (principal) | CPT/HCPCS: 99284 ==

== ENCOUNTER 2024-05-11 14:55 | Emergency (ER) | payer MEDICARE, SELFPAY ==
[2024-05-11 15:02] VITALS: BP 124/84; BP 130/65; PULSE 65; PULSE 80; RESP 18; TEMP 36.8; O2SAT 94; O2SAT 98; BMI 22.7
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
[2024-05-11 16:11] VITALS: BP 146/65; PULSE 69; RESP 16; TEMP 36.6; O2SAT 92
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
[2024-05-11 16:22] LABS: Appearance Urine Cloudy; Color Urine Yellow; Glucose Urine UA Negative (Negative); Leukocyte Esterase Urine Large (3+) (Negative); Nitrite Urine Positive (Negative); PH 6.5 (5.0-9.0); Specific Gravity - Urine 1.015 (1.005-1.025); UMIC TRIGGER UACC YES; Urine Blood Negative (Negative); Urine Ketones Negative (Negative); Urine Protein Negative (Neg-Trace)
[2024-05-11 16:30] LABS: MANUAL DIFF FLAG NO
[2024-05-11 16:33] LABS: Amphetamine Screen Urine Not Detected (Not Detect); Barbiturates, Urine Not Detected (Not Detect); Benzodiazepines Screen Urine Not Detected (Not Detect); Buprenorphine Scr Not Detected (Not Detect); Cannabinoid Screen Urine Not Detected (Not Detect); Cocaine Screen Urine Not Detected (Not Detect); Fentanyl, urine Not Detected (Not Detect); Methadone Screen, Urine Not Detected (Not Detect); Opiate Screen Urine Not Detected (Not Detect); Oxycodone Screen Urine Not Detected (Not Detect); Phencyclidine Screen Urine Not Detected (Not Detect)
[2024-05-11 16:37] LABS: Basophils Percent Auto 0.2 % (0-2); Eosinophils Absolute Auto 0.1 X10*3/uL (0.0-0.4); Hematocrit 38.2 % (37.0-47.0); Hemoglobin 12.4 g/dl (12.0-16.0); Imm Gran Abs Auto 0.01 X10*3/uL (0.00-0.03); Imm Gran Pct Auto 0.2 % (0.0-0.4); Lymphocytes Absolute Auto 2.3 X10*3/uL (1.2-4.9); Lymphocytes Percent Auto 38.3 % (20-40); Mean Corpuscular HGB Conc 32.5 g/dl (31.0-35.0); Mean Corpuscular Volume 95.5 fL (80.0-98.0); Mean Platelet Volume 8.8 fL (9.4-12.3); Monocytes Absolute Auto 0.8 X10*3/uL (0.1-1.2); Monocytes Percent Auto 13.4 % (2-11); Neutrophils Absolute Auto 2.8 x10*3/uL (2.0-8.3); Neutrophils Percent Auto 45.9 % (45-73); Platelet Count 291 X10*3/uL (160-400)
[2024-05-11 16:51] LABS: Anion Gap 7 (12-20); Blood Urea Nitrogen 14 mg/dL (9-16); Calcium 9.4 mg/dL (8.4-10.2); Carbon Dioxide 31 mmol/L (22-29); Chloride 104 mmol/L (96-108); Creatinine Clr Calc Pharmacy 60.8; Estimated Glomerular Filt Rate > 60; Ethanol < 10 mg/dL; Glucose Random 95 mg/dL (60-115); Potassium 4.2 mmol/L (3.3-5.1); Sodium 138 mmol/L (135-145)
--- NOTE | 2024-05-11 16:58 | PC.NURSE ---
Resting quietly on stretcher with eyes closed, 1:[address]
[2024-05-11 17:29] LABS: Bacteria Urine 4+ (None Seen); Hyaline Casts Urine 0-2 /LPF (0-2); RBC Urine 0-2 /HPF (0-2); Squamous Epithelial Cell Urine 0-2 /HPF (0-2); UACC Culture Trigger YES; WBC Urine >50 /HPF (0-5)
[2024-05-11 18:00] VITALS: BP 130/55; PULSE 72; RESP 18; TEMP 36.8; O2SAT 93
[2024-05-11] MEDS: cefuroxime axetiL 250 MG TABLET PO (18:32)
[2024-05-11 20:59] VITALS: BP 138/64; PULSE 72; RESP 15; TEMP 36.3; O2SAT 93
[2024-05-11 23:51] VITALS: BP 142/65; PULSE 69; RESP 16; TEMP 36.6; O2SAT 97
--- NOTE | 2024-05-12 00:10 | MHC.EDTECH ---
Patient was a supervision for ambulation to bathroom ,void and back to bed ,snacks offer ,pt refused !:1 sitter at bedside .
[2024-05-12 02:44] VITALS: BP 152/79; PULSE 72; RESP 16; TEMP 36.2; O2SAT 97
[2024-05-12 06:42] VITALS: BP 163/83; PULSE 81; RESP 16; TEMP 36.6; O2SAT 93
[2024-05-12] MEDS: cefuroxime axetiL 250 MG TABLET PO ×2 (09:38→21:31)
[2024-05-12 12:57] VITALS: BP 141/71; PULSE 76; RESP 20; TEMP 36.8; O2SAT 95
--- NOTE | 2024-05-12 13:13 | PHA.MEDREC ---
Pharmacy Consult ? Medication Reconciliation Pharmacy has completed the medication reconciliation. spoke to patient and used claim history to complete med rec
[2024-05-12 18:19] VITALS: BP 145/69; PULSE 72; RESP 16; TEMP 36.9; O2SAT 93
[2024-05-12] MEDS: Donepezil HCl 5 MG TABLET PO (21:29)
[2024-05-13] VITALS (9 sets, daily range): BP systolic 111–157; BP diastolic 63–86; PULSE 70–92; RESP 15–17; TEMP 36.2–37.2; O2SAT 92–95
[2024-05-13] MEDS: traZODone HCL 50 MG TABLET PO ×2 (03:00→21:30)
[2024-05-13] MEDS: OLANZapine 5 MG TABLET PO (03:00)
--- NOTE | 2024-05-13 07:34 | PC.NURSE ---
Care of Pt assumed at change of shift. Pt noted to be resting comfortably on stretcher with eyes closed. NAD noted.
--- NOTE | 2024-05-13 08:12 | MHC.CM.ED ---
Late entry from 05/13 1600: Received case management consult. Received verbal notification from Cruz Caballero NP that patient is cleared from needing inpatient psych. Waiting for eval to be written up before proceeding with d/c planning with patient's sister. Continue to monitor for d/c needs.
--- NOTE | 2024-05-13 09:30 | PC.NURSE ---
Addis from [facility] called to get an update about the pt,
[2024-05-13] MEDS: carvediloL 25 MG TABLET PO ×2 (10:14→21:30)
[2024-05-13] MEDS: buPROPion HCl XL 300 MG TAB.ER.24H PO (10:15)
[2024-05-13] MEDS: cefuroxime axetiL 250 MG TABLET PO ×2 (10:15→21:30)
[2024-05-13] MEDS: Donepezil HCl 5 MG TABLET PO ×2 (10:15→21:30)
--- NOTE | 2024-05-13 10:20 | PC.NURSE ---
pt is alert and oriented to some things, pt told this RN that she is at her house, that its's 2003 but was able to say that its April and is coming on and did know the president. skin pwd. respirations even and labored, pt reports that she does not feel suicidal at this time,
[2024-05-13] MEDS: Escitalopram Oxalate 10 MG TABLET PO (10:34)
--- NOTE | 2024-05-13 11:42 | MHC.EDTECH ---
Provided lunch tray to patient.
--- NOTE | 2024-05-13 12:16 | MHC.CM.ED ---
Addendum entered by America Goode 05/13/24 12:40: Received return telephone call from Johny Sebastian. Johny Sebastian agreeable to conference call. Ada is currently in the middle of a Stat consult. Will reach out to Will when Ada is available. Original Note: Patient remains in ER overflow. Communicated with Cruz Caballero NP about plan of care. Ada feels patient's symptoms are related to dementia and that / care or watermelon inspector care need to be pursued. T/W spoke with patient's sister/1st HCP, Gina, via telephone at [phone]. Above information provided to Gina. Gina would be in agreement to LTC. However, 2nd HCP/step-son, Johny SEBASTIAN handles the finances. Spoke with Johny Sebastian, via telephone at [phone]. Johny Sebastian states he has been giving patient her meds everyday since 05/06 and that patient has taken them. Johny Sebastian feels patient is manic and needs to be treated. T/W explained his concerns will be discussed with Cruz Caballero NP. Cruz Caballero NP made aware of above information. Per Ada, while patient was in drea-psych there were multiple meetings with Johny Sebastian explaining patient only has an ACL score of 3.4 and that patient should not be left alone. [facility] private pay care and friends assisted with keeping patient at home. Patient is active with [facility]. Patient has refused to let them in. Ada still feels patient is unsafe to be home alone due to dementia not milton . T/W attempted to conference call Johny SEBASTIAN while Cruz Caballero NP on the call. Johny SEBASTIAN did not answer. Left voicemail requesting return telephone call. Will contact Cruz Caballero NP when return telephone call from Johny SEBASTIAN received. Continue to monitor for d/c needs.
--- NOTE | 2024-05-13 12:25 | P.CNPS_ITS ---
History of Present Illness Date of Service: 05/13/2024 Chief Complaint: SEC 12,HOLDING KNIFE,COOP @ THIS TIME PER [facility] Discussed with referring provider: Yes Sources of Information: patient interviewed, chart reviewed and crisis/core team assessment reviewed HPI Narrative: Mrs. Chavez is a 83 year-old woman w/ hx of dementia who was brought to ED due to combative behaviors and threat to end her life. She is known to this underwriter solicitation director through previous psych admission after she was assessed for cognitive impairment and found to have dementia. She had scored ACL 3.4 which requires 24/ supervision. Pt seen in the ED. Pt presents as cooperative and pleasant. She reports she does not understand why she is not allowed to care for her . She was able to tell this underwriter solicitation director that she threatened to harm herself but also explains that this is out of frustration as she suspects her step-son is trying to take her house from her. She is oriented to place, month, year. Somewhat confused as to situation and recent events including recent ED visits are not clear for her. Collateral information was gathered from her step-son, Johny who reports pt was on her own, unclear if she was taking medications or not. He reports she run out of certain medications earlier, which could be indicative of not taking them as prescribed. He reports patient is manic. When asked to explain what he means by manic, pt reports explosive behaviors in context of trying to care for her and suspicious of him. This underwriter solicitation director explained to Step-son that these are behaviors related to dementia including lack of insight into degree of cognitive impairment along with some paranoid delusions. Step-son does report that over the years, as pt used alcohol she did not have the best insight into her behaviors and it was difficult at times to manage. This underwriter solicitation director explained to step-son that at this point is not intentional avoidance or recognition of her underlying dementia. Past Psychiatric History: Discharged S1 on 04/15/24 [facility] Medical History Hypertension Mood disorder Surgical History Hx of esophagogastroduodenoscopy H/O hernia repair Hx of breast reduction, elective Social History: Lives with . Unclear home help support. No VNS Diagnostics Vital Signs (24Hr): Vital Signs - 24 hr 05/12/24 12:57 05/12/24 18:19 05/13/24 04:08 Temperature 98.3 F 98.4 F 98.1 F Pulse Rate 76 72 78 Respiratory Rate 20 16 17 Blood Pressure 141/71 H 145/69 H 142/70 H Pulse Oximetry 95 93 93 Oxygen Delivery Method Room Air Room Air Room Air 05/13/24 08:24 05/13/24 10:14 05/13/24 10:32 Temperature 98.8 F Pulse Rate 74 84 85 Respiratory Rate 16 16 Blood Pressure 157/80 H 143/78 H 143/78 H Pulse Oximetry 94 93 Oxygen Delivery Method Room Air Room Air BMI result Body Mass Index 22.7 Labs 05/11/24 16:25 05/11/24 16:25 Labs: Laboratory Results - last 48 hr 05/11/24 05/11/24 16:15 16:25 WBC 6.0 RBC 4.00 L Hgb 12.4 Hct 38.2 MCV 95.5 MCH 31.0 MCHC 32.5 RDW 13.0 Plt Count 291 MPV 8.8 L Immature Gran % (Auto) 0.2 Neut % (Auto) 45.9 Lymph % (Auto) 38.3 [place] % (Auto) 13.4 H Eos % (Auto) 2.0 Baso % (Auto) 0.2 Lymph # (Auto) 2.3 [place] # (Auto) 0.8 Eos # (Auto) 0.1 Baso # (Auto) 0.0 Abs Immat Gran (auto) 0.01 Absolute Neuts (auto) 2.8 Absolute Nucleated RBC 0.000 Nucleated RBC % (auto) 0.0 Sodium 138 Potassium 4.2 Chloride 104 Carbon Dioxide 31 H Anion Gap 7 L BUN 14 Creatinine 0.67 Estim Creat Clear Calc 60.8 Estimated GFR > 60 Random Glucose 95 Calcium 9.4 Urine Color Yellow Urine Appearance Cloudy Urine pH 6.5 Ur Specific [place] 1.015 Urine Protein Negative Urine Glucose (UA) Negative Urine Ketones Negative Urine Blood Negative Urine Nitrite Positive H Ur Leukocyte Esterase Large (3+) H Urine RBC 0-2 Urine WBC >50 H Ur Squamous Epith Cells 0-2 Urine Bacteria 4+ Hyaline Casts 0-2 Urine Opiates Screen Not Detected Ur Buprenorphine Scrn Not Detected Ur Oxycodone Screen Not Detected Urine Methadone Screen Not Detected Urine Fentanyl Screen Not Detected Ur Barbiturates Screen Not Detected Ur Phencyclidine Scrn Not Detected Ur Amphetamines Screen Not Detected U Benzodiazepines Scrn Not Detected Urine Cocaine Screen Not Detected U Marijuana (THC) Screen Not Detected Ethyl Alcohol < 10 Mental Status Exam Mental Status Exam Narrative: Appearance: wearing hospital gown, fair hygiene, in NAD Behavior: cooperative, calm Psychomotor: no agitation or retardation noted Speech: mostly clear, normal rate/rhythm/volume, spontaneus TP: mostly linear TC: upset about not being able to care for . Mood: good Affect: congruent, does brighten SI: none HI: none VH/AH: none Delusions: some suspiciousness towards step-son. She has had paranoid in context of dementia Insight/judgment: impaired x 2. memory/cog: alert, oriented to place, month, not year, somewhat confused as to situation. previous assessments while on drea psych showed pt had functional cognition score of 3.4 on ACL, showing severe cognitive impairment. Attention is intact and currently pt does not present with s/s of delirium. Medications Medications Current Medications Bupropion HCl (Bupropion Hcl Xl 300 Mg Tab.Er.24h) 300 mg PO DAILY [facility] Last Admin: 05/13/24 10:15 Dose: 300 mg Carvedilol (Carvedilol 25 Mg Tablet) 25 mg PO BID [facility]ION[facility]; Protocol Last Admin: 05/13/24 10:14 Dose: 25 mg Cefuroxime Axetil (Cefuroxime Axetil 250 Mg Tablet) 250 mg PO BID [facility] Stop: 05/18/24 21:01 Last Admin: 05/13/24 10:15 Dose: 250 mg Donepezil HCl (Donepezil Hcl 5 Mg Tablet) 5 mg PO BEDTIME [facility] Last Admin: 05/12/24 21:29 Dose: 5 mg Donepezil HCl (Donepezil Hcl 5 Mg Tablet) 5 mg PO DAILY [facility] Last Admin: 05/13/24 10:15 Dose: 5 mg Escitalopram Oxalate (Escitalopram Oxalate 10 Mg Tablet) 10 mg PO DAILY [facility] Last Admin: 05/13/24 10:34 Dose: 10 mg Olanzapine (Olanzapine 5 Mg Tablet) 5 mg PO BEDTIME [facility] Last Admin: 05/13/24 03:00 Dose: 5 mg Trazodone HCl (Trazodone Hcl 50 Mg Tablet) 50 mg PO BEDTIME PRN PRN Reason: Insomnia Last Admin: 05/13/24 03:00 Dose: 50 mg Allergies Allergies Allergy/AdvReac Type Severity Reaction Status Date / Time No Known Allergies Allergy Mild NOT Verified 05/11/24 15:08 APPLICABLE Assessment & Plan Assessment & Plan (1) Major neurocognitive disorder: Status: Acute Code(s): F03.90 - Unspecified dementia, unspecified severity, without behavioral disturbance, psychotic disturbance, mood disturbance, and anxiety Plan Mrs. 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 She is known to this underwriter solicitation director through recent admission on drea psych unit. Pt may appear more functional than she truly is. She is currently oriented to place and month but in terms of situation and able to retain recent information is not able to provide much information. Her functional cognitive assessed by ACL showed severe cognitive impairments with a score of 3.4. Her presentation can be deceiving as she does not present on a very superficial level as impaired as she truly is. She currently does not present with signs of delirium, despite having UTI for which she received ceftin. We discussed risks, benefits and alternative treatment options with her step-son, Johny, agreed to switch olanzapine to risperidone 2mg po qhs to target delusions. Given that pt is not combative, not suicidal or homicidal, she does not need to be admitted psychiatrically. Discussed with case management referral for penitentiary placement, as primary HCP Gina who is her sister has agreed on. PLAN 1. No need for inpt psych admission. 2. will switch olanzapine to risperidone 2mg po qhs. 3. case management- working on penitentiary placement. Total time managing care of this patient today ____ minutes.
--- NOTE | 2024-05-13 14:33 | MHC.CM.ED ---
Telephone call conference with Johny Sebastian and Ada, silk screen operator completed in regards to discharge planning. Johny Sebastian continues to state patient is having milton symptoms . Ada continued to explain that patient's paranoia is related to dementia and + UTI. Johny Sebastian continues to state patient needs inpatient psych admission due to milton and that patient needs treatment before she's ok to d/c . T/W reiterated patient has a history of paranoia towards him d/t dementia and that it is unlikely her belief , which is her reality, will not change, regardless of medication. oJhny Sebastian stated my mom and dad both have dementia. This is not dementia. T/W reiterated dementia affects everyone differently. Patient's dementia's symptom include paranoia of him. Johny SEBASTIAN states he would only be ok with STR to see how she does before deciding if patient will return home or transition to [facility] or shelter care. Johny Sebastian had a plan to move into patient's home with his father so he can provide 24/7 care to both of them. Johny Sebastian also verbalized that he is not 1st HCP. T/W explained Gina was aware of situation but felt Johny Sebastian was handling finances. Johny SEBASTIAN states patient will have to be agreeable to him signing check for placement. Patient apparently has POA with Gina as primary and Johny SEBASTIAN as secondary. Plan at this time is for Ada to adjust anti-psychotic medication and to look for CM to look for STR private pay SNF placement with possible transition to LTC. Patient will need a dementia unit. Gina made aware via telephone at [phone]. Continue to monitor for d/c needs.
--- NOTE | 2024-05-13 15:25 | MHC.EDTECH ---
Patient ambulated to bathroom, slow and steady gait. This tech walked patient to restroo, ARGELIA Guerrero assisted patient back to bed.
--- NOTE | 2024-05-13 16:50 | MHC.EDTECH ---
Dinner tray provided
[2024-05-13] MEDS: risperiDONE 2 MG TABLET PO (21:30)
--- NOTE | 2024-05-13 22:56 | PC.NURSE ---
pt restless, getting in/out of bed. redirectable back to bed
--- NOTE | 2024-05-13 23:36 | MHC.EDTECH ---
This pct assumed care of Patient at 2300 ,vitals taken ,Patient sleeping ,no apparent distress noted ,Plan of care continue .
[2024-05-14] VITALS (7 sets, daily range): BP systolic 122–147; BP diastolic 66–95; PULSE 78–94; RESP 15–18; TEMP 36.4–36.5; O2SAT 92–96
--- NOTE | 2024-05-14 04:39 | PC.NURSE ---
pt awake, ambulated to the bathroom. assist back to bed
--- NOTE | 2024-05-14 05:07 | MHC.EDTECH ---
Patient awake was assisted to walk to bathroom ,void and back to bed .
[2024-05-14] MEDS: cefuroxime axetiL 250 MG TABLET PO ×2 (08:40→21:00)
[2024-05-14] MEDS: carvediloL 25 MG TABLET PO ×2 (08:40→21:01)
--- NOTE | 2024-05-14 15:18 | PC.NURSE ---
patient a&ox2- person/place, rr equal/non labored- lungs diminished but clear, vss, pt denying pain/discomfort, denying si/hi, pt elopement risk- wrist band was deactivated due to some issues and charge was unable to reactivate a new band for the patient. bed alarm is intact and patient is in a room that is visualized by staff, we will also attempt to get a camera for the patients room. pt has no code status ordered at this time- provider has been notified, call [facility] within reach, resting comfortably at this time, will continue to monitor.
[2024-05-14] MEDS: risperiDONE 2 MG TABLET PO (21:00)
[2024-05-14] MEDS: Donepezil HCl 5 MG TABLET PO (21:01)
[2024-05-14] MEDS: traZODone HCL 50 MG TABLET PO (21:05)
[2024-05-15 06:49] VITALS: BP 147/68; PULSE 81; RESP 12; TEMP 36.3; O2SAT 94
[2024-05-15] MEDS: carvediloL 25 MG TABLET PO ×2 (09:59→22:20)
[2024-05-15] MEDS: cefuroxime axetiL 250 MG TABLET PO ×2 (09:59→22:20)
--- NOTE | 2024-05-15 10:56 | MHC.CM.ED ---
Addendum entered by Tata Singh 05/15/24 14:59: No bed offers as of this note: call placed to pt's HCP, her sister Gina who resides in [place]. She gives permission to extend the SNF search to a 50 mile radius. Will update referrals and follow up. Original Note: Review of ED CM notes and STR referrals: [facility] responded asking for psych consult: uploaded for review. Awaiting response at this time: no other interest or offers given. ED CM will follow
--- NOTE | 2024-05-15 11:10 | PC.NURSE ---
Pt brought to ED22. Camera in place. Pt has been sleeping since arrival. SKin pwd. unlabored resp
[2024-05-15 16:00] VITALS: BP 151/86; PULSE 90; RESP 18; TEMP 36.6; O2SAT 95
--- NOTE | 2024-05-15 17:54 | PC.NURSE ---
pt has been calm throughout the day. ambulatory to BR w/o diff. states she came to ED voluntarily and worries that her doesn't know that she's here.
--- NOTE | 2024-05-15 19:30 | MHC.EDTECH ---
This tech took over care of patient at 1900,rounded and introduced self to pt,patient is resting quietly at this time,camera in place and bed alarm on for safety
[2024-05-15 20:39] VITALS: BP 138/73; PULSE 90; RESP 18; TEMP 36.8; O2SAT 94
--- NOTE | 2024-05-15 20:47 | MHC.EDTECH ---
Patient ambulated to the bathroom w/1 assist, w/steady gait,vitals taken,call [facility] in reach
[2024-05-15 22:20] VITALS: BP 138/73; PULSE 90
[2024-05-15] MEDS: risperiDONE 2 MG TABLET PO (22:20)
[2024-05-15] MEDS: Donepezil HCl 5 MG TABLET PO (22:20)
[2024-05-16 08:27] VITALS: RESP 16
[2024-05-16 08:49] VITALS: BP 140/81; PULSE 93
[2024-05-16] MEDS: carvediloL 25 MG TABLET PO ×2 (08:49→20:13)
[2024-05-16] MEDS: cefuroxime axetiL 250 MG TABLET PO ×2 (08:49→20:13)
[2024-05-16 08:50] VITALS: BP 140/81; PULSE 93; RESP 16; O2SAT 95
--- NOTE | 2024-05-16 09:37 | PC.NURSE ---
Pt asleep then awoke and stated she was hungry. Breakfast set up however pt only ate 1/2 banana and little oatmeal. AM meds given and tolerated whole with water. Denies pain. Pleasant and able to answer simple questions appropriately. Back to sleep at this time. Camera at bedside
--- NOTE | 2024-05-16 11:00 | PC.NURSE ---
Assumed care of this patient at 1100, patient continues to rest quietly on hospital bed, no issues noted at this time.
[2024-05-16 15:44] VITALS: BP 134/74; PULSE 93; RESP 16; TEMP 36.5; O2SAT 95
[2024-05-16 19:01] VITALS: BP 137/74; PULSE 87; RESP 18; TEMP 37.1; O2SAT 93
[2024-05-16] MEDS: risperiDONE 2 MG TABLET PO (20:13)
[2024-05-16] MEDS: Donepezil HCl 5 MG TABLET PO (20:13)
--- NOTE | 2024-05-17 02:21 | PC.NURSE ---
Pt ambulatory to restroom with this RN with standby assist.
[2024-05-17 06:19] VITALS: BP 129/78; PULSE 90; RESP 18; TEMP 36.9; O2SAT 93
[2024-05-17 09:04] VITALS: BP 141/86; PULSE 100
[2024-05-17] MEDS: cefuroxime axetiL 250 MG TABLET PO ×2 (09:04→20:39)
[2024-05-17] MEDS: carvediloL 25 MG TABLET PO ×2 (09:04→20:39)
--- NOTE | 2024-05-17 15:32 | MHC.CM.ED ---
Pt continues to board in the ED awaiting placement on a locked dementia unit while family reviews possible assistive living situations. Pt's HCP/sister aware of barriers to placement and agrees to 50 mile search radius: two facilities have responded with questions - no acceptances given as of this note. ED CM to follow
[2024-05-17 18:36] VITALS: BP 126/95; PULSE 86; RESP 16; TEMP 37.1; O2SAT 93
[2024-05-17] MEDS: risperiDONE 2 MG TABLET PO (20:39)
[2024-05-17] MEDS: Donepezil HCl 5 MG TABLET PO (20:39)
[2024-05-17 22:53] VITALS: BP 123/78; PULSE 94; RESP 16; TEMP 37.1; O2SAT 93
--- NOTE | 2024-05-18 00:15 | PC.NURSE ---
Took over care at 23:00, pt sleeping at this time, no sign of distress.
--- NOTE | 2024-05-18 04:30 | PC.NURSE ---
pt assist to the bathroom, pt back in pt with bed alarm in place and virtual monitor in place.
--- NOTE | 2024-05-18 06:07 | PC.NURSE ---
pt is sleeping,
[2024-05-18 07:46] VITALS: BP 112/66; PULSE 92; RESP 18; TEMP 36.8; O2SAT 93
--- NOTE | 2024-05-18 08:26 | PC.NURSE ---
stand by assist needed to ambulate to the restroom. steady gait noted. pt ambulated back into overflow bed 1 and independently placed herself back into bed. pt provided w/ warm blankets. resting comfortably in no apparent distress. denies pain. has no complaints. bed alarm/camera in placed for safety precautions. plan of care ongoing. call [facility] placed within reach.
--- NOTE | 2024-05-18 08:35 | MHC.CM.ED ---
Addendum entered by America Goode 05/18/24 13:04: [facility] is able to offer a bed. Patient's sister/1st HCP, Gina agreeable. Patient's step-son/2nd HCP, Johny SEBASTIAN agreeable. Met with patient. Patient agreeable. Original Note: Patient remains in ER overflow. No behaviors noted. Patient taking medication as prescribed. Clinical updates sent to facilities still reviewin: [facility], [facility], [facility]. Continue to monitor for d/c needs.
[2024-05-18 09:09] VITALS: BP 121/75; PULSE 89; RESP 16; TEMP 36.8; O2SAT 95
[2024-05-18] MEDS: carvediloL 25 MG TABLET PO ×2 (10:05→21:53)
[2024-05-18] MEDS: cefuroxime axetiL 250 MG TABLET PO ×2 (10:05→21:53)
--- NOTE | 2024-05-18 10:43 | PC.NURSE ---
pt ate 50% of breakfast. has no complaints. denies pain. pt continues to rest comfortably in no apparent distress. bed alarm/camera in place for safety precautions. plan of care ongoing.
[2024-05-18 13:33] VITALS: BP 109/63; PULSE 86; RESP 16; TEMP 36.6; O2SAT 93
--- NOTE | 2024-05-18 13:33 | MHC.CM.ED ---
Addendum entered by America Goode 05/18/24 15:44: Transfer on hold at this time. Patient will need on-site [facility] evaluation. Original Note: Patient will transfer to [facility] via [facility] tomorrow 05/19 at 10am as long as [facility] Level 2 is obtained. Patient, Johny Fuentes JR, Yolanda STOUT and Josey HERNANDEZ aware. Continue to monitor for d/c needs.
--- NOTE | 2024-05-18 19:37 | PC.NURSE ---
This RN assumed pt care @ 1900. Pt resting in bed, watching tv Plan of care ongoing.
--- NOTE | 2024-05-18 20:28 | PC.NURSE ---
Pt attempting to get oob. Pt redirected back into and positioned changed for comfort. Plan of care ongoing.
[2024-05-18 21:53] VITALS: BP 110/60; PULSE 81
[2024-05-18] MEDS: Donepezil HCl 5 MG TABLET PO (21:53)
[2024-05-18] MEDS: risperiDONE 2 MG TABLET PO (21:53)
--- NOTE | 2024-05-18 21:59 | PC.NURSE ---
Pt medicated per [facility] Plan of care ongoing
--- NOTE | 2024-05-18 23:45 | PC.NURSE ---
Pt attempting to get oob, pt redirected back into bed. Pt positioned for comfort. Plan of care ongoing.
--- NOTE | 2024-05-19 00:32 | PC.NURSE ---
Pt requested and head oob elevated, warm blanket and drink given. Plan of care ongoing.
--- NOTE | 2024-05-19 00:51 | PC.NURSE ---
Pt requested and given water. Plan of care ongoing.
[2024-05-19] MEDS: traZODone HCL 50 MG TABLET PO ×2 (02:10→20:39)
--- NOTE | 2024-05-19 02:13 | PC.NURSE ---
Pt assisted to the restroom by RN and tech Pt medicated per aug Pt assisted back into bed for comfort Plan of care ongoing.
--- NOTE | 2024-05-19 03:22 | PC.NURSE ---
Pt attempting to get oob. Pt redirected back into bed and positioned for comfort. Plan of care ongoing.
--- NOTE | 2024-05-19 03:34 | PC.NURSE ---
Pt yelling help When pt asked what she needs, pt states I want to get oob RN attempted to redirect. Pt requested and placed on bedside commode Pt assisted back into bed, bed alarm placed. Plan of care ongoing.
--- NOTE | 2024-05-19 05:47 | PC.NURSE ---
Pt requested and assisted to bedside commode. Pt assisted back into bed. Plan of care ongoing.
[2024-05-19 08:56] VITALS: BP 116/66; PULSE 86; RESP 20; TEMP 36.7; O2SAT 92
[2024-05-19] MEDS: carvediloL 25 MG TABLET PO ×2 (08:59→20:37)
--- NOTE | 2024-05-19 12:26 | MHC.CM.ED ---
Patient remains in ER overflow. Kelle from [facility] completed on-site visit. Expect Level 2 to be available this afternoon. Annalee PEREZ booked for 05/20 at 10am to transpot patient to [facility]. Patient, Sarita STOUT and Nikki RAHMAN aware. Patient's sister Gina (goes by Nanette) made aware via telephone at [phone]. Patient's step son, Johny Garvey, made aware via telephone at [phone]. Continue to monitor for d/c needs.
[2024-05-19 13:43] VITALS: BP 113/61; PULSE 89; RESP 20; TEMP 36.6; O2SAT 93
[2024-05-19 20:00] VITALS: BP 111/69; PULSE 79; RESP 18; TEMP 36.6; O2SAT 94
[2024-05-19 20:37] VITALS: BP 111/69; PULSE 79
[2024-05-19] MEDS: risperiDONE 2 MG TABLET PO (20:38)
[2024-05-19] MEDS: Donepezil HCl 5 MG TABLET PO (20:38)
[2024-05-20 06:50] VITALS: BP 146/70; PULSE 97; RESP 16; TEMP 37.1; O2SAT 94
[2024-05-20] MEDS: carvediloL 25 MG TABLET PO (08:27)
--- NOTE | 2024-05-20 08:30 | PC.NURSE ---
patient has been resting quietly in overflow bed 3, patient takes meds whole with water.
[2024-05-20 10:38] VITALS: BP 111/69; PULSE 77; RESP 16; TEMP 36.8; O2SAT 93
--- NOTE | 2024-05-20 10:45 | PC.NURSE ---
patient report given to EMS for tx
== END 2024-05-20 10:46 ==
PROVIDERS: Emergency Provider Emergency Medicine; PCP Internal Medicine
DX: R45.851 Suicidal ideations (principal); N39.0 Urinary tract infection, site not specified; I10 Essential (primary) hypertension; F39 Unspecified mood [affective] disorder; Z63.79 Other stressful life events affecting family and household; Z79.899 Other long term (current) drug therapy
CPT/HCPCS: 36415; 80048; 80307; 81001; 85025; 87086; 87088; 87186; 99284; 99285; S9485

== ENCOUNTER → 2024-05-11 15:39 | Outpatient (BNV) | payer MEDICARE, SELFPAY | PROVIDERS: Emergency Provider Emergency Medicine; PCP Internal Medicine; Visit Provider Social Worker | DX: F03.90 Unspecified dementia, unspecified severity, without behavioral disturbance, psychotic disturbance, mood disturbance, and anxiety (principal) | CPT/HCPCS: 99284 ==

== ENCOUNTER 2024-07-07 15:03 | Outpatient (REF) | payer MEDICARE, SELFPAY ==
--- OUTSIDE RECORDS SUMMARY | 2024-07-07 17:01 | XMS_ITS | Continuity of Care Document ---
Author Organization [facility] [employer] [facility] AURA GUILLAUME Address [address] [place] [address] Care Team Providers Care Security Technician Name Role Phone [facility] ZAFAR CARMONA Primary Care Provider Assessment No assessment recorded. Plan of Treatment Reminders Order Date Submit Date Provider Last Modified By Organization Details Last Modified Time Details Appointments None record ed. Lab None record ed. Referral None record ed. Procedures None record ed. Surgeries None record ed. Imaging None record ed. Medication Orders None record ed. Patient TargetsNo targets recorded. Patient InstructionsNo instructions recorded. Reason for Referral None Reported. Problems Name Problem SNOMED Code Status Onset Date Resolution Date Notes Provider Name and Address Organization Details Recorded Time Dementia with behavioral disturbance 3257760104557 Active 2023 Darwin Jesus MD [address], [address], [place], [address], [employer] 4 12:36:51 Malignant hypertensio n 99494936 Active 2023 Darwin Jesus MD [address], [address], [place], [address] , [facility] [employer] 4 12:36:57 Unsteady when walking 48800453 Active 2023 Darwin Jesus MD [address], [address], [place], [address], [facility] [employer] 4 12:37:03 Gastroesoph ageal reflux disease without esophagitis 833545819 Active 2023 Darwin Jesus MD [address], [address], [place], [address], [employer] 4 12:45:38 Primary insomnia 4403991 Active 2023 Darwin Jesus MD [address], [address], [place], [address], [facility] [employer]) 12:46:51 Neurocognit stuart disorder 024491245 Active 2023 Darwin Jesus MD [address], [address], [place], [address], [facility] [employer]) 12:50:31 Problem Notes None recorded. Medical Equipment None Reported. Allergies No known drug allergies Medications Not known to be on any medication Vitals None Recorded Social History Question Answer Notes LastModified by Organizat ion Details LastModified Time Tobacco Smoking Status Unknown If Ever Smoked Darwin Jesus MD [address], [address], [place], [address], [facility] 05/22/2024 12:32:06 Do You Have An Advance Directive? No pro[employer] Information not available 05/22/2024 What Is Your Level Of Alcohol Consumption? None Hx Prior Etoh By Report Information not available 05/22/2024 What Is Your Code Status? Full Code proVITAL Information not available 05/22/2024 Sex: Unknown Functional Status None recorded. Mental Status None recorded. Family History Nothing Reported Notes:N/C Medical History No medical history recorded. Gynecological HistoryNo gynecological history recorded. Obstetrics History GPAL:G 0 P 0 0 0 0 Immunizations Vaccine Type Date Status Note Provider Nam e and Address Organization Details Recorded Time influenza, unspecified formulation 04/20/2019 completed Kd jacome [facility] 05/20/2024 14:16:57 influenza, unspecified formulation 02/29/2020 completed Kd jacome, [facility] 05/20/2024 14:17:02 influenza, unspecified formulation 02/27/2021 completed Kd jacome, [facility] 05/20/2024 14:17:06 influenza, unspecified formulation 03/12/2022 completed Kd jacome, [facility] 05/20/2024 14:17:10 influenza, unspecified formulation 03/20/2023 completed Kd jacome, [facility] 05/20/2024 14:17:16 SARS-COV-2 (COVID-19) vaccine, UNSPECIFIED 07/31/2020 completed Kd Franz null, [facility] 05/20/2024 14:17:31 SARS-COV-2 (COVID-19) vaccine, UNSPECIFIED 08/21/2020 completed Kd Franz null, [facility] 05/20/2024 14:17:36 SARS-COV-2 (COVID-19) vaccine, UNSPECIFIED 05/24/2021 completed Kd Franz null, [facility] 05/20/2024 14:17:41 SARS-COV-2 (COVID-19) vaccine, UNSPECIFIED 12/20/2021 completed Kd Franz null, [facility] 05/20/2024 14:17:47 SARS-COV-2 (COVID-19) vaccine, UNSPECIFIED 03/20/2023 completed Kd Franz null, [facility] 05/20/2024 14:17:53 zoster, unspecified formulation 02/18/2013 completed Kd Franz null, [facility] 05/20/2024 14:18:09 Past Encounters Encounter ID Performer Location Encounter Start Date Encounter Closed Date Diagnosis/Indication Diagnosis SNOMED-CT Code Diagnosis ICD10 Code Diagnosis Note [id number] Darwin Jeuss MD [address] [address] 05/22/2024 12:26:55 05/25/2024 11:38:28 Dementia with behavioral disturbance 4502798770 103 F01.B18 see HPIapparen balaji was living at home with however due to his declining condition question if he has now moved in with sonpatient eval by drea-psych in hospital states that patient appears more functional than she truly is. She can be oriented to time and place however testing shows severe cognitive impairment s with with very poor short term recall and insightinv selin HCPmonitor for behaviorsp sych to evalzyprex a was changed to risperidon e 2 mg qhs in hospitalin complete paperwork available however per psych note above med changedisc harge list from hospital does not have this change [facility] mg qhscitalop claudio 20 mg qdbupropio n 300 mg qdaricept 5 mg qdmonitor need to transition to LTC Recurrent urinary tract infection 410184304 N30.20 complete course of ceftinmoni tor for recurrent disease Malignant hypertension 55112405 I10 coreg 25 mg bidmonitor bp and need to titrate Unsteady when walking 22 654210 R26.89 walker at baselinePT OT eval and treatmonit or fall risk Gastroesop hageal reflux disease without esophagitis 253751639 K21.9 omeprazole 20 mg qdmonitor for sx relief Primary insomnia 5702119 F51.01 trazodone 50 mg qhs prnmonitor utilizatio n Neurocogni tive disorder 957697527 F01.C2 see above [id number] NICKO WOLF [address] [place] [address] 05/25/2024 11:41:07 05/27/2024 13:27:52 Dementia with behavioral disturbance 9871214750 103 F01.B18 see HPIinpt drea-psych eval with severe cognitive impairment = axox3 on exam todayconti nue risperidon e 2 mg qhscontinu e citalopram 20 mg qdcontinue bupropion 300 mg qdcontinue aricept 5 mg qdmonitor for behaviorsw aiting on psych eval heremonito r need to transition to LTC Neurocogni tive disorder 838257636 F01.C2 see above Recurrent urinary tract infection 823908556 N30.20 completed course of ceftinmoni tor for recurrent disease Malignant hypertension 63830256 I10 coreg 25 mg bidmonitor bp and need to titrate Unsteady when walking 22 638878 R26.89 walker at baselinePT OT eval and treatmonit or fall risk Gastroesop hageal reflux disease without esophagitis 154276012 K21.9 omeprazole 20 mg qdmonitor for sx relief Primary insomnia 8086267 F51.01 trazodone 50 mg qhs prnmonitor utilizatio n [id number] NICKO WOLF [address] [place] [address] 05/28/2024 11:08:22 05/29/2024 11:19:47 Dementia with behavioral disturbance [id number] 103 F01.B18 see HPIinpt drea-psych eval with severe cognitive impairment = axox3 on exam todayconti nue zyprexa 5 mg qhscontinu e citalopram 20 mg qdcontinue bupropion 300 mg qdcontinue aricept 5 mg qdmonitor for behaviorsw aiting on psych eval heremonito r need to transition to LTC Cough 44911069 R05.9 night time cough, lungs are clear, afebrilest art tussin and cough drops prn for 14 daysmonito r for ss infection [id number] ANUP WOLFC [facility] [address] [place] [address] 06/08/2024 11:15:49 06/09/2024 09:07:45 Dementia with behavioral disturbance 9687753425 103 F01.B18 inpt drea-psych eval with severe cognitive impairment = axox3 on exam todayseen by health psychologist here with no changes in med regimen suggestedc ontinue zyprexa 5 mg qhscontinu e citalopram 20 mg qdcontinue bupropion 300 mg qdcontinue aricept 5 mg qdmonitor for behaviorsp atient denies any SI/HIf/up with pcp Cough 79986400 R05.9 resolved Neurocogni tive disorder 551184341 F01.C2 see above Recurrent urinary tract infection 570769035 N30.20 completed course of ceftinmoni tor for recurrent disease outpatient f/up with pcp Malignant hypertension 27748702 I10 coreg 25 mg bidmonitor bp and need to titrate outpatient f/up with pcp Unsteady when walking 22 115738 R26.89 walker at baselineVN A services outpatient f/up with pcp Gastroesop hageal reflux disease without esophagitis 793392749 K21.9 omeprazole 20 mg qdmonitor for sx outpatient f/up with pcp Primary insomnia 7878085 F51.01 trazodone 50 mg qhs prnf/up with pcp Health Concerns Section Related Observation LastModified by Organization Detai ls LastModified Time None Recorded Concern Status LastModified by Organization Details LastModified Time None Recorded Payers Encounter Date Sequence Insurance Name Policy Number Policy Sullivan Covered Member ID Sullivan Member ID Guarantor Name 06/08/[address] [facility] [id number] Christina Chavez [id number] Christina Chavez Notes Date Note Type Note Provider Name and Address Organization Details Recorded Time 06/08/2024 text/html Patient is an 83 yo female being seen today for discharge summary. Patient newly admitted after holding a knife to her throat at home. Family has been happy with her progress and decided to take her home. She was discharged with her meds and VNA services. Her will set up follow up with her pcp. PMH significant for dementia with behaviors and htn ROBER MACIEL NP-C [address], [address], [place], [address], [facility] 06/08/2024 11:20:38 OBGyn Episode No OBEpisode recorded.
--- OUTSIDE RECORDS SUMMARY | 2024-07-07 17:01 | XMS_ITS | Data Portability ---
Author Organization [facility] [employer] [facility], Main Office Address [address] [facility], [address] [place] [address] Care Team Providers Care Paraffin Machine Operator Name Role Phone [facility] ZAFAR CARMONA Primary Care Provider Assessment [...] Details Recorded Time Dementia with behavioral disturbance 1530228473644 Active 2023 Darwin Jesus MD [address] [facility], [address], [place], [address], [facility] [employer] 4 12:36:51 Malignant hypertensio n 65985952 Active 2023 Darwin Jesus MD [address] [facility], [address], [place], [address], [facility] [employer] 4 12:36:57 Unsteady when walking 08150641 Active 2023 Darwin Jesus MD [address] [facility], [address], [place], [address], [facility] [employer] 4 12:37:03 Gastroesoph ageal reflux disease without esophagitis 927734169 Active 2023 Darwin Jesus MD [address] [facility], [address], [place], [address], [facility] [employer] 4 12:45:38 Primary insomnia 7112638 Active 2023 Darwin Jesus MD [address] [facility], [address], [place], [address], [email or web address] 12:46:51 Neurocognit stuart disorder 499842487 Active 2023 Darwin Jesus MD [address] [facility], [address], [place], [address], [email or web address] 12:50:31 Problem Notes None recorded. Medical Equipment None Reported. Allergies No known drug allergies Medications Not known to be on any medication Vitals Date Recorded Systolic blood pressure Diastolic blood pressure Provider Name and Address Organization Details Last Updated DateTime 05/22/2024 122 mm[Hg] 70 mm[Hg] Darwin Jesus MD [address] [place] [address], [address], [place], [address], [facility] [employer] 05/22/2024 12:29:30 Social History Question Answer Notes LastModified by Organizat ion Details LastModified Time Tobacco Smoking Status Unknown If Ever Smoked Darwin Jesus MD [address] [place] [address], [facility] [address], [place], [address], [email or web address] 05/22/2024 12:32:06 Do You Have An Advance Directive? No Information not available 05/22/2024 What Is Your Level Of Alcohol Consumption? None Hx Prior Etoh By Report Information not available 05/22/2024 What Is Your Code Status? Full Code Information not available 05/22/2024 Sex: Unknown Functional Status None recorded. Mental Status None recorded. Family History Nothing Reported Notes:N/C Medical History No medical history recorded. Gynecological HistoryNo gynecological history recorded. Obstetrics History GPAL:G 0 P 0 0 0 0 Immunizations Vaccine Type Date Status Note Provider Nam e and Address Organization Details Recorded Time influenza, unspecified formulation 04/20/2019 completed Kd jacome, [facility] [employer] [facility] 05/20/2024 14:16:57 influenza, unspecified formulation 02/29/2020 completed Kd jacome [facility] [employer] [facility] 05/20/2024 14:17:02 influenza, unspecified formulation 02/27/2021 completed Kd jacome, [facility] 05/20/2024 14:17:06 influenza, unspecified formulation 03/12/2022 completed Kd Franz null, [facility] 05/20/2024 14:17:10 influenza, unspecified formulation 03/20/2023 completed Kd Burgess-Arshad null, [facility] 05/20/2024 14:17:16 SARS-COV-2 (COVID-19) vaccine, UNSPECIFIED 07/31/2020 completed Kd Brugess-Arshad null, [facility] 05/20/2024 14:17:31 SARS-COV-2 (COVID-19) vaccine, UNSPECIFIED 08/21/2020 completed Kd Burgess-Arshad null, [facility] 05/20/2024 14:17:36 SARS-COV-2 (COVID-19) vaccine, UNSPECIFIED 05/24/2021 completed Kd Burgess-Arshad null, [facility] 05/20/2024 14:17:41 SARS-COV-2 (COVID-19) vaccine, UNSPECIFIED 12/20/2021 completed Kd Burgess-Arshad null, [facility] 05/20/2024 14:17:47 SARS-COV-2 (COVID-19) vaccine, UNSPECIFIED 03/20/2023 completed Kd Burgess-Arshad null, [facility] 05/20/2024 14:17:53 zoster, unspecified formulation 02/18/2013 completed Kd Burgess-Arshad null, [facility] 05/20/2024 14:18:09 Past Encounters Encounter ID Performer Location Encounter Start Date Encounter Closed Date Diagnosis/Indication Diagnosis SNOMED-CT Code Diagnosis ICD10 Code Diagnosis Note [id number] Darwin Jesus MD [facility] [address] [place] [address] 05/22/2024 12:26:55 05/25/2024 11:38:28 Dementia with behavioral disturbance 6092301105 103 F01.B18 see HPIapparen balaji was living [...] not [facility] qhscitalop claudio 20 mg qdbupropio n 300 mg qdaricept 5 mg qdmonitor need to transition to LTC Recurrent urinary tract infection N30.20 complete course of ceftinmoni tor for recurrent disease Malignant hypertension 40347938 I10 coreg 25 mg bidmonitor bp and need to titrate Unsteady when walking 22 902892 R26.89 walker at baselinePT OT eval and treatmonit or fall risk Gastroesop hageal reflux disease without esophagitis 276055490 K21.9 omeprazole 20 mg qdmonitor for sx relief Primary insomnia 2459511 F51.01 trazodone 50 mg qhs prnmonitor utilizatio n Neurocogni tive disorder 161304040 F01.C2 see above [id number] ROBER MACIEL NP-C [address] [place] [address] 05/25/2024 11:41:07 05/27/2024 13:27:52 Dementia with behavioral disturbance 5718554772 103 F01.B18 see HPIinpt drea-psych eval with severe cognitive impairment = axox3 on exam todayconti nue risperidon e 2 mg qhscontinu e citalopram 20 mg qdcontinue bupropion 300 mg qdcontinue aricept 5 mg qdmonitor for behaviorsw aiting on psych eval heremonito r need to transition to LTC Neurocogni tive disorder 488515494 F01.C2 see above Recurrent urinary tract infection 955909551 N30.20 completed course of ceftinmoni tor for recurrent disease Malignant hypertension 24710334 I10 coreg 25 mg bidmonitor bp and need to titrate Unsteady when walking 22 909197 R26.89 walker at baselinePT OT eval and treatmonit or fall risk Gastroesop hageal reflux disease without esophagitis 791858268 K21.9 omeprazole 20 mg qdmonitor for sx relief Primary insomnia 7518845 F51.01 trazodone 50 mg qhs prnmonitor utilizatio n [id number] NICKO WOLF [address] [place] [address] 05/28/2024 11:08:22 05/29/2024 11:19:47 Dementia with behavioral disturbance 4770636955 103 F01.B18 see HPIinpt drea-psych eval with severe cognitive impairment = axox3 on exam todayconti nue zyprexa 5 mg qhscontinu e citalopram 20 mg qdcontinue bupropion 300 mg qdcontinue aricept 5 mg qdmonitor for behaviorsw aiting on psych eval heremonito r need to transition to LTC Cough 52941963 R05.9 night time cough, lungs are clear, afebrilest art tussin and cough drops prn for 14 daysmonito r for ss infection [id number] NICKO WOLF [address] [place] [address] 06/08/2024 11:15:49 06/09/2024 09:07:45 Dementia with behavioral disturbance 6346115067 103 F01.B18 inpt drea-psych eval with severe cognitive impairment = axox3 on exam todayseen by psychological stress evaluator here with no changes in med regimen suggestedc ontinue zyprexa 5 mg qhscontinu e citalopram 20 mg qdcontinue bupropion 300 mg qdcontinue aricept 5 mg qdmonitor for behaviorsp atient denies any SI/HIf/up with pcp Cough 31288734 R05.9 resolved Neurocogni tive disorder 650555497 F01.C2 see above Recurrent urinary tract infection 123759826 N30.20 completed course of ceftinmoni tor for recurrent disease outpatient f/up with pcp Malignant hypertension 50789390 I10 coreg 25 mg bidmonitor bp and need to titrate outpatient f/up with pcp Unsteady when walking 22 169270 R26.89 walker at baselineVN A services outpatient f/up with pcp Gastroesop hageal reflux disease without esophagitis 660987279 K21.9 omeprazole 20 mg qdmonitor for sx outpatient f/up with pcp Primary insomnia 9968130 F51.01 trazodone 50 mg qhs prnf/up with pcp Health Concerns Section Related Observation LastModified by Organization Detai ls LastModified Time None Recorded Concern Status LastModified by Organization Details LastModified Time None Recorded Advance Directives Directive N: Payers Encounter Date Sequence Insurance Name Policy Number Policy Sullivan Covered Member ID Sullivan Member ID Guarantor Name 05/22/2024 1 [facility] [id number] Christina Curlew [id number] Christina Curlew 05/25/2024 1 [facility] [id number] Christina Curlew [id number] Christina Curlew 05/28/2024 1 [facility] [id number] Christina Curlew [id number] Christina Curlew 06/08/2024 1 [facility] [id number] Christina Curlew [id number] Christina Curlew Notes Date Note Type Note Provider Name and Address Organization Details Recorded Time 05/22/2024 text/html Patient is an 83 yo female admit from ED presenting after holding knife to her throat at home threatening self harm. Patient with baseline dementia with behaviors and prior drea-psych inpatient stays. Complicated by UTI treated with ceftin Patient eval by drea-psych states that patient appears more functional than she truly is. She can be oriented to time and place however testing shows severe cognitive impairments with with very poor short term recall and insight zyprexa was changed to risperidone 2 mg qhs in hospital PMH significant fordementia with behaviorshtn admit to facility for continued care with therapy and psych to emeli Jesus MD [address] [place] [address], [address], [place], [address], [facility] 05/22/2024 12:53:57 05/25/2024 text/html Patient is an 83 yo female being seen today for acute rounding visit. Patient is an admit from ED presenting after holding knife to her throat at home threatening self harm. Patient with baseline dementia with behaviors and prior drea-psych inpatient stays. She was found to have a UTI and was treated with ceftin. Patient is now on risperidone 2 mg qhs and zyprexa was discontinued. Per nursing she has been adjusting well. No behavioral issues at this time. She was sitting in the dining room and was answering questions appropriately. She is oriented x 3, but evl by drea-psych inpt states patient appears more functional than she truly is and results of testing show severe cognitive impairment. She denies any thoughts of self harm. She reports sleeping and eating normally. Pending psych eval here. PMH significant for dementia with behaviors and htn NICKO WOLF [address] [facility], [address], [place], [address], [employer] 05/27/2024 13:02:15 05/28/2024 text/html Patient is an 83 yo female being seen today for acute rounding visit. Patient newly admitted after holding a knife to her throat at home. Seeing patient today for reports of a cough. Nursing or staff have not heard her cough. She tells me she is coughing all night. She says it is a chronic issue. She feels fine otherwise. She was also supposed to be taking risperidone qhs in place of zyprexa per inpt discharge note. These med changes were not updated in dc med list and therefore were not ordered. Per nursing she is adjusting well and they have not seen any increased behaviors. Pending psych eval. PMH significant for dementia with behaviors and htn NICKO WOLF [address] [facility], [address], [place], [address], [employer] 05/28/2024 11:34:23 06/08/2024 text/html Patient is an 83 yo [...] significant for dementia with behaviors and htn NICKO WOLF [address] [facility], [address], [place], [address], [employer] 06/08/2024 11:20:38 OBGyn Episode No OBEpisode recorded.
== END 2024-07-07 15:04 | disposition home or self-care (01) ==
LOC: HO.SH 15:03
PROVIDERS: Visit Provider Internal Medicine
DX: Z01.118 Encounter for examination of ears and hearing with other abnormal findings (principal); H90.3 Sensorineural hearing loss, bilateral
CPT/HCPCS: 92557; 92567

== ENCOUNTER 2024-11-27 13:02 | Outpatient (REF) | payer MEDICARE, SELFPAY ==
--- OUTSIDE RECORDS SUMMARY | 2024-11-27 13:28 | XMS_ITS | Data Portability ---
Author Organization [facility] [employer] [facility], Main Office Address [address] [place] [address] Care Team Providers Care General Office Associate Name Role Phone [facility] ([facility]) [facility] ZAFAR CARMONA Primary Care Provider [phone] Assessment No assessment recorded. Plan of Treatment [...] Details Recorded Time Dementia with behavioral disturbance [id number] Active 2023 Darwin Jesus MD [address], [address], [place], [address], [facility] [employer] 4 12:36:51 Malignant hypertensio n 54100676 Active 2023 Darwin Jesus MD [address], [address], [place], [address], [facility] [employer] 4 12:36:57 Unsteady when walking 82591873 Active 2023 Darwin Jesus MD [address], [address], [place], [address], [facility] [employer] 4 12:37:03 Gastroesoph ageal reflux disease without esophagitis 989687817 Active 2023 Darwin Jesus MD [address], [address], [place], [address], [facility] [employer] 4 12:45:38 Primary insomnia 8762802 Active 2023 Darwin Jesus MD [address], [address], [place], [address], [facility] [employer] 12:46:51 Neurocognit stuart disorder 937846503 Active 2023 Darwin Jesus MD [address], [address], [place], [address], [facility] [employer] 12:50:31 Problem Notes None recorded. Medical Equipment None Reported. Allergies No known drug allergies Medications Not known to be on any medication Vitals Date Recorded Systolic blood pressure Diastolic blood pressure Provider Name and Address Organization Details Last Updated DateTime 05/22/2024 122 mm[Hg] 70 mm[Hg] Darwin Jesus MD [address], [address], [place], [address], [facility] [employer] 05/22/2024 12:29:30 Social History Question Answer Notes LastModified by [employer] Details LastModified Time Tobacco Smoking Status Unknown If Ever Smoked Darwin Jesus MD [address], [facility] [address], [place], [address], [facility] [employer] 05/22/2024 12:32:06 Do You Have An Advance Directive? No Information not available 05/22/2024 What Is Your Code Status? Full Code [email or web address] Information not available 05/22/2024 Sex: Unknown Functional Status Question Answer Note LastModified by [employer] Details LastModified Time What is your level of alcohol consumption? None hx prior etoh by report Information not available 05/22/2024 Mental Status None recorded. Family History Nothing Reported Notes:N/C Medical History No medical history recorded. Gynecological HistoryNo gynecological history recorded. Obstetrics History GPAL:G 0 P 0 0 0 0 Immunizations Vaccine Type Date Status Note Provider Nam e and Address Organization Details Recorded Time influenza, unspecified formulation 04/20/2019 completed Kd jacome, [facility] 05/20/2024 14:16:57 influenza, unspecified formulation 02/29/2020 completed Kd jacome [facility] 05/20/2024 14:17:02 influenza, unspecified formulation 02/27/2021 completed Kd Jeffersons-Arshad null, [facility] 05/20/2024 14:17:06 influenza, unspecified formulation 03/12/2022 completed Kd Jacks-Arshad null, [facility] 05/20/2024 14:17:10 influenza, unspecified formulation 03/20/2023 completed Kd Ronnys-Arshad null, [facility] 05/20/2024 14:17:16 SARS-COV-2 (COVID-19) vaccine, UNSPECIFIED 07/31/2020 completed Kd Ronnys-Arshad null, [facility] 05/20/2024 14:17:31 SARS-COV-2 (COVID-19) vaccine, UNSPECIFIED 08/21/2020 completed Kd Ronnys-Arshad null, [facility] 05/20/2024 14:17:36 SARS-COV-2 (COVID-19) vaccine, UNSPECIFIED 05/24/2021 completed Kd Jeffersons-Arshad null, [facility] 05/20/2024 14:17:41 SARS-COV-2 (COVID-19) vaccine, UNSPECIFIED 12/20/2021 completed Kd Jeffersons-Arshad null, [facility] 05/20/2024 14:17:47 SARS-COV-2 (COVID-19) vaccine, UNSPECIFIED 03/20/2023 completed Kd Ronnys-Arshad null, [facility] 05/20/2024 14:17:53 zoster, unspecified formulation 02/18/2013 completed Kd Ronnys-Arshad null, [facility] 05/20/2024 14:18:09 Past Encounters Encounter ID Performer Location Encounter Start Date Encounter Closed Date Diagnosis/Indication Diagnosis SNOMED-CT Code Diagnosis ICD10 Code Diagnosis Note [id number] Darwin Jesus MD [address] [address] 05/22/2024 12:26:55 05/25/2024 11:38:28 Dementia with behavioral disturbance [id number] 103 F01.B18 see HPIapparen balaji was living [...] [facility] qhscitalop claudio 20 mg qdbupropio n 300 mg qdaricept 5 mg qdmonitor need to transition to LTC Recurrent urinary tract infection N30.20 complete course of ceftinmoni tor for recurrent disease Malignant hypertension I10 coreg 25 mg bidmonitor bp and need to titrate Unsteady when walking 22 725207 R26.89 walker at baselinePT OT eval and treatmonit or fall risk Gastroesop hageal reflux disease without esophagitis 394960127 K21.9 omeprazole 20 mg qdmonitor for sx relief Primary insomnia 2958401 F51.01 trazodone 50 mg qhs prnmonitor utilizatio n Neurocogni tive disorder 921511405 F01.C2 see above [id number] [address] [place] [address] 05/25/2024 11:41:07 05/27/2024 13:27:52 Dementia with behavioral disturbance [id number] 103 F01.B18 see HPIinpt drea-psych eval with severe cognitive impairment = axox3 on exam todayconti nue risperidon e 2 mg qhscontinu e citalopram 20 mg qdcontinue bupropion 300 mg qdcontinue aricept 5 mg qdmonitor for behaviorsw aiting on psych eval heremonito r need to transition to LTC Neurocogni tive disorder 063983263 F01.C2 see above Recurrent urinary tract infection N30.20 completed course of ceftinmoni tor for recurrent disease Malignant hypertension 01798989 I10 coreg 25 mg bidmonitor bp and need to titrate Unsteady when walking 22 872930 R26.89 walker at baselinePT OT eval and treatmonit or fall risk Gastroesop hageal reflux disease without esophagitis 045137054 K21.9 omeprazole 20 mg qdmonitor for sx relief Primary insomnia 1549396 F51.01 trazodone 50 mg qhs prnmonitor utilizatio n [id number] [address] [place] [address] 05/28/2024 11:08:22 05/29/2024 11:19:47 Dementia with behavioral disturbance 0725341961 103 F01.B18 see HPIinpt drea-psych eval with severe cognitive impairment = axox3 on exam todayconti nue zyprexa 5 mg qhscontinu e citalopram 20 mg qdcontinue bupropion 300 mg qdcontinue aricept 5 mg qdmonitor for behaviorsw aiting on psych eval heremonito r need to transition to LTC Cough 77293458 R05.9 night time cough, lungs are clear, afebrilest art tussin and cough drops prn for 14 daysmonito r for ss infection [id number] [address] [place] [address] 06/08/2024 11:15:49 06/09/2024 09:07:45 Dementia with behavioral disturbance 1789034270 103 F01.B18 inpt drea-psych eval with severe cognitive impairment = axox3 on exam todayseen by psychologist educational here with no changes in med regimen suggestedc ontinue zyprexa 5 mg qhscontinu e citalopram 20 mg qdcontinue bupropion 300 mg qdcontinue aricept 5 mg qdmonitor for behaviorsp atient denies any SI/HIf/up with pcp Cough 86406219 R05.9 resolved Neurocogni tive disorder 700778220 F01.C2 see above Recurrent urinary tract infection 816399765 N30.20 completed course of ceftinmoni tor for recurrent disease outpatient f/up with pcp Malignant hypertension 99297501 I10 coreg 25 mg bidmonitor bp and need to titrate outpatient f/up with pcp Unsteady when walking 22 369926 R26.89 walker at baselineVN A services outpatient f/up with pcp Gastroesop hageal reflux disease without esophagitis 183714665 K21.9 omeprazole 20 mg qdmonitor for sx outpatient f/up with pcp Primary insomnia 6917783 F51.01 trazodone 50 mg qhs prnf/up with pcp Health Concerns Section Related Observation LastModified by Organization Detai ls LastModified Time None Recorded Concern Status LastModified by Organization Details LastModified Time None Recorded Advance Directives Directive N: Payers Insurance Date Sequence Insurance Name Policy Number Policy Sullivan Covered Member ID Sullivan Member ID Guarantor Name 06/08/2024 1 [facility] [id number] Christina Chavez [id number] Christina Chavez Notes Date Note Type Note [...] continued care with therapy and psych to eval Darwin Jesus MD [address], [address], [place], [address], [facility] [employer] 05/22/2024 12:53:57 05/25/2024 text/html Patient is an [...] for dementia with behaviors and htn ROBER MACIELDAVID-C [address], [address], [place], [address], [facility] [employer] 05/27/2024 13:02:15 05/28/2024 text/html Patient is an [...] with behaviors and htn NICKO WOLF [address], [address], [place], [address], [employer] 05/28/2024 11:34:23 06/08/2024 text/html Patient is an [...] with behaviors and htn NICKO WOLF [address], [address], [place], [address], [employer] 06/08/2024 11:20:38 OBGyn Episode No OBEpisode recorded.
[2024-11-27 16:08] LABS: MANUAL DIFF FLAG NO
[2024-11-27 16:18] LABS: Basophils Percent Auto 0.1 % (0-2); Eosinophils Absolute Auto 0.1 X10*3/uL (0.0-0.4); Eosinophils Percent Auto 0.9 % (0-4); Hematocrit 39.7 % (37.0-47.0); Hemoglobin 12.9 g/dl (12.0-16.0); Imm Gran Abs Auto 0.02 X10*3/uL (0.00-0.03); Imm Gran Pct Auto 0.3 % (0.0-0.4); Lymphocytes Absolute Auto 2.4 X10*3/uL (1.2-4.9); Lymphocytes Percent Auto 35.2 % (20-40); Mean Corpuscular HGB Conc 32.5 g/dl (31.0-35.0); Mean Corpuscular Hemoglobin 30.9 pg (27.0-33.0); Mean Platelet Volume 10.1 fL (9.4-12.3); Monocytes Absolute Auto 0.6 X10*3/uL (0.1-1.2); Monocytes Percent Auto 8.9 % (2-11); Neutrophils Absolute Auto 3.7 x10*3/uL (2.0-8.3); Neutrophils Percent Auto 54.6 % (45-73); Platelet Count 223 X10*3/uL (160-400); Red Blood Count 4.18 X10*6/uL (4.20-5.50); Red Cell Distribution Width 13.6 % (11.0-16.0); White Blood Count 6.9 X10*3/uL (4.8-10.8)
[2024-11-27 16:43] LABS: Alanine Aminotransferase 15 U/L (0-31); Albumin Level 4.4 g/dL (3.5-5.0); Alkaline Phosphatase 70 U/L (39-117); Anion Gap 14 (12-20); Aspartate Amino Transferase 23 U/L (5-31); Bilirubin Total 0.4 mg/dL (0.0-1.0); Blood Urea Nitrogen 14 mg/dL (9-16); Calcium 9.7 mg/dL (8.4-10.2); Carbon Dioxide 28 mmol/L (22-29); Chloride 104 mmol/L (96-108); Cholesterol 221 mg/dL (<200); Estimated Glomerular Filt Rate > 60; Glucose Fasting 158 mg/dL (60-99); HDL Cholesterol 78 mg/dL (>40); LDL Cholesterol Calculated 128 mg/dL (<100); Potassium 3.9 mmol/L (3.3-5.1); Sodium 142 mmol/L (135-145); Total Protein 7.1 g/dL (6.5-8.0); Triglycerides 75 mg/dL (<150)
[2024-11-27 16:47] LABS: Vitamin D 25-OH Total 86.7 ng/mL (>30)
[2024-11-27 17:07] LABS: Folate 11.9 ng/mL (> or = 4.0); Vitamin B12 1006 pg/mL (200-900)
== END 2024-11-27 13:03 | disposition home or self-care (01) ==
LOC: HO.HMGCLDS 13:02
PROVIDERS: PCP Internal Medicine; Visit Provider Internal Medicine
DX: F03.918 Unspecified dementia, unspecified severity, with other behavioral disturbance (principal); F32.9 Major depressive disorder, single episode, unspecified; I10 Essential (primary) hypertension; Z68.22 Body mass index [BMI] 22.0-22.9, adult
CPT/HCPCS: 36415; 80053; 80061; 82306; 82607; 82746; 85025

== ENCOUNTER → 2024-12-31 03:01 | Outpatient (BNV) | payer MEDICARE, SELFPAY | PROVIDERS: Visit Provider Radiology Vascular & Interventional Radiology | DX: M50.30 Other cervical disc degeneration, unspecified cervical region (principal); S01.01XA Laceration without foreign body of scalp, initial encounter; W19.XXXA Unspecified fall, initial encounter | CPT/HCPCS: 70450; 72125 ==

== ENCOUNTER 2024-12-31 03:42 | Emergency (ER) | payer MEDICARE, SELFPAY ==
--- NOTE | ~2024-12-31 | CT_ITS ---
CLINICAL HISTORY: fall CT cervical spine without contrast Comparison: None Findings: There is straightening of the normal cervical lordosis. No fracture or acute malalignment. Multilevel degenerative changes with disc space narrowing throughout the cervical spine. The facet joints are normally imbricated. No prevertebral soft tissue edema. Lung apicies demonstrate no acute process. Impression: Multilevel degenerative changes without evidence of acute fracture or acute malalignment. This document has been electronically signed by: Jasen Arango MD on 12/31/2024 05:23:55
--- NOTE | ~2024-12-31 | CT_ITS ---
CLINICAL HISTORY: fall CT head without contrast Comparison: 03/24/2024 02:10 PM EDT: CTSR: CT HEAD WITHOUT IV CONTRAST (01:10 PM CDT) Findings: No evidence of acute territorial infarct. There is patchy low density in the periventricular and subcortical white matter. Diffuse volume loss is noted. No hydrocephalus. No hemorrhage, mass effect, mass lesion or midline shift. No abnormal extra-axial fluid. No calvarial fracture. Paranasal sinuses and mastoid air cells are clear. Impression: No acute intracranial process. Chronic changes as detailed. This document has been electronically signed by: Jasen Arango MD on 12/31/2024 05:37:20
[2024-12-31 03:47] VITALS: BP 139/78; BP 150/70; PULSE 72; PULSE 73; RESP 17; TEMP 36.6; O2SAT 93; O2SAT 96; BMI 21.9
--- NOTE | 2024-12-31 04:02 | MHC.EDTECH ---
Patient ARGELIA ALEJANDRO placed pt on the lunchroom monitor, vitals taken, patient has a C-Collar in place, patient has a small lac to the top RT side of her head, cleaned with NS, applied a telfa and cling wrap ,bleeding is controlled. Patient in CT at this time.
--- NOTE | 2024-12-31 04:24 | PC.NURSE ---
pt biba from home, a&ox4, respirations even and unlabored. pt reports she had gotten up to use the bathroom when her cat ran under her feet and tripped the pt. pt reports head strike on wall, resulting in a 2 lac to the back of head. denies loc and thinners. c collar in place. vsss. pt reports headache at this time. lac cleaned and bleeding controlled at this time
--- OUTSIDE RECORDS SUMMARY | 2024-12-31 04:50 | XMS_ITS | Data Portability ---
Author Organization [facility] [employer] [facility], Main Office Address [address] [place] [address] Care Team Providers Care Supervisor Nuclear Medicine Name Role Phone [facility] ZAFAR CARMONA Primary Care Provider [...] Details Recorded Time Dementia with behavioral disturbance 0443163045164 Active 2023 Darwin Jesus MD [address] [facility] [address] [facility] [address], [place], [address], [employer] 4 12:36:51 Malignant hypertensio n 13235346 Active 2023 Darwin Jesus MD [address], [address], [place], [address], [facility] [employer] 4 12:36:57 Unsteady when walking 40820680 Active 2023 Darwin Jesus MD [address], [address], [place], [address], [facility] [employer] 4 12:37:03 Gastroesoph ageal reflux disease without esophagitis 231811176 Active 2023 Darwin Jesus MD [address], [address], [place], [address], [facility] [employer] 4 12:45:38 Primary insomnia 9232294 Active 2023 Darwin Jesus MD [address], [address], [place], [address], [facility] [employer] 4 12:46:51 Neurocognit stuart disorder 524250494 Active 2023 Darwin Jesus MD [address], [address], [place], [address], [facility] [employer] 4 12:50:31 Problem Notes None recorded. Medical Equipment None Reported. Allergies No known drug allergies Medications Not known to be on any medication Vitals Date Recorded Systolic And Diastolic Provider Name and Address Organization Details Last Updated DateTime 05/22/2024 122/70 mm[Hg] Darwin Jesus MD [address], [address], [place], [address], [employer] 05/22/2024 12:29:30 Social History Question Answer Notes LastModified by MD [employer] Details LastModified Time Tobacco Smoking Status Unknown If Ever Smoked Darwin Jesus MD [address], [address], [place], [address], [employer] 05/22/2024 12:32:06 Do You Have An Advance Directive? No [email or web address] Information not available 05/22/2024 What Is Your Code Status? Full Code [email or web address] Information not available 05/22/2024 Sex: Unknown Functional Status Question Answer Note LastModified by Organizat [employer] Details LastModified Time What is your level [...] Time influenza, unspecified formulation 04/20/2019 [facility] 14:16:57 influenza, unspecified formulation 02/29/2020 completed Kd jacome [facility] [employer] [facility] 05/20/2024 14:17:02 influenza, unspecified formulation 02/27/2021 completed Kd Burgess-Arshad null, [facility] 05/20/2024 14:17:06 influenza, unspecified formulation 03/12/2022 completed Kd Ronnys-Arshad null, [facility] 05/20/2024 14:17:10 influenza, unspecified formulation 03/20/2023 completed Kd Aditya-Arshad null, [facility] 05/20/2024 14:17:16 SARS-COV-2 (COVID-19) vaccine, UNSPECIFIED 07/31/2020 completed Kd Ronnys-Arshad null, [facility] 05/20/2024 14:17:31 SARS-COV-2 (COVID-19) vaccine, UNSPECIFIED 08/21/2020 completed Kd Aditya-Arshad null, [facility] 05/20/2024 14:17:36 SARS-COV-2 (COVID-19) vaccine, UNSPECIFIED 05/24/2021 completed Kd Aditya-Arshad null, [facility] 05/20/2024 14:17:41 SARS-COV-2 (COVID-19) vaccine, UNSPECIFIED 12/20/2021 completed Kd Aditya-Arshad null, [facility] 05/20/2024 14:17:47 SARS-COV-2 (COVID-19) vaccine, UNSPECIFIED 03/20/2023 completed Kd Aditya-Arshad null, [facility] 05/20/2024 14:17:53 zoster, unspecified formulation 02/18/2013 completed Kd [place]-Arshad null, [facility] 05/20/2024 14:18:09 Past Encounters Encounter ID Performer Location Encounter Start Date Encounter Closed Date Diagnosis/Indication Diagnosis SNOMED-CT Code Diagnosis ICD10 Code Diagnosis Note [id number] Darwin Jesus MD [address] [address] 05/22/2024 12:26:55 05/25/2024 11:38:28 Dementia with behavioral disturbance [id number] 103 F01.B18 see HPIapparen balaji was living [...] not have this [facility] mg qhscitalop claudio 20 mg qdbupropio n 300 mg qdaricept 5 mg qdmonitor need to transition to LTC Recurrent urinary tract infection N30.20 complete course of ceftinmoni tor for recurrent disease Malignant hypertension 50150255 I10 coreg 25 mg bidmonitor bp and need to titrate Unsteady when walking 22 249630 R26.89 walker at baselinePT OT eval and treatmonit or fall risk Gastroesop hageal reflux disease without esophagitis 006601819 K21.9 omeprazole 20 mg qdmonitor for sx relief Primary insomnia 6585798 F51.01 trazodone 50 mg qhs prnmonitor utilizatio n Neurocogni tive disorder 970082808 F01.C2 see above [id number] [address] [place] [address] 05/25/2024 11:41:07 05/27/2024 13:27:52 Dementia with behavioral disturbance 1401305431 103 F01.B18 see HPIinpt drea-psych eval with severe cognitive impairment = axox3 on exam todayconti nue risperidon e 2 mg qhscontinu e citalopram 20 mg qdcontinue bupropion 300 mg qdcontinue aricept 5 mg qdmonitor for behaviorsw aiting on psych eval heremonito r need to transition to LTC Neurocogni tive disorder 056840824 F01.C2 see above Recurrent urinary tract infection N30.20 completed course of ceftinmoni tor for recurrent disease Malignant hypertension 76703914 I10 coreg 25 mg bidmonitor bp and need to titrate Unsteady when walking 22 404316 R26.89 walker at baselinePT OT eval and treatmonit or fall risk Gastroesop hageal reflux disease without esophagitis 079012468 K21.9 omeprazole 20 mg qdmonitor for sx relief Primary insomnia 2545555 F51.01 trazodone 50 mg qhs prnmonitor utilizatio n [id number] [address] [place] [address] 05/28/2024 11:08:22 05/29/2024 11:19:47 Dementia with behavioral disturbance 4690001587 103 F01.B18 see HPIinpt drea-psych eval with severe cognitive impairment = axox3 on exam todayconti nue zyprexa 5 mg qhscontinu e citalopram 20 mg qdcontinue bupropion 300 mg qdcontinue aricept 5 mg qdmonitor for behaviorsw aiting on psych eval heremonito r need to transition to LTC Cough 38068193 R05.9 night time cough, lungs are clear, afebrilest art tussin and cough drops prn for 14 daysmonito r for ss infection [id number] [address] [place] [address] 06/08/2024 11:15:49 06/09/2024 09:07:45 Dementia with behavioral disturbance 6991657334 103 F01.B18 inpt drea-psych eval with severe cognitive impairment = axox3 on exam todayseen by mental health unit lead psychologist here with no changes in med regimen suggestedc ontinue zyprexa 5 mg qhscontinu e citalopram 20 mg qdcontinue bupropion 300 mg qdcontinue aricept 5 mg qdmonitor for behaviorsp atient denies any SI/HIf/up with pcp Cough 47627477 R05.9 resolved Neurocogni tive disorder 676654627 F01.C2 see above Recurrent urinary tract infection 863170303 N30.20 completed course of ceftinmoni tor for recurrent disease outpatient f/up with pcp Malignant hypertension 79472943 I10 coreg 25 mg bidmonitor bp and need to titrate outpatient f/up with pcp Unsteady when walking 22 385459 R26.89 walker at baselineVN A services outpatient f/up with pcp Gastroesop hageal reflux disease without esophagitis 222086355 K21.9 omeprazole 20 mg qdmonitor for sx outpatient f/up with pcp Primary insomnia 8611632 F51.01 trazodone 50 mg qhs prnf/up with pcp Health Concerns Section Related Observation LastModified by Organization Detai ls LastModified Time None Recorded Concern Status LastModified by Organization Details LastModified Time None Recorded Advance Directives Directive N: Payers Insurance Date Sequence Insurance Name Policy Number Policy Sullivan Covered Member ID Sullivan Member ID Guarantor Name 06/08/2024 1 [facility] [id number] Christina Chavez [id number] Christina Chavez Notes Date Note Type Note [...] psych to eval Darwin Jesus MD [address], [address], [place], [address], [facility] [employer] 05/22/2024 12:53:57 05/25/2024 text/html Patient is an [...] for dementia with behaviors and htn ROBER MACIEL, [employer]-C [address], [address], [place], [address], [employer] 05/27/2024 13:02:15 05/28/2024 text/html Patient is an [...] with behaviors and htn NICKO WOLF [address], [address], [place], [address], [employer] 05/28/2024 11:34:23 06/08/2024 text/html Patient is an [...] with behaviors and htn NICKO WOLF [address] [facility], [address], [place], [address], [employer] 06/08/2024 11:20:38 OBGyn Episode No OBEpisode recorded.
[2024-12-31 06:00] VITALS: BP 157/74; PULSE 66; RESP 16; TEMP 36.6; O2SAT 92
--- NOTE | 2024-12-31 06:52 | PC.NURSE ---
pt son contacted at this time, states they will provide transport for the pt home
--- NOTE | 2024-12-31 06:54 | ED.FALL ---
HPI - Fall General Chief Complaint: Fall Stated [facility], [facility]/S, LAC,- thinners Time Seen by Provider: 12/31/24 06:41 Source: patient and EMS Mode of arrival: EMS Limitations: no limitations History of Present Illness ED Provider: Dr. Patricia Krishnamurthy HPI Narrative: Patient comes to the emergency room via ambulance from home. Earlier tonight, patient states that she tripped over her cat when she was returning to bed from the bathroom. Patient states she slammed her back of the head on the wall. Patient denies loss of consciousness, denies headache at this time, denies neck pain, patient denies being on blood thinners. Patient complaining only of localized pain in the scalp. Related Data Home Medications ?Medication ?Instructions ?Recorded ?Confirmed carvedilol 25 mg tablet 25 mg PO BID 04/17/24 05/12/24 citalopram 20 mg tablet 20 mg PO DAILY 04/17/24 05/12/24 bupropion HCl 300 mg 24 hr tablet, 300 mg PO DAILY 04/20/24 05/12/24 extended release Previous Rx's ?Medication ?Instructions ?Recorded olanzapine 5 mg tablet 5 mg PO BEDTIME #30 tabs 04/15/24 trazodone 50 mg tablet 50 mg PO BEDTIME PRN Insomnia #30 04/15/24 tabs donepezil 5 mg tablet 5 mg PO DAILY #30 tabs 04/24/24 Allergies Allergy/AdvReac Type Severity Reaction Status Date / Time No Known Allergies Allergy Mild NOT Verified 12/31/24 03:54 APPLICABLE Review of Systems Review of Systems: Constitutional : No Weight loss, No Fever, No Chills, No Night Sweats, No Fatigue, No Malaise ENT/Mouth : No Hearing loss, No Ear Pain, No Nasal Congestion, No Sinus Pain, No Hoarseness, No sore throat, No Rhinorrhea, No Swallowing Difficulty Eyes: No Eye Pain, No Swelling, No Redness, No Foreign Body, No Discharge, No Vision Changes Cardiovascular : No Chest Pain, No SOB, No Dyspnea on Exertion, No Orthopnea, No Edema, No Palpitations Respiratory : No Cough, No Sputum, No Wheezing, No Smoke Exposure, No Dyspnea Gastrointestinal : No Nausea, No Vomiting, No Diarrhea, No Constipation, No abdominal Pain, No Hematochezia, No Melena Genitourinary : no irregular bleeding, No Dysuria, No Urinary Frequency, No Hematuria, No Urinary Incontinence, No Urgency, No Flank Pain, No Urinary Flow Changes, No Hesitancy Musculoskeletal : No joint pain, No Myalgias, No Joint Swelling Skin : Complaining of a laceration to the scalp. Neuro : No Weakness, No Numbness, No Paresthesias, No Loss of Consciousness, No Dizziness, initially had a headache, now resolved. Psych : No Anxiety/Panic, No Depression, No SI/HI/AH/VH, No Social Issues, Heme/Lymph: No Bruising, No Bleeding,No Lymphadenopathy Endocrine : No Polyuria, No Polydipsia, No Temperature Intolerance [facility] Past Medical History Medical History Hypertension Mood disorder Surgical History Hx of esophagogastroduodenoscopy H/O hernia repair Hx of breast reduction, elective Social History Social History Household Members: Spouse Housing: House Do you presently have visiting nurse or other home services: No Unable to assess alcohol history related to: Refusing to respond Alcohol intake: former Patient Tobacco Use Status: Never used Tobacco Advance Directives: Yes Advance Directives on File: Yes Advance Directives Date on File: 04/16/24 service: No Current occupational status: retired Sexual orientation: Straight/Heterosexual Physical Exam Vital Signs: Vital Signs: Last Vital Signs Temp 97.8 F 12/31/24 06:00 Pulse 66 12/31/24 06:00 Resp 16 12/31/24 06:00 BP 157/74 H 12/31/24 06:00 Pulse Ox 92 12/31/24 06:00 O2 Del Method Room Air 12/31/24 06:00 BMI result Body Mass Index 21.9 Const: Other: Appearance: Alert. Oriented X3. No acute distress. Eyes: Pupils equal, round and reactive to light. ENT: Pharynx normal. Neck: Normal inspection. Neck supple. No lymph nodes noted. No crepitus CVS: Normal heart rate and rhythm. Pulses normal. Normal S1 and S2 Respiratory: No respiratory distress. Breath sounds normal. No Wheezing. No rales Abdomen: Soft and nontender. No rigidity. No distention. Skin: Is a 1.5 cm laceration to the scalp, bleeding controlled Extremities: No lower extremity edema. No Lacerations. No Rash Neuro: Oriented X 3. No motor deficit. No sensory deficit. Moving all extremities. No slurred speech. CN 2 through 12 grossly intact Psych: calm, cooperative, normal affect Procedures Laceration Laceration 1: Site: scalp Size (cm): 1.5 Description: linear Depth: simple, single layer Skin layer closed with: other ([place]) Number of sutures: 3 Medical Decision Making Medical Decision Making MDM Narrative: CT scan of the head and cervical spine did not show any acute abnormality. Patient received 3 jackie Differential Diagnosis Differential Diagnoses: The differential diagnosis associated with the presentation includes (Laceration, intracranial bleed, contusion, concussion, cervical spine injury) Admission/Observation Consideration of admission/observation: Escalation of care including admission/observation considered (Given patient's initial symptoms, mechanism of injury, observation was considered) Independent Interpretation I performed an independent interpretation of an: CT Scan Radiology Impression Discussion of test interpretation with radiology: I have reviewed the radiologist's reading. Radiologist Impression: No evidence of acute territorial infarct. There is patchy low density in the periventricular and subcortical white matter. Diffuse volume loss is noted. No hydrocephalus. No hemorrhage, mass effect, mass lesion or midline shift. No abnormal extra-axial fluid. No calvarial fracture. Paranasal sinuses and mastoid air cells are clear There is straightening of the normal cervical lordosis. No fracture or acute malalignment. Multilevel degenerative changes with disc space narrowing throughout the cervical spine. The facet joints are normally imbricated. No prevertebral soft tissue edema. Lung apicies demonstrate no acute process. Critical Care Time Critical Care Time Critical Care Time: Yes Total Critical Care Time: 35 Attestation: I have personally provided critical care time. Time includes review of lab data, radiology results, discussion with consultants, and monitoring for potential decompensation. Intervention performed as documented. Discharge Plan Discharge Clinical Impression: Laceration of scalp, Fall Patient Disposition: Home, Self-Care Instructions: Laceration (ED), Fall Prevention for Older Adults (ED), Staple Care (ED) Additional Instructions: Your jackie need to be removed in 7-10 days. Please follow-up with your primary care physician tomorrow. If you have any worsening or new symptoms, please return to the emergency room or call 911 Prescriptions: No Action donepezil 5 mg tablet 5 mg PO DAILY Qty: 30 0RF trazodone 50 mg Tablet 50 mg PO BEDTIME PRN (Reason: Insomnia) Qty: 30 0RF olanzapine 5 mg Tablet 5 mg PO BEDTIME Qty: 30 0RF carvedilol 25 mg tablet 25 mg PO BID citalopram 20 mg tablet 20 mg PO DAILY bupropion HCl 300 mg tablet extended release 24 hr 300 mg PO DAILY Print Language: Macedonian
--- NOTE | 2024-12-31 08:25 | PC.NURSE ---
Attempted to get ahold of pt's son Will with no success.
[2024-12-31 10:10] VITALS: BP 157/74; PULSE 66; RESP 16; TEMP 36.6; O2SAT 92
== END 2024-12-31 10:12 | disposition home or self-care (01) ==
PROVIDERS: Emergency Provider Emergency Medicine
DX: S01.01XA Laceration without foreign body of scalp, initial encounter (principal); R51.9 Headache, unspecified; M54.2 Cervicalgia; W01.10XA Fall on same level from slipping, tripping and stumbling with subsequent striking against unspecified object, initial encounter; Z91.81 History of falling; Y93.01 Activity, walking, marching and hiking; Y92.002 Bathroom of unspecified non-institutional (private) residence as the place of occurrence of the external cause; Y99.8 Other external cause status
CPT/HCPCS: 12001; 70450; 72125; 99284

== ENCOUNTER 2025-01-08 10:13 | Outpatient (AMB) | payer MEDICARE, SELFPAY ==
[2025-01-08 10:14] VITALS: BP 160/82; PULSE 82; TEMP 36.8; O2SAT 96; BMI 21.6
--- NOTE | 2025-01-08 10:14 | MHC.OFFWIV ---
Intake Vital Signs 01/08/25 10:14 Height 5 ft 5 in Weight 130 lb BMI 21.6 BP 160/82 H Blood Pressure Location Rt brachial Position Sitting Pulse 82 Pulse Source Pulse Oximeter Temp 98.3 F Temp Source Oral Pulse Oximetry (%) 96 Oxygen Delivery Method Room Air Intake Visit Reasons: EP-stitches remove(head)/lsp/rt hip pain Patient Tobacco Use Status: Never used Tobacco Director Chemistry Required: No Is last menstrual period known: No Post menopausal: Yes Patient : No Allergies No Known Allergies Allergy (Mild, Verified 01/08/25 10:19) NOT APPLICABLE Do you need a note to return to daycare/school/sports/work: No HPI HPI Comments History of Present Illness Details History - The patient is an 84-year-old female presenting with a scalp laceration. - The patient fell last week, resulting in a scalp laceration treated with jackie by Dr. Krishnamurthy in the emergency room on December 31. - The patient reports no drainage from the site and no current headaches, indicating improvement. - 3 jackie placed Physical Exam General: Cooperative, healthy appearing, comfortable, no acute distress and well developed Orientation: Patient oriented x3 Limitations: No limitations Head: Scalp with [address], 1.5cm scabbed area, no drainage, warmth or erythema noted Ears: Hearing grossly normal bilaterally Nose: Normal External nose present Face and sinus: Normal facial exam Mouth: normal, moist oral mucosa Eyes: Appearance normal, both eyes and all related structures Neck: Normal visual inspection and Yes full ROM Respiratory: Normal respiratory effort and able to speak in complete sentences. Skin: no rashes or lesions noted Neuro: Patient oriented x3 Extremities: moving all extremities normally PFSH Medical History Hypertension Mood disorder Surgical History Hx of esophagogastroduodenoscopy H/O hernia repair Hx of breast reduction, elective Social History Household Members: Spouse Housing: House Do you presently have visiting nurse or other home services: No Unable to assess alcohol history related to: Refusing to respond Alcohol intake: former Patient Tobacco Use Status: Never used Tobacco Advance Directives Date on File: 04/16/24 Patient : No service: No Current occupational status: retired Sexual orientation: Straight/Heterosexual Review of Systems Const All systems reviewed & are unremarkable except as noted in HPI and below Physical Exam Vital Signs: Last Vital Signs Temp 98.3 F 01/08/25 10:14 Pulse 82 01/08/25 10:14 BP 160/82 H 01/08/25 10:14 Pulse Ox 96 01/08/25 10:14 Oxygen Delivery Method Room Air 01/08/25 10:14 BMI result Body Mass Index 21.6 Assessment & Plan Assessment & Plan (1) Encounter for staple removal: Code(s): Z48.02 - Encounter for removal of sutures Plan: Plan Patient was informed and verbally consented to the use of an ambient scribe for clinic note documentation during this visit 1. Scalp Laceration With [place] - Removed jackie today as planned. Monitor for any signs of infection such as redness, swelling, or drainage. - Advise gentle washing of the area and monitor for any changes. Coding Level of Care Code New Pt Level 3 (08486) Diagnoses Encounter for staple removal Z48.02
--- OUTSIDE RECORDS SUMMARY | 2025-01-08 10:30 | XMS_ITS | Data Portability ---
Author Organization [facility] [employer] [facility], Main Office Address [address] [place] [address] Care Team Providers Care Ticket Scheduler Name Role Phone [facility] ZAFAR CARMONA Primary Care Provider Assessment [...] Details Recorded Time Dementia with behavioral disturbance 6727052292217 Active 2023 Darwin Jesus MD [address], [facility] [address], [place], [address], [employer] 4 12:36:51 Malignant hypertensio n 16349219 Active 2023 Darwin Jesus MD [address] [facility] [address], [address], [place], [address], [facility] [employer] 4 12:36:57 Unsteady when walking 21633767 Active 2023 Darwin Jesus MD [address] [facility] [address], [address], [place], [address], [facility] [employer] 4 12:37:03 Gastroesoph ageal reflux disease without esophagitis 907156924 Active 2023 Darwin Jesus MD [address] [facility] [address], [address], [place], [address], [facility] [employer] 4 12:45:38 Primary insomnia 3967635 Active 2023 Darwin Jesus MD [address] [facility] [address], [address], [place], [address], [facility] [employer] 4 12:46:51 Neurocognit stuart disorder 821353487 Active 2023 Darwin Jesus MD [address] [facility] [address], [address], [place], [address], [facility] [employer] 4 12:50:31 Problem Notes None recorded. Medical Equipment None Reported. Allergies No known drug allergies Medications Not known to be on any medication Vitals Date Recorded Systolic And Diastolic Provider Name and Address Organization Details Last Updated DateTime 05/22/2024 122/70 mm[Hg] Darwin Jesus MD [address] [facility] [address] [address], [address], [place], [address], [employer] 05/22/2024 12:29:30 Social History Question Answer Notes LastModified by [employer] Details LastModified Time Tobacco Smoking Status Unknown If Ever Smoked Darwin Jesus MD [address] [facility] [address], [address], [place], [address], [employer] 05/22/2024 12:32:06 Do You Have An Advance Directive? No [email or web address] Information not available 05/22/2024 What Is Your Code Status? Full Code [email or web address] Information not available 05/22/2024 Sex: Unknown Functional Status Question Answer Note LastModified by Organ[employer]at [employer] Details LastModified Time What is your level [...] Time influenza, unspecified formulation [facility]/20[facility]2019 [facility] 14:16:57 influenza, unspecified formulation 02/29/2020 completed Kd jacome [facility] [employer] [facility] 05/20/2024 14:17:02 influenza, unspecified formulation 02/27/2021 completed Kd Burgess-Arshad null, [facility] 05/20/2024 14:17:06 influenza, unspecified formulation 03/12/2022 completed Kd Ronnys-Arshad null, [facility] 05/20/2024 14:17:10 influenza, unspecified formulation 03/20/2023 completed Kd Aditya-Arshad null, [facility] 05/20/2024 14:17:16 SARS-COV-2 (COVID-19) vaccine, UNSPECIFIED 07/31/2020 completed Kd Ronnys-Arshad null, [facility] 05/20/2024 14:17:31 SARS-COV-2 (COVID-19) vaccine, UNSPECIFIED 08/21/2020 completed Kd Aditya-Arshad null, [facility] 05/20/2024 14:17:36 SARS-COV-2 (COVID-19) vaccine, UNSPECIFIED 05/24/2021 completed Kd Aditya-Arshad null, [facility] 05/20/2024 14:17:41 SARS-COV-2 (COVID-19) vaccine, UNSPECIFIED 12/20/2021 completed Kd Aditya-Arshad null, [facility] 05/20/2024 14:17:47 SARS-COV-2 (COVID-19) vaccine, UNSPECIFIED 03/20/2023 completed Kd Aditya-Arshad null, [facility] 05/20/2024 14:17:53 zoster, unspecified formulation 02/18/2013 completed Kd [place]-Arshad null, [facility] 05/20/2024 14:18:09 Past Encounters Encounter ID Performer Location Encounter Start Date Encounter Closed Date Diagnosis/Indication Diagnosis SNOMED-CT Code Diagnosis ICD10 Code Diagnosis Note [id number] Darwin Jesus MD [address] [address] 05/22/2024 12:26:55 05/25/2024 11:38:28 Dementia with behavioral disturbance [id number] 103 F01.B18 see HPIapparen balaji was living [...] not have this [facility] mg qhscitalop claudio 20 mg qdbupropio n 300 mg qdaricept 5 mg qdmonitor need to transition to LTC Recurrent urinary tract infection N30.20 complete course of ceftinmoni tor for recurrent disease Malignant hypertension 11933975 I10 coreg 25 mg bidmonitor bp and need to titrate Unsteady when walking 22 039609 R26.89 walker at baselinePT OT eval and treatmonit or fall risk Gastroesop hageal reflux disease without esophagitis 869719195 K21.9 omeprazole 20 mg qdmonitor for sx relief Primary insomnia 5718933 F51.01 trazodone 50 mg qhs prnmonitor utilizatio n Neurocogni tive disorder 494924895 F01.C2 see above [id number] ANUP WOLFC [address] [place] [address] 05/25/2024 11:41:07 05/27/2024 13:27:52 Dementia with behavioral disturbance [id number] 103 F01.B18 see HPIinpt drea-psych eval with severe cognitive impairment = axox3 on exam todayconti nue risperidon e 2 mg qhscontinu e citalopram 20 mg qdcontinue bupropion 300 mg qdcontinue aricept 5 mg qdmonitor for behaviorsw aiting on psych eval heremonito r need to transition to LTC Neurocogni tive disorder 050494805 F01.C2 see above Recurrent urinary tract infection N30.20 completed course of ceftinmoni tor for recurrent disease Malignant hypertension 88078367 I10 coreg 25 mg bidmonitor bp and need to titrate Unsteady when walking 22 265426 R26.89 walker at baselinePT OT eval and treatmonit or fall risk Gastroesop hageal reflux disease without esophagitis 557230522 K21.9 omeprazole 20 mg qdmonitor for sx relief Primary insomnia 3834228 F51.01 trazodone 50 mg qhs prnmonitor utilizatio n [id number] ANUP [address] [place] [address] 05/28/2024 11:08:22 05/29/2024 11:19:47 Dementia with behavioral disturbance 4764623617 103 F01.B18 see HPIinpt drea-psych eval with severe cognitive impairment = axox3 on exam todayconti nue zyprexa 5 mg qhscontinu e citalopram 20 mg qdcontinue bupropion 300 mg qdcontinue aricept 5 mg qdmonitor for behaviorsw aiting on psych eval heremonito r need to transition to LTC Cough 28036647 R05.9 night time cough, lungs are clear, afebrilest art tussin and cough drops prn for 14 daysmonito r for ss infection [id number] [address]O [address] [place] [address] 06/08/2024 11:15:49 06/09/2024 09:07:45 Dementia with behavioral disturbance [id number] 103 F01.B18 inpt drea-psych eval with severe cognitive impairment = axox3 on exam todayseen by psychiatry teacher here with no changes in med regimen suggestedc ontinue zyprexa 5 mg qhscontinu e citalopram 20 mg qdcontinue bupropion 300 mg qdcontinue aricept 5 mg qdmonitor for behaviorsp atient denies any SI/HIf/up with pcp Cough 45318572 R05.9 resolved Neurocogni tive disorder 511934926 F01.C2 see above Recurrent urinary tract infection 395990961 N30.20 completed course of ceftinmoni tor for recurrent disease outpatient f/up with pcp Malignant hypertension 84759744 I10 coreg 25 mg bidmonitor bp and need to titrate outpatient f/up with pcp Unsteady when walking 22 353486 R26.89 walker at baselineVN A services outpatient f/up with pcp Gastroesop hageal reflux disease without esophagitis 735103983 K21.9 omeprazole 20 mg qdmonitor for sx outpatient f/up with pcp Primary insomnia 3620102 F51.01 trazodone 50 mg qhs prnf/up with pcp Health Concerns Section Related Observation LastModified by Organization Detai ls LastModified Time None Recorded Concern Status LastModified by Organization Details LastModified Time None Recorded Advance Directives Directive N: Payers Insurance Date Sequence Insurance Name Policy Number Policy Sullivan Covered Member ID Sullivan Member ID Guarantor Name 06/08/2024 1 [facility] [id number] Christina Chavez [id number] Christina Chavez Notes Date Note Type Note [...] care with therapy and psych to eval Dawrin Jesus MD [address] [facility] [address] [facility], [address], [place], [address], [facility] [employer] 05/22/2024 12:53:57 05/25/2024 text/html Patient is an [...] dementia with behaviors and htn ROBER MACIEL, ENVIRONMENTAL HEALTH INSPECTOR-C [address] [facility] [address] [facility] [facility], [address], [place], [address], [employer] 05/27/2024 13:02:15 05/28/2024 text/html Patient is an [...] with behaviors and htn NICKO WOLF [address] [facility], [address], [place], [address], [employer] 05/28/2024 11:34:23 06/08/2024 text/html Patient is an [...] with behaviors and htn NICKO WOLF [address] [facility], [address], [place], [address], [employer] 06/08/2024 11:20:38 OBGyn Episode No OBEpisode recorded.
== END 2025-01-08 11:05 | disposition home or self-care (01) ==
PROVIDERS: Visit Provider Physician Assistant
DX: Z48.02 Encounter for removal of sutures (principal)

== ENCOUNTER → 2025-01-08 10:13 | Outpatient (BNVA) | payer MEDICARE, SELFPAY | PROVIDERS: Visit Provider Physician Assistant | DX: S01.01XD Laceration without foreign body of scalp, subsequent encounter (principal); W19.XXXD Unspecified fall, subsequent encounter; Z48.02 Encounter for removal of sutures | CPT/HCPCS: 99202 ==

== ENCOUNTER 2025-01-08 11:46 | Emergency (ER) | payer MEDICARE, SELFPAY ==
--- NOTE | ~2025-01-08 | CT_ITS ---
EXAMINATION: CT HIP WITHOUT CONTRAST, RIGHT CLINICAL INFORMATION: Right hip pain after falling COMPARISON: None available. TECHNIQUE: Multidetector volumetric imaging was obtained through the right hip without contrast material. Multiplanar reformatted images were submitted in coronal and sagittal planes. This CT examination was performed using dose optimization techniques as appropriate, variously including the following: *Automated exposure control *Adjustment of mA and/or kV according to patient size (this includes techniques or standardized protocols for targeted exams where dose is matched to indication/reason for exam; i.e. extremities or head) *Use of iterative reconstruction technique DLP: 191 mGY*cm FINDINGS: There is severe superior medial right hip joint space narrowing. There is very faint chondrocalcinosis. There are moderate marginal osteophytes by acetabulum and femoral head. There is degenerative cystic change in the lateral femoral head and lateral acetabular roof. No joint effusion is evident. There are healed fractures right superior and inferior pubic ramus. There is moderate degenerative change with sclerosis and irregularity along the pubic symphysis joint. The right SI joint demonstrates vacuum phenomena with multiple cartilage defects and sclerosis. There is moderate to severe atherosclerotic calcifications in the femoral arteries. No fracture line is identified. Innumerable pseudodiverticula are present in the sigmoid colon. CT/CT hip RT wo IV con IMPRESSION: No acute fracture is demonstrated. 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 There is moderate degenerative changes in the right SI joint. Extensive atherosclerotic calcifications. Electronically signed by: Scar Faye MD 01/08/2025 04:13 PM EDT
--- NOTE | ~2025-01-08 | XR_ITS ---
EXAMINATION: XR HIP, RIGHT CLINICAL INFORMATION: trauma COMPARISON: May 24, 2023. TECHNIQUE: AP and oblique views of the right hip. AP view pelvis. FINDINGS: Sclerosis along the articular surface of the acetabulum and femoral heads more conspicuous in the right coxofemoral joint. Small marginal osteophyte formation right acetabulum and right femoral head. No acute cortical disruption or malalignment, right coxofemoral joint. Old traumatic deformity, right ischium and likely right superior pubic ramus. Degenerative changes in the sacroiliac joints and symphysis pubis. Spondylosis L4-5 and L5-S1. Levoconvex curvature of the lower lumbar spine. Vascular calcifications. Osteopenia versus osteoporosis. XR/XR hip RT w PEL1V IMPRESSION: Moderate osteoarthrosis, right hip. No acute fracture or dislocation. Old traumatic deformity, right hemipelvis. Electronically signed by: Carlos Alberto Yanez MD 01/08/2025 12:32 PM EDT
--- NOTE | ~2025-01-08 | XR_ITS ---
EXAMINATION: XR CHEST CLINICAL INFORMATION: cough COMPARISON: March 24, 2024. TECHNIQUE: 2 views of the chest were obtained. FINDINGS: No gross consolidation, pleural effusion or pneumothorax. Subtle pulmonary reticular pattern. Cardiomediastinal silhouette size is normal. Calcified plaque thoracic aorta with tortuosity. Calcific matrix bone marrow abnormality right humeral neck. Osteopenia versus osteoporosis. Multilevel thoracolumbar spondylosis with a kyphotic deformity. XR/XR chest 2V IMPRESSION: No acute airspace disease. Consider chronic interstitial lung disease/COPD emphysematous type. Probable enchondroma versus less likely bone infarct, right humeral neck. Multilevel spondylosis and kyphotic deformity. Atherosclerosis disease. Electronically signed by: Carlos Alberto Yanez MD 01/08/2025 12:29 PM EDT
[2025-01-08 11:52] VITALS: BP 161/82; PULSE 74; RESP 16; TEMP 36.7; O2SAT 95; BMI 21.5
--- NOTE | 2025-01-08 11:52 | ED.GENADULT ---
HPI - General Adult General Chief complaint: Fall Stated complaint: fall Time Seen by Provider: 01/08/25 14:42 Source: patient and family Mode of arrival: ambulatory Limitations: no limitations History of Present Illness ED Provider: Christophe Ndiaye PA-C HPI narrative: 84-year-old female with medical history of HTN, dementia, mood disorder presents to the ED with 1 week of severe right hip pain and increased imbalance. Patient states she had a fall on 12/31 and has had increasing right hip pain and inability to weightbear since the incident. Patient was seen in the ED here after fall, where she sustained scalp laceration with staple placement. CT head was negative for intracranial hemorrhage, cervical spine CT was negative for cervical fracture. Patient states she had mild hip pain, was mostly concerned about her head at that time and did not complain of hip pain. Patient states hip pain is mostly sacral, and radiates down back of leg, now she is having trouble ambulating on the right side. Patient states after the fall hip pain has increased over this past week, has been taking Tylenol without effect. Patients family member states she has had increased confusion since the fall. Patient denies headache, nausea, vomiting, visual changes, chest pain, shortness of breath MD complaint: R hip pain Related Data Home Medications ?Medication ?Instructions ?Recorded ?Confirmed carvedilol 25 mg tablet 25 mg PO BID 04/17/24 05/12/24 citalopram 20 mg tablet 20 mg PO DAILY 04/17/24 05/12/24 bupropion HCl 300 mg 24 hr tablet, 300 mg PO DAILY 04/20/24 05/12/24 extended release Previous Rx's ?Medication ?Instructions ?Recorded olanzapine 5 mg tablet 5 mg PO BEDTIME #30 tabs 04/15/24 trazodone 50 mg tablet 50 mg PO BEDTIME PRN Insomnia #30 04/15/24 tabs donepezil 5 mg tablet 5 mg PO DAILY #30 tabs 04/24/24 lidocaine 4 % topical patch 1 patch topical DAILY PRN pain #30 01/08/25 ea nitrofurantoin 100 mg PO BID 5 days #10 caps 01/08/25 monohydrate/macrocrystals 100 mg capsule (Macrobid) Allergies Allergy/AdvReac Type Severity Reaction Status Date / Time No Known Allergies Allergy Mild NOT Verified 01/08/25 11:57 APPLICABLE Review of Systems Review of Systems: CONST: Negative for fever, body aches and chills. HENT: Negative for neck pain/stiffness, headache, congestion, sore throat, swelling. EYES: Negative for discharge/pain or vision changes. RESP: Negative for cough/hemoptysis and shortness of breath. CV: Negative chest pain, difficulty breathing, palpitations. ABD: Negative pain, nausea, vomiting. : Negative increase frequency, dysuria, blood in urine or stool. MUSC: Negative for muscle aches, edema. POS R sacral hip pain, radiate down leg SKIN: Negative rash, lesions/sores. NEURO: Negative headache, dizziness, weakness. Yes all other systems are reviewed and are negative PMFSH Past Medical History Attestation statement: The following information was validated with the patient. Source: old records reviewed, obtained from family and nursing notes reviewed Medical History Hypertension Mood disorder Surgical History Hx of esophagogastroduodenoscopy H/O hernia repair Hx of breast reduction, elective Social History Social History Household Members: Spouse Housing: House Do you presently have visiting nurse or other home services: No Unable to assess alcohol history related to: Refusing to respond Alcohol intake: former Patient Tobacco Use Status: Never used Tobacco Advance Directives: Yes Advance Directives on File: Yes Advance Directives Date on File: 04/16/24 Do you have a plan to hurt others: No Plan service: No Current occupational status: retired Sexual orientation: Straight/Heterosexual Physical Exam ED Vital Signs: Vital Signs - 24 hr 01/08/25 11:52 01/08/25 17:06 Temperature 98.0 F 97.6 F Pulse Rate 74 76 Respiratory Rate 16 16 Blood Pressure 161/82 H 144/76 H Pulse Oximetry 95 93 Oxygen Delivery Method Room Air Room Air BMI result Body Mass Index 21.5 GENERAL APPEARANCE: ?AxOx3, generally well-appearing, no acute distress. HEENT: ?NC, AT. MMM. EOMI, clear conjunctiva, oropharynx clear. NECK: ?Supple without lymphadenopathy.? No stiffness or restricted ROM. HEART:? Normal rate and regular rhythm, normal S1/S2, no m/r/g LUNGS:? CTAB, moving air well. No crackles or wheezes are heard. ABDOMEN: ?Soft, nontender, nondistended with good bowel sounds heard. BACK: No CVAT, no obvious deformity. EXTREMITIES: ?Without cyanosis, clubbing or edema. Right hip with pain over sacral iliac joint, mild pain over trochanter, no ecchymosis, no edema, ROM limited due to pain, strength 3/5 of the right side due to pain. SILT, popliteal pulses 2+, DP pulses 2+. No calf tenderness to palpation, no overlying skin changes. NEUROLOGICAL: ?Grossly nonfocal. Alert and oriented, moving all 4 extremities. Ambulating with antalgic gait due to pain Skin: ?Warm and dry without any rash. Course Course Course Narrative: RME, this is a rapid medical exam performed by Wilman Aldana please refer to primary provider for complete H&P- 84-year-old female presents for evaluation of right hip pain. She fell 8 days ago and was seen in his ER, she had a CT scan of her brain and cervical spine. However she has had increasing pain to the right hip. She has been ambulatory but with an unsteady gait. Plan for labs, x-ray of the right hip and pelvis. Medications Administered Discontinued Medications Generic Name Dose Route Start Last Admin Trade Name Freq PRN Reason Stop Dose Admin Morphine Sulfate 2 mg 01/08/25 15:12 01/08/25 15:32 Morphine Sulfate 2 Mg/Ml Cartridge IM 01/08/25 15:13 2 mg ONCE ONE Administration Protocol Medical Decision Making Medical Decision Making [facility] Narrative: 84-year-old female with medical history of HTN, dementia, mood disorder presents to the ED with 1 week of severe right hip pain and increased imbalance. Patient states she had a fall on 12/31 and has had increasing right hip pain and inability to weightbear since the incident. Patient was seen in the ED here after fall, where she sustained scalp laceration with staple placement. CT head was negative for intracranial hemorrhage, cervical spine CT was negative for cervical fracture. Patient states she had mild hip pain, was mostly concerned about her head at that time and did not complain of hip pain. Patient states hip pain is mostly sacral, and radiates down back of leg, now she is having trouble ambulating on the right side. Patient states after the fall hip pain has increased over this past week, has been taking Tylenol without effect. Patients family member states she has had increased confusion since the fall. VSS, physical exam reveals tenderness to palpation over the right sacroiliac joint, mild tenderness to palpation over the right trochanter, limited ROM, strength 3/5 on right side due to pain, SILT. No ecchymosis, edema, erythema. No calf tenderness to palpation. EKG with nonspecific T-wave changes in anterior leads, patient without chest pain, initial troponin 4.9 Labs without leukocytosis, H and H stable, without evidence of electrolyte derangement. I do not believe that patient needs CT imaging of head at this time, CT imaging done in the department on 12/31 which did not reveal any intracranial hemorrhage. Patient denies any headache, visual changes, no nausea or vomiting after the fall, no tenderness to palpation over scalp, no focal neurological deficits indicating that additional CT imaging of head brain is needed at this time. Course 16:06-patient experiencing significant right-sided hip pain, patient frustrated she has been taking Tylenol around the clock without effect. Will medicate with 2 mg IM morphine for pain management. 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 Cardiomediastinal silhouette is normal. Right hip x-ray negative for fracture or dislocation, however does reveal moderate osteoarthritis of the right hip. Due to exquisite pain to palpation over right hip, with severe pain with weight-bearing we will obtain CT hip for further evaluation of possible occult fracture. Patient asking for medication to manage pain, Tylenol without effect, dosed patient with 2 mg IM morphine for management. 17:26- patient states pain well controlled with 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 UA reveals positive urine nitrites, moderate 2+ leukocyte esterase, 21-50 urine are WBCs, 1+ bacteria, with 3-5 squamous epithelial cells- we will treat with 5 day course of 100 mg Macrobid b.i.d. I discussed with the patient the possibility for case management and physical therapy for right hip pain, patient would like to manage at home and follow up with Orthopedics. Counseled patient to continue managing pain with Tylenol. Differential Diagnosis Differential Diagnoses: The differential diagnosis associated with the presentation includes Hip fracture Hip dislocation Hip strain Electrolyte abnormality Osteoarthritis Admission/Observation Consideration of admission/observation: Escalation of care including admission/observation considered I considered case management/PT eval patient feels she is able to manage her condition at home, wants to follow up with Orthopedics. Lab Data 01/08/25 12:56 01/08/25 12:56 Labs: Lab Results 01/08/25 01/08/25 Range/Units 12:56 16:44 WBC 10.0 (4.8-10.8) X10*3/uL RBC 4.44 (4.20-5.50) X10*6/uL Hgb 13.9 (12.0-16.0) g/dl Hct 40.7 (37.0-47.0) % MCV 91.7 (80.0-98.0) fL MCH 31.3 (27.0-33.0) pg MCHC 34.2 (31.0-35.0) g/dl RDW 13.6 (11.0-16.0) % Plt Count 356 D (160-400) X10*3/uL MPV 8.4 L (9.4-12.3) fL Immature Gran % (Auto) 0.3 (0.0-0.4) % Neut % (Auto) 66.1 (45-73) % Lymph % (Auto) 28.3 (20-40) % Logan % (Auto) 5.0 (2-11) % Eos % (Auto) 0.2 (0-4) % Baso % (Auto) 0.1 (0-2) % Lymph # (Auto) 2.8 (1.2-4.9) X10*3/uL [place] # (Auto) 0.5 (0.1-1.2) X10*3/uL Eos # (Auto) 0.0 (0.0-0.4) X10*3/uL Baso # (Auto) 0.0 (0.0-0.2) X10*3/uL Abs Immat Gran (auto) 0.03 (0.00-0.03) X10*3/uL Absolute Neuts (auto) 6.6 (2.0-8.3) x10*3/uL Absolute Nucleated RBC 0.000 (0.0-0.012) X10*3/uL Nucleated RBC % (auto) 0.0 (0.0-0.2) /100WBC Sodium 140 (135-145) mmol/L Potassium 3.9 (3.3-5.1) mmol/L Chloride 106 (96-108) mmol/L Carbon Dioxide 26 (22-29) mmol/L Anion Gap 12 (12-20) BUN 14 (9-16) mg/dL Creatinine 0.62 (0.5-1.4) mg/dL Estim Creat Clear Calc 59.7 Estimated GFR > 60 Random Glucose 137 H (60-115) mg/dL Calcium 9.4 (8.4-10.2) mg/dL Total Bilirubin 0.4 (0.0-1.0) mg/dL AST 41 H (5-31) U/L ALT 24 (0-31) U/L Alkaline Phosphatase 91 (39-117) U/L Troponin I High Sens 4.9 (<3.5-17.0) ng/L Total Protein 7.5 (6.5-8.0) g/dL Albumin 4.3 (3.5-5.0) g/dL Lipase 30 (8-78) U/L Urine Color Yellow Urine Appearance Clear Urine pH 5.5 (5.0-9.0) Ur Specific [place] 1.020 (1.005-1.025) Urine Protein Negative (Neg-Trace) mg/dL Urine Glucose (UA) Negative (Negative) mg/dL Urine Ketones 15 (Negative) mg/dL Urine Blood Negative (Negative) Urine Nitrite Positive H (Negative) Ur Leukocyte Esterase Moderate (2+) H (Negative) Urine RBC 0-2 (0-2) /HPF Urine WBC 21-50 H (0-5) /HPF Ur Squamous Epith Cells 3-5 (0-2) /HPF Urine Bacteria 1+ (None Seen) Hyaline Casts 0-2 (0-2) /LPF Acetaminophen 15 (<30) mcg/mL Influenza Type A (PCR) NEGATIVE (Negative) Influenza Type B (PCR) NEGATIVE (Negative) RSV RNA Qual (PCR) NEGATIVE (Negative) SARS-CoV-2 RNA (RT-PCR) NEGATIVE (Negative) Independent Interpretation I performed an independent interpretation of an: EKG and Plain X-Ray Interpretation: Vent. Rate : 76 BPM Atrial Rate : 76 BPM P-R Int : 192 ms QRS Dur : 84 ms QT Int : 432 ms P-R-T Axes : 64 -5 39 degrees QTcB Int : 486 ms Sinus rhythm with Premature atrial complexes Minimal voltage criteria for LVH, may be normal variant ( R in aVL ) Nonspecific T wave abnormality Abnormal ECG When compared with ECG of 17-Apr-2024 14:19, ST no longer elevated in Inferior leads T wave inversion now evident in Anterior leads QT has lengthened XR right hip without fracture or dislocation, I agree with the radiologist's impression Radiology Impression Discussion of test interpretation with radiology: I have reviewed the radiologist's reading. Radiologist Impression: XR R hip FINDINGS: Sclerosis along the articular surface of the acetabulum and femoral heads more conspicuous in the right coxofemoral joint. Small marginal osteophyte formation right acetabulum and right femoral head. No acute cortical disruption or malalignment, right coxofemoral joint. Old traumatic deformity, right ischium and likely right superior pubic ramus. Degenerative changes in the sacroiliac joints and symphysis pubis. Spondylosis L4-5 and L5-S1. Levoconvex curvature of the lower lumbar spine. Vascular calcifications. Osteopenia versus osteoporosis. XR/XR hip RT w PEL1V IMPRESSION: Moderate osteoarthrosis, right hip. No acute fracture or dislocation. Old traumatic deformity, right hemipelvis. Electronically signed by: Carlos Alberto Yanez MD 01/08/2025 12:32 PM EDT Dictated By: Carlos Alberto Ayoub MD Signed By: <Electronically signed by Carlos Alberto Andrade MD in [place]> 01/08/[address] R hip FINDINGS: There is severe superior medial right hip joint space narrowing. There is very faint chondrocalcinosis. There are moderate marginal osteophytes by acetabulum and femoral head. There is degenerative cystic change in the lateral femoral head and lateral acetabular roof. No joint effusion is evident. There are healed fractures right superior and inferior pubic ramus. There is moderate degenerative change with sclerosis and irregularity along the pubic symphysis joint. The right SI joint demonstrates vacuum phenomena with multiple cartilage defects and sclerosis. There is moderate to severe atherosclerotic calcifications in the femoral arteries. No fracture line is identified. Innumerable pseudodiverticula are present in the sigmoid colon. CT/CT hip RT wo IV con IMPRESSION: No acute fracture is demonstrated. 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 There is moderate degenerative changes in the right SI joint. Extensive atherosclerotic calcifications. Electronically signed by: Scar Faye MD 01/08/2025 04:13 PM EDT RP Dictated By: Scar Faye MD Signed By: <Electronically signed by Scar Faye MD in [place]> 01/08/25 1613 Independent Historian Clinical information obtained from an independent historian. History obtained from or confirmed by: Other (Son at bedside corroborating history) External Record Review External record reviewed: Inpatient record, Office record and Outpatient record Tests considered The following testing was considered but not selected: I considered CT brain, however patient had negative CT brain after fall on 17. Patient without headache, no nausea no vomiting, no neurological deficits on physical exam. I do not believe patient needs further radiation with CT of brain, UA positive for infection. I believe confusion is due to infectious urine. Discharge Plan Discharge Clinical Impression: Hip pain Patient Disposition: Home, Self-Care Instructions: Arthralgia (ED), Heat Pack Application (ED), Warm Compress or Soak (ED) Additional Instructions: You were evaluated in the emergency department today due to right hip pain. Your labs were unconcerning, without evidence of infection, all electrolytes within normal limits. Your urinary analysis revealed infection X-ray of right hip did not reveal any fracture or dislocation, however did reveal osteoarthritis of the right hip. CT imaging of the right hip did not reveal any missed fracture or dislocation, however did reveal severe osteoarthritis of the right hip due to pseudogout. The treatment for this is high dose NSAIDs, you were not a candidate for high-dose NSAIDs. You can manage this pain by taking 500 mg of Tylenol every 6 hours, warm compresses/soaks, and applying lidocaine patches to this area once a day. Do not place heat or ice over these patches as it can burn the skin. I will refer you to orthopedics for further evaluation To treat your urinary tract infection I will prescribe you 5 day course of an antibiotic called Macrobid that you will take 2 times a day. Please follow up with Orthopedics, you have to call their office they will not call you. Please follow up with your PCP to ensure improvement. Please return to the emergency department if you experience worsening hip pain, increased difficulty with walking, decreased sensation of the right leg, chest pain, shortness of breath, headaches, nausea, vomiting or any other new/worsening/concerning symptoms Prescriptions: New nitrofurantoin monohyd/m-cryst [Macrobid] 100 mg capsule 100 mg PO BID 5 Days Qty: 10 0RF Rx Instructions: must administer with a meal/food lidocaine 4 % adhesive patch,medicated 1 patch topical DAILY PRN (Reason: pain) Qty: 30 0RF No Action donepezil 5 mg tablet 5 mg PO DAILY Qty: 30 0RF trazodone 50 mg Tablet 50 mg PO BEDTIME PRN (Reason: Insomnia) Qty: 30 0RF olanzapine 5 mg Tablet 5 mg PO BEDTIME Qty: 30 0RF carvedilol 25 mg tablet 25 mg PO BID citalopram 20 mg tablet 20 mg PO DAILY bupropion HCl 300 mg tablet extended release 24 hr 300 mg PO DAILY Referrals: [facility] [Provider Group] Print Language: Cymro
--- NOTE | 2025-01-08 11:55 | ECG_ITS ---
Test Reason : weakness Blood Pressure : */* mmHG Vent. Rate : 76 BPM Atrial Rate : 76 BPM P-R Int : 192 ms QRS Dur : 84 ms QT Int : 432 ms P-R-T Axes : 64 -5 39 degrees QTcB Int : 486 ms Sinus rhythm with Premature atrial complexes Minimal voltage criteria for LVH, may be normal variant ( R in aVL ) Nonspecific T wave abnormality Abnormal ECG When compared with ECG of 17-Apr-2024 14:19, ST no longer elevated in Inferior leads T wave inversion now evident in Anterior leads QT has lengthened Referred By: Tanmay Aldana Electronically Signed By: Alberto Crowley
[2025-01-08 13:04] LABS: MANUAL DIFF FLAG NO
[2025-01-08 13:06] LABS: Hematocrit 40.7 % (37.0-47.0); Hemoglobin 13.9 g/dl (12.0-16.0); Imm Gran Abs Auto 0.03 X10*3/uL (0.00-0.03); Imm Gran Pct Auto 0.3 % (0.0-0.4); Lymphocytes Absolute Auto 2.8 X10*3/uL (1.2-4.9); Mean Corpuscular HGB Conc 34.2 g/dl (31.0-35.0); Mean Corpuscular Hemoglobin 31.3 pg (27.0-33.0); Mean Corpuscular Volume 91.7 fL (80.0-98.0); NRBC Abs Auto 0.000 X10*3/uL (0.0-0.012); NRBC Pct Auto 0.0 /100WBC (0.0-0.2); Platelet Count 356 X10*3/uL (160-400); Red Blood Count 4.44 X10*6/uL (4.20-5.50); White Blood Count 10.0 X10*3/uL (4.8-10.8)
[2025-01-08 13:19] LABS: Alanine Aminotransferase 24 U/L (0-31); Albumin Level 4.3 g/dL (3.5-5.0); Alkaline Phosphatase 91 U/L (39-117); Anion Gap 12 (12-20); Aspartate Amino Transferase 41 U/L (5-31); Blood Urea Nitrogen 14 mg/dL (9-16); Calcium 9.4 mg/dL (8.4-10.2); Carbon Dioxide 26 mmol/L (22-29); Chloride 106 mmol/L (96-108); Creatinine Clr Calc Pharmacy 59.7; Estimated Glomerular Filt Rate > 60; Lipase 30 U/L (8-78); Potassium 3.9 mmol/L (3.3-5.1); Sodium 140 mmol/L (135-145); Total Protein 7.5 g/dL (6.5-8.0)
[2025-01-08 13:20] LABS: Acetaminophen LAB 15 mcg/mL (<30)
[2025-01-08 14:20] LABS: Resp Syncy Virus RNA Qual PCR NEGATIVE (Negative); SARS COV2 PCR INHOUSE NEGATIVE (Negative)
[2025-01-08 16:27] LABS: Troponin-I High Sensitivity 4.9 ng/L (<3.5-17.0)
[2025-01-08 16:53] LABS: Appearance Urine Clear; Glucose Urine UA Negative (Negative); PH 5.5 (5.0-9.0); Specific Gravity - Urine 1.020 (1.005-1.025); UMIC TRIGGER UACC YES
[2025-01-08 16:58] LABS: UACC Culture Trigger YES
[2025-01-08 17:06] VITALS: BP 144/76; PULSE 76; RESP 16; TEMP 36.4; O2SAT 93
[2025-01-08 18:17] VITALS: BP 144/76; PULSE 76; RESP 16; TEMP 36.4; O2SAT 93
[2025-01-08 18:19] VITALS: BP 144/76; PULSE 69; RESP 16; TEMP 36.3; O2SAT 93
== END 2025-01-08 18:37 | disposition home or self-care (01) ==
PROVIDERS: Physician Assistant; Emergency Provider Emergency Medicine Emergency Medical Services; PCP Internal Medicine
DX: M25.551 Pain in right hip (principal); M79.604 Pain in right leg; N39.0 Urinary tract infection, site not specified; B96.1 Klebsiella pneumoniae [K. pneumoniae] as the cause of diseases classified elsewhere; R94.31 Abnormal electrocardiogram [ECG] [EKG]; I10 Essential (primary) hypertension; R26.81 Unsteadiness on feet; Z79.899 Other long term (current) drug therapy; Z03.818 Encounter for observation for suspected exposure to other biological agents ruled out
CPT/HCPCS: 36415; 71046; 73502; 73700; 80053; 80143; 81001; 83690; 84484; 85025; 87086; 87088; 87186; 87637; 93005; 96372; 99284; J2270

== ENCOUNTER → 2025-01-08 11:52 | Outpatient (BNV) | payer MEDICARE, SELFPAY | PROVIDERS: PCP Internal Medicine; Visit Provider Radiology Diagnostic Radiology | DX: M16.11 Unilateral primary osteoarthritis, right hip (principal); J84.9 Interstitial pulmonary disease, unspecified | CPT/HCPCS: 71046; 73502; 73700 ==

== ENCOUNTER → 2025-01-08 11:55 | Outpatient (BNV) | payer MEDICARE, SELFPAY | PROVIDERS: Emergency Provider Emergency Medicine Emergency Medical Services; PCP Internal Medicine; Visit Provider Internal Medicine Cardiovascular Disease | DX: I49.1 Atrial premature depolarization (principal) | CPT/HCPCS: 93010 ==

== ENCOUNTER 2025-01-30 21:05 | Inpatient (IN) | payer MEDICARE, SELFPAY ==
--- NOTE | ~2025-01-30 | CT_ITS ---
CLINICAL HISTORY: Hematochezia CT angiography abdomen and pelvis with contrast. 3-D post processing. Comparison: CT/SR - CT ABDOMEN PELVIS WITHOUT IV CONTRAST - 06/07/22 20:42 EST Findings: Aorta, mesenteric/renal arteries, and iliofemoral systems are patent with no hemodynamically significant stenoses. No consolidation or effusion. Unremarkable gallbladder and solid organs. No urolithiasis. No bowel obstruction, pneumoperitoneum, or pneumatosis. Pelvic contents unremarkable. Normal appendix. No acute fracture. IMPRESSION: No acute findings. This document has been electronically signed by: Leno Cronin MD on 01/31/2025 00:15:00
[2025-01-30 21:10] VITALS: BP 99/56; PULSE 76; O2SAT 95
[2025-01-30 21:14] VITALS: PULSE 77; RESP 17; TEMP 36.5; O2SAT 96; BMI 20.8
[2025-01-30 21:23] VITALS: PULSE 77; RESP 17; TEMP 36.5; O2SAT 96
--- NOTE | 2025-01-30 21:29 | ED_ITS ---
HPI - GI Bleed General Chief complaint: GI Bleed Stated complaint: blood in stool, hx bleeding ulcer Time Seen by Provider: 01/30/25 21:27 Source: patient and EMS Mode of arrival: EMS Limitations: no limitations History of Present Illness ED Provider: Tobi RAHMAN HPI Narrative: The patient is an 84-year-old female with a history of GI bleed from gastric ulcers 5 years ago, presenting to the ED for evaluation of blood in the toilet bowl which began this morning and recurred at 17:00 prompting EMS activation. The patient reports blood was bright red, denies history of hemorrhoids. The patient denies associated fever/chills, abdominal pain, nausea, vomiting, lightheadedness, dizziness, chest pain, shortness of breath, recent sick contacts, recent trauma, or anticoagulation. Related Data Home Medications ?Medication ?Instructions ?Recorded ?Confirmed carvedilol 25 mg tablet 25 mg PO BID 04/17/24 citalopram 20 mg tablet 20 mg PO DAILY 04/17/2404/18 bupropion HCl 300 mg 24 hr tablet, 300 mg PO DAILY 10/0805/12/24 extended release Previous Rx's ?Medication ?Instructions ?Recorded olanzapine 5 mg tablet 5 mg PO BEDTIME #30 tabs trazodone 50 mg tablet 50 mg PO BEDTIME PRN Insomni a #30 04/15/24 tabs donepezil 5 mg tablet 5 mg PO DAILY #30 tabs 04/24 lidocaine 4 % topical patch 1 patch topical DAILY PRN pain #30 01/08/25 ea nitrofurantoin 100 mg PO BID 5 days #10 cap s 01/08/25 monohydrate/macrocrystals 100 mg capsule (Macrobid) Allergies Allergy/AdvReac Type Severity Reaction Status Date / Time No Known Allergies Allergy Mild NOT Verified 01/30/25 21:18 APPLICABLE Review of Systems 2 Review of Systems: Yes all other systems are reviewed and are negative [facility] Past Medical History Medical History Hypertension Mood disorder Surgical History Hx of esophagogastroduodenoscopy H/O hernia repair Hx of breast reduction, elective Social History Social History Household Members: Spouse Housing: House Do you presently have visiting nurse or other home services: No Unable to assess alcohol history related to: Refusing to respond Alcohol intake: former Patient Tobacco Use Status: Never used Tobacco Smoked in Last 30 Days: No Use of substances other than those prescribed or required for medical reasons: No Advance Directives: Yes Advance Directives on File: Yes Advance Directives Date on File: 04/16/24 service: No Current occupational status: retired Sexual orientation: Straight/Heterosexual Physical Exam 2 Vital Signs: Vital Signs: Last Vital Signs Temp 97.7 F 01/30/25 21:23 Pulse 66 01/30/25 23:07 Resp 14 01/30/25 23:07 BP 122/63 01/30/25 23:07 Pulse Ox 96 01/30/25 23:07 O2 Del Method Room Air 01/30/25 23:07 BMI result Body Mass Index 20.8 CONSTITUTIONAL: The patient appears non-toxic, well nourished and in no acute distress. Vital signs as documented. HEAD: Atraumatic, normocephalic. EYES: EOMs grossly intact, pupils equal, conjunctiva clear, no exudate. ENT: Nares patent, no discharge. Airway patent, no audible stridor, visible mucosa is pink and moist without noted lesions. NECK: Trachea is midline, no obvious masses or gross abnormalities. CHEST: Symmetric movement, normal appearance. LUNGS: LS present and CTAB, no w/r/r. Non-labored work of breathing. CARDIAC: Regular Rhythm, S1/S2 appreciated, no murmurs, rubs or gallops. ABDOMEN: Abdomen soft and non-tender x4 quadrants, no palpable masses or organomegaly. : There is bright red blood noted around the anus, with a single non incarcerated hemorrhoid noted at the 9 o'clock position, no active bleeding. Rectal exam reveals no palpable internal hemorrhoids, no tenderness, there is gross hematochezia noted on rectal exam. EXTREMITIES: Normal tone, moves all extremities spontaneously without reported pain. No obvious acute injury or deformity noted. NEURO: Alert and oriented x3, CN II-XII appear grossly intact. Cerebellar Functioning grossly intact. No obvious sensory or motor deficits. Speech clear and appropriate. PSYCH: normal affect, appropriate eye contact, fluid speech, with appropriate response to questioning. No reported suicidality or homicidality. SKIN: Warm, dry, color appropriate, normal turgor. No rashes noted. Medications Administered Discontinued Medications Generic Name Dose Route Start Last Admin Trade Name Joeq PRN Reason Stop Dose Admin Sodium Chloride 1,000 mls @ 999 mls/hr 01/30/25 21:45 01/30/25 23:45 Ns IV 01/30/25 22:45 Infused .Q1H1M DIONNE Infusion Iohexol 80 ml 01/30/25 22:53 01/30/25 22:54 Iohexol 350 Mg/Ml 100 Ml Infus..Btl IV 01/30/25 22:54 80 ml ONCE ONE Administration Medical Decision Making Medical Decision Making MDM Narrative: 9:41 PM 01/30/2025 (Lukas RAHMAN): The patient is a very pleasant 84-year-old female presenting to the ED for evaluation of new onset bright red blood per rectum which began today. The patient has a history of previous gastric ulcers with a GI bleed approximately 5 years ago but has not previously require transfusion. The patient denies anticoagulation or abdominal pain. The patient's exam reveals no abdominal tenderness, rectal exam reveals bright red blood around the anus, there is a single isolated non-thrombosed external hemorrhoid noted at the 9 o'clock position with no active bleeding. Digital rectal exam reveals maida hematochezia above the site of the hemorrhoid. Patient presents to the ED mildly hypotensive, patient will be evaluated with basic laboratory evaluation, type and screen, troponin, EKG, BNP, and CT to evaluate for active extravasation. 12:39 AM 01/31/2025 (Lukas RAHMAN): The patient's laboratory evaluation shows H&H of 10.6 and 30.7, while this does not meet transfusion threshold it is a significant drop in the patient's most recent labs just 3 weeks ago on 01/08 at which time H&H was 13.9 and 40.7. The remainder of the patient's laboratory evaluation is reassuring, no leukocytosis, no electrolyte abnormality or NAVA. The patient's stool sample did test positive for blood as expected. The patient's CT has now resulted and shows no evidence of acute extravasation. Due to the patient's significant drop in H&H in the setting of a GI bleed we will admit for admission and serial labs. Admission/Observation Consideration of admission/observation: Escalation of care including admission/observation considered Lab Data 01/30/25 21:39 01/30/25 21:39 Labs: Lab Results 01/30/25 Range/Units 21:39 WBC 10.8 (4.8-10.8) X10*3/uL RBC 3.32 L D (4.20-5.50) X10*6/uL Hgb 10.6 L D (12.0-16.0) g/dl Hct 30.7 L D (37.0-47.0) % MCV 92.5 (80.0-98.0) fL MCH 31.9 (27.0-33.0) pg MCHC 34.5 (31.0-35.0) g/dl RDW 14.2 (11.0-16.0) % Plt Count 214 D (160-400) X10*3/uL MPV 10.5 (9.4-12.3) fL Immature Gran % (Auto) 0.4 (0.0-0.4) % Neut % (Auto) 71.4 (45-73) % Lymph % (Auto) 19.4 L (20-40) % [place] % (Auto) 8.1 (2-11) % Eos % (Auto) 0.6 (0-4) % Baso % (Auto) 0.1 (0-2) % Lymph # (Auto) 2.1 (1.2-4.9) X10*3/uL [place] # (Auto) 0.9 (0.1-1.2) X10*3/uL Eos # (Auto) 0.1 (0.0-0.4) X10*3/uL Baso # (Auto) 0.0 (0.0-0.2) X10*3/uL Abs Immat Gran (auto) 0.04 H (0.00-0.03) X10*3/uL Absolute Neuts (auto) 7.7 (2.0-8.3) x10*3/uL Absolute Nucleated RBC 0.000 (0.0-0.012) X10*3/uL Nucleated RBC % (auto) 0.0 (0.0-0.2) /100WBC Smear Tech's Comments VERIFIED Sodium 137 (135-145) mmol/L Potassium 4.5 (3.3-5.1) mmol/L Chloride 104 (96-108) mmol/L Carbon Dioxide 24 (22-29) mmol/L Anion Gap 14 (12-20) BUN 17 H (9-16) mg/dL Creatinine 0.79 (0.5-1.4) mg/dL Estim Creat Clear Calc 49.6 Estimated GFR > 60 Random Glucose 152 H (60-115) mg/dL Calcium 8.5 D (8.4-10.2) mg/dL Total Bilirubin 0.3 (0.0-1.0) mg/dL AST 18 (5-31) U/L ALT 8 (0-31) U/L Alkaline Phosphatase 81 (39-117) U/L Troponin I High Sens 3.4 (<3.5-17.0) ng/L B-Natriuretic Peptide 162 H (<100) pg/mL Total Protein 6.1 L (6.5-8.0) g/dL Albumin 3.5 (3.5-5.0) g/dL Stool Occult Blood POSITIVE (NEGATIVE) Blood Type A Positive Antibody Screen NEGATIVE Independent Interpretation I performed an independent interpretation of an: EKG (EKG shows sinus rhythm with a rate of 74, no evidence of acute ischemia, no ST elevation, no ectopy. QTC 461. Compared to previous on 01/08/2025 PACs have resolved.) Radiology Impression Discussion of test interpretation with radiology: I have reviewed the radiologist's reading. Radiologist Impression: CLINICAL HISTORY: Hematochezia CT angiography abdomen and pelvis with contrast. 3-D post processing. Comparison: CT/SR - CT ABDOMEN PELVIS WITHOUT IV CONTRAST - 06/07/22 20:42 EST Findings: Aorta, mesenteric/renal arteries, and iliofemoral systems are patent with no hemodynamically significant stenoses. No consolidation or effusion. Unremarkable gallbladder and solid organs. No urolithiasis. No bowel obstruction, pneumoperitoneum, or pneumatosis. Pelvic contents unremarkable. Normal appendix. No acute fracture. IMPRESSION: No acute findings. This document has been electronically signed by: Leno Cronin MD on 01/31/2025 00:15:00 Discharge Plan Discharge Clinical Impression: GI bleed, Anemia Patient Disposition: Admitted As Inpatient Print Language: Bengali
--- NOTE | 2025-01-30 21:37 | ECG_ITS ---
Test Reason : HYPO Blood Pressure : */* mmHG Vent. Rate : 74 BPM Atrial Rate : 74 BPM P-R Int : 188 ms QRS Dur : 76 ms QT Int : 416 ms P-R-T Axes : 38 14 27 degrees QTcB Int : 461 ms Normal sinus rhythm Nonspecific T wave abnormality Abnormal ECG When compared with ECG of 08-Jan-2025 12:47, Premature atrial complexes are no longer Present Referred By: Tobi Barbosa Electronically Signed By: Alberto Crowley
[2025-01-30 22:04] LABS: OBS1 POSITIVE (NEGATIVE)
[2025-01-30 22:05] LABS: OBS Int Ctl Valid YES
[2025-01-30 22:07] LABS: Hematocrit 30.7 % (37.0-47.0); Hemoglobin 10.6 g/dl (12.0-16.0); Imm Gran Abs Auto 0.04 X10*3/uL (0.00-0.03); Imm Gran Pct Auto 0.4 % (0.0-0.4); Lymphocytes Absolute Auto 2.1 X10*3/uL (1.2-4.9); MANUAL DIFF FLAG SCAN; Mean Corpuscular HGB Conc 34.5 g/dl (31.0-35.0); Mean Corpuscular Hemoglobin 31.9 pg (27.0-33.0); Mean Corpuscular Volume 92.5 fL (80.0-98.0); NRBC Abs Auto 0.000 X10*3/uL (0.0-0.012); NRBC Pct Auto 0.0 /100WBC (0.0-0.2); PLT CLUMP 1; Red Blood Count 3.32 X10*6/uL (4.20-5.50); SCAN SMEAR FLAG 1
[2025-01-30 22:24] LABS: Platelet Count 214 X10*3/uL (160-400); White Blood Count 10.8 X10*3/uL (4.8-10.8)
[2025-01-30 22:27] LABS: Alanine Aminotransferase 8 U/L (0-31); Albumin Level 3.5 g/dL (3.5-5.0); Alkaline Phosphatase 81 U/L (39-117); Anion Gap 14 (12-20); Aspartate Amino Transferase 18 U/L (5-31); Blood Urea Nitrogen 17 mg/dL (9-16); Calcium 8.5 mg/dL (8.4-10.2); Carbon Dioxide 24 mmol/L (22-29); Chloride 104 mmol/L (96-108); Creatinine Clr Calc Pharmacy 49.6; Estimated Glomerular Filt Rate > 60; Potassium 4.5 mmol/L (3.3-5.1); Sodium 137 mmol/L (135-145); Total Protein 6.1 g/dL (6.5-8.0)
[2025-01-30 22:32] LABS: B Type Natriuretic Peptide 162 pg/mL (<100)
[2025-01-30 22:34] LABS: Troponin-I High Sensitivity 3.4 ng/L (<3.5-17.0)
[2025-01-30] MEDS: iohexoL 350 MG/ML 100 ML INFUS..BTL 80 ML IV (22:54)
[2025-01-30 23:07] VITALS: BP 122/63; PULSE 66; RESP 14; O2SAT 96
--- NOTE | 2025-01-30 23:45 | PC.NURSE ---
Patient walked indendently with supervision as this is the first time getting up in the hospital. Ambulated with a steady gait and performed care independently. Back in [facility], reconnected to [facility] at this time. Plan of care onging.
--- NOTE | 2025-01-30 23:48 | PC.NURSE ---
Patient reports about two tablespoons of blood came out when she was in the bathroom.
--- NOTE | 2025-01-31 02:01 | PC.NURSE ---
Patient refuses purewick, stating it is like a colostomy which freaks me out. Patient awake in bed, demanding someone goes to the basement to get a depends for her. Explained to patient the best option for her skin is the purewick, as worry of breakdown that happens in a brief. Patient then stated, I don't care about my skin.
[2025-01-31 02:10] LABS: Hematocrit 25.9 % (37.0-47.0); Hemoglobin 9.0 g/dl (12.0-16.0)
--- NOTE | 2025-01-31 02:36 | PM.IMHP ---
History of Present Illness Date of Service: 01/31/25 Attending physician on admission: Eliezer Valencia Chief Complaint: rectal bleeding Patient is an 84-year-old female with a past medical history significant for hypertension, dementia, mood disorder, history upper GI bleed, who presented to the ED due to 2 episodes of bright red blood per rectum yesterday, the 1st episode with small 2nd moderate-size. The patient reports that this was not similar to her previous GI bleed as that was melena. She is not having any rectal pain. She is not have any known hemorrhoids however on exam by the ED provider she was found to have a external hemorrhoid that was nonbleeding and nonthrombosed. On rectal exam there was blood concerning for source higher than the hemorrhoid. Patient denies any chest pain, shortness of breath, nausea, vomiting, abdominal pain, diarrhea or constipation. Review of Systems Constitutional: Constitutional: Denies chills, Denies fatigue, Denies fever(s) and Denies headache(s) Eyes: Eyes: Denies change in vision ENT: Denies headache(s), Denies nasal discharge and Denies sore throat Cardiovascular: Cardiovascular: Denies chest pain, Denies rapid heart rate, Denies leg edema, Denies lightheadedness and Denies dyspnea Respiratory: Respiratory: Denies chest congestion, Denies cough, Denies dyspnea and Denies wheezing Gastrointestinal: Gastrointestinal: Reports as per HPI Genitourinary: Genitourinary: Denies difficulty voiding, Denies dysuria and Denies urinary urgency Musculoskeletal: Musculoskeletal: Denies back pain Integumentary/Breasts: Skin/Breast: Denies rash Neurologic: Denies confusion and Denies headache(s) Psychiatric: Psychiatric: Denies confusion Endocrine: Endocrine: Denies fatigue Hematologic/Lymphatic: Hematologic/Lymphatic: Denies easy bleeding and Denies easy bruising Allergic/Immunologic: Allergic/Immunologic: Denies wheezing [facility] Medical History (Updated 01/31/25 @ 02:48 by Melissa Whiting PA-C) GI bleed Dementia Hypertension Mood disorder Surgical History Hx of esophagogastroduodenoscopy H/O hernia repair Hx of breast reduction, elective Social History Household Members: Spouse Housing: House Do you presently have visiting nurse or other home services: No Unable to assess alcohol history related to: Refusing to respond Alcohol intake: former Patient Tobacco Use Status: Never used Tobacco Smoked in Last 30 Days: No Use of substances other than those prescribed or required for medical reasons: No Advance Directives: Yes Advance Directives on File: Yes Advance Directives Date on File: 04/16/24 service: No Current occupational status: retired Sexual orientation: Straight/Heterosexual Narrative: No smoking, alcohol or drug use Meds Allergies Allergy/AdvReac Type Severity Reaction Status Date / Time No Known Allergies Allergy Mild NOT Verified 01/30/25 21:18 APPLICABLE Home Medications ?Medication ?Instructions ?Recorded ?Confirmed ?Last Taken ?Type carvedilol 25 mg tablet 25 mg PO BID 04/17/24 05/12/24 Unknown History citalopram 20 mg tablet 20 mg PO DAILY 04/17/24 05/12/24 Unknown History bupropion HCl 300 mg 24 hr tablet, 300 mg PO DAILY 04/20/24 05/12/24 Unknown History extended release Physical Exam Vital Signs and Narrative: Vital Signs: Last Vital Signs Temp 97.7 F 01/30/25 21:23 Pulse 66 01/30/25 23:07 Resp 14 01/30/25 23:07 BP 122/63 01/30/25 23:07 Pulse Ox 96 01/30/25 23:07 O2 Del Method Room Air 01/30/25 23:07 BMI result Body Mass Index 20.8 General: AOx3, no acute distress Resp: CTA bilaterally CVS: S1, S2, RRR GI: +BS, NT, no distention. rectal exam by ED provider: There is bright red blood noted around the anus, with a single non incarcerated hemorrhoid noted at the 9 o'clock position, no active bleeding. Rectal exam reveals no palpable internal hemorrhoids, no tenderness, there is gross hematochezia noted on rectal exam. Skin: Warm, dry Neuro: Cranial nerves II-XII grossly intact bilaterally. Motor grossly intact bilaterally Extremities: No LE edema Psych: Appropriate affect Const: General: No confusion Orientation/consciousness: No confusion Neuro: General: No confusion Results Labs 01/31/25 01:55 01/30/25 21:39 Labs: Laboratory Results - last 24 hr 01/30/25 21:39 MCV 92.5 MCH 31.9 MCHC 34.5 RDW 14.2 Plt Count 214 D MPV 10.5 Immature Gran % (Auto) 0.4 Neut % (Auto) 71.4 Lymph % (Auto) 19.4 L [place] % (Auto) 8.1 Eos % (Auto) 0.6 Baso % (Auto) 0.1 Lymph # (Auto) 2.1 [place] # (Auto) 0.9 Eos # (Auto) 0.1 Baso # (Auto) 0.0 Abs Immat Gran (auto) 0.04 H Absolute Neuts (auto) 7.7 Absolute Nucleated RBC 0.000 Nucleated RBC % (auto) 0.0 Smear Tech's Comments VERIFIED Anion Gap 14 Estim Creat Clear Calc 49.6 Estimated GFR > 60 Random Glucose 152 H Calcium 8.5 D Total Bilirubin 0.3 AST 18 ALT 8 Alkaline Phosphatase 81 B-Natriuretic Peptide 162 H Total Protein 6.1 L Albumin 3.5 Stool Occult Blood POSITIVE Blood Type A Positive Antibody Screen NEGATIVE Assessment and Plan (1) ABLA (acute blood loss anemia): Status: Acute (2) GI bleed: Qualifiers: GI bleed type/associated pathology: anorectal hemorrhage Qualified Code(s): K62.5 - Hemorrhage of anus and rectum Status: Acute Plan Patient is an 84-year-old female with a past medical history significant for hypertension, dementia, mood disorder, history upper GI bleed, who presented to the ED due to 2 episodes of bright red blood per rectum yesterday, the 1st episode with small 2nd moderate-size. ABLA, GI bleed - rectal bleeding x2 episodes yesterday, hx upper GI bleed - hgb 10.6, hct 30.7, now 9.0/25.9 - A/P CT negative - EKG negative - FOBT + - nonbleeding hemorrhoid on exam - monitor H+H - type and cross already completed - GI consult - clear liquid diet HTN - normotensive - continue home meds when appropriate dementia - continue home meds med rec pending DNR/DNI VTE prophy: pneumoboots Patient with acute blood loss anemia secondary to GI bleed, requiring admission for at least 2 midnights stay for GI consultation and monitoring. Quality Stroke Does the patient have a stroke diagnosis?: No VTE Prior VTE?: No VTE Risk Level:: Medical - moderate - high VTE Device Contraindication: N/A - Device Ordered VTE Drug Contraindication: Treatment Not Indicated
[2025-01-31 02:49] VITALS: BP 102/57; PULSE 72; RESP 16; TEMP 36.7; O2SAT 96
[2025-01-31 06:31] VITALS: BP 123/83; PULSE 89; RESP 16; TEMP 36.7; O2SAT 97
[2025-01-31] MEDS: 0.9 % Sodium Chloride Flush 3 ML SYRINGE IVFLUSH ×3 (07:42→20:24)
[2025-01-31 09:13] VITALS: BP 111/65; PULSE 77; RESP 17; TEMP 36.8; O2SAT 96
[2025-01-31 09:51] LABS: Hematocrit 26.6 % (37.0-47.0); Hemoglobin 9.1 g/dl (12.0-16.0); Mean Corpuscular HGB Conc 34.2 g/dl (31.0-35.0); Mean Corpuscular Hemoglobin 31.6 pg (27.0-33.0); Mean Corpuscular Volume 92.4 fL (80.0-98.0); NRBC Abs Auto 0.000 X10*3/uL (0.0-0.012); NRBC Pct Auto 0.0 /100WBC (0.0-0.2); Platelet Count 239 X10*3/uL (160-400); Red Blood Count 2.88 X10*6/uL (4.20-5.50); White Blood Count 9.0 X10*3/uL (4.8-10.8)
--- NOTE | 2025-01-31 09:52 | PM.GICN ---
History of Present Illness Data of Consult Service Date: 01/31/25 Requesting physician: Melissa Whiting Primary Care Provider: MD RACHEL Arshad Reason for consult: GI bleeding 84 YF with hypertension, dementia, mood disorder, history upper GI bleed, seen at [facility] on who presented to the ED on 01/30/25 after two episodes of bright red blood per rectum yesterday. 1st episode with small amount of BRB and 2nd episode with moderate amount of bleeding. The patient reports that this was not similar to her previous GI bleed as that was melena. Pt denied rectal pain. She is not have any known hemorrhoids however on exam by the ED provider she was found to have a external hemorrhoid that was nonbleeding and nonthrombosed. On rectal exam there was blood concerning for source higher than the hemorrhoid. Patient denies any chest pain, shortness of breath, nausea, vomiting, abdominal pain, diarrhea or constipation.01/31/[address] SCAN SHOWED: No acute findings. PAST GI HISTORY BY REVIEW OF MEDICAL RECORDS: 02/2022 EGD WAS PERFORMED [address] DR AMAYA FOR GI BLEEDING: Stomach: The stomach showed 2 gastric ulcers, the largest was in the antrum on the posterior wall, measuring 10 x 25 mm. This had a fairly clean base. No therapy was performed. Biopsies were obtained from the margin of this ulcer. A 2nd ulcer measuring approximately 10 mm was located also on the posterior wall, further back in the body at the junction of the body and antrum. This also had a clean base. There were several erosions. There was no active bleeding. IMPRESSION: Gastric ulcers. RECOMMENDATION: 1. Follow up the biopsy results. 2. Consider repeat endoscopy in 8 to 12 weeks for reassessment. 05/2022 EGD WAS PERFORMED BY DR AMAYA: Healed gastric ulcers. RECOMMENDATION: 1. Follow up the biopsy results. 2. Continue proton pump inhibitor. Review of Systems Review of Systems: Yes all other systems are reviewed and are negative PMFSH Past Medical History Medical History (Updated 01/31/25 @ 02:48 by Melissa Whiting PA-C) GI bleed Dementia Hypertension Mood disorder Surgical History Surgical History Hx of esophagogastroduodenoscopy H/O hernia repair Hx of breast reduction, elective Social History Social History Household Members: Spouse Housing: House Do you presently have visiting nurse or other home services: No Unable to assess alcohol history related to: Refusing to respond Alcohol intake: former Patient Tobacco Use Status: Never used Tobacco Advance Directives Date on File: 04/16/24 service: No Current occupational status: retired Sexual orientation: Straight/Heterosexual Meds Allergies Allergy/AdvReac Type Severity Reaction Status Date / Time No Known Allergies Allergy Mild NOT Verified 01/30/25 21:18 APPLICABLE Active Medications: Current Medications Acetaminophen (Acetaminophen 325 Mg Tablet) 975 mg PO Q6H PRN PRN Reason: Pain, Mild 1-3,fever,headache Calcium Carbonate (Calcium Carbonate 750 Mg Tab.Chew) 750 mg PO Q4H PRN PRN Reason: Heartburn Magnesium Hydroxide (Milk Of Magnesia 30 Ml Oral.Susp) 30 ml PO DAILY PRN PRN Reason: Constipation Melatonin (Melatonin 3 Mg Tablet) 6 mg PO BEDTIME PRN PRN Reason: Insomnia Ondansetron HCl (Ondansetron Hcl 4 Mg/2 Ml Vial) 4 mg IVPUSH Q8H PRN PRN Reason: Nausea and Vomiting Pantoprazole Sodium (Pantoprazole Sodium 40 Mg/10 Ml Vial) 40 mg IVPUSH BID@0630,1630 [facility] Last Admin: 01/31/25 09:12 Dose: 40 mg Sodium Chloride (0.9 % Sodium Chloride Flush 3 Ml Syringe) 3 ml IVFLUSH QSHIFT [facility] Last Admin: 01/31/25 07:42 Dose: 3 ml Home Medications ?Medication ?Instructions ?Recorded ?Confirmed ?Last Taken ?Type carvedilol 25 mg tablet 25 mg PO DAILY 04/17/24 01/31/25 Unknown History citalopram 20 mg tablet 20 mg PO DAILY 04/17/24 01/31/25 Unknown History bupropion HCl 300 mg 24 hr tablet, 300 mg PO DAILY 04/20/24 01/31/25 Unknown History extended release Cbd 1 PO DAILY PRN Pain (Scale Score 01/31/25 Unknown History 4-6) acetaminophen 325 mg tablet 650 mg PO Q4H PRN Pain (Scale 01/31/25 01/31/25 Unknown History Score 1-3) donepezil 10 mg tablet 10 mg PO DAILY 01/31/25 01/31/25 Unknown History meloxicam 15 mg tablet 15 mg PO DAILY 01/31/25 01/31/25 Unknown History Physical Exam Vital Signs: Vital Signs: Last Vital Signs Temp 98.2 F 01/31/25 09:13 Pulse 77 01/31/25 09:13 Resp 17 01/31/25 09:13 BP 111/65 01/31/25 09:13 Pulse Ox 96 01/31/25 09:13 O2 Del Method Room Air 01/31/25 09:13 BMI result Body Mass Index 20.8 Const: General: no acute distress Nutritional Appearance: average body habitus Orientation/consciousness: patient oriented x3 Limitations: physical limitations HEENT: Head: Yes normal to inspection Ears: hearing grossly normal bilaterally Eyes: Sclerae: sclerae normal Pupils: Equal, round and reactive pupils present Neck: Neck: Yes normal visual inspection Chest: Chest palpation & inspection: normal inspection of the chest Resp: Effort & Inspection: normal respiratory effort Auscultation: clear to auscultation bilaterally Cardio: Palpation: normal PMI Rate: regular rate Rhythm: regular rhythm Heart sounds: S1 normal heart sound present, S2 normal heart sound present and no murmurs GI: Palpation (GI): Soft to palpation, nontender and No hepatosplenomegaly present Auscultation: normal bowel sounds Rectal Exam - Female: deferred Skin: General skin exam: no rashes or lesions noted Neuro: General: patient oriented x3, gait normal and moves all extremities Cranial nerves: Yes Equal, round and reactive pupils present Psych: Appearance: grossly normal Mental Status: mental status grossly normal Results Labs 01/31/25 09:39 01/31/25 09:39 Labs: Short CBC 01/30/25 01/31/25 01/31/25 Range/Units 21:39 01:55 09:39 WBC 10.8 9.0 (4.8-10.8) X10*3/uL Hgb 10.6 L D 9.0 L 9.1 L (12.0-16.0) g/dl Hct 30.7 L D 25.9 L 26.6 L (37.0-47.0) % Plt Count 214 D 239 (160-400) X10*3/uL BMP 01/30/25 21:39 Sodium 137 Potassium 4.5 Chloride 104 Carbon Dioxide 24 BUN 17 H Creatinine 0.79 Calcium 8.5 D Liver Function 01/30/25 Range/Units 21:39 Total Bilirubin 0.3 (0.0-1.0) mg/dL AST 18 (5-31) U/L ALT 8 (0-31) U/L Alkaline Phosphatase 81 (39-117) U/L Albumin 3.5 (3.5-5.0) g/dL Assessment and Plan (1) GI bleed: Qualifiers: GI bleed type/associated pathology: anorectal hemorrhage Qualified Code(s): K62.5 - Hemorrhage of anus and rectum Status: Acute (2) Anemia: Qualifiers: Anemia type: other cause Other causes of anemia: acute posthemorrhagic Qualified Code(s): D62 - Acute posthemorrhagic anemia Status: Acute Plan 84 YF with hypertension, dementia, mood disorder, history upper GI bleed, admitted to [facility] on 01/30/25 after two episodes of bright red blood per rectum yesterday. 1st episode with small amount of BRB and 2nd episode with moderate amount of bleeding. The patient reports that this was not similar to her previous GI bleed as that was melena. Pt denied rectal pain. She is not have any known hemorrhoids however on exam by the ED provider she was found to have a external hemorrhoid that was nonbleeding and nonthrombosed. On rectal exam there was blood concerning for source higher than the hemorrhoid. No acute findings on abd CT scan LGI bleeding likely divrticular, colonic AVMs, large polyp or colon cancer RECOMMENDATIONS: 1. Agree with Iv PPI and antiemetics 2. Clear liquid diet with Golytely prep on 02/01/25 for colonoscopy on 02/02/25 Pt is followed by Dr Amaya and will inform him regarding the patient. Procedures Date of Service Date of Service: 01/31/25
--- NOTE | 2025-01-31 10:14 | PHA.MEDREC ---
Pharmacy Consult ? Medication Reconciliation Pharmacy has completed the medication reconciliation.Med rec complete, spoke to patients son and compared with pharmacy claim history. Son did confirm that patient only takes the coreg once a day as her BP was dropping too low. She takes a lot of prn tylenol and also CBD gummies to help control the pain
[2025-01-31 10:19] LABS: Anion Gap 11 (12-20); Blood Urea Nitrogen 16 mg/dL (9-16); Calcium 8.3 mg/dL (8.4-10.2); Carbon Dioxide 23 mmol/L (22-29); Chloride 110 mmol/L (96-108); Creatinine Clr Calc Pharmacy 68.7; Estimated Glomerular Filt Rate > 60; Potassium 4.2 mmol/L (3.3-5.1); Sodium 140 mmol/L (135-145)
--- NOTE | 2025-01-31 10:44 | HO.PM.IMPN ---
Subjective Subjective Date of Service: 01/31/25 Interval History: no further bleeding Physical Exam Exam: Exam: General: AO X 3, no acute distress Resp: CTA bilateral, no accessory muscles used CVS: S1,S2,RRR GI: soft, non tender, non distended Neuro: motor grossly intact, alert Psych: appropriate affect, appropriate insight Vital Signs: Vital Signs: Last Vital Signs Temp 98.2 F 01/31/25 09:13 Pulse 77 01/31/25 09:13 Resp 17 01/31/25 09:13 BP 111/65 01/31/25 09:13 Pulse Ox 96 01/31/25 09:13 O2 Del Method Room Air 01/31/25 09:13 BMI result Body Mass Index 20.8 Objective Data Active Medications Acetaminophen (Acetaminophen 325 Mg Tablet) 975 mg PO Q6H PRN PRN Reason: Pain, Mild 1-3,fever,headache Calcium Carbonate (Calcium Carbonate 750 Mg Tab.Chew) 750 mg PO Q4H PRN PRN Reason: Heartburn Magnesium Hydroxide (Milk Of Magnesia 30 Ml Oral.Susp) 30 ml PO DAILY PRN PRN Reason: Constipation Melatonin (Melatonin 3 Mg Tablet) 6 mg PO BEDTIME PRN PRN Reason: Insomnia Ondansetron HCl (Ondansetron Hcl 4 Mg/2 Ml Vial) 4 mg IVPUSH Q8H PRN PRN Reason: Nausea and Vomiting Pantoprazole Sodium (Pantoprazole Sodium 40 Mg/10 Ml Vial) 40 mg IVPUSH BID@0630,1630 [facility] Last Admin: 01/31/25 09:12 Dose: 40 mg Documented By: JENNIFER Sodium Chloride (0.9 % Sodium Chloride Flush 3 Ml Syringe) 3 ml IVFLUSH QSHIFT [facility] Last Admin: 01/31/25 07:42 Dose: 3 ml Documented By: JENNIFER Labs 01/31/25 09:39 01/31/25 09:39 Labs: Laboratory Results - last 24 hr 01/30/25 01/31/25 21:39 09:39 MCV 92.5 92.4 MCH 31.9 31.6 MCHC 34.5 34.2 RDW 14.2 14.3 Plt Count 214 D 239 MPV 10.5 8.6 L Immature Gran % (Auto) 0.4 Neut % (Auto) 71.4 Lymph % (Auto) 19.4 L [place] % (Auto) 8.1 Eos % (Auto) 0.6 Baso % (Auto) 0.1 Lymph # (Auto) 2.1 [place] # (Auto) 0.9 Eos # (Auto) 0.1 Baso # (Auto) 0.0 Abs Immat Gran (auto) 0.04 H Absolute Neuts (auto) 7.7 Absolute Nucleated RBC 0.000 0.000 Nucleated RBC % (auto) 0.0 0.0 Smear Tech's Comments VERIFIED Anion Gap 14 11 L Estim Creat Clear Calc 49.6 68.7 Estimated GFR > 60 > 60 Random Glucose 152 H 98 Calcium 8.5 D 8.3 L Total Bilirubin 0.3 AST 18 ALT 8 Alkaline Phosphatase 81 B-Natriuretic Peptide 162 H Total Protein 6.1 L Albumin 3.5 Stool Occult Blood POSITIVE Blood Type A Positive Antibody Screen NEGATIVE Assessment and Plan (1) ABLA (acute blood loss anemia): Status: Acute Plan 84F PMH htn, alzheimers dementia, mood disorder, pud presented with brbpr Acute blood loss anemia Concern for GI bleed PPI, follow up hemoglobin, GI eval Hypertension Carvedilol Alzheimer's dementia Aricept Mood disorder Bupropion, olanzapine DVT prophylaxis-mechanical due to GI bleed DNR/DNI reason for continued hospitalization:gi bleed work up Quality Stroke Does the patient have a stroke diagnosis?: No VTE Prior VTE?: No VTE Risk Level:: Medical - moderate - high VTE Device Contraindication: N/A - Device Ordered VTE Drug Contraindication: Treatment Not Indicated
[2025-01-31 12:00] VITALS: BP 136/76; PULSE 88; RESP 18; TEMP 36.5; O2SAT 97
[2025-01-31 15:20] VITALS: BP 113/70; PULSE 92; RESP 18; TEMP 36.3; O2SAT 97
--- NOTE | 2025-01-31 16:44 | MHC.CM.PN ---
PT REPORTS SHE LIVES WITH HER AND SON, HER SON ASSISTS WITH HER HUSBANDS CARE PT USES A WALKER FOR DME AND HAS NO SERVICES HCP AND MOLST ON FILE PCP: THOMAS GUADARRAMA IMM DELIVERED DCP: HOME VIA FAMILY TRANSPORT
[2025-01-31 19:20] VITALS: BP 111/55; PULSE 95; RESP 18; TEMP 36.1; O2SAT 95
[2025-02-01 02:29] VITALS: BP 114/56; PULSE 95; RESP 17; TEMP 36.1; O2SAT 96
[2025-02-01 07:18] VITALS: BP 139/65; PULSE 90; RESP 18; TEMP 36.1; O2SAT 97
[2025-02-01 07:22] LABS: Hematocrit 22.5 % (37.0-47.0); Hemoglobin 7.5 g/dl (12.0-16.0); Mean Corpuscular HGB Conc 33.3 g/dl (31.0-35.0); Mean Corpuscular Hemoglobin 31.0 pg (27.0-33.0); Mean Corpuscular Volume 93.0 fL (80.0-98.0); NRBC Abs Auto 0.000 X10*3/uL (0.0-0.012); NRBC Pct Auto 0.0 /100WBC (0.0-0.2); Platelet Count 256 X10*3/uL (160-400); Red Blood Count 2.42 X10*6/uL (4.20-5.50); White Blood Count 6.9 X10*3/uL (4.8-10.8)
[2025-02-01 07:58] LABS: Anion Gap 10 (12-20); Blood Urea Nitrogen 14 mg/dL (9-16); Calcium 8.2 mg/dL (8.4-10.2); Carbon Dioxide 27 mmol/L (22-29); Chloride 108 mmol/L (96-108); Creatinine Clr Calc Pharmacy 68.7; Estimated Glomerular Filt Rate > 60; Potassium 3.9 mmol/L (3.3-5.1); Sodium 141 mmol/L (135-145)
[2025-02-01] MEDS: 0.9 % Sodium Chloride Flush 3 ML SYRINGE IVFLUSH ×3 (08:03→19:27)
[2025-02-01] MEDS: buPROPion HCl XL 300 MG TAB.ER.24H PO (08:03)
--- NOTE | 2025-02-01 13:30 | P.CONAN_ITS ---
Documented by User: Annika Reeder NP 02/01/25 16:04 HPI - Anesthesia Eval Consult details Narrative: 84 yr old female for upper endoscopy, colonoscopy Acute blood loss anemia: Hgb/Hct 7.5/22.5 on 01/30/25 Dementia *DNR/DNI PMF Active Problems Active Problems: All Active Problems ABLA (acute blood loss anemia) (Acute) Dementia (Acute) Anemia (Acute) Encounter for staple removal (Acute) Major neurocognitive disorder (Acute) GI bleed (Acute) H/O hernia repair (Acute) Past Medical History Medical History GI bleed Dementia Hypertension Mood disorder Family History Family history of problems with anesthesia: No Surgical History Surgical History Hx of esophagogastroduodenoscopy H/O hernia repair Hx of breast reduction, elective History of Problems with Anesthesia: No Social History Social History Household Members: Spouse Housing: House Do you presently have visiting nurse or other home services: No Unable to assess alcohol history related to: Refusing to respond Alcohol intake: former Patient Tobacco Use Status: Never used Tobacco Advance Directives Date on File: 04/16/24 service: No Current occupational status: retired Sexual orientation: Straight/Heterosexual Meds Allergies Allergy/AdvReac Type Severity Reaction Status Date / Time No Known Allergies Allergy Mild NOT Verified 01/30/25 21:18 APPLICABLE Active Medications: Current Medications Acetaminophen (Acetaminophen 325 Mg Tablet) 975 mg PO Q6H PRN PRN Reason: Pain, Mild 1-3,fever,headache Last Admin: 01/31/25 20:59 Dose: 975 mg Bupropion HCl (Bupropion Hcl Xl 300 Mg Tab.Er.24h) 300 mg PO DAILY [facility] Last Admin: 02/01/25 08:03 Dose: 300 mg Calcium Carbonate (Calcium Carbonate 750 Mg Tab.Chew) 750 mg PO Q4H PRN PRN Reason: Heartburn Carvedilol (Carvedilol 25 Mg Tablet) 25 mg PO DAILY [facility]; Protocol Last Admin: 02/01/25 08:03 Dose: 25 mg Donepezil HCl (Donepezil Hcl 10 Mg Tablet) 10 mg PO DAILY [facility] Last Admin: 02/01/25 08:03 Dose: 10 mg Escitalopram Oxalate (Escitalopram Oxalate 10 Mg Tablet) 10 mg PO DAILY [facility] Last Admin: 02/01/25 08:03 Dose: 10 mg Magnesium Hydroxide (Milk Of Magnesia 30 Ml Oral.Susp) 30 ml PO DAILY PRN PRN Reason: Constipation Melatonin (Melatonin 3 Mg Tablet) 6 mg PO BEDTIME PRN PRN Reason: Insomnia Olanzapine (Olanzapine 5 Mg Tablet) 5 mg PO BEDTIME [facility] Last Admin: 01/31/25 20:22 Dose: 5 mg Ondansetron HCl (Ondansetron Hcl 4 Mg/2 Ml Vial) 4 mg IVPUSH Q8H PRN PRN Reason: Nausea and Vomiting Pantoprazole Sodium (Pantoprazole Sodium 40 Mg/10 Ml Vial) 40 mg IVPUSH BID@0630,1630 [facility] Last Admin: 02/01/25 05:36 Dose: 40 mg Polyethylene Glycol/Electrolytes (Peg 3350/Na Sulf,Bicarb,Cl/Kcl 4,000 Ml Soln.Recon) 4,000 ml PO ONCE ONE Stop: 02/01/25 14:01 Sodium Chloride (0.9 % Sodium Chloride Flush 3 Ml Syringe) 3 ml IVFLUSH QSHIFT [facility] Last Admin: 02/01/25 08:03 Dose: 3 ml Trazodone HCl (Trazodone Hcl 50 Mg Tablet) 50 mg PO BEDTIME PRN PRN Reason: Insomnia Home Medications ?Medication ?Instructions ?Recorded ?Confirmed ?Last Taken ?Type carvedilol 25 mg tablet 25 mg PO DAILY 04/17/2401/15 Unknown History citalopram 20 mg tablet 20 mg PO DAILY 04/17/2401/15 Unknown History bupropion HCl 300 mg 24 hr tablet, 300 mg PO DAILY 10/0801/31/25 Unknown History extended release Cbd 1 PO DAILY PRN Pain (Scale S core 01/31/25 Unknown History 4-6) acetaminophen 325 mg tablet 650 mg PO Q4H PRN Pain (Sc frank 01/31/25 01/31/25 Unknown History Score 1-3) donepezil 10 mg tablet 10 mg PO DAILY 01/31/2501/15 Unknown History meloxicam 15 mg tablet 15 mg PO DAILY 01/31/2501/15 Unknown History Exam Height,Weight and Vital Signs: Height 5 ft 7 in Weight 60.328 kg Last Vital Signs Temp 96.9 F 02/01/25 07:18 Pulse 90 02/01/25 07:18 Resp 18 02/01/25 07:18 BP 139/65 02/01/25 07:18 Pulse Ox 97 02/01/25 07:18 O2 Del Method Room Air 02/01/25 07:18 Pertinent Lab Results Pertinent Lab Results: Laboratory Tests 01/30/25 01/31/25 01/31/25 21:39 01:55 09:39 WBC 10.8 9.0 RBC 3.32 L D 2.88 L Hgb 10.6 L D 9.0 L 9.1 L Hct 30.7 L D 25.9 L 26.6 L MCV 92.5 92.4 MCH 31.9 31.6 MCHC 34.5 34.2 RDW 14.2 14.3 Plt Count 214 D 239 MPV 10.5 8.6 L Immature Gran % (Auto) 0.4 Neut % (Auto) 71.4 Lymph % (Auto) 19.4 L [place] % (Auto) 8.1 Eos % (Auto) 0.6 Baso % (Auto) 0.1 Lymph # (Auto) 2.1 [place] # (Auto) 0.9 Eos # (Auto) 0.1 Baso # (Auto) 0.0 Abs Immat Gran (auto) 0.04 H Absolute Neuts (auto) 7.7 Absolute Nucleated RBC 0.000 0.000 Nucleated RBC % (auto) 0.0 0.0 Smear Tech's Comments VERIFIED Sodium 137 140 Potassium 4.5 4.2 Chloride 104 110 H Carbon Dioxide 24 23 Anion Gap 14 11 L BUN 17 H 16 Creatinine 0.79 0.57 Estim Creat Clear Calc 49.6 68.7 Estimated GFR > 60 > 60 Random Glucose 152 H 98 Calcium 8.5 D 8.3 L Total Bilirubin 0.3 AST 18 ALT 8 Alkaline Phosphatase 81 Troponin I High Sens 3.4 B-Natriuretic Peptide 162 H Total Protein 6.1 L Albumin 3.5 Stool Occult Blood POSITIVE Blood Type A Positive Antibody Screen NEGATIVE 02/01/25 06:10 WBC 6.9 RBC 2.42 L Hgb 7.5 L Hct 22.5 L MCV 93.0 MCH 31.0 MCHC 33.3 RDW 14.2 Plt Count 256 MPV 9.3 L Immature Gran % (Auto) Neut % (Auto) Lymph % (Auto) [place] % (Auto) Eos % (Auto) Baso % (Auto) Lymph # (Auto) [place] # (Auto) Eos # (Auto) Baso # (Auto) Abs Immat Gran (auto) Absolute Neuts (auto) Absolute Nucleated RBC 0.000 Nucleated RBC % (auto) 0.0 Smear Tech's Comments Sodium 141 Potassium 3.9 Chloride 108 Carbon Dioxide 27 Anion Gap 10 L BUN 14 Creatinine 0.57 Estim Creat Clear Calc 68.7 Estimated GFR > 60 Random Glucose 104 Calcium 8.2 L Total Bilirubin AST ALT Alkaline Phosphatase Troponin I High Sens B-Natriuretic Peptide Total Protein Albumin Stool Occult Blood Blood Type Antibody Screen Narrative Narrative: EKG 01/30/25 Vent. Rate : 74 BPM Atrial Rate : 74 BPM P-R Int : 188 ms QRS Dur : 76 ms QT Int : 416 ms P-R-T Axes : 38 14 27 degrees QTcB Int : 461 ms Normal sinus rhythm Nonspecific T wave abnormality Abnormal ECG When compared with ECG of 08-Jan-2025 12:47, Premature atrial complexes are no longer Present Assessment and Plan Final Anesthetic Review Family History of Problems with Anesthesia: No History of Problems with Anesthesia: No Documented by User: Smiley Klein MD 02/02/25 13:49 [facility] Past Medical History Medical History GI bleed Dementia Hypertension Mood disorder Surgical History Surgical History Hx of esophagogastroduodenoscopy H/O hernia repair Hx of breast reduction, elective Social History Social History Household Members: Spouse Housing: House Do you presently have visiting nurse or other home services: No Unable to assess alcohol history related to: Refusing to respond Alcohol intake: former Patient Tobacco Use Status: Never used Tobacco Advance Directives Date on File: 04/16/24 service: No Current occupational status: retired Sexual orientation: Straight/Heterosexual Meds Allergies Allergy/AdvReac Type Severity Reaction Status Date / Time No Known Allergies Allergy Mild NOT Verified 01/30/25 21:18 APPLICABLE Home Medications ?Medication ?Instructions ?Recorded ?Confirmed ?Last Taken ?Type carvedilol 25 mg tablet 25 mg PO DAILY 04/17/2401/15 Unknown History citalopram 20 mg tablet 20 mg PO DAILY 04/17/2401/15 Unknown History bupropion HCl 300 mg 24 hr tablet, 300 mg PO DAILY 10/0801/31/25 Unknown History extended release Cbd 1 PO DAILY PRN Pain (Scale S core 01/31/25 Unknown History 4-6) acetaminophen 325 mg tablet 650 mg PO Q4H PRN Pain (Sc frank 01/31/25 01/31/25 Unknown History Score 1-3) donepezil 10 mg tablet 10 mg PO DAILY 01/31/2501/15 Unknown History meloxicam 15 mg tablet 15 mg PO DAILY 01/31/2501/15 Unknown History Exam Airway Mallampati Class: III Neck ROM: Limited Loose/Missing/Broken Teeth: No Heart: RRR Lungs: CTA Assessment and Plan Assessment Anesthesia Assessment: Anesthesia Plan Discussed and Chart Reviewed Final Anesthetic Review NPO: Yes ASA Class: III Final Preanesthetic Review: Meds/Allgs Chart Reviewed, Consent Obtained/Reviewed and Anes Risks/Benef Reviewed Patient Risk: Intermediate Procedure Risk: Low Anesthetic Plan Anesthetic Plan: MAC: Disposition: Standard PACU
[2025-02-01] MEDS: PEG 3350/Na Sulf,Bicarb,Cl/KCL 4,000 ML SOLN.RECON 4000 ML PO (14:12)
--- NOTE | 2025-02-01 15:32 | MHC.CM.PN ---
Patient is scheduled to be scoped by GI today. H/H will be rechecked this afternoon. DP Home self care, a family member will provide transport home.
[2025-02-01 15:42] VITALS: BP 98/54; PULSE 76; RESP 14; TEMP 36.4; O2SAT 95
[2025-02-01 15:44] LABS: Hematocrit 22.1 % (37.0-47.0); Hemoglobin 7.4 g/dl (12.0-16.0)
--- NOTE | 2025-02-01 16:48 | HO.PM.IMPN ---
Subjective Subjective Date of Service: 02/01/25 Interval History: On evaluation, the patient is lying comfortably in bed without new complaints Review of Systems Review of Systems: Yes all other systems are reviewed and are negative Physical Exam Exam: Exam: General: Comfortable, lying in bed, without acute distress Cardiac: S1, S2 auscultated with no S3/4, no MRG. Well perfused. Respiratory: Normal breath sounds auscultated throughout all lung zones, without wheezing, rales. Normal rate. GI/ : No abdominal pain on palpation, no masses or distentions. MSK: Normal ambulation without pain at bony prominences or musculature Neurological: Normal neurological examination on overview, without obvious CN II-XII abnormalities. Vital Signs: Vital Signs: Last Vital Signs Temp 97.5 F 02/01/25 15:42 Pulse 76 02/01/25 15:42 Resp 14 02/01/25 15:42 BP 98/54 L 02/01/25 15:42 Pulse Ox 95 02/01/25 15:42 O2 Del Method Room Air 02/01/25 15:42 BMI result Body Mass Index 20.8 Objective Data Active Medications Acetaminophen (Acetaminophen 325 Mg Tablet) 975 mg PO Q6H PRN PRN Reason: Pain, Mild 1-3,fever,headache Last Admin: 01/31/25 20:59 Dose: 975 mg Documented By: RAE Bupropion HCl (Bupropion Hcl Xl 300 Mg Tab.Er.24h) 300 mg PO DAILY [facility] OF [facility] Last Admin: 02/01/25 08:03 Dose: 300 mg Documented By: ANMOL Calcium Carbonate (Calcium Carbonate 750 Mg Tab.Chew) 750 mg PO Q4H PRN PRN Reason: Heartburn Carvedilol (Carvedilol 25 Mg Tablet) 25 mg PO DAILY [facility] OF [facility]; Protocol Last Admin: 02/01/25 08:03 Dose: 25 mg Documented By: ANMOL Donepezil HCl (Donepezil Hcl 10 Mg Tablet) 10 mg PO DAILY [facility] OF [facility] Last Admin: 02/01/25 08:03 Dose: 10 mg Documented By: ANMOL Escitalopram Oxalate (Escitalopram Oxalate 10 Mg Tablet) 10 mg PO DAILY [facility] Last Admin: 02/01/25 08:03 Dose: 10 mg Documented By: ANMOL Magnesium Hydroxide (Milk Of Magnesia 30 Ml Oral.Susp) 30 ml PO DAILY PRN PRN Reason: Constipation Melatonin (Melatonin 3 Mg Tablet) 6 mg PO BEDTIME PRN PRN Reason: Insomnia Olanzapine (Olanzapine 5 Mg Tablet) 5 mg PO BEDTIME [facility] Last Admin: 01/31/25 20:22 Dose: 5 mg Documented By: MAR Ondansetron HCl (Ondansetron Hcl 4 Mg/2 Ml Vial) 4 mg IVPUSH Q8H PRN PRN Reason: Nausea and Vomiting Pantoprazole Sodium (Pantoprazole Sodium 40 Mg/10 Ml Vial) 40 mg IVPUSH BID@0630,1630 [facility] Last Admin: 02/01/25 16:17 Dose: 40 mg Documented By: ANMOL Sodium Chloride (0.9 % Sodium Chloride Flush 3 Ml Syringe) 3 ml IVFLUSH QSHIFT [facility] Last Admin: 02/01/25 16:17 Dose: 3 ml Documented By: ANMOL Trazodone HCl (Trazodone Hcl 50 Mg Tablet) 50 mg PO BEDTIME PRN PRN Reason: Insomnia Labs 02/01/25 15:19 02/01/25 06:10 Labs: Laboratory Results - last 24 hr 02/01/25 06:10 MCV 93.0 MCH 31.0 MCHC 33.3 RDW 14.2 Plt Count 256 MPV 9.3 L Absolute Nucleated RBC 0.000 Nucleated RBC % (auto) 0.0 Anion Gap 10 L Estim Creat Clear Calc 68.7 Estimated GFR > 60 Random Glucose 104 Calcium 8.2 L Assessment and Plan (1) GI bleed: Status: Acute (2) ABLA (acute blood loss anemia): Status: Acute Plan 84-year-old female, past medical history hypertension, Alzheimer's dementia, mood disorder, presents with BRBPR, admitted with acute GI bleeding with acute asymptomatic blood loss anemia. Acute blood loss anemia, asymptomatic Suspicious for GI bleed PLAN - gastroenterology consultation - PPI b.i.d. IV - monitor CBC - plan for EGD and colonoscopy today Hypertension Continue carvedilol Alzheimer's dementia Continue Aricept Mood disorder Continue bupropion Continue olanzapine [employer] - VTE: Mechanical SCD - CODE STATUS: DNR/DNI - DIET: NPO - EGD colonoscopy pending Quality Stroke Does the patient have a stroke diagnosis?: No VTE Prior VTE?: No VTE Risk Level:: Medical - moderate - high VTE Device Contraindication: N/A - Device Ordered VTE Drug Contraindication: Treatment Not Indicated
[2025-02-01 20:00] VITALS: BP 130/61; PULSE 90; RESP 17; TEMP 36.4; O2SAT 96
[2025-02-01 21:19] LABS: Hematocrit 20.7 % (37.0-47.0); Hemoglobin 7.0 g/dl (12.0-16.0)
--- NOTE | 2025-02-01 21:20 | PM.EVENT ---
Event Note Date of Service: 02/01/25 Event Note: Repeat Hb 7. Will order 1 unit pRBC. Time Spent With Patient Time: Total time managing care of this patient today ____ minutes.
[2025-02-01 22:33] VITALS: BP 144/67; PULSE 74; RESP 18; TEMP 36.4
[2025-02-01 22:50] VITALS: BP 135/66; PULSE 74; RESP 16; TEMP 36.1
[2025-02-02] VITALS (10 sets, daily range): BP systolic 105–149; BP diastolic 54–86; PULSE 77–97; RESP 15–18; TEMP 36–36.8; O2SAT 93–100
[2025-02-02 03:49] LABS: Hematocrit 24.5 % (37.0-47.0); Hemoglobin 8.7 g/dl (12.0-16.0); Mean Corpuscular HGB Conc 35.5 g/dl (31.0-35.0); Mean Corpuscular Hemoglobin 31.4 pg (27.0-33.0); Mean Corpuscular Volume 88.4 fL (80.0-98.0); NRBC Abs Auto 0.000 X10*3/uL (0.0-0.012); NRBC Pct Auto 0.0 /100WBC (0.0-0.2); Platelet Count 234 X10*3/uL (160-400); Red Blood Count 2.77 X10*6/uL (4.20-5.50); White Blood Count 7.7 X10*3/uL (4.8-10.8)
[2025-02-02 04:07] LABS: Anion Gap 13 (12-20); Blood Urea Nitrogen 11 mg/dL (9-16); Calcium 8.3 mg/dL (8.4-10.2); Carbon Dioxide 25 mmol/L (22-29); Chloride 108 mmol/L (96-108); Creatinine Clr Calc Pharmacy 69.9; Estimated Glomerular Filt Rate > 60; Potassium 3.1 mmol/L (3.3-5.1); Sodium 143 mmol/L (135-145)
--- NOTE | 2025-02-02 05:06 | PC.NURSE ---
Pt has colonoscopy this am, was ordered to drink the bowel prep. She had 3 cups worth of it and was getting up to the bathroom frequently and a commode was placed at bedside for her to use. After the three cups she said she would not drink anymore . She was educated why she needed to drink it, but said she was in pain from frequent bathroom trips.
[2025-02-02] MEDS: 0.9 % Sodium Chloride Flush 3 ML SYRINGE IVFLUSH ×2 (09:44→20:53)
[2025-02-02] MEDS: Potassium Chloride/H20 10 MEQ/100 ML PIGGYBACK 100 MEQ IV ×4 (09:49→13:09)
[2025-02-02 11:13] LABS: MANUAL DIFF FLAG NO
[2025-02-02 11:19] LABS: Hematocrit 27.6 % (37.0-47.0); Hemoglobin 9.6 g/dl (12.0-16.0); Imm Gran Abs Auto 0.13 X10*3/uL (0.00-0.03); Imm Gran Pct Auto 1.5 % (0.0-0.4); Lymphocytes Absolute Auto 2.7 X10*3/uL (1.2-4.9); Mean Corpuscular HGB Conc 34.8 g/dl (31.0-35.0); Mean Corpuscular Hemoglobin 31.1 pg (27.0-33.0); Mean Corpuscular Volume 89.3 fL (80.0-98.0); NRBC Abs Auto 0.000 X10*3/uL (0.0-0.012); NRBC Pct Auto 0.0 /100WBC (0.0-0.2); Platelet Count 265 X10*3/uL (160-400); Red Blood Count 3.09 X10*6/uL (4.20-5.50); White Blood Count 8.5 X10*3/uL (4.8-10.8)
[2025-02-02 11:50] LABS: Anion Gap 9 (12-20); Blood Urea Nitrogen 9 mg/dL (9-16); Calcium 8.2 mg/dL (8.4-10.2); Carbon Dioxide 28 mmol/L (22-29); Chloride 108 mmol/L (96-108); Creatinine Clr Calc Pharmacy 68.7; Estimated Glomerular Filt Rate > 60; Magnesium 2.0 mg/dL (1.6-2.6); Potassium 3.4 mmol/L (3.3-5.1); Sodium 142 mmol/L (135-145)
--- NOTE | 2025-02-02 12:49 | P.PNIM_ITS ---
Subjective Subjective Date of Service: 02/02/25 Interval History: Patient lying comfortably in bed. No new complaints today. Reports events from last night including large bloody bowel motion. Plan for colonoscopy/EGD today, however the patient did not complete prep entirely. Review of Systems Review of Systems: Yes all other systems are reviewed and are negative Physical Exam 2 Exam: Exam: General: No pain, lying comfortably in bed Cardiac: S1, S2 auscultated with no S3/4, no MRG. Well perfused. Respiratory: Normal breath sounds auscultated throughout all lung zones, without wheezing, rales. Normal rate. GI/ : No abdominal pain on palpation, no masses or distentions. MSK: Normal ambulation without pain at bony prominences or musculature Neurological: Normal neurological examination on overview, without obvious CN II-XII abnormalities. Vital Signs: Vital Signs: Last Vital Signs Temp 98.3 F 02/02/25 07:35 Pulse 80 02/02/25 07:35 Resp 15 02/02/25 07:35 BP 143/67 H 02/02/25 07:35 Pulse Ox 93 02/02/25 07:35 O2 Del Method Room Air 02/02/25 07:35 BMI result Body Mass Index 20.8 Objective Data Active Medications Acetaminophen (Acetaminophen 325 Mg Tablet) 975 mg PO Q6H PRN PRN Reason: Pain, Mild 1-3,fever,headache Last Admin: 02/01/25 19:26 Dose: 975 mg Documented By: MAR Bupropion HCl (Bupropion Hcl Xl 300 Mg Tab.Er.24h) 300 mg PO DAILY [facility] Last Admin: 02/02/25 10:59 Dose: Not Given Documented By: BRIANNE Non-Admin Reason: NPO Calcium Carbonate (Calcium Carbonate 750 Mg Tab.Chew) 750 mg PO Q4H PRN PRN Reason: Heartburn Carvedilol (Carvedilol 25 Mg Tablet) 25 mg PO DAILY [facility]; Protocol Last Admin: 02/02/25 10:59 Dose: Not Given Documented By: BRIANNE Non-Admin Reason: NPO Donepezil HCl (Donepezil Hcl 10 Mg Tablet) 10 mg PO DAILY [facility] Last Admin: 02/02/25 10:59 Dose: Not Given Documented By: BRIANNE Non-Admin Reason: NPO Escitalopram Oxalate (Escitalopram Oxalate 10 Mg Tablet) 10 mg PO DAILY [facility] Last Admin: 02/02/25 10:59 Dose: Not Given Documented By: BRIANNE Non-Admin Reason: NPO Potassium Chloride (Potassium Chloride/H20) 10 meq in 100 mls @ 100 mls/hr IV Q1H [facility] Stop: 02/02/25 12:59 Last Admin: 02/02/25 12:06 Dose: 100 mls/hr Documented By: BRIANNE Magnesium Hydroxide (Milk Of Magnesia 30 Ml Oral.Susp) 30 ml PO DAILY PRN PRN Reason: Constipation Melatonin (Melatonin 3 Mg Tablet) 6 mg PO BEDTIME PRN PRN Reason: Insomnia Last Admin: 02/02/25 02:43 Dose: 6 mg Documented By: MAR Olanzapine (Olanzapine 5 Mg Tablet) 5 mg PO BEDTIME [facility] Last Admin: 02/01/25 19:25 Dose: 5 mg Documented By: MAR Ondansetron HCl (Ondansetron Hcl 4 Mg/2 Ml Vial) 4 mg IVPUSH Q8H PRN PRN Reason: Nausea and Vomiting Pantoprazole Sodium (Pantoprazole Sodium 40 Mg/10 Ml Vial) 40 mg IVPUSH BID@0630,1630 [facility] Last Admin: 02/02/25 05:50 Dose: 40 mg Documented By: MAR Sodium Biphosphate/Sodium Phosphate (Sodium Phosphate,[place]-Dibasic 133 Ml Enema) 133 ml MT ONCE ONE Stop: 02/02/25 12:39 Sodium Chloride (0.9 % Sodium Chloride Flush 3 Ml Syringe) 3 ml IVFLUSH QSHIFT [facility] Last Admin: 02/02/25 09:44 Dose: 3 ml Documented By: BRIANNE Trazodone HCl (Trazodone Hcl 50 Mg Tablet) 50 mg PO BEDTIME PRN PRN Reason: Insomnia Last Admin: 02/02/25 00:35 Dose: 50 mg Documented By: MAR Labs 02/02/25 11:11 02/02/25 10:33 Labs: Laboratory Results - last 24 hr 01/30/25 02/02/25 02/02/25 21:39 03:44 10:33 MCV 88.4 MCH 31.4 MCHC 35.5 H RDW 15.0 Plt Count 234 MPV 8.6 L Immature Gran % (Auto) Neut % (Auto) Lymph % (Auto) [place] % (Auto) Eos % (Auto) Baso % (Auto) Lymph # (Auto) [place] # (Auto) Eos # (Auto) Baso # (Auto) Abs Immat Gran (auto) Absolute Neuts (auto) Absolute Nucleated RBC 0.000 Nucleated RBC % (auto) 0.0 Anion Gap 13 9 L Estim Creat Clear Calc 69.9 68.7 Estimated GFR > 60 > 60 Random Glucose 104 107 Calcium 8.3 L 8.2 L Magnesium 2.0 Blood Type A Positive Antibody Screen NEGATIVE Crossmatch See Detail 02/02/25 11:11 MCV 89.3 MCH 31.1 MCHC 34.8 RDW 15.6 Plt Count 265 MPV 9.2 L Immature Gran % (Auto) 1.5 H Neut % (Auto) 56.4 Lymph % (Auto) 31.0 [place] % (Auto) 9.8 Eos % (Auto) 1.1 Baso % (Auto) 0.2 Lymph # (Auto) 2.7 [place] # (Auto) 0.8 Eos # (Auto) 0.1 Baso # (Auto) 0.0 Abs Immat Gran (auto) 0.13 H Absolute Neuts (auto) 4.8 Absolute Nucleated RBC 0.000 Nucleated RBC % (auto) 0.0 Anion Gap Estim Creat Clear Calc Estimated GFR Random Glucose Calcium Magnesium Blood Type Antibody Screen Crossmatch Assessment and Plan (1) GI bleed: Status: Acute (2) ABLA (acute blood loss anemia): Status: Acute (3) Dementia: Status: Acute Plan 84-year-old female, past medical history hypertension, Alzheimer's dementia, mood disorder, presents with BRBPR, admitted with acute GI bleeding with acute asymptomatic blood loss anemia. Acute blood loss anemia, asymptomatic Suspicious for GI bleed PLAN - gastroenterology recommendations greatly appreciated - PPI b.i.d. IV - monitor CBC - plan for EGD and colonoscopy - monitor for recurrence of bleeding - maintain active type and screen - transfuse for symptoms/hemoglobin less than 7 Hypertension Continue carvedilol Alzheimer's dementia Continue Aricept Mood disorder Continue bupropion Continue olanzapine QUALITY [employer]RICS - VTE: Mechanical SCD - CODE STATUS: DNR/DNI - DIET: NPO - EGD colonoscopy pending Total time managing care of this patient today: 35 minutes. Quality Stroke Does the patient have a stroke diagnosis?: No VTE Prior VTE?: No VTE Risk Level:: Medical - moderate - high VTE Device Contraindication: N/A - Device Ordered VTE Drug Contraindication: Treatment Not Indicated
--- NOTE | 2025-02-02 13:42 | MHC.SHP ---
Pre-Procedural Eval Section A - 24 Hr Update-Section A only Date of Service: 02/02/25 The patient is an INPATIENT: Yes Changes since office visit: No Cold of Flu in the past 2 weeks, No New Medical Problems, No Changes in Medication and No Patient answered all questions The patient has been examined within 24 hours of the surgical procedure. The History & Physical has been completed within 30 days and I have reviewed it.: Yes Section B - Complete if H&P > 30 days Chief Complaint: GL bleeding, anemia Allergies: Allergies Allergy/AdvReac Type Severity Reaction Status Date / Time No Known Allergies Allergy Mild NOT Verified 01/30/25 21:18 APPLICABLE Plan I have reviewed the history and physical and performed a pertinent physical examination on my patient. No changes have occurred unless specified. Time Spent With Patient Time: Total time managing care of this patient today ____ minutes.
--- NOTE | 2025-02-02 16:18 | PM.EVENT ---
Event Note Date of Service: 02/02/25 Event Note: Colonoscopy note dictated sigmoid diverticlosis no bleeding no significant lesions identified Diet advanced follow hct, if stable, d/c in next 24 hrs seems appropriate. Time Spent With Patient Time: Total time managing care of this patient today ____ minutes.
--- NOTE | 2025-02-03 00:47 | OP_ITS ---
DATE OF SERVICE: 02/02/2025 SURGEON: Erik Cheung MD INDICATIONS: GI bleeding. PREOPERATIVE DIAGNOSIS: POSTOPERATIVE DIAGNOSIS: PROCEDURE PERFORMED: Colonoscopy to the terminal ileum. ESTIMATED BLOOD LOSS: COMPLICATIONS: ANESTHESIA: Monitored anesthesia care. ASSISTANTS: SPECIMENS: DESCRIPTION OF PROCEDURE: A history and physical was performed. The risks and benefits of the procedure were explained to the patient, and informed consent was obtained. The patient was placed in the left lateral decubitus position. A digital rectal exam was performed and was found to be normal. The Olympus pediatric video colonoscope was introduced into the rectum and advanced to the cecum. The cecum was identified by transillumination, palpation, and identification of ileocecal valve. Examination was performed. The scope was removed. She tolerated the procedure well and was returned to the recovery area in stable condition. FINDINGS: The terminal ileum was briefly examined and appeared normal. Visualized colonic mucosa was normal. The quality of the prep was good. There was a single blood clot identified in the sigmoid and but no active diverticular bleeding was identified. There were a few scattered diverticula throughout the remainder of the colon. The quality of the prep was good. No polyps were identified. Retroflexed examination showed small internal hemorrhoids. IMPRESSION: Diverticulosis. RECOMMENDATION: 1. Follow up as needed. 2. Repeat colonoscopy is recommended in 10 years for average-risk individuals. This is optional based on the patient's age. MD ADIEL Lares/MODL / [id number]
[2025-02-03 03:36] VITALS: BP 138/61; PULSE 87; RESP 18; TEMP 36.2; O2SAT 92
[2025-02-03 05:54] LABS: MANUAL DIFF FLAG NO
[2025-02-03 06:13] LABS: Anion Gap 12 (12-20); Blood Urea Nitrogen 5 mg/dL (9-16); Calcium 8.3 mg/dL (8.4-10.2); Carbon Dioxide 26 mmol/L (22-29); Chloride 107 mmol/L (96-108); Creatinine Clr Calc Pharmacy 65.3; Estimated Glomerular Filt Rate > 60; Potassium 3.1 mmol/L (3.3-5.1); Sodium 142 mmol/L (135-145)
[2025-02-03 06:25] LABS: Hematocrit 25.9 % (37.0-47.0); Hemoglobin 9.1 g/dl (12.0-16.0); Imm Gran Abs Auto 0.07 X10*3/uL (0.00-0.03); Imm Gran Pct Auto 0.9 % (0.0-0.4); Lymphocytes Absolute Auto 2.7 X10*3/uL (1.2-4.9); Mean Corpuscular HGB Conc 35.1 g/dl (31.0-35.0); Mean Corpuscular Hemoglobin 31.5 pg (27.0-33.0); Mean Corpuscular Volume 89.6 fL (80.0-98.0); NRBC Abs Auto 0.000 X10*3/uL (0.0-0.012); NRBC Pct Auto 0.0 /100WBC (0.0-0.2); Platelet Count 281 X10*3/uL (160-400); Red Blood Count 2.89 X10*6/uL (4.20-5.50); White Blood Count 8.2 X10*3/uL (4.8-10.8)
[2025-02-03 07:37] VITALS: BP 160/74; PULSE 91; RESP 12; TEMP 36.7; O2SAT 96
[2025-02-03] MEDS: Potassium Chloride/H20 10 MEQ/100 ML PIGGYBACK 100 MEQ IV ×4 (08:27→11:59)
[2025-02-03] MEDS: 0.9 % Sodium Chloride Flush 3 ML SYRINGE IVFLUSH ×3 (08:28→19:48)
[2025-02-03] MEDS: buPROPion HCl XL 300 MG TAB.ER.24H PO (08:28)
--- NOTE | 2025-02-03 08:52 | HO.POSTANES ---
Post Anesthesia Evaluation Post Anesthesia Evaluation Date of Service: 02/03/25 Vital Signs: Vital Signs Temp Pulse Resp BP Pulse Ox O2 Del Method 02/03/25 07:37 98.1 F 91 12 160/74 H 96 Room Air 02/03/25 03:36 97.1 F 87 18 138/61 92 Room Air Anesthesia: Monitored Mental Status: Awake Pain Control: Satisfactory Nausea/Vomiting: None Hydration: Adequate Anesthesia-Related Issues: No Anes. Related Issues
--- NOTE | 2025-02-03 12:23 | HO.PM.IMPN ---
Subjective Subjective Date of Service: 02/03/25 Interval History: Status post colonoscopy yesterday. Feels well. No recurrence of GI bleeding. Patient reports having good night sleep. Eating and drinking well Urinating and stooling well Physical Exam Exam: Exam: General: A&O x3, oriented to time place person and situation, comfortable, no pain Cardiac: S1, S2 auscultated with no S3/4, no MRG. Well perfused. Respiratory: Normal breath sounds auscultated throughout all lung zones, without wheezing, rales. Normal rate. GI/ : No abdominal pain on palpation, no masses or distentions. MSK: Normal ambulation without pain at bony prominences or musculature Neurological: Normal neurological examination on overview, without obvious CN II-XII abnormalities. Vital Signs: Vital Signs: Last Vital Signs Temp 98.1 F 02/03/25 07:37 Pulse 91 02/03/25 07:37 Resp 12 02/03/25 07:37 BP 160/74 H 02/03/25 07:37 Pulse Ox 96 02/03/25 07:37 O2 Del Method Room Air 02/03/25 07:37 BMI result Body Mass Index 20.8 Objective Data Active Medications Acetaminophen (Acetaminophen 325 Mg Tablet) 975 mg PO Q6H PRN PRN Reason: Pain, Mild 1-3,fever,headache Last Admin: 02/02/25 22:44 Dose: 975 mg Documented By: YEYO Bupropion HCl (Bupropion Hcl Xl 300 Mg Tab.Er.24h) 300 mg PO DAILY [facility] Last Admin: 02/03/25 08:28 Dose: 300 mg Documented By: YOLI Calcium Carbonate (Calcium Carbonate 750 Mg Tab.Chew) 750 mg PO Q4H PRN PRN Reason: Heartburn Carvedilol (Carvedilol 25 Mg Tablet) 25 mg PO DAILY [facility]; Protocol Last Admin: 02/03/25 08:28 Dose: 25 mg Documented By: YOLI Donepezil HCl (Donepezil Hcl 10 Mg Tablet) 10 mg PO DAILY [facility] Last Admin: 02/03/25 08:28 Dose: 10 mg Documented By: YOLI Escitalopram Oxalate (Escitalopram Oxalate 10 Mg Tablet) 10 mg PO DAILY [facility] Last Admin: 02/03/25 08:28 Dose: 10 mg Documented By: YOLI Magnesium Hydroxide (Milk Of Magnesia 30 Ml Oral.Susp) 30 ml PO DAILY PRN PRN Reason: Constipation Magnesium Oxide (Magnesium Oxide 400 Mg Tablet) 800 mg PO DAILY [facility] Last Admin: 02/03/25 08:28 Dose: 800 mg Documented By: YOLI Melatonin (Melatonin 3 Mg Tablet) 6 mg PO BEDTIME PRN PRN Reason: Insomnia Last Admin: 02/02/25 22:44 Dose: 6 mg Documented By: YEYO Naloxone HCl (Naloxone Hcl 0.4 Mg/Ml Vial) 0.04 mg IVPUSH Q5M PRN PRN Reason: Excessive sedation or RR < 8 Olanzapine (Olanzapine 5 Mg Tablet) 5 mg PO BEDTIME [facility] Last Admin: 02/02/25 20:46 Dose: 5 mg Documented By: YEYO Ondansetron HCl (Ondansetron Hcl 4 Mg/2 Ml Vial) 4 mg IVPUSH Q8H PRN PRN Reason: Nausea and Vomiting Sodium Chloride (0.9 % Sodium Chloride Flush 3 Ml Syringe) 3 ml IVFLUSH QSHIFT [facility] Last Admin: 02/03/25 08:28 Dose: 3 ml Documented By: YOLI Trazodone HCl (Trazodone Hcl 50 Mg Tablet) 50 mg PO BEDTIME PRN PRN Reason: Insomnia Last Admin: 02/02/25 20:50 Dose: 50 mg Documented By: YEYO Labs 02/03/25 05:35 02/03/25 05:35 Labs: Laboratory Results - last 24 hr 02/03/25 05:35 MCV 89.6 MCH 31.5 MCHC 35.1 H RDW 15.9 Plt Count 281 MPV 8.9 L Immature Gran % (Auto) 0.9 H Neut % (Auto) 54.5 Lymph % (Auto) 32.7 [place] % (Auto) 10.3 Eos % (Auto) 1.5 Baso % (Auto) 0.1 Lymph # (Auto) 2.7 [place] # (Auto) 0.8 Eos # (Auto) 0.1 Baso # (Auto) 0.0 Abs Immat Gran (auto) 0.07 H Absolute Neuts (auto) 4.5 Absolute Nucleated RBC 0.000 Nucleated RBC % (auto) 0.0 Anion Gap 12 Estim Creat Clear Calc 65.3 Estimated GFR > 60 Random Glucose 92 Calcium 8.3 L Assessment and Plan (1) GI bleed: Status: Acute (2) ABLA (acute blood loss anemia): Status: Acute (3) Dementia: Status: Acute Plan 84-year-old female, past medical history hypertension, Alzheimer's dementia, mood disorder, presents with BRBPR, admitted with acute GI bleeding with acute asymptomatic blood loss anemia. Acute blood loss anemia, asymptomatic Suspicious for GI bleed PLAN - gastroenterology recommendations greatly appreciated - PPI b.i.d. IV - monitor CBC - plan for EGD and colonoscopy - monitor for recurrence of bleeding - maintain active type and screen - transfuse for symptoms/hemoglobin less than 7 Hypokalemia Noting low potassium today. PLAN - KCL replenishment - magnesium replenishment - monitor tomorrow - if normal plan for discharge Hypertension Continue carvedilol Alzheimer's dementia Continue Aricept Mood disorder Continue bupropion Continue olanzapine QUALITY [employer] - VTE: Mechanical SCD - CODE STATUS: DNR/DNI - DIET: Regular Total time managing care of this patient today: 35 minutes. Quality Stroke Does the patient have a stroke diagnosis?: No VTE Prior VTE?: No VTE Risk Level:: Medical - moderate - high VTE Device Contraindication: N/A - Device Ordered VTE Drug Contraindication: Treatment Not Indicated
[2025-02-03 15:16] VITALS: BP 131/60; PULSE 74; RESP 17; TEMP 36.4; O2SAT 96
[2025-02-03 19:58] VITALS: BP 134/64; PULSE 85; RESP 16; TEMP 36.4; O2SAT 98
[2025-02-04 03:38] VITALS: BP 119/60; PULSE 84; RESP 16; TEMP 36.2; O2SAT 96
[2025-02-04 06:29] LABS: MANUAL DIFF FLAG NO
[2025-02-04 06:31] LABS: Hematocrit 27.6 % (37.0-47.0); Hemoglobin 9.7 g/dl (12.0-16.0); Imm Gran Abs Auto 0.06 X10*3/uL (0.00-0.03); Imm Gran Pct Auto 0.7 % (0.0-0.4); Lymphocytes Absolute Auto 2.7 X10*3/uL (1.2-4.9); Mean Corpuscular HGB Conc 35.1 g/dl (31.0-35.0); Mean Corpuscular Hemoglobin 32.0 pg (27.0-33.0); Mean Corpuscular Volume 91.1 fL (80.0-98.0); NRBC Abs Auto 0.000 X10*3/uL (0.0-0.012); NRBC Pct Auto 0.0 /100WBC (0.0-0.2); Platelet Count 330 X10*3/uL (160-400); Red Blood Count 3.03 X10*6/uL (4.20-5.50); White Blood Count 9.0 X10*3/uL (4.8-10.8)
[2025-02-04 06:50] LABS: Anion Gap 12 (12-20); Blood Urea Nitrogen 6 mg/dL (9-16); Calcium 8.4 mg/dL (8.4-10.2); Carbon Dioxide 27 mmol/L (22-29); Chloride 106 mmol/L (96-108); Creatinine Clr Calc Pharmacy 68.7; Estimated Glomerular Filt Rate > 60; Potassium 3.8 mmol/L (3.3-5.1); Sodium 141 mmol/L (135-145)
[2025-02-04 07:43] VITALS: BP 149/74; PULSE 83; RESP 15; TEMP 36; O2SAT 94
[2025-02-04] MEDS: buPROPion HCl XL 300 MG TAB.ER.24H PO (09:41)
[2025-02-04] MEDS: 0.9 % Sodium Chloride Flush 3 ML SYRINGE IVFLUSH ×2 (09:41→15:19)
[2025-02-04 09:42] VITALS: BP 149/74; PULSE 83
--- NOTE | 2025-02-04 13:44 | P.DS_ITS ---
DS: Providers Provider Date of Service: 01/31/25 Date of admission: 01/31/25 00:51 Date of discharge: 02/04/25 Primary care physician: Veena Meyer MD Consults: 01/31/25 02:33 Consult to Gastroenterology Routine Consulting Provider: Kali Carrillo Reason for consultation: ABLA, GI bleed, rectal bleeding Has provider been notified: No Attending physician on discharge: Carmen Augustine DS: Diagnosis Discharge Diagnosis (1) GI bleed: Status: Acute (2) ABLA (acute blood loss anemia): Status: Acute (3) Dementia: Status: Acute DS: Summary Hospital Course Hospital Course: 84-year-old female, past medical history hypertension, Alzheimer's dementia, mood disorder, presents with BRBPR, admitted with acute GI bleeding with acute asymptomatic blood loss anemia. presented to the ED due to 2 episodes of bright red blood per rectum yesterday, the 1st episode with small 2nd moderate-size. The patient reports that this was not similar to her previous GI bleed as that was melena. She is not having any rectal pain. She is not have any known hemorrhoids however on exam by the ED provider she was found to have a external hemorrhoid that was nonbleeding and nonthrombosed. On rectal exam there was blood concerning for source higher than the hemorrhoid. Patient denies any chest pain, shortness of breath, nausea, vomiting, abdominal pain, diarrhea or constipation. The patient had recurrent episodes of bleeding while inpatient, requiring 2 unit PRBC transfusion without complication. She underwent EGD/colonoscopy revealing no active bleeding or significant lesions that were identified, however consistency with a sigmoid diverticulosis - likely the source of bleeding. After 24 hours of monitoring, the patient was deemed stable for discharge home. Status at Discharge Functional status at discharge: independent ambulation Overall status at discharge: patient is back to baseline Time Attestation Total time managing care of this patient today: 35 mintues. Discharge Coordination Time (in mins): 15 Quality: Safe Use of Opioids Does Pt have an Active Cancer Diagnosis on the Problem List?: No Quality: Stroke Does the patient have a stroke diagnosis?: No Physical Exam Exam: Exam: General: A&O x3, oriented to time place person and situation, comfortable, no p ain Cardiac: S1, S2 auscultated with no S3/4, no MRG. Well perfused. Respiratory: Normal breath sounds auscultated throughout all lung zones, without wheezing, rales. Normal rate. GI/ : No abdominal pain on palpation, no masses or distentions. MSK: Normal ambulation without pain at bony prominences or musculature Neurological: Normal neurological examination on overview, without obvious CN II-XII abnormalities. Vital Signs: Vital Signs: Last Vital Signs Temp 96.8 F 02/04/25 07:43 Pulse 83 02/04/25 09:42 Resp 15 02/04/25 07:43 BP 149/74 H 02/04/25 09:42 Pulse Ox 94 02/04/25 07:43 O2 Del Method Room Air 02/04/25 07:43 BMI result Body Mass Index 20.8 DS: Data Data Completed and Pending Labs on day of discharge: Laboratory Results - last 24 hr 02/04/25 06:22 WBC 9.0 RBC 3.03 L Hgb 9.7 L Hct 27.6 L MCV 91.1 MCH 32.0 MCHC 35.1 H RDW 15.8 Plt Count 330 MPV 8.2 L Immature Gran % (Auto) 0.7 H Neut % (Auto) 54.5 Lymph % (Auto) 30.1 [place] % (Auto) 12.3 H Eos % (Auto) 2.2 Baso % (Auto) 0.2 Lymph # (Auto) 2.7 [place] # (Auto) 1.1 Eos # (Auto) 0.2 Baso # (Auto) 0.0 Abs Immat Gran (auto) 0.06 H Absolute Neuts (auto) 4.9 Absolute Nucleated RBC 0.000 Nucleated RBC % (auto) 0.0 Sodium 141 Potassium 3.8 D Chloride 106 Carbon Dioxide 27 Anion Gap 12 BUN 6 L Creatinine 0.57 Estim Creat Clear Calc 68.7 Estimated GFR > 60 Random Glucose 103 Calcium 8.4 Discharge Plan Discharge Anticipated Discharge Date/Time: 02/04/25 13:46 Patient Disposition: Home, Self-Care Discharge Diagnosis: Acute GI bleed with symptomatic anemia status post 2 unit PRBC transfusion secondary to bleeding sigmoid diverticula Referrals: Veena Meyer MD [Primary Care Provider, Internal Medicine] - 1 Week Discharge Medications: Continued trazodone 50 mg Tablet 50 mg PO BEDTIME PRN (Reason: Insomnia) Qty: 30 0RF olanzapine 5 mg Tablet 5 mg PO BEDTIME Qty: 30 0RF carvedilol 25 mg tablet 25 mg PO DAILY citalopram 20 mg tablet 20 mg PO DAILY bupropion HCl 300 mg tablet extended release 24 hr 300 mg PO DAILY meloxicam 15 mg Tablet 15 mg PO DAILY donepezil 10 mg Tablet 10 mg PO DAILY acetaminophen 325 mg Tablet 650 mg PO Q4H PRN (Reason: Pain (Scale Score 1-3)) Cbd 1,500 mg 1 PO DAILY PRN (Reason: Pain (Scale Score 4-6)) Discharge Orders: Discharge Order (Routine); Ordered 02/04/25 Ordered By: Carmen Augustine Diet: Advance to usual diet Activity on Discharge: As tolerated Stand Alone Forms: Patient Portal Discharge page Print Language: Ukrainian Care Plan Goals: Follow-up gastroenterology outpatient setting Follow up with PCP within 1 week Repeat H&H within 1 week of discharge Health Concerns: Acute GI bleed Plan of Treatment: Continue PPI outpatient setting Assessment: Stable, no complaints, back to baseline
[2025-02-04 14:10] VITALS: BP 127/60; PULSE 76; RESP 16; TEMP 36.2; O2SAT 97
--- NOTE | 2025-02-04 14:55 | MHC.CM.PN ---
IMM 02/04/25 Patient is discharged to home self care. She has arranged for her son to provide transportation home. He will pick her up at 5:30pm.
[2025-02-04 15:41] VITALS: BP 127/62; PULSE 77; RESP 18; TEMP 36.4; O2SAT 98
== END 2025-02-04 18:01 | disposition home or self-care (01) | DRG 378 ==
LOC: HO.ED 01-31 00:50 → HO.EDOVER 01-31 00:53 → HO.S3 01-31 10:32
PROVIDERS: Internal Medicine; Internal Medicine Gastroenterology; Physician Assistant; Admitting Provider Internal Medicine; Emergency Provider Emergency Medicine; PCP Internal Medicine; Visit Provider Hospitalist
PROC: 0DJD8ZZ Inspection of Lower Intestinal Tract, Via Natural or Artificial Opening Endoscopic (ICD-10-PCS; CPT 45378; principal; 2025-02-02 13:20)
DX: K57.31 Diverticulosis of large intestine without perforation or abscess with bleeding (principal); D62 Acute posthemorrhagic anemia; Z66 Do not resuscitate; G30.9 Alzheimer's disease, unspecified; F02.80 Dementia in other diseases classified elsewhere, unspecified severity, without behavioral disturbance, psychotic disturbance, mood disturbance, and anxiety; I10 Essential (primary) hypertension; F39 Unspecified mood [affective] disorder; Z79.899 Other long term (current) drug therapy
CPT/HCPCS: 36415; 74178; 80048; 80053; 82272; 83735; 83880; 84484; 85014; 85018; 85025; 85027; 86850; 86900; 86901; 86923; 93005; 99285; J2003; J2470; J2704; J3480; P9016; Q9967

== ENCOUNTER → 2025-01-30 21:35 | Outpatient (BNV) | payer MEDICARE, SELFPAY | PROVIDERS: Admitting Provider Internal Medicine; Emergency Provider Emergency Medicine; PCP Internal Medicine; Visit Provider Radiology Diagnostic Radiology | DX: K62.5 Hemorrhage of anus and rectum (principal) | CPT/HCPCS: 74178 ==

== ENCOUNTER → 2025-01-30 21:37 | Outpatient (BNV) | payer MEDICARE, SELFPAY | PROVIDERS: Admitting Provider Internal Medicine; Emergency Provider Emergency Medicine; PCP Internal Medicine; Visit Provider Internal Medicine Cardiovascular Disease | DX: R94.31 Abnormal electrocardiogram [ECG] [EKG] (principal) | CPT/HCPCS: 93010 ==

== ENCOUNTER → 2025-01-31 00:51 | Outpatient (BNV) | payer MEDICARE, SELFPAY | PROVIDERS: Admitting Provider Internal Medicine; Emergency Provider Emergency Medicine; PCP Internal Medicine; Visit Provider Internal Medicine Gastroenterology | DX: K62.5 Hemorrhage of anus and rectum (principal); D62 Acute posthemorrhagic anemia | CPT/HCPCS: 99222 ==

== ENCOUNTER → 2025-01-31 00:51 | Outpatient (BNV) | payer MEDICARE, SELFPAY | PROVIDERS: Admitting Provider Internal Medicine; Emergency Provider Emergency Medicine; PCP Internal Medicine; Visit Provider Physician Assistant | DX: D62 Acute posthemorrhagic anemia (principal); K62.5 Hemorrhage of anus and rectum | CPT/HCPCS: 99223; 99499 ==

== ENCOUNTER 2025-02-16 13:50 | Outpatient (REF) | payer MEDICARE, SELFPAY ==
[2025-02-16 14:16] LABS: MANUAL DIFF FLAG NO
[2025-02-16 14:39] LABS: Hematocrit 32.6 % (37.0-47.0); Hemoglobin 10.7 g/dl (12.0-16.0); Imm Gran Abs Auto 0.11 X10*3/uL (0.00-0.03); Imm Gran Pct Auto 1.2 % (0.0-0.4); Lymphocytes Absolute Auto 2.3 X10*3/uL (1.2-4.9); Mean Corpuscular HGB Conc 32.8 g/dl (31.0-35.0); Mean Corpuscular Hemoglobin 30.9 pg (27.0-33.0); Mean Corpuscular Volume 94.2 fL (80.0-98.0); NRBC Abs Auto 0.000 X10*3/uL (0.0-0.012); NRBC Pct Auto 0.0 /100WBC (0.0-0.2); Platelet Count 513 X10*3/uL (160-400); Red Blood Count 3.46 X10*6/uL (4.20-5.50); White Blood Count 9.1 X10*3/uL (4.8-10.8)
[2025-02-16 15:13] LABS: Alanine Aminotransferase 8 U/L (0-31); Albumin Level 3.9 g/dL (3.5-5.0); Alkaline Phosphatase 84 U/L (39-117); Anion Gap 13 (12-20); Aspartate Amino Transferase 20 U/L (5-31); Blood Urea Nitrogen 21 mg/dL (9-16); Calcium 9.4 mg/dL (8.4-10.2); Carbon Dioxide 29 mmol/L (22-29); Chloride 103 mmol/L (96-108); Estimated Glomerular Filt Rate > 60; Potassium 4.2 mmol/L (3.3-5.1); Sodium 141 mmol/L (135-145); Total Protein 7.1 g/dL (6.5-8.0)
[2025-02-16 15:30] LABS: Thyroid Stimulating Hormone 1.79 uIU/mL (0.32-4.0)
== END 2025-02-16 13:51 | disposition home or self-care (01) ==
LOC: HO.LAB 13:50
PROVIDERS: Visit Provider Internal Medicine
DX: K62.5 Hemorrhage of anus and rectum (principal); M54.50 Low back pain, unspecified; R63.4 Abnormal weight loss
CPT/HCPCS: 36415; 80053; 84443; 85025

== ENCOUNTER 2025-03-15 21:12 | Emergency (ER) | payer MEDICARE, SELFPAY ==
--- NOTE | 2025-03-15 21:26 | ED_ITS ---
HPI - General Adult General Chief complaint: GI Bleed Stated complaint: Runny diarrhea w/ blood Time Seen by Provider: 03/15/25 21:19 Source: patient Mode of arrival: ambulatory Limitations: no limitations History of Present Illness ED Provider: Dr. Zapien [facility] narrative: 84-year-old female history of anemia , GI ulcer presented hospital today for evaluation of bright rectal bleeding. This started today. Patient states she had 3 episode of diarrhea. She is not complaining of abdominal pain no nausea and vomiting. Patient denies any fever or recent sick contact. Patient stated that she noticed bright blood in her stool when she had a diarrhea episode today. Denies any history of hemorrhoids. Related Data Home Medications ?Medication ?Instructions ?Recorded ?Confirmed carvedilol 25 mg tablet 25 mg PO DAILY 04/17/2401/15 citalopram 20 mg tablet 20 mg PO DAILY 04/17/2401/15 bupropion HCl 300 mg 24 hr tablet, 300 mg PO DAILY 10/0801/31/25 extended release Cbd 1 PO DAILY PRN Pain (Scale S core 01/31/25 4-6) acetaminophen 325 mg tablet 650 mg PO Q4H PRN Pain (Sc frank 01/31/25 01/31/25 Score 1-3) donepezil 10 mg tablet 10 mg PO DAILY 01/31/2501/15 meloxicam 15 mg tablet 15 mg PO DAILY 01/31/2501/15 Previous Rx's ?Medication ?Instructions ?Recorded olanzapine 5 mg tablet 5 mg PO BEDTIME #30 tabs trazodone 50 mg tablet 50 mg PO BEDTIME PRN Insomni a #30 04/15/24 tabs hydrocortisone 2.5 % topical cream 1 appl topical TID 5 days #20 grams 03/16/25 Allergies Allergy/AdvReac Type Severity Reaction Status Date / Time No Known Allergies Allergy Mild NOT Verified 03/15/25 21:45 APPLICABLE Review of Systems 2 Review of Systems: Pertinent review of systems as mentioned in [facility]. All other system otherwise negative. [facility] Past Medical History [facility] Narrative: Medical history as mentioned in HPI Medical History GI bleed Dementia Hypertension Mood disorder Surgical History Hx of esophagogastroduodenoscopy H/O hernia repair Hx of breast reduction, elective Social History Social History Household Members: Spouse Housing: House Do you presently have visiting nurse or other home services: No Alcohol intake: former Patient Tobacco Use Status: Never used Tobacco Smoked in Last 30 Days: No Use of substances other than those prescribed or required for medical reasons: No Advance Directives: Yes Advance Directives on File: Yes Advance Directives Date on File: 04/16/24 Do you have a plan to hurt others: No Plan service: No Current occupational status: retired Sexual orientation: Straight/Heterosexual Physical Exam ED Exam Exam: General: Pleasant, no distress, interacting appropriately Head: Normacephalic, atraumatic ENT: oral mucosa moist, neck supple, no tracheal deviation Cardiovascular: regular rate, regular rhythm, no murmurs, rubbing, gallops Respiratory: CTAB, no wheeze, rales, rhonchi Gastrointestinal: Soft, non distended, non tender, non guarding : Does appear to have skin tag at a 6 o'clock position consistent with hemorrhoid. No sign of active bleeding from the rectum Neurological: Awake and alert, no facial droop noted Skin: Warm and dry Psychiatric: Appropriate mood and thoughts Vital Signs: Vital Signs - 24 hr 03/15/25 21:43 03/15/25 23:53 03/16/25 07:40 Temperature 98.2 F 97.8 F 98.1 F Pulse Rate 71 85 65 Respiratory Rate 16 22 H 14 Blood Pressure 137/73 145/71 H 101/51 L Pulse Oximetry 95 95 95 Oxygen Delivery Method Room Air Room Air Room Air BMI result Body Mass Index 19.3 Course Course Course Narrative: 03/16/25 0853 DAVID Frost: Physician observation continued, no overnight events or recurrent bleeding reported by nursing. Awaiting PT evaluation, VS stable. 03/16/25 1417 DAVID Frost: Per [place] from , patient will be discharged home with VNA for SN and PT. Family will transport patient home. Observation care revealed that patient does not meet medical necessity for hospitalization. Final disposition discussed with patient. The patient completed observation care at 1530 on 03/16/25. Medications Administered Discontinued Medications Generic Name Dose Route Start Last Admin Trade Name Darrius PRN Reason Stop Dose Admin Sodium Chloride 1,000 mls @ 999 mls/hr 03/15/25 21:45 03/15/25 23:06 Ns IV 03/15/25 22:45 Infused .Q1H1M DIONNE Infusion Loperamide HCl 4 mg 03/15/25 21:38 03/15/25 21:56 Loperamide Hcl 2 Mg Capsule PO 03/15/25 21:39 4 mg ONCE ONE Administration Medical Decision Making Medical Decision Making [facility] Narrative: 84-year-old female history of gastric ulcer, anemia presented hospital today for evaluation of bright red blood per rectum, diarrhea that started today. We will plan to obtain a CBC to assess her hemoglobin level. She does have history of anemia from gastric ulcers in the past. We will plan to give patient a bolus IV fluid and Imodium for her diarrhea. On exam patient does appear to have hemorrhoid. I did consider obtain a CT abdomen and pelvis however patient does not have any abdominal pain on exam. Review patient's lab work. Patient's hemoglobin level is 9.5. Patient is not tachycardic not hypotensive. I do not think patient is in hemorrhagic shock. Patient denies any shortness of breath or lightheadedness. No signs of symptomatic anemia. Patient's chemistry is unremarkable. The patient has no further episodes of diarrhea since she has been here. I suspect her rectal bleeding is from the hemorrhoids. That does appear to have stopped. Patient is noted that she has been increasingly weak. We will plan to hold the patient for PT and case management evaluation for possible home resources. She stated that she is taking care of her advanced demented . She does have a 60-year-old son that helps out. Discussed with the patient about her code status. She stated that her sister is her healthcare proxy. And she we will like to be DNR DNI. This will be placed as an order into the system to reflect her wishes. Regular diet ordered. Case management consult ordered, PT evaluation consult ordered. We will plan to board the patient in the ER overnight Phys Obs initiated at 0026 03/16/25 Differential Diagnosis Differential Diagnoses: The differential diagnosis associated with the presentation includes Rectal bleeding, diarrhea, dehydration, hemorrhoids, anemia Lab Data [facility] Lab Attestation statement: I reviewed the patient's lab results. 03/15/25 21:31 03/15/25 21:31 Labs: Lab Results 03/15/25 03/16/25 Range/Units 21:31 12:58 WBC 8.0 (4.8-10.8) X10*3/uL RBC 3.18 L (4.20-5.50) X10*6/uL Hgb 9.5 L (12.0-16.0) g/dl Hct 28.5 L (37.0-47.0) % MCV 89.6 (80.0-98.0) fL MCH 29.9 (27.0-33.0) pg MCHC 33.3 (31.0-35.0) g/dl RDW 14.0 (11.0-16.0) % Plt Count 325 D (160-400) X10*3/uL MPV 8.9 L (9.4-12.3) fL Immature Gran % (Auto) 0.3 (0.0-0.4) % Neut % (Auto) 43.5 L (45-73) % Lymph % (Auto) 40.8 H (20-40) % [place] % (Auto) 13.4 H (2-11) % Eos % (Auto) 1.9 (0-4) % Baso % (Auto) 0.1 (0-2) % Lymph # (Auto) 3.3 (1.2-4.9) X10*3/uL [place] # (Auto) 1.1 (0.1-1.2) X10*3/uL Eos # (Auto) 0.2 (0.0-0.4) X10*3/uL Baso # (Auto) 0.0 (0.0-0.2) X10*3/uL Abs Immat Gran (auto) 0.02 (0.00-0.03) X10*3/uL Absolute Neuts (auto) 3.5 (2.0-8.3) x10*3/uL Absolute Nucleated RBC 0.000 (0.0-0.012) X10*3/uL Nucleated RBC % (auto) 0.0 (0.0-0.2) /100WBC Sodium 139 (135-145) mmol/L Potassium 4.8 (3.3-5.1) mmol/L Chloride 108 (96-108) mmol/L Carbon Dioxide 21 L (22-29) mmol/L Anion Gap 15 (12-20) BUN 16 (9-16) mg/dL Creatinine 0.73 (0.5-1.4) mg/dL Estim Creat Clear Calc 49.6 Estimated GFR > 60 Random Glucose 125 H (60-115) mg/dL Calcium 9.0 (8.4-10.2) mg/dL Total Bilirubin 0.2 (0.0-1.0) mg/dL AST 27 (5-31) U/L ALT 10 (0-31) U/L Alkaline Phosphatase 73 (39-117) U/L Total Protein 6.4 L (6.5-8.0) g/dL Albumin 3.5 (3.5-5.0) g/dL Influenza Type A (PCR) NEGATIVE (Negative) Influenza Type B (PCR) NEGATIVE (Negative) RSV RNA Qual (PCR) NEGATIVE (Negative) SARS-CoV-2 RNA (RT-PCR) NEGATIVE (Negative) Discharge Plan Discharge Clinical Impression: Bright red rectal bleeding Hemorrhoids Qualifiers: Hemorrhoid type: residual hemorrhoidal skin tags Qualified Code(s): K64.4 - Residual hemorrhoidal skin tags Patient Disposition: Home, Self-Care Instructions: Sitz [place] (DC) Additional Instructions: You were evaluated in the emergency department for rectal bleeding which appears to be related to hemorrhoids. A prescription for hydrocortisone cream has been sent to your pharmacy. You are being discharged with VNA for long term and physical therapy. Follow up with your primary care provider this week. Return to the emergency department if you develop increased bleeding, black, tarry stool, have dizziness, lightheadedness, fainting, shortness of breath, or any other new or concerning symptoms. Prescriptions: New hydrocortisone 2.5 % cream 1 appl topical TID 5 Days Qty: 20 0RF No Action trazodone 50 mg Tablet 50 mg PO BEDTIME PRN (Reason: Insomnia) Qty: 30 0RF olanzapine 5 mg Tablet 5 mg PO BEDTIME Qty: 30 0RF carvedilol 25 mg tablet 25 mg PO DAILY citalopram 20 mg tablet 20 mg PO DAILY bupropion HCl 300 mg tablet extended release 24 hr 300 mg PO DAILY meloxicam 15 mg Tablet 15 mg PO DAILY donepezil 10 mg Tablet 10 mg PO DAILY acetaminophen 325 mg Tablet 650 mg PO Q4H PRN (Reason: Pain (Scale Score 1-3)) Cbd 1,500 mg 1 PO DAILY PRN (Reason: Pain (Scale Score 4-6)) Referrals: TREV PEREYRA [Other] Print Language: Thai
[2025-03-15 21:34] LABS: MANUAL DIFF FLAG NO
[2025-03-15 21:37] LABS: Hematocrit 28.5 % (37.0-47.0); Hemoglobin 9.5 g/dl (12.0-16.0); Imm Gran Abs Auto 0.02 X10*3/uL (0.00-0.03); Imm Gran Pct Auto 0.3 % (0.0-0.4); Lymphocytes Absolute Auto 3.3 X10*3/uL (1.2-4.9); Mean Corpuscular HGB Conc 33.3 g/dl (31.0-35.0); Mean Corpuscular Hemoglobin 29.9 pg (27.0-33.0); Mean Corpuscular Volume 89.6 fL (80.0-98.0); NRBC Abs Auto 0.000 X10*3/uL (0.0-0.012); NRBC Pct Auto 0.0 /100WBC (0.0-0.2); Platelet Count 325 X10*3/uL (160-400); Red Blood Count 3.18 X10*6/uL (4.20-5.50); White Blood Count 8.0 X10*3/uL (4.8-10.8)
[2025-03-15 21:43] VITALS: BP 109/60; BP 137/73; PULSE 70; PULSE 71; RESP 16; TEMP 36.8; O2SAT 95; O2SAT 96; BMI 19.3
--- NOTE | 2025-03-15 21:47 | PC.NURSE ---
pt change control manager into hospital attire, pt placed in bedside monitor, Iv place, labs collected and sent. rectal exam completed by provider. Fall risk in place.
[2025-03-15 21:50] LABS: Alanine Aminotransferase 10 U/L (0-31); Albumin Level 3.5 g/dL (3.5-5.0); Alkaline Phosphatase 73 U/L (39-117); Anion Gap 15 (12-20); Aspartate Amino Transferase 27 U/L (5-31); Blood Urea Nitrogen 16 mg/dL (9-16); Calcium 9.0 mg/dL (8.4-10.2); Carbon Dioxide 21 mmol/L (22-29); Chloride 108 mmol/L (96-108); Creatinine Clr Calc Pharmacy 49.6; Estimated Glomerular Filt Rate > 60; Potassium 4.8 mmol/L (3.3-5.1); Sodium 139 mmol/L (135-145); Total Protein 6.4 g/dL (6.5-8.0)
--- NOTE | 2025-03-15 22:00 | PC.NURSE ---
Assisted to bedside commode, medicated per Mar.
--- OUTSIDE RECORDS SUMMARY | 2025-03-15 22:23 | XMS_ITS | Data Portability ---
Author Organization [facility] ([facility] Main Office Address [address] [place] [address] Care Team Providers Care Mid Level Business Analyst Name Role Phone [facility] ER ZAFAR CARMONA Primary Care Provider [...] Details Recorded Time Dementia with behavioral disturbance 9137401196058 Active 2023 Darwin Jesus MD [address], [facility] [facility] [address], [place], [address], [email or web address] 4 12:36:51 Malignant hypertensio n 95834891 Active 2023 Darwin Jesus MD [address], [address], [place], [address], [facility] [employer] 4 12:36:57 Unsteady when walking 98352160 Active 2023 Darwin Jesus MD [address], [address], [place], [address], [facility] [employer] 4 12:37:03 Gastroesoph ageal reflux disease without esophagitis 597175309 Active 2023 Darwin Jesus MD [address], [address], [place], [address], [facility] [employer] 4 12:45:38 Primary insomnia 1942094 Active 2023 Darwin Jesus MD [address], [address], [place], [address], [facility] [employer] 4 12:46:51 Neurocognit stuart disorder 139867458 Active 2023 Darwin eJsus MD [address], [address], [place], [address], [facility] [employer] 4 12:50:31 Problem Notes None recorded. Medical Equipment None Reported. Allergies No known drug allergies Medications Not known to be on any medication Vitals Date Recorded Systolic And Diastolic Provider Name and Address Organization Details Last Updated DateTime 05/22/2024 122/70 mm[Hg] Darwin Jesus MD [address], [address], [place], [address], [employer] 05/22/2024 12:29:30 Social History Question Answer Notes LastModified by [employer] Details LastModified Time Tobacco Smoking Status Unknown If Ever Smoked Darwin Jesus MD [address], [address], [place], [address], [employer] 05/22/2024 12:32:06 Do You Have An Advance Directive? No [email or web address] Information not available 05/22/2024 What Is Your Code Status? Full Code [email or web address] Information not available 05/22/2024 Sex: Unknown Functional Status Question Answer Note LastModified by Organizat ORDISSIMO Details LastModified Time What is your level [...] Time influenza, unspecified formulation 04/20/2019 [facility] 05/[facility]/2024 14:16:57 influenza, unspecified formulation 02/29/2020 completed Kd jacome [facility] [employer] [facility] 05/20/2024 14:17:02 influenza, unspecified formulation 02/27/2021 completed Kd Burgess-Arshad null, [facility] 05/20/2024 14:17:06 influenza, unspecified formulation 03/12/2022 completed Kd Ronnys-Arshad null, [facility] 05/20/2024 14:17:10 influenza, unspecified formulation 03/20/2023 completed Kd Ronnys-Arshad null, [facility] 05/20/2024 14:17:16 SARS-COV-2 (COVID-19) vaccine, UNSPECIFIED 07/31/2020 completed Kd Ronnys-Arshad null, [facility] 05/20/2024 14:17:31 SARS-COV-2 (COVID-19) vaccine, UNSPECIFIED 08/21/2020 completed Kd Ronnys-Arshad null, [facility] 05/20/2024 14:17:36 SARS-COV-2 (COVID-19) vaccine, UNSPECIFIED 05/24/2021 completed Kd Aditya-Arshad null, [facility] 05/20/2024 14:17:41 SARS-COV-2 (COVID-19) vaccine, UNSPECIFIED 12/20/2021 completed Kd Aditya-Arshad null, [facility] 05/20/2024 14:17:47 SARS-COV-2 (COVID-19) vaccine, UNSPECIFIED 03/20/2023 completed Kd Aditya-Arshad null, [facility] 05/20/2024 14:17:53 zoster, unspecified formulation 02/18/2013 completed Kd Ronnys-Arshad null, [facility] 05/20/2024 14:18:09 Past Encounters Encounter ID Performer Location Encounter Start Date Encounter Closed Date Diagnosis/Indication Diagnosis SNOMED-CT Code Diagnosis ICD10 Code Diagnosis IMO Codes Diagnosis Note [id number] Darwin Jesus MD [address] [address] 05/22/2024 12:26:55 05/25/2024 11:38:28 Dementia with behavioral disturbance [id number] 103 F01.B18 see HPIapparevelma carpio was living at home with however due [...] not have this [facility] mg qhscitalop claudio 20 mg qdbupropio n 300 mg qdaricept 5 mg qdmonitor need to transition to LTC Recurrent urinary tract infection N30.20 complete course of ceftinmoni tor for recurrent disease Malignant hypertension 58183502 I10 coreg 25 mg bidmonitor bp and need to titrate Unsteady when walking 22 729232 R26.89 walker at baselinePT OT eval and treatmonit or fall risk Gastroesop hageal reflux disease without esophagitis 954995043 K21.9 omeprazole 20 mg qdmonitor for sx relief Primary insomnia 5572377 F51.01 trazodone 50 mg qhs prnmonitor utilizatio n Neurocogni tive disorder 060364468 F01.C2 see above [id number] [address] [facility] [place] [address] 05/25/2024 11:41:07 05/27/2024 13:27:52 Dementia with behavioral disturbance [id number] 103 F01.B18 see HPIinpt drea-psych eval with severe cognitive impairment = axox3 on exam todayconti nue risperidon e 2 mg qhscontinu e citalopram 20 mg qdcontinue bupropion 300 mg qdcontinue aricept 5 mg qdmonitor for behaviorsw aiting on psych eval heremonito r need to transition to LTC Neurocogni tive disorder 011710742 F01.C2 see above Recurrent urinary tract infection N30.20 completed course of ceftinmoni tor for recurrent disease Malignant hypertension 18201518 I10 coreg 25 mg bidmonitor bp and need to titrate Unsteady when walking 22 737004 R26.89 walker at baselinePT OT eval and treatmonit or fall risk Gastroesop hageal reflux disease without esophagitis 539072586 K21.9 omeprazole 20 mg qdmonitor for sx relief Primary insomnia 3847435 F51.01 trazodone 50 mg qhs prnmonitor utilizatio n [id number] [address] [place] [address] 05/28/2024 11:08:22 05/29/2024 11:19:47 Dementia with behavioral disturbance [id number] 103 F01.B18 see HPIinpt drea-psych eval with severe cognitive impairment = axox3 on exam todayconti nue zyprexa 5 mg qhscontinu e citalopram 20 mg qdcontinue bupropion 300 mg qdcontinue aricept 5 mg qdmonitor for behaviorsw aiting on psych eval heremonito r need to transition to LTC Cough 71456068 R05.9 night time cough, lungs are clear, afebrilest art tussin and cough drops prn for 14 daysmonito r for ss infection [id number] [address] [place] [address] 06/08/2024 11:15:49 06/09/2024 09:07:45 Dementia with behavioral disturbance 8437953076 103 F01.B18 inpt drea-psych eval with severe cognitive impairment = axox3 on exam todayseen by geropsychologist here with no changes in med regimen suggestedc ontinue zyprexa 5 mg qhscontinu e citalopram 20 mg qdcontinue bupropion 300 mg qdcontinue aricept 5 mg qdmonitor for behaviorsp atient denies any SI/HIf/up with pcp Cough 39252962 R05.9 resolved Neurocogni tive disorder 121238492 F01.C2 see above Recurrent urinary tract infection 729876774 N30.20 completed course of ceftinmoni tor for recurrent disease outpatient f/up with pcp Malignant hypertension 76571980 I10 coreg 25 mg bidmonitor bp and need to titrate outpatient f/up with pcp Unsteady when walking 22 461509 R26.89 walker at baselineVN A services outpatient f/up with pcp Gastroesop hageal reflux disease without esophagitis 821622621 K21.9 omeprazole 20 mg qdmonitor for sx outpatient f/up with pcp Primary insomnia 6681345 F51.01 trazodone 50 mg qhs prnf/up with pcp Health Concerns Section Related Observation LastModified by Organization Detai ls LastModified Time None Recorded Concern Status LastModified by Organization Details LastModified Time None Recorded Advance Directives Directive N: Payers Insurance Date Sequence Insurance Name Policy Number Policy Sullivan Covered Member ID Sullivan Member ID Guarantor Name 06/08/2024 1 [facility] [id number] Christina Chavez [id number] Christina Chavez Notes Date Note Type Note [...] psych to eval Darwin Jesus MD [address], [address], [place], [address], [facility] [employer] 05/22/2024 12:53:57 05/25/2024 text/html Patient is an [...] with behaviors and htn [address] [address], [address], [place], [address], [email or web address] 05/27/2024 13:02:15 05/28/2024 text/html Patient is an [...] with behaviors and htn NICKO WOLF [address], [address], [place], [address], [email or web address] 05/28/2024 11:34:23 06/08/2024 text/html Patient is an [...] with behaviors and htn [facility]ICKO WOLF [address], [address], [place], [address], [email or web address] 06/08/2024 11:20:38 OBGyn Episode No OBEpisode recorded.
[2025-03-15 23:53] VITALS: BP 145/71; PULSE 85; RESP 22; TEMP 36.6; O2SAT 95
--- NOTE | 2025-03-16 03:51 | PC.NURSE ---
pt assisted to bedside commode, call [place] at the bedside.
[2025-03-16 07:40] VITALS: BP 101/51; PULSE 65; RESP 14; TEMP 36.7; O2SAT 95
--- NOTE | 2025-03-16 13:36 | MHC.CM.ED ---
Received case management consult overnight. Patient came to the ER due to diarrhea. Work up essentially negative. Physical therapy eval completed. Short term rehab is recommended. Attempted to meet with patient. Patient currently sleeping. Spoke with patient's step-son, Johny, via telephone at [phone]. Will report patient tends too refuse STR and will only agree to therapy at home. Someone will be on-iste at 330pm to transport patient home. Patient has [employer] for insurance. [facility] is not contracted with many agencies. Referral broadcasted to see who can accept patient. Patient, Meghan RN and Josey HERNANDEZ aware. Continue to monitor for d/c needs.
[2025-03-16 13:38] LABS: Resp Syncy Virus RNA Qual PCR NEGATIVE (Negative); SARS COV2 PCR INHOUSE NEGATIVE (Negative)
[2025-03-16 16:14] VITALS: BP 150/67; PULSE 62; RESP 14; TEMP 36.7; O2SAT 98
[2025-03-16 16:45] VITALS: BP 150/67; PULSE 62; RESP 14; TEMP 36.7; O2SAT 98
== END 2025-03-16 16:46 | disposition home or self-care (01) ==
PROVIDERS: Registered Nurse Emergency; Emergency Provider Student in an Organized Health Care Education/Training Program; PCP Internal Medicine
DX: K62.5 Hemorrhage of anus and rectum (principal); D64.9 Anemia, unspecified; K64.4 Residual hemorrhoidal skin tags; I10 Essential (primary) hypertension; F03.90 Unspecified dementia, unspecified severity, without behavioral disturbance, psychotic disturbance, mood disturbance, and anxiety; Z87.19 Personal history of other diseases of the digestive system; Z79.899 Other long term (current) drug therapy
CPT/HCPCS: 36415; 80053; 85025; 87637; 96360; 97162; 99284

== ENCOUNTER 2025-05-23 02:35 | Emergency (ER) | payer MEDICARE, SELFPAY ==
--- NOTE | ~2025-05-23 | XR_ITS ---
CLINICAL HISTORY: back pain 3 views lumbar spine Comparison: CT/SR - CT GI BLEED ABD PEL WO/W IVCON - 01/30/25 22:36 EDT Findings: Old compression fracture at L1. Advanced degenerative changes diffusely. Anterolisthesis of L5, grade 1. No definite acute fracture or acute malalignment IMPRESSION: Advanced chronic changes. No definite acute process This document has been electronically signed by: Jasen Arango MD on 05/23/2025 05:25:05
[2025-05-23 02:42] VITALS: BP 137/71; PULSE 63; RESP 16; TEMP 36.4; O2SAT 95; BMI 18.2
--- NOTE | 2025-05-23 04:10 | PC.NURSE ---
Will, son, leaving to go care for father. please call for discharge
--- OUTSIDE RECORDS SUMMARY | 2025-05-23 04:14 | XMS_ITS | Data Portability ---
Author Organization [facility] iCurrent [facility] (formerly [facility]), Main Office Address [address] [place] [address] Care Team Providers Care Decision Analyst Name Role Phone [facility] ZAFAR CARMONA Primary Care Provider Assessment [...] Details Recorded Time Dementia with behavioral disturbance [id number] Active 2023 Darwin Jesus MD [address] [facility] [facility], [facility] [[email or web address] [address], [place], [address], [employer] 4 12:36:51 Malignant hypertensio n 60794984 Active 2023 Darwin Jesus MD [address], [address], [place], [address], [employer] 4 12:36:57 Unsteady when walking 05161640 Active 2023 Darwin Jesus MD [address], [address], [place], [address], [facility] [employer] 4 12:37:03 Gastroesoph ageal reflux disease without esophagitis 207519473 Active 2023 Darwin Jesus MD [address], [address], [place], [address], [facility] 4 12:45:38 Primary insomnia 4853865 Active 2023 Darwin Jesus MD [address], [address], [place], [address], [facility] [employer] 4 12:46:51 Neurocognit stuart disorder 196714224 Active 2023 Darwin Jesus MD [address], [address], [place], [address], [facility] [employer] 4 12:50:31 Problem Notes None recorded. Medical Equipment None Reported. Allergies No known drug allergies Medications Not known to be on any medication Vitals Date Recorded Systolic And Diastolic Provider Name and Address Organization Details Last Updated DateTime 05/22/2024 122/70 mm[Hg] Darwin Jesus MD [address], [address], [place], [address], [employer] 05/22/2024 12:29:30 Social History Question Answer Notes LastModified by [employer] Details LastModified Time Tobacco Smoking Status Unknown If Ever Smoked Darwin Jesus MD [address], [address], [place], [address], [employer] 05/22/2024 12:32:06 Do You Have An Advance Directive? No [email or web address] Information not available 05/22/2024 What Is Your Code Status? Full Code [email or web address] Information not available 05/22/2024 Sex: Unknown Functional Status Question Answer Note LastModified by Organizat Cuffed and Wanted Details LastModified Time What is your level [...] Time influenza, unspecified formulation 04/20/2019 [facility]2024 14:16:57 influenza, unspecified formulation 02/29/2020 completed Kd jacome [facility] [employer] [facility] 05/20/2024 14:17:02 influenza, unspecified formulation 02/27/2021 completed Kd Burgess-Arshad null, [facility] 05/20/2024 14:17:06 influenza, unspecified formulation 03/12/2022 completed Kd Ronnys-Arshad null, [facility] 05/20/2024 14:17:10 influenza, unspecified formulation 03/20/2023 completed Kd Ronnys-Arshad null, [facility] 05/20/2024 14:17:16 SARS-COV-2 (COVID-19) vaccine, UNSPECIFIED 07/31/2020 completed Kd Ronnys-Arshad null, [facility] 05/20/2024 14:17:31 SARS-COV-2 (COVID-19) vaccine, UNSPECIFIED 08/21/2020 completed Kd Ronnys-Arshad null, [facility] 05/20/2024 14:17:36 SARS-COV-2 (COVID-19) vaccine, UNSPECIFIED 05/24/2021 completed Kd Aditya-Arshad null, [facility] 05/20/2024 14:17:41 SARS-COV-2 (COVID-19) vaccine, UNSPECIFIED 12/20/2021 completed Kd Aditya-Arshad null, [facility] 05/20/2024 14:17:47 SARS-COV-2 (COVID-19) vaccine, UNSPECIFIED 03/20/2023 completed Kd Adtiya-Arshad null, [facility] 05/20/2024 14:17:53 zoster, unspecified formulation 02/18/2013 completed Kd Ronnys-Arshad null, [facility] 05/20/2024 14:18:09 Past Encounters Encounter ID Performer Location Encounter Start Date Encounter Closed Date Diagnosis/Indication Diagnosis SNOMED-CT Code Diagnosis ICD10 Code Diagnosis IMO Codes Diagnosis Note [id number] Darwin Jesus MD [address] [address] 05/22/2024 12:26:55 05/25/2024 11:38:28 Dementia with behavioral disturbance [id number] 103 F01.B18 see HPIapparevelma carpio was living [...] not have this [facility] mg qhscitalop claudio 20 mg qdbupropio n 300 mg qdaricept 5 mg qdmonitor need to transition to LTC Recurrent urinary tract infection N30.20 complete course of ceftinmoni tor for recurrent disease Malignant hypertension 93333189 I10 coreg 25 mg bidmonitor bp and need to titrate Unsteady when walking 22 827920 R26.89 walker at baselinePT OT eval and treatmonit or fall risk Gastroesop hageal reflux disease without esophagitis 793413965 K21.9 omeprazole 20 mg qdmonitor for sx relief Primary insomnia 4313223 F51.01 trazodone 50 mg qhs prnmonitor utilizatio n Neurocogni tive disorder 099176677 F01.C2 see above [id number] [facility] [facility] [address] [address] [place] [address] 05/25/2024 11:41:07 05/27/2024 13:27:52 Dementia with behavioral disturbance [id number] 103 F01.B18 see HPIinpt drea-psych eval with severe cognitive impairment = axox3 on exam todayconti nue risperidon e 2 mg qhscontinu e citalopram 20 mg qdcontinue bupropion 300 mg qdcontinue aricept 5 mg qdmonitor for behaviorsw aiting on psych eval heremonito r need to transition to LTC Neurocogni tive disorder 712949105 F01.C2 see above Recurrent urinary tract infection N30.20 completed course of ceftinmoni tor for recurrent disease Malignant hypertension 47888528 I10 coreg 25 mg bidmonitor bp and need to titrate Unsteady when walking 22 039717 R26.89 walker at baselinePT OT eval and treatmonit or fall risk Gastroesop hageal reflux disease without esophagitis 060294720 K21.9 omeprazole 20 mg qdmonitor for sx relief Primary insomnia 1396427 F51.01 trazodone 50 mg qhs prnmonitor utilizatio n [id number] [address] [place] [address] 05/28/2024 11:08:22 05/29/2024 11:19:47 Dementia with behavioral disturbance 5978400136 103 F01.B18 see HPIinpt drea-psych eval with severe cognitive impairment = axox3 on exam todayconti nue zyprexa 5 mg qhscontinu e citalopram 20 mg qdcontinue bupropion 300 mg qdcontinue aricept 5 mg qdmonitor for behaviorsw aiting on psych eval heremonito r need to transition to LTC Cough 02737879 R05.9 night time cough, lungs are clear, afebrilest art tussin and cough drops prn for 14 daysmonito r for ss infection [id number] [address] [place] [address] 06/08/2024 11:15:49 06/09/2024 09:07:45 Dementia with behavioral disturbance [id number] 103 F01.B18 inpt drea-psych eval with severe cognitive impairment = axox3 on exam todayseen by psychologist industrial organizational here with no changes in med regimen suggestedc ontinue zyprexa 5 mg qhscontinu e citalopram 20 mg qdcontinue bupropion 300 mg qdcontinue aricept 5 mg qdmonitor for behaviorsp atient denies any SI/HIf/up with pcp Cough 98764150 R05.9 resolved Neurocogni tive disorder 044704071 F01.C2 see above Recurrent urinary tract infection 320148679 N30.20 completed course of ceftinmoni tor for recurrent disease outpatient f/up with pcp Malignant hypertension 75886310 I10 coreg 25 mg bidmonitor bp and need to titrate outpatient f/up with pcp Unsteady when walking 22 281258 R26.89 walker at baselineVN A services outpatient f/up with pcp Gastroesop hageal reflux disease without esophagitis 601243882 K21.9 omeprazole 20 mg qdmonitor for sx outpatient f/up with pcp Primary insomnia 7031143 F51.01 trazodone 50 mg qhs prnf/up with pcp Health Concerns Section Related Observation LastModified by Organization Detai ls LastModified Time None Recorded Concern Status LastModified by Organization Details LastModified Time None Recorded Advance Directives Directive N: Payers Insurance Date Sequence Insurance Name Policy Number Policy Sullivan Covered Member ID Sullivan Member ID Guarantor Name 06/08/2024 1 [facility] [id number] Christina Chavez [id number] Christina Chavez Notes Date Note Type Note [...] psych to eval Darwin Jesus MD [address], [address], [place], [address], [facility] [employer] 05/22/2024 12:53:57 05/25/2024 text/html Patient is an [...] with behaviors and htn [facility]ICK[facility] WOLF [address] [facility], [address], [place], [address], [employer] 05/27/2024 13:02:15 05/28/2024 text/html Patient is an [...] with behaviors and htn NICKO WOLF [address] [facility] [facility], [address], [place], [address], [employer] 05/28/2024 11:34:23 06/08/2024 text/html Patient is an [...] with behaviors and htn NICKO WOLF [address] [facility] [facility], [address], [place], [address], [employer] 06/08/2024 11:20:38 OBGyn Episode No OBEpisode recorded.
[2025-05-23 05:02] VITALS: BP 135/63; PULSE 70; RESP 16; O2SAT 97
--- NOTE | 2025-05-23 05:13 | ED.BACK ---
HPI - Back Pain/Injury General Chief Complaint: Back Pain/Injury Stated Complaint: Back Pain Time Seen by Provider: 05/23/25 05:12 Source: patient Mode of arrival: ambulatory Limitations: no limitations History of Present Illness ED Provider: Tobi RAHMAN HPI Narrative: The patient is an 84-year-old female presents to the Emergency Department for evaluation of low back pain that began approximately three weeks ago and has worsened over the past two nights. The patient's suffers from dementia, anemia, and previous history of GI bleeds. Patient's ability to provide a reliable HPI is questionable however the patient denies any antecedent fall or trauma. Patient reports her pain has improved while waiting in the ED, patient reports she currently has no pain. The patient reports she has not taken any medications for the pain, however patient's son was here during triage and reports they have attempted ice, heat, lidocaine patches, and Tylenol without relief. The majority of the HPI was obtained from patient's son during triage and via phone following this provider's examination. The patient's son reports patient has had severe difficulty sleeping secondary to pain over the past 2 nights, prompting ED evaluation this evening. The patient has been taking Tylenol, meloxicam, and lidocaine patches in addition to her nighttime medications of olanzapine and trazodone, without relief. The patient's son denies any recent fall or other blunt trauma. The patient's son reports pain will come and go intermittently, and he is hoping for additional interventions he can provide when the pain becomes more severe. The patient has an appointment with Orthopedics scheduled on 05/28. Per the patient's son, the patient has had no reported bowel/bladder incontinence, urinary retention, fever/chills, or complaints of paresthesias or lower extremity weakness. Related Data Home Medications ?Medication ?Instructions ?Recorded ?Confirmed carvedilol 25 mg tablet 25 mg PO DAILY 04/17/24 01/31/25 citalopram 20 mg tablet 20 mg PO DAILY 04/17/24 01/31/25 bupropion HCl 300 mg 24 hr tablet, 300 mg PO DAILY 04/20/24 01/31/25 extended release Cbd 1 PO DAILY PRN Pain (Scale Score 01/31/25 4-6) acetaminophen 325 mg tablet 650 mg PO Q4H PRN Pain (Scale 01/31/25 01/31/25 Score 1-3) donepezil 10 mg tablet 10 mg PO DAILY 01/31/25 01/31/25 meloxicam 15 mg tablet 15 mg PO DAILY 01/31/25 01/31/25 Previous Rx's ?Medication ?Instructions ?Recorded olanzapine 5 mg tablet 5 mg PO BEDTIME #30 tabs 04/15/24 trazodone 50 mg tablet 50 mg PO BEDTIME PRN Insomnia #30 04/15/24 tabs hydrocortisone 2.5 % topical cream 1 appl topical TID 5 days #20 grams 03/16/25 cyclobenzaprine 10 mg tablet 10 mg PO TID PRN muscle spasm #14 05/23/25 tabs Allergies Allergy/AdvReac Type Severity Reaction Status Date / Time No Known Allergies Allergy Mild NOT Verified 05/23/25 02:45 APPLICABLE Review of Systems Review of Systems: Yes all other systems are reviewed and are negative PMFSH Past Medical History Medical History GI bleed Dementia Hypertension Mood disorder Surgical History Hx of esophagogastroduodenoscopy H/O hernia repair Hx of breast reduction, elective Social History Social History Household Members: Spouse Housing: House Do you presently have visiting nurse or other home services: No Alcohol intake: former Patient Tobacco Use Status: Never used Tobacco Advance Directives: Yes Advance Directives on File: Yes Advance Directives Date on File: 04/16/24 Do you have a plan to hurt others: No Plan service: No Current occupational status: retired Sexual orientation: Straight/Heterosexual Physical Exam Vital Signs: Vital Signs: Last Vital Signs Temp 97.6 F 05/23/25 02:42 Pulse 70 05/23/25 05:02 Resp 16 05/23/25 05:02 BP 135/63 05/23/25 05:02 Pulse Ox 97 05/23/25 05:02 O2 Del Method Room Air 05/23/25 05:02 BMI result Body Mass Index 18.2 CONSTITUTIONAL: The patient appears non-toxic, well nourished and in no acute distress. Vital signs as documented. HEAD: Atraumatic, normocephalic. EYES: EOMs grossly intact, pupils equal, conjunctiva clear, no exudate. ENT: Nares patent, no discharge. Airway patent, no audible stridor, visible mucosa is pink and moist without noted lesions. NECK: trachea is midline, no obvious masses or gross abnormalities. CHEST: Symmetric movement, normal appearance. LUNGS: Non-labored work of breathing. CARDIAC: No evidence of hypoperfusion. ABDOMEN: Nondistended, no obvious injury. : Deferred. BACK: No midline spinous process tenderness, no crepitus, step-off or deformity. Bilateral straight leg raises are unremarkable, no pain. EXTREMITIES: Moves all extremities spontaneously without reported pain. No obvious injury or deformity noted. NEURO: Alert and oriented x3, CN II-XII appear grossly intact. Cerebellar Functioning grossly intact. Speech clear and appropriate. SKIN: Warm, dry, color appropriate. No rashes or lesions noted. Medical Decision Making Medical Decision Making MDM Narrative: 5:25 AM 05/23/2025 (Lukas RAHMAN): The patient is an 84-year-old female presents to the Emergency Department for evaluation of low back pain that began approximately three weeks ago and has worsened over the past two nights. The patient's suffers from dementia, anemia, and previous history of GI bleeds. Patient's ability to provide a reliable HPI is questionable however the patient denies any antecedent fall or trauma. Patient reports her pain has improved while waiting in the ED, patient reports she currently has no pain. The patient reports she has not taken any medications for the pain, however patient's son was here during triage and reports they have attempted ice, heat, lidocaine patches, and Tylenol without relief. The majority of the HPI was obtained from patient's son during triage and via phone following this provider's examination. The patient's son reports patient has had severe difficulty sleeping secondary to pain over the past 2 nights, prompting ED evaluation this evening. The patient has been taking Tylenol, meloxicam, and lidocaine patches in addition to her nighttime medications of olanzapine and trazodone, without relief. The patient's son denies any recent fall or other blunt trauma. The patient's son reports pain will come and go intermittently, and he is hoping for additional interventions he can provide when the pain becomes more severe. The patient has an appointment with Orthopedics scheduled on 05/28. Per the patient's son, the patient has had no reported bowel/bladder incontinence, urinary retention, fever/chills, or complaints of paresthesias or lower extremity weakness. On exam the patient has no point tenderness of the low back, straight leg raise is normal bilaterally, patient is able to rise from a lying to a seated position without evidence of discomfort and denies any acute somatic complaint. X-ray was obtained and shows a chronic appearing L1 compression fracture, no other acute findings. After discussion with the patient's son, we will discharge with Flexeril, and instruct patient to continue Tylenol, regularly prescribed medications, and follow up with Orthopedics on the . Admission/Observation Consideration of admission/observation: Escalation of care including admission/observation considered Radiology Impression Discussion of test interpretation with radiology: I have reviewed the radiologist's reading. Radiologist Impression: 3 views lumbar spine Comparison: CT/SR - CT GI BLEED ABD PEL WO/W IVCON - 01/30/25 22:36 EDT Findings: Old compression fracture at L1. Advanced degenerative changes diffusely. Anterolisthesis of L5, grade 1. No definite acute fracture or acute malalignment IMPRESSION: Advanced chronic changes. No definite acute process This document has been electronically signed by: Jasen Arango MD on 05/23/2025 05:25:05 External Record Review External record reviewed: Outpatient record and Prior outpatient labs Prescription Management I considered prescription management with: Pain Medication Discharge Plan Discharge Clinical Impression: Chronic low back pain Qualifiers: Back pain laterality: midline Sciatica presence: without sciatica Qualified Code(s): M54.50 - Low back pain, unspecified Patient Disposition: Home, Self-Care Instructions: Low Back Strain (ED), Chronic Back Pain (DC) Additional Instructions: Thank you for choosing [facility] Emergency Department for your care today. Thankfully your x-ray today shows only an old compression fracture of your L1 spine, there was no evidence of an acute new fracture. At this time there is no indication for emergent advanced imaging, admission to the hospital or continued ED observation, and it is safe to discharge you home. Your symptoms may have been related to your chronic compression fracture, however seeing as your symptoms have completely resolved while in the ED, there was no indication for additional pain management here in the emergency department. After discussion of the intermittent nature of your symptoms, we are discharging you with a muscle relaxer called Flexeril. You should take Tylenol 1000mg every 6 hours as needed for any additional pain. Please rest the injured area, and apply ice for 20 minutes every hour. As a part of your care plan, after discussion of the intermittent nature of your symptoms, we are discharging you with a muscle relaxer called Flexeril. Please take this medication only for severe pain or spasm that is not relieved by ibuprofen and/or Tylenol. Muscle relaxer medications can carry high risk of unintentional addiction and abuse. Take this medication only as directed and only if absolutely necessary. This medicine can make you drowsy, you are not allowed to drive, operate heavy machinery, or be the sole care provider for children while taking this medication. Please follow up with your orthopedic clinic appointment on the , and with your primary care physician, for re-evaluation, additional management of your symptoms, and continued preventative care. If you do not have a primary care physician, please call the [facility] at [phone] to establish a new primary care physician. While waiting to establish your new primary care physician, you can call our [facility]in [facility] at [phone] for non-emergency needs. Please return to the emergency department if you develop a severe or sudden change in your symptoms, a fever over 100.4 that does not improve with Tylenol or Ibuprofen, recurrent vomiting, or any other new or worsening symptoms or concerns. Prescriptions: New cyclobenzaprine 10 mg tablet 10 mg PO TID PRN (Reason: muscle spasm) Qty: 14 0RF No Action trazodone 50 mg Tablet 50 mg PO BEDTIME PRN (Reason: Insomnia) Qty: 30 0RF olanzapine 5 mg Tablet 5 mg PO BEDTIME Qty: 30 0RF carvedilol 25 mg tablet 25 mg PO DAILY citalopram 20 mg tablet 20 mg PO DAILY bupropion HCl 300 mg tablet extended release 24 hr 300 mg PO DAILY meloxicam 15 mg Tablet 15 mg PO DAILY donepezil 10 mg Tablet 10 mg PO DAILY acetaminophen 325 mg Tablet 650 mg PO Q4H PRN (Reason: Pain (Scale Score 1-3)) Cbd 1,500 mg 1 PO DAILY PRN (Reason: Pain (Scale Score 4-6)) hydrocortisone 2.5 % cream 1 appl topical TID 5 Days Qty: 20 0RF Referrals: Veena Meyer MD [Primary Care Provider, Internal Medicine] Clinical Impression: Chronic low back pain Print Language: Frisian
[2025-05-23 06:25] VITALS: BP 135/63; PULSE 70; RESP 16; TEMP 36.4; O2SAT 97
== END 2025-05-23 06:25 | disposition home or self-care (01) ==
PROVIDERS: Emergency Provider Emergency Medicine; PCP Internal Medicine
DX: M54.50 Low back pain, unspecified (principal); M48.56XA Collapsed vertebra, not elsewhere classified, lumbar region, initial encounter for fracture; F03.90 Unspecified dementia, unspecified severity, without behavioral disturbance, psychotic disturbance, mood disturbance, and anxiety; D64.9 Anemia, unspecified; Z79.899 Other long term (current) drug therapy; Z87.19 Personal history of other diseases of the digestive system
CPT/HCPCS: 72100; 99283

== ENCOUNTER → 2025-05-23 04:17 | Outpatient (BNV) | payer MEDICARE, SELFPAY | PROVIDERS: Emergency Provider Emergency Medicine; PCP Internal Medicine; Visit Provider Radiology Vascular & Interventional Radiology | DX: M54.50 Low back pain, unspecified (principal) | CPT/HCPCS: 72100 ==

== ENCOUNTER 2025-05-28 10:27 | Outpatient (AMB) | payer MEDICARE, SELFPAY ==
--- NOTE | 2025-05-28 10:36 | A.OFFVIS_ITS ---
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 Patient had a fall on 12/31/24 and was seen at [facility] [place] 11 days later with complaints of increased pain and instability. Today patient son reports severe chronic back pain. He states hip pain has gone away, however unsure if back and hip are related. States pain is located in her right side of back towards her spine and buttock area. Her pain increases with ambulation. Her son states anti-inflammatory had helped with her right hip pain. She has tried icing, heat, elevation, therapy exercises with no relief. Accompanied by: Son Allergies No Known Allergies Allergy (Mild, Verified 05/28/25 10:45) NOT APPLICABLE Medication List - Last Reconciled 05/28/25 by Manjinder Reardon PA-C acetaminophen 650 mg PO Q4H PRN bupropion HCl XL 300 mg PO DAILY carvedilol 25 mg PO DAILY [Cbd 1 PO DAILY PRN] citalopram 20 mg PO DAILY cyclobenzaprine 10 mg PO TID PRN donepezil 10 mg PO DAILY hydrocortisone 2.5% 1 appl topical TID 5 days meloxicam 15 mg PO DAILY 30 days olanzapine 5 mg PO BEDTIME trazodone 50 mg PO BEDTIME PRN HPI Comments Details: History of Present Illness The patient is an 84 year old female presenting for evaluation of right hip pain. She reports that the pain is not severe but occurs every time she walks, causing her to slow down from her previously fast pace. She localizes the pain to her back rather than her hip or groin. She denies difficulty getting in and out of a car but avoids using stairs and li ves on a single level. The patient was seen in the emergency department for back pain on 05/23, where she had X-rays of her spine significant for degenerative changes and old compression fx. Imaging of her hip from December is significant for Right hip OA. For treatment, she was recently prescribed Tylenol and cyclobenzaprine at the hospital. She was previously taking meloxicam, which she felt helped the pain. She has also received inconsistent home physical therapy services from the [place]. Her medical history is negative for kidney disease. She takes Trazodone 50 mg for sleep. Social History - Functional Status: The patient's walking speed has decreased due to pain. - Housing: She lives on one level and avoids stairs. - Family and Support: Her son assists with her care and appointments, which presents logistical challenges due to his other responsibilities. [facility] Medical History GI bleed Dementia Hypertension Mood disorder Surgical History Hx of esophagogastroduodenoscopy H/O hernia repair Hx of breast reduction, elective Social History Household Members: Spouse Housing: House Do you presently have visiting nurse or other home services: No Alcohol intake: former Patient Tobacco Use Status: Never used Tobacco Advance Directives Date on File: 04/16/24 service: No Current occupational status: retired Sexual orientation: Straight/Heterosexual Review of Systems Narrative Review of Systems - Musculoskeletal: Reports pain in her back when walking, which has slowed her g ait. - Denies pain in her hip or groin - Genitourinary: Denies any history of kidney disease. Physical Exam Exam Exam: Physical Exam - Musculoskeletal: Patient is able to cross her legs without demonstrating signs of pain, indicating good hip range of motion. Vital Signs: BMI result Body Mass Index 18.2 Assessment & Plan Assessment & Plan (1) Osteoarthritis of right hip: Code(s): M16.11 - Unilateral primary osteoarthritis, right hip Category: Medical Plan Plan 1. Low Back Pain The patient's primary complaint is low back pain, despite the visit being scheduled for her right hip. 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 A refill of meloxicam was prescribed for inflammation, with a warning about potential GI upset. A referral will be placed for outpatient physical therapy to focus on strength training, stability, and posture. A referral will also be made to a viner operator, Dr. Cardenas, for specialized, non-surgical spine management, which may include options like cortisone injections. Advised to consult her primary care physician regarding the continued use of cyclobenzaprine. 2. Arthritis Of Hip The patient has arthritis in the hip joint, confirmed on imaging. However, she is currently asymptomatic in the hip, denying groin pain and demonstrating good range of motion by crossing her legs without pain. No direct treatment for the hip is indicated at this time. Consent Patient was informed and verbally consented to the use of an ambient scribe for clinic note documentation during this visit. Orders: Orders PT Evaluation and Treatment Today M16.11 - Unilateral primary osteoarthritis, right hip Medications: Changed From meloxicam 15 mg PO DAILY To meloxicam 15 mg PO DAILY 30 tabs 0RF 30 days Coding Level of Care Code New Pt Level 3 (29333) Add On Problem Visit Only Diagnoses Osteoarthritis of right hip M16.11
[2025-05-28 10:46] VITALS: BMI 18.2
== END 2025-05-28 11:53 | disposition home or self-care (01) ==
LOC: HO.HOS 10:28
PROVIDERS: PCP Internal Medicine; Visit Provider Physician Assistant
DX: M16.11 Unilateral primary osteoarthritis, right hip (principal)
CPT/HCPCS: 99203; G2211

== ENCOUNTER → 2025-05-28 10:27 | Outpatient (BNVA) | payer MEDICARE, SELFPAY | PROVIDERS: PCP Internal Medicine; Visit Provider Physician Assistant | DX: M16.11 Unilateral primary osteoarthritis, right hip (principal); M47.817 Spondylosis without myelopathy or radiculopathy, lumbosacral region | CPT/HCPCS: 99202 ==